=== PATIENT | male | born 1935 | race Caucasian/White ===

== ENCOUNTER 2016-09-17 12:27 | Inpatient (IN) | payer BC, OTHER ==
[~2016-09-17] VITALS: Ht 182.9 cm; Wt 73.7 kg
[~2016-09-17 12:27] MED LIST: ACET-1487 PO; AMOX500T3 PO; ASPI81TA28 PO; ATOR-24 PO; BIOT1TAB5 PO; CALC0.009 TOP; CHOL100010 PO; DOCU100C31 PO; IPRA0.03 NAE; LATA0.009 OPB; LISI10TA PO; MINEOIL26 PO; MULT-506 PO; OMEP20CA9 PO; WARF10TA PO; WARF7.5T PO
[2016-09-17] MEDS ORDERED: SODIUM CHLORIDE 0.9% 1000ML 500 ML IV STA (12:43)
[2016-09-17] MEDS ORDERED: ONDANSETRON INJ 2 MG/ML 2 ML VIAL IV STA (12:43)
[2016-09-17] MEDS ORDERED: SODIUM CHLORIDE 0.9% 1000ML 1,000 ML IV STA (12:43)
[2016-09-17] MEDS ORDERED: MoRPHine SULFATE 4 MG/ML 1 ML CARP\\VIAL IV PRN (12:45)
[2016-09-17] MEDS ORDERED: SIMV40TA2 PO (12:48)
[2016-09-17] MEDS ORDERED: EPP3/2 IM (12:48)
[2016-09-17] MEDS ORDERED: LATA0.5S OP (12:48)
[2016-09-17] MEDS ORDERED: CHOL100010 PO (12:48)
[2016-09-17] MEDS ORDERED: CALC0.009 TD (12:48)
--- NOTE | 2016-09-17 12:57 | EMERGENCY ROOM VISIT NOTE ---
History Report prepared by Ced: Moon Cunningham Under the Supervision of: Dr. Valentin Coats M.D. First contact with patient: 12:37 Chief Complaint: VOMITING Stated Complaint: VOMITING Nursing Triage Summary: pt reports hx of bowel obstructions , last night after eating vomitted X 4 during the night, with extreme abdominal pain last BM 1 day History of Present Illness The patient is a 81 year old male who presents to the Emergency Room with complaints of persistent vomiting that started around 7 hours ago. He rates his discomfort as a 5/10 in severity. The patient states that after he ate dinner last night he started to experience a dull abdominal pain. He woke up from sleep early this morning and he was nauseous. Per the patient's , the patient has vomited 4 times since 0300 this morning. He states that the vomiting is "extremely forceful." The vomiting somewhat relieves his abdominal pain, but the pain always come back after a little bit of time. The patient's also states that the patient's emesis is a brown, foul-smelling liquid. The patient is also experiencing lightheadedness, but denies fevers, cough, recent colds, and diarrhea. The patient states that he experienced two bowel obstructions in the past, but it has been a while since he has experienced one. He states that his symptoms feel similar to his previous bowel obstructions. With prior bowel obstructions, the patient's symptoms were resolved with NG tubes and he has never had them surgically fixed. The patient is on Coumadin for a mechanical valve. Source of History: patient, spouse/significant other () Onset: 7 hours ago Symptom Intensity: 5/10 Quality: other (vomiting) Timing: other (persistent) Associated Symptoms: + abdominal pain (dull), + nausea, No cough, No diarrhea, No fevers Note: lightheadedness, brown, foul-smelling emesis, no recent colds Review of Systems See HPI for pertinent positives & negatives. A total of 10 systems reviewed and were otherwise negative. Past Medical & Surgical Medical Problems: (1) Anticoagulant therapy (2) Bleeding (3) Gastroesophageal reflux disease (4) Heart disease (5) open heart surgery (6) Prosthetic replacement of heart valve (7) right knee surgery (8) skin problems (9) Small bowel obstruction (10) Tonsillectomy (11) urinary problems Family History Heart disease Hypertension Social History Smoking Status: Former Smoker Alcohol Use: occasionally Drug Use: none Marital Status: Housing Status: lives with significant other Occupation Status: employed Current/Historical Medications Scheduled Acetaminophen (Tylenol Arthritis Ext Rel), 650 MG PO QPM Aspirin (Aspirin Ec), 81 MG PO DAILY Biotin (Biotin), 1,000 MCG PO DAILY Cholecalciferol (Vitamin D), 1,000 UNIT PO DAILY Docusate Sodium (Docusate Sodium), 100 MG PO QPM Epinephrine (Epipen), 0.3 MG IM UD Latanoprost (Xalatan 0.005% Oph Tonia), 1 DROPS OP HS Lisinopril (Prinivil), 5 MG PO DAILY Mineral Oil (Mineral Oil), 15 ML PO DAILY Multivitamin (Multivitamin), 1 TAB PO DAILY Omeprazole (Prilosec), 20 MG PO DAILY Simvastatin (Zocor), 40 MG PO QPM Scheduled PRN Amoxicillin (Amoxil), 2,000 MG PO UD PRN for Prior To Dental Procedure Calcipotriene (Dovonex), 1 APPLN TD DAILY PRN for DRY SKIN Ipratropium [place] (Nasal) (Ipratropium [place]), 1 SPRAY [place] DAILY PRN for Sinusitis Miscellaneous Medications Warfarin Sodium (Coumadin), Unknown Dose PO Allergies Coded Allergies: BEE STING (Verified Allergy, Severe, ANAPHYLACTIC REACTION, 09/17/16) PT WENT THROUGH DESENSITIZATION PROCESS Celecoxib (Verified Allergy, Intermediate, HIVES, 09/17/16) Chlorhexidine (Verified Allergy, Intermediate, ITCHING WITH CHLORHEXIDINE SCRUB, 09/17/16) Sulfa Drugs (Verified Allergy, Intermediate, CELEBREX=RASH, 09/17/16) Physical Exam Vital Signs Date Time Temp Pulse Resp B/P Pulse Ox O2 Delivery O2 Flow Rate FiO2 09/17/16 12:34 36.6 97 18 138/100 98 Room Air Physical Exam GENERAL: Patient is in no acute distress. HEENT: No acute trauma, normocephalic atraumatic, mucous membranes moist, no nasal congestion, no scleral icterus. NECK: No stridor, no adenopathy, no meningismus, trachea is midline. LUNGS: Clear to auscultation bilaterally, no wheeze, no rhonchi, breath sounds equal. HEART: Metallic click heard, rhythm slightly irregular at times, no murmurs. ABDOMEN: Soft, nontender, slightly distended, bowel sounds positive, no hernias , no peritonitis. EXTREMITIES: No cyanosis or edema, full range of motion of all the joints without pain or difficulty, no signs for acute trauma. NEUROLOGIC: Oriented x 3, no acute motor or sensory deficits, no focal weakness. SKIN: No rash, no jaundice, no diaphoresis. Medical Decision & Procedures ER Provider Diagnostic Interpretation: CT results as stated below per my review and radiologist interpretation: CT ABD/PELVIS IV CONTRAST ONLY IMPRESSION: 1. High-grade small bowel obstruction. Minimal free fluid. No evidence of pneumatosis. No evidence of portal venous gas. 2. No pathologic masses identified. 3. Etiology of the small bowel obstruction is likely secondary to an adhesion or internal hernia. Electronically signed by: Hudson Patrick M.D. 09/17/2016 2:11 PM Dictated Date/Time: 09/17/2016 2:04 PM Laboratory Results 09/17/16 13:06 Red Blood Count 5.08, Mean Corpuscular Volume 93.5, Mean Corpuscular Hemoglobin 32.1, Mean Corpuscular Hemoglobin Concent 34.3, Mean Platelet Volume 10.7, Neutrophils (%) (Auto) 85.2, Lymphocytes (%) (Auto) 8.8, Monocytes (%) (Auto) 4.0, Eosinophils (%) (Auto) 1.5, Basophils (%) (Auto) 0.2, Neutrophils # (Auto) 12.01, Lymphocytes # (Auto) 1.24, Monocytes # (Auto) 0.57, Eosinophils # (Auto) 0.21, Basophils # (Auto) 0.03 09/17/16 13:06 Test 09/17/16 12:55 09/17/16 13:06 Urine Color DK YELLOW Urine Appearance CLEAR (CLEAR) Urine pH >= 9.0 (4.5-7.5) Urine Specific [place] 1.023 (1.000-1.030) Urine Protein NEG (NEG) Urine Glucose (UA) NEG (NEG) Urine Ketones 1+ (NEG) Urine Occult Blood NEG (NEG) Urine Nitrite NEG (NEG) Urine Bilirubin NEG (NEG) Urine Urobilinogen NEG (NEG) Urine Leukocyte Esterase TRACE (NEG) Urine WBC (Auto) 1-5 /hpf (0-5) Urine RBC (Auto) 5-10 /hpf (0-4) Urine Hyaline Casts (Auto) 1-5 /lpf (0-5) Urine Epithelial Cells (Auto) 5-10 /lpf (0-5) Urine Bacteria (Auto) NEG (NEG) White Blood Count 14.10 K/uL (4.8-10.8) Red Blood Count 5.08 M/uL (4.7-6.1) Hemoglobin 16.3 g/dL (14.0-18.0) Hematocrit 47.5 % (42-52) Mean Corpuscular Volume 93.5 fL (80-100) Mean Corpuscular Hemoglobin 32.1 pg (25-34) Mean Corpuscular Hemoglobin Concent 34.3 g/dl (32-36) Platelet Count 266 K/uL (130-400) Mean Platelet Volume 10.7 fL (7.4-10.4) Neutrophils (%) (Auto) 85.2 % Lymphocytes (%) (Auto) 8.8 % Monocytes (%) (Auto) 4.0 % Eosinophils (%) (Auto) 1.5 % Basophils (%) (Auto) 0.2 % Neutrophils # (Auto) 12.01 K/uL (1.4-6.5) Lymphocytes # (Auto) 1.24 K/uL (1.2-3.4) Monocytes # (Auto) 0.57 K/uL (0.11-0.59) Eosinophils # (Auto) 0.21 K/uL (0-0.5) Basophils # (Auto) 0.03 K/uL (0-0.2) RDW Standard Deviation 46.6 fL (36.4-46.3) RDW Coefficient of Variation 13.6 % (11.5-14.5) Immature Granulocyte % (Auto) 0.3 % Immature Granulocyte # (Auto) 0.04 K/uL (0.00-0.02) Prothrombin Time 30.2 SECONDS (9.0-12.0) Prothromb Time International Ratio 2.7 (0.9-1.1) Activated Partial Thromboplast Time 38.8 SECONDS (21.0-31.0) Partial Thromboplastin Ratio 1.5 Anion Gap 9.0 mmol/L (3-11) Est Creatinine Clear Calc Drug Dose 54.9 ml/min Estimated GFR () 72.6 Estimated GFR (Non- 62.6 BUN/Creatinine Ratio 17.1 (10-20) Calcium Level 9.6 mg/dl (8.5-10.1) Total Bilirubin 1.5 mg/dl (0.2-1) Aspartate Amino Transf (AST/SGOT) 43 U/L (15-37) Alanine Aminotransferase (ALT/SGPT) 34 U/L (12-78) Alkaline Phosphatase 78 U/L (45-117) Total Protein 8.7 gm/dl (6.4-8.2) Albumin 4.7 gm/dl (3.4-5.0) Globulin 4.0 gm/dl (2.5-4.0) Albumin/Globulin Ratio 1.2 (0.9-2) Lipase 164 U/L (73-393) Laboratory results reviewed by me. Medications Administered Medications (Trade) Dose Ordered Sig/Yanique Route Start Time Stop Time Status Last Admin Dose Admin Sodium Chloride (Nss 1000ml) 500 ml @ 999 mls/hr Q31M STAT IV 09/17/16 12:43 09/17/16 13:13 DC 09/17/16 13:06 999 MLS/HR Ondansetron HCl (Zofran Inj) 4 mg NOW STAT IV 09/17/16 12:43 09/17/16 12:46 DC 09/17/16 13:07 4 MG Morphine Sulfate (MoRPHine SULFATE INJ) 4 mg Q30M PRN IV 09/17/16 12:45 10/01/16 12:44 09/17/16 13:07 4 MG ED Course 1238: The patient was evaluated in room B4. A complete history and physical exam was performed. 1243: Ordered Sodium Chloride 1000 ml @ 200 mls/hr IV, Zofran 4 mg IV, Sodium Chloride 500 ml @ 999 mls/hr IV 1245: Ordered Morphine Sulfate 4 mg IV 1418: Upon reexamination the patient is resting comfortably. I informed him that we are going to put a NG tube in and he was in agreement. I discussed results and treatment plan with the patient. He verbalizes agreement and understanding. The patient will be evaluated for further management. 1420: Discussed the patient's case with Dr. Boss - General Surgery. He will see the patient in consult, but wants the hospitalist to admit him. 1435: Discussed the patient's case with Dr. Keiko MAYORGA. The patient will be evaluated for further management. Medical Decision Differential diagnoses considered include small bowel obstruction, viral illness , dehydration, bowel perforation, anemia, generalized infection, electrolyte imbalance. The patient has a mild leukocytosis of 14,000, this could be consistent with infection or his vomiting. No anemia. No significant electrolyte abnormality or kidney failure. No pancreatitis. There was a mild elevation to a few of the liver enzymes. Urinalysis does not show infection. INR is elevated consistent with his Coumadin use. Abdominal and pelvis CT was done, a bowel obstruction was noted, no free air, no signs of abscess. Patient received IV saline, IV morphine and IV Zofran, because of the findings on CT, an NG tube was placed. I did speak with the on-call surgeon, he will see the patient in consult, he requested the patient stay in the hospital under the hospitalist's service. The binder caser has been involved, I spoke at length with the patient. The on- call hospitalist was consulted. Consults Time Called: 1417 Consulting Physician: Dr. Boss Returned Call: 1420 Discussed the patient's case with Dr. Boss - General Surgery. He will see the patient in consult, but wants the hospitalist to admit him. Additional Consults: Time Called: 1422 Consulted Physician: Dr. Keiko MAYORGA Returned Call: 1436 Additional Comments: Discussed the patient's case with Dr. Keiko MAYORGA. The patient will be evaluated for further management. Impression Primary Impression: Small bowel obstruction Scribe Attestation The scribe's documentation has been prepared under my direction and personally reviewed by me in its entirety. I confirm that the note above accurately reflects all work, treatment, procedures, and medical decision making performed by me. Departure Information Dispostion Being Evaluated By Hospitalist Referrals Juan Diego Dias M.D. (PCP) Patient Instructions My [facility]
[2016-09-17] MEDS ORDERED: OPTIRAY 320 IV PRN (13:00)
[2016-09-17 13:07] LABS: URINE APPEARANCE CLEAR (CLEAR); URINE BILIRUBIN NEG (NEG); URINE COLOR DK YELLOW; URINE NITRITE NEG (NEG); URINE PH >= 9.0 (4.5-7.5); URINE SPECIFIC GRAVITY 1.023 (1.000-1.030); UROBILINOGEN NEG (NEG); ZZUR CULT IF INDIC CLEAN CATCH NO
[2016-09-17 13:11] LABS: MANUAL MICROSCOPIC REQUIRED? NO; REVIEW REQ? NO; SULFASALICYLIC ACID NEG (NEG)
[2016-09-17 13:16] LABS: BASO % 0.2 %; BASO ABS # 0.03 K/uL (0-0.2); COMPLETE YES; EOS % 1.5 %; HEMATOCRIT 47.5 % (42-52); IG% 0.3 %; LYMPH % 8.8 %; LYMPH ABS # 1.24 K/uL (1.2-3.4); MEAN CELL VOLUME 93.5 fL (80-100); MEAN CORPUSCULAR HEMOGLOBIN 32.1 pg (25-34); MEAN CORPUSCULAR HGB CONC 34.3 g/dl (32-36); MEAN PLATELET VOLUME 10.7 fL (7.4-10.4); NEUT % 85.2 %; PLATELET COUNT 266 K/uL (130-400); RED BLOOD COUNT 5.08 M/uL (4.7-6.1)
[2016-09-17 13:29] LABS: INR 2.7 (0.9-1.1); PARTIAL THROMBOPLASTIN RATIO 1.5; PROTHROMBIN TIME (PATIENT) 30.2 SECONDS (9.0-12.0)
[2016-09-17 13:30] LABS: BUN/CREATININE RATIO 17.1 (10-20); CALCIUM 9.6 mg/dl (8.5-10.1); CREATININE 1.1 mg/dl (0.60-1.40); POTASSIUM 4.4 mmol/L (3.5-5.1)
[2016-09-17 13:33] LABS: ALB/GLOB RATIO 1.2 (0.9-2)
--- NOTE | 2016-09-17 14:13 | DIAGNOSTIC IMAGING REPORT ---
CT ABD/PELVIS IV CONTRAST ONLY CLINICAL HISTORY: Lower abdominal pain, vomiting. COMPARISON STUDY: None. TECHNIQUE: Following the IV administration of 119 mL of Optiray-320, CT scan of the abdomen and pelvis was performed from the lung bases to the proximal femurs. Images are reviewed in the axial, sagittal, and coronal planes. IV contrast was administered without complication. CT DOSE: 644.62 mGy.cm FINDINGS: Lower chest: There are coronary artery calcifications. There is bibasal atelectasis. There are right middle lobe airspace opacities, possibly representing a pneumonitis. Liver: The contrast-enhanced liver is normal in size, contour, and attenuation. There is no intrahepatic biliary ductal dilatation. The hepatic veins and portal veins are patent. Gallbladder: Unremarkable. Spleen: Normal in size and attenuation. Pancreas: Unremarkable. Adrenal glands: Unremarkable. Kidneys: There is a 15 mm right renal cyst Bowel: There are dilated proximal and mid small bowel loops. Distal small bowel is of normal caliber. The findings are consistent with a high-grade small bowel obstruction. There is tethering of small bowel loops within the central abdomen. The findings are likely secondary to an adhesion or internal hernia. Peritoneum: There is trace free fluid. Vasculature: The abdominal aorta is normal in course and caliber. Adenopathy: None. Pelvic viscera: The bladder, and pelvic viscera are unremarkable. Skeletal structures: No destructive osseous lesions are seen. IMPRESSION: 1. High-grade small bowel obstruction. Minimal free fluid. No evidence of pneumatosis. No evidence of portal venous gas. 2. No pathologic masses identified. 3. Etiology of the small bowel obstruction is likely secondary to an adhesion or internal hernia. Electronically signed by: Hudson Patrick M.D. 09/17/2016 2:11 PM Dictated Date/Time: 09/17/2016 2:04 PM
[2016-09-17] MEDS ORDERED: MoRPHine SULFATE 2 MG/ML CARP IV PRN (15:00)
[2016-09-17] MEDS ORDERED: ONDANSETRON INJ 2 MG/ML 2 ML VIAL IV PRN (15:00)
[2016-09-17] MEDS ORDERED: DiphenhydrAMINE HCL 50 MG/ML VIAL IV PRN (15:00)
[2016-09-17] MEDS ORDERED: PROMETHAZINE HCL INJ 12.5 MG in SODIUM CHLORIDE 0.9% 50ML 50 ML IV PRN (15:00)
[2016-09-17] MEDS ORDERED: LORAZEPAM 2 MG/ML 1 ML VIAL IV PRN (15:00)
[2016-09-17] MEDS ORDERED: BISACODYL 10 MG SUPP PR PRN (15:00)
[2016-09-17] MEDS ORDERED: PROMETHAZINE HCL INJ 25 MG in SODIUM CHLORIDE 0.9% 50ML 50 ML IV PRN (15:00)
[2016-09-17] MEDS ORDERED: WARF10TA PO (15:09)
[2016-09-17] MEDS ORDERED: PIPERACILL/TAZOBAC CONSULT ACTIVE PRN (15:15)
[2016-09-17] MEDS ORDERED: PIPERACILL/TAZOBAC IV 3.375 GM in DEXTROSE 5% 100ML IV ONE (15:30)
[2016-09-17] MEDS ORDERED: LORAZEPAM INJ 0.5 MG in SYRINGE 0.75 ML IV PRN (15:30)
--- NOTE | 2016-09-17 15:38 | SURGICAL CONSULTATION ---
DATE OF ADMISSION: 09/17/2016 REASON FOR CONSULT: Bowel obstruction. HISTORY OF PRESENT ILLNESS: The patient is an 81-year-old male who has had recurrent bowel obstructions with no prior abdominal surgery, presenting to the Emergency Room with abdominal pain, nausea and vomiting over the past 12-18 hours. He did have a CAT scan which showed dilated small bowel with no other abscess, free air or thickening. Interestingly, the patient had a similar episode twice before with the last in 2012, admitted with almost an identical CAT scan, which resolved 2-3 days with NG decompression. He does have an aortic valve which is mechanical and is on Coumadin and fully anticoagulated at the present time either. OTHER PAST HISTORY: The aortic valve, CABG, gastroesophageal reflux disease, hypertension, hypercholesterolemia, coronary artery disease. ALLERGIES: CHLORHEXIDINE AND SULFA. MEDICATIONS: Aspirin, Coumadin, Zocor, and Prilosec. REVIEW OF SYSTEMS: Please see HPI for positives and total of 10 other systems reviewed and were negative. SOCIAL AND FAMILY HISTORY: Unremarkable and noncontributory. PHYSICAL EXAMINATION: GENERAL: He is awake and alert. He is in his ER bed. He has an NG tube in place. He is very responsive. HEENT: Sclerae nonicteric. No rashes. NECK: Supple. LUNGS: Clear. HEART: Regular rate and rhythm. ABDOMEN: Mildly distended. He does have some bowel sounds. Minimal tenderness. EXTREMITIES: Without edema. He is alert. IMAGING AND LABORATORY DATA: I did review the CAT scan. His white blood cell count was 14,000. ASSESSMENT AND PLAN: An 81-year-old male with what appears to be at least a partial small bowel obstruction, now with the NG tube. We will continue with nonoperative management as long as the patient does not worsen. He has no evidence of severe pain to palpation or peritoneal irritation. We will follow closely.
--- NOTE | 2016-09-17 15:47 | History and Physical ---
History & Physical Date & Time of Service: Sep 17, 2016 at 15:32 Chief Complaint: Vomiting Primary Care Physician: Juan Diego Dias M.D. History of Present Illness Source: patient, spouse The patient is an 81-year-old male who presents emergency department with complaint of vomiting that began yesterday, refill resolved overnight, and when he awoke this morning about 7 hours prior to arrival, had progressed and the projectile vomiting. These symptoms were similar to 2 previous episodes of small bowel obstructions which resolved spontaneously in the hospital after 3-5 days. He presented to the emergency department for assessment, had CT suggestive of high-grade small bowel obstruction, had an NG tube placed to low intermittent suction, and then was referred for evaluation for admission. He has not had any recent travels, nor had any known sick exposures, has not had any change in dietary intake. He does have an occasional beer, and admits to a less than ideal fluid intake otherwise. 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 (7) right knee surgery Status: Resolved (8) skin problems Status: Chronic (9) Small bowel obstruction Status: Resolved (10) Tonsillectomy Status: Resolved (11) urinary problems Status: Chronic Family History Heart disease Hypertension Social History Smoking Status: Former Smoker Smokeless Tobacco Use: No Alcohol Use: none Drug Use: none Marital Status: Housing status: lives with family Occupational Status: employed Immunizations History of Influenza Vaccine: Yes Influenza Vaccine Date: May 20, 2012 History of Tetanus Vaccine?: Yes Tetanus Immunization Date: Nov 17, 2002 History of Pneumococcal: Yes Pneumococcal Date: Nov 18, 2007 History of Hepatitis B Vaccine: No Multi-Drug Resistant Organisms History of MDRO: No Allergies Coded Allergies: BEE STING (Verified Allergy, Severe, ANAPHYLACTIC REACTION, 09/17/16) PT WENT THROUGH DESENSITIZATION PROCESS Celecoxib (Verified Allergy, Intermediate, HIVES, 09/17/16) Chlorhexidine (Verified Allergy, Intermediate, ITCHING WITH CHLORHEXIDINE SCRUB, 09/17/16) Sulfa Drugs (Verified Allergy, Intermediate, CELEBREX=RASH, 09/17/16) Home Medications Scheduled Acetaminophen (Tylenol Arthritis Ext Rel), 650 MG PO QPM Aspirin (Aspirin Ec), 81 MG PO DAILY Biotin (Biotin), 1,000 MCG PO DAILY Cholecalciferol (Vitamin D), 1,000 UNIT PO DAILY Docusate Sodium (Docusate Sodium), 100 MG PO QPM Epinephrine (Epipen), 0.3 MG IM UD Latanoprost (Xalatan 0.005% Oph Tonia), 1 DROPS OP HS Lisinopril (Prinivil), 5 MG PO DAILY Mineral Oil (Mineral Oil), 15 ML PO DAILY Multivitamin (Multivitamin), 1 TAB PO DAILY Omeprazole (Prilosec), 20 MG PO DAILY Simvastatin (Zocor), 40 MG PO QPM Warfarin Sodium (Coumadin), 7.5 MG PO 5XWK Warfarin Sodium (Coumadin), 10 MG PO 2XWK Scheduled PRN Amoxicillin (Amoxil), 2,000 MG PO UD PRN for Prior To Dental Procedure Calcipotriene (Dovonex), 1 APPLN TD DAILY PRN for DRY SKIN Ipratropium [place] (Nasal) (Ipratropium [place]), 1 SPRAY [place] DAILY PRN for Sinusitis Review of Systems The patient denies chest pain, palpitations, shortness of breath, cough, lower extremity swelling, vision change, hearing change, sore throat, fevers, chills, sweats, weight change, blood in urine or stool, dysuria, urinary frequency or urgency, lightheadedness, dizziness, headache, memory loss, rash, abnormal bruising or bleeding, imbalance, focal or generalized weakness, numbness or tingling in arms or legs, arthralgias or myalgias, back or neck pain, night sweats, or allergy symptoms. The review of systems is otherwise negative other than for that already noted above, and at least 10 systems have been reviewed. Physical Exam Vital Signs Date Time Temp Pulse Resp B/P Pulse Ox O2 Delivery O2 Flow Rate FiO2 09/17/16 14:40 84 18 145/79 95 Room Air 09/17/16 12:34 36.6 97 18 138/100 98 Room Air The patient is awake, well-developed and adequately nourished, alert and oriented 3, NG tube in place, lying in bed and in no acute distress. HEENT--PERRL, EOMI, mucous membranes and oropharynx dry. Neck--supple, no JVD or bruits, thyroid normal, trachea midline, no adenopathy. Heart--normal S1 and S2, no extra beats, no murmurs, rubs or gallops. Lungs--clear bilaterally with good air movement, no respiratory distress, no accessory muscle use. Abdomen--decreased bowel sounds and soft, nontender, mildly distended, no hernias or masses, no organomegaly. Extremities--no cyanosis, clubbing or edema. There are good distal pulses b/l. Dermatologic--normal skin turgor, normal color, warm and dry, no abnormal lymph nodes, no rash. Neurologic--cranial nerves II through XII grossly intact, motor and sensory examination normal. Rheumatologic--normal range of motion, nontender, muscles and joints. Psychiatric--normal affect. Diagnostics Laboratory Results Results Past 24 Hours Test 09/17/16 12:55 09/17/16 13:06 Range/Units Urine Color DK YELLOW Urine Appearance CLEAR CLEAR Urine pH >= 9.0 4.5-7.5 Urine Specific [place] 1.023 1.000-1.030 Urine Protein NEG NEG Urine Glucose (UA) NEG NEG Urine Ketones 1+ NEG Urine Occult Blood NEG NEG Urine Nitrite NEG NEG Urine Bilirubin NEG NEG Urine Urobilinogen NEG NEG Urine Leukocyte Esterase TRACE NEG Urine WBC (Auto) 1-5 0-5 /hpf Urine RBC (Auto) 5-10 0-4 /hpf Urine Hyaline Casts (Auto) 1-5 0-5 /lpf Urine Epithelial Cells (Auto) 5-10 0-5 /lpf Urine Bacteria (Auto) NEG NEG White Blood Count 14.10 4.8-10.8 K/uL Red Blood Count 5.08 4.7-6.1 M/uL Hemoglobin 16.3 14.0-18.0 g/dL Hematocrit 47.5 42-52 % Mean Corpuscular Volume 93.5 80-100 fL Mean Corpuscular Hemoglobin 32.1 25-34 pg Mean Corpuscular Hemoglobin Concent 34.3 32-36 g/dl Platelet Count 266 130-400 K/uL Mean Platelet Volume 10.7 7.4-10.4 fL Neutrophils (%) (Auto) 85.2 % Lymphocytes (%) (Auto) 8.8 % Monocytes (%) (Auto) 4.0 % Eosinophils (%) (Auto) 1.5 % Basophils (%) (Auto) 0.2 % Neutrophils # (Auto) 12.01 1.4-6.5 K/uL Lymphocytes # (Auto) 1.24 1.2-3.4 K/uL Monocytes # (Auto) 0.57 0.11-0.59 K/uL Eosinophils # (Auto) 0.21 0-0.5 K/uL Basophils # (Auto) 0.03 0-0.2 K/uL RDW Standard Deviation 46.6 36.4-46.3 fL RDW Coefficient of Variation 13.6 11.5-14.5 % Immature Granulocyte % (Auto) 0.3 % Immature Granulocyte # (Auto) 0.04 0.00-0.02 K/uL Prothrombin Time 30.2 9.0-12.0 SECONDS Prothromb Time International Ratio 2.7 0.9-1.1 Activated Partial Thromboplast Time 38.8 21.0-31.0 SECONDS Partial Thromboplastin Ratio 1.5 Sodium Level 140 136-145 mmol/L Potassium Level 4.4 3.5-5.1 mmol/L Chloride Level 99 98-107 mmol/L Carbon Dioxide Level 32 21-32 mmol/L Anion Gap 9.0 3-11 mmol/L Blood Urea Nitrogen 19 7-18 mg/dl Creatinine 1.10 0.60-1.40 mg/dl Est Creatinine Clear Calc Drug Dose 54.9 ml/min Estimated GFR () 72.6 Estimated GFR (Non- 62.6 BUN/Creatinine Ratio 17.1 10-20 Random Glucose 117 70-99 mg/dl Calcium Level 9.6 8.5-10.1 mg/dl Total Bilirubin 1.5 0.2-1 mg/dl Aspartate Amino Transf (AST/SGOT) 43 15-37 U/L Alanine Aminotransferase (ALT/SGPT) 34 12-78 U/L Alkaline Phosphatase 78 45-117 U/L Total Protein 8.7 6.4-8.2 gm/dl Albumin 4.7 3.4-5.0 gm/dl Globulin 4.0 2.5-4.0 gm/dl Albumin/Globulin Ratio 1.2 0.9-2 Lipase 164 73-393 U/L Diagnostic Radiology Patient Name: KENISHA SMALL Unit Number: [id number] Dictated: 09/17/161403 Transcribed: 09/17/161403 ARG Printed Date/Time: [~ rep prt dt]/[~ rep prt tm] [~ rep ct labl] - [~ rep ct ivnm] [facility] [place] [address] Dictated: 09/17/161403 Transcribed: 09/17/161403 ARG Printed Date/Time: [~ rep prt dt]/[~ rep prt tm] [~ rep ct labl] - [~ rep ct ivnm] CT ABD/PELVIS IV CONTRAST ONLY CLINICAL HISTORY: Lower abdominal pain, vomiting. COMPARISON STUDY: None. TECHNIQUE: Following the IV administration of 119 mL of Optiray-320, CT scan of the abdomen and pelvis was performed from the lung bases to the proximal femurs. Images are reviewed in the axial, sagittal, and coronal planes. IV contrast was administered without complication. CT DOSE: 644.62 mGy.cm FINDINGS: Lower chest: There are coronary artery calcifications. There is bibasal atelectasis. There are right middle lobe airspace opacities, possibly representing a pneumonitis. Liver: The contrast-enhanced liver is normal in size, contour, and attenuation. There is no intrahepatic biliary ductal dilatation. The hepatic veins and portal veins are patent. Gallbladder: Unremarkable. Spleen: Normal in size and attenuation. Pancreas: Unremarkable. Adrenal glands: Unremarkable. Kidneys: There is a 15 mm right renal cyst Bowel: There are dilated proximal and mid small bowel loops. Distal small bowel is of normal caliber. The findings are consistent with a high-grade small bowel obstruction. There is tethering of small bowel loops within the central abdomen. The findings are likely secondary to an adhesion or internal hernia. Peritoneum: There is trace free fluid. Vasculature: The abdominal aorta is normal in course and caliber. Adenopathy: None. Pelvic viscera: The bladder, and pelvic viscera are unremarkable. Skeletal structures: No destructive osseous lesions are seen. IMPRESSION: 1. High-grade small bowel obstruction. Minimal free fluid. No evidence of pneumatosis. No evidence of portal venous gas. 2. No pathologic masses identified. 3. Etiology of the small bowel obstruction is likely secondary to an adhesion or internal hernia. Electronically signed by: Hudson Patrick M.D. 09/17/2016 2:11 PM Dictated Date/Time: 09/17/2016 2:04 PM The status of this report is Signed. Draft = Not yet reviewed or approved by Radiologist. Signed = Reviewed and approved by Radiologist. <AttendingPhy></AttendingPhy> <FamilyPhy>Juan Diego Dias M.D.</FamilyPhy> < PrimaryPhy>Juan Diego Dias M.D.</PrimaryPhy> <UnitNumber>[id number]</ UnitNumber> <VisitNumber>[id number]</VisitNumber> <PatientName>KENISHA SMALL< /PatientName> <DateOfBirth>1935</DateOfBirth> <Location>C.EDB</Location> < ServiceDate>09/17/16</ServiceDate> <MNE>ESINDI</MNE> <OrderingPhy>Valentin Coats M.D.</OrderingPhy> <OrderingPhyMNE>f rep ord dr belcher</OrderingPhyMNE> < DictatingPhyMNE>f rep dict dr belcher</DictatingPhyMNE> <CCListMNE>f rep ct ye</ CCListMNE> <AdmittingPhyMNE>f pt admit dr belcher</AdmittingPhyMNE> <AttendingPhyMNE >f pt attend dr belcher</AttendingPhyMNE> <ConsultingPhyMNE>f pt consult dr belcher</ConsultingPhyMNE> <FamilyPhyMNE>f pt fam dr belcher</FamilyPhyMNE> <OtherPhyMNE>f pt other dr belcher</OtherPhyMNE> < PrimaryPhyMNE>f pt prim care dr belcher</PrimaryPhyMNE> <ReferringPhyMNE>f pt referring dr belcher</ReferringPhyMNE> EKG EKG is ordered and pending. Impression Assessment and Plan High-grade small bowel obstruction likely secondary to adhesions or internal hernia--the patient has had 2 previous episodes that have resolved spontaneously in 3-5 days. He'll be admitted to the medical surgical floor, with NG tube to low intermittent suction, nothing by mouth status, normal saline with potassium chloride 20 mEq at 100 mils per hour, pantoprazole 40 mg IV daily, Zofran 4 mg IV every 6 hours when necessary with repeat in 30 minutes as needed, and Zosyn 3.375 mg IV every 8 hours. We'll follow serial imaging studies and labs. Consult surgery Dr. Ignacio Boss. CAD/Prosthetic heart valve replacement/chronic anticoagulation with warfarin-- his present INR is therapeutic at 2.7. His warfarin will be held, and the patient will be started on a heparin drip per protocol, so that it may be stopped quickly if the patient were to require surgery. We'll follow serial INR. We will hold aspirin 81 mg by mouth daily, and lisinopril 5 mg by mouth daily. Hypercholesterolemia--hold simvastatin 40 mg by mouth every afternoon. GERD--change omeprazole 20 mg by mouth daily to 40 mg IV daily as noted above. Glaucoma--continue Xalatan 0.005% ophthalmic solution, 1 drop OPB at bedtime. Nutraceuticals--hold acetaminophen, biotin, vitamin D, docusate sodium, mineral oil, and multivitamin. Anaphylaxis--uses EpiPen in the outpatient setting. Level of Care Med/Surg Advanced Directives Existing Advance Directive: No Existing Living Will: No Existing Power of Antiquer: No Resuscitation Status FULL RESUSCITATION VTE Prophylaxis VTE Risk Assessment Done? Y/N: Yes Risk Level: Moderate Given or contraindicated: Unfractionated heparin SQ, Warfarin (Coumadin), SCD's Social Service Consult None Apply
[2016-09-17 16:15] VITALS: BP 134/70; PULSE 90; TEMP 36.8; O2SAT 96
[2016-09-17] MEDS ORDERED: HEPARIN IV LOW DOSE NO BOLUS SCH (16:34)
[2016-09-17 17:05] VITALS: BP 134/70; PULSE 90; TEMP 36.8; O2SAT 96; BMI 22.0
[2016-09-17] MEDS: NSS + 20MEQ KCL 1000ML 1,000 ML IV SCH (17:32)
[2016-09-17] MEDS: PIPERACILL/TAZOBAC IV 3.375 GM in DEXTROSE 5% 100ML IV SCH (20:13)
[2016-09-17] MEDS: LATANOPROST 0.005% OP SOLN 2.5 ML BTL OP SCH (20:18)
[2016-09-17] MEDS ORDERED: PIPERACILL/TAZOBAC IV 3.375 GM in DEXTROSE 5% 100ML 100 ML IV SCH (22:00)
[2016-09-17 23:05] VITALS: BP 138/70; PULSE 88; TEMP 36.8; O2SAT 94
[2016-09-18] MEDS: NSS + 20MEQ KCL 1000ML 1,000 ML IV SCH ×3 (03:59→22:39)
[2016-09-18] MEDS: PIPERACILL/TAZOBAC IV 3.375 GM in DEXTROSE 5% 100ML IV SCH ×2 (03:59→11:54)
[2016-09-18 05:58] LABS: BASO % 0.3 %; BASO ABS # 0.02 K/uL (0-0.2); COMPLETE YES; EOS % 2.9 %; HEMATOCRIT 38.2 % (42-52); IG% 0.2 %; LYMPH ABS # 0.73 K/uL (1.2-3.4); MEAN CELL VOLUME 93.6 fL (80-100); MEAN CORPUSCULAR HEMOGLOBIN 31.6 pg (25-34); MEAN CORPUSCULAR HGB CONC 33.8 g/dl (32-36); MEAN PLATELET VOLUME 10.7 fL (7.4-10.4); MONO % 18.4 %; NEUT % 67.2 %; PLATELET COUNT 192 K/uL (130-400); RED BLOOD COUNT 4.08 M/uL (4.7-6.1); WHITE BLOOD COUNT 6.63 K/uL (4.8-10.8)
[2016-09-18] MEDS ORDERED: HEPARIN IV LOW DOSE NO BOLUS ONE (06:00)
[2016-09-18 06:10] LABS: INR 3.3 (0.9-1.1); PARTIAL THROMBOPLASTIN RATIO 1.8; PROTHROMBIN TIME (PATIENT) 36.9 SECONDS (9.0-12.0)
[2016-09-18 06:47] LABS: BUN/CREATININE RATIO 19.8 (10-20); CREATININE 1.1 mg/dl (0.60-1.40); MAGNESIUM 2.3 mg/dl (1.8-2.4); POTASSIUM 4.1 mmol/L (3.5-5.1)
[2016-09-18 07:37] VITALS: BP 109/66; PULSE 64; TEMP 36.5; O2SAT 96
--- NOTE | 2016-09-18 10:52 | Surgery Progress Note ---
Surgery Progress Note Date of Service Sep 18, 2016. Subjective No nausea, No vomiting NG minimal output- feeling better, less bloated Objective Vital Signs: Date Time Temp Pulse Resp B/P Pulse Ox O2 Delivery O2 Flow Rate FiO2 09/18/16 07:37 36.5 64 16 109/66 96 Room Air 09/17/16 23:18 Room Air 09/17/16 23:05 36.8 88 16 138/70 94 Room Air 09/17/16 17:05 36.8 90 16 134/70 96 Room Air 09/17/16 16:15 36.8 90 16 134/70 96 Room Air 09/17/16 14:40 84 18 145/79 95 Room Air 09/17/16 12:34 36.6 97 18 138/100 98 Room Air General Appearance: no apparent distress Respiratory/Chest: no respiratory distress Abdomen: normal bowel sounds, soft Laboratory Results: Results Past 24 Hours Test 09/17/16 12:55 09/17/16 13:06 09/18/16 05:30 Range/Units Urine Color DK YELLOW Urine Appearance CLEAR CLEAR Urine pH >= 9.0 4.5-7.5 Urine Specific [place] 1.023 1.000-1.030 Urine Protein NEG NEG Urine Glucose (UA) NEG NEG Urine Ketones 1+ NEG Urine Occult Blood NEG NEG Urine Nitrite NEG NEG Urine Bilirubin NEG NEG Urine Urobilinogen NEG NEG Urine Leukocyte Esterase TRACE NEG Urine WBC (Auto) 1-5 0-5 /hpf Urine RBC (Auto) 5-10 0-4 /hpf Urine Hyaline Casts (Auto) 1-5 0-5 /lpf Urine Epithelial Cells (Auto) 5-10 0-5 /lpf Urine Bacteria (Auto) NEG NEG White Blood Count 14.10 6.63 4.8-10.8 K/uL Red Blood Count 5.08 4.08 4.7-6.1 M/uL Hemoglobin 16.3 12.9 14.0-18.0 g/dL Hematocrit 47.5 38.2 42-52 % Mean Corpuscular Volume 93.5 93.6 80-100 fL Mean Corpuscular Hemoglobin 32.1 31.6 25-34 pg Mean Corpuscular Hemoglobin Concent 34.3 33.8 32-36 g/dl Platelet Count 266 192 130-400 K/uL Mean Platelet Volume 10.7 10.7 7.4-10.4 fL Neutrophils (%) (Auto) 85.2 67.2 % Lymphocytes (%) (Auto) 8.8 11.0 % Monocytes (%) (Auto) 4.0 18.4 % Eosinophils (%) (Auto) 1.5 2.9 % Basophils (%) (Auto) 0.2 0.3 % Neutrophils # (Auto) 12.01 4.46 1.4-6.5 K/uL Lymphocytes # (Auto) 1.24 0.73 1.2-3.4 K/uL Monocytes # (Auto) 0.57 1.22 0.11-0.59 K/uL Eosinophils # (Auto) 0.21 0.19 0-0.5 K/uL Basophils # (Auto) 0.03 0.02 0-0.2 K/uL RDW Standard Deviation 46.6 48.2 36.4-46.3 fL RDW Coefficient of Variation 13.6 14.1 11.5-14.5 % Immature Granulocyte % (Auto) 0.3 0.2 % Immature Granulocyte # (Auto) 0.04 0.01 0.00-0.02 K/uL Prothrombin Time 30.2 36.9 9.0-12.0 SECONDS Prothromb Time International Ratio 2.7 3.3 0.9-1.1 Activated Partial Thromboplast Time 38.8 46.4 21.0-31.0 SECONDS Partial Thromboplastin Ratio 1.5 1.8 Sodium Level 140 145 136-145 mmol/L Potassium Level 4.4 4.1 3.5-5.1 mmol/L Chloride Level 99 108 98-107 mmol/L Carbon Dioxide Level 32 27 21-32 mmol/L Anion Gap 9.0 10.0 3-11 mmol/L Blood Urea Nitrogen 19 22 7-18 mg/dl Creatinine 1.10 1.10 0.60-1.40 mg/dl Est Creatinine Clear Calc Drug Dose 54.9 54.9 ml/min Estimated GFR () 72.6 72.6 Estimated GFR (Non- 62.6 62.6 BUN/Creatinine Ratio 17.1 19.8 10-20 Random Glucose 117 101 70-99 mg/dl Calcium Level 9.6 8.0 8.5-10.1 mg/dl Total Bilirubin 1.5 1.3 0.2-1 mg/dl Aspartate Amino Transf (AST/SGOT) 43 30 15-37 U/L Alanine Aminotransferase (ALT/SGPT) 34 25 12-78 U/L Alkaline Phosphatase 78 52 45-117 U/L Total Protein 8.7 6.7 6.4-8.2 gm/dl Albumin 4.7 3.3 3.4-5.0 gm/dl Globulin 4.0 2.5-4.0 gm/dl Albumin/Globulin Ratio 1.2 0.9-2 Lipase 164 73-393 U/L Magnesium Level 2.3 1.8-2.4 mg/dl Direct Bilirubin 0.3 0-0.2 mg/dl Assessment & Plan 09/18/16- adm with abd pain, N/V- improved- leave NG today cont IV fluids
[2016-09-18] MEDS: PANTOprazole INJ 40 MG in SYRINGE 0 ML IV SCH (11:54)
[2016-09-18] MEDS ORDERED: IPRATROPIUM BROMIDE 0.03% PRN (14:00)
[2016-09-18 15:39] VITALS: BP 143/71; PULSE 83; TEMP 36.8; O2SAT 95
[2016-09-18] MEDS: LATANOPROST 0.005% OP SOLN 2.5 ML BTL OP SCH (20:35)
[2016-09-18 23:09] VITALS: BP 164/78; PULSE 77; TEMP 36.6; O2SAT 95
[2016-09-19] VITALS (7 sets, daily range): BP systolic 151–168; BP diastolic 72–81; PULSE 70–85; TEMP 36.6–36.8; O2SAT 96–98
[2016-09-19] MEDS ORDERED: MINERAL OIL 30 ML UDC PO STA (06:21)
[2016-09-19] MEDS ORDERED: NURSING VERBAL MED ORDER ONE (06:30)
[2016-09-19] MEDS: SENNA 8.8 MG/5 ML UDP PO SCH ×2 (06:42→20:41)
[2016-09-19] MEDS ORDERED: D5W AND 1/2NSS + 20MEQ KCL 1,000 ML IV SCH (06:45)
[2016-09-19 07:31] LABS: BASO % 0.5 %; BASO ABS # 0.03 K/uL (0-0.2); COMPLETE YES; EOS % 4.8 %; HEMATOCRIT 38.6 % (42-52); IG% 0.2 %; LYMPH % 15.3 %; LYMPH ABS # 0.85 K/uL (1.2-3.4); MEAN CELL VOLUME 95.1 fL (80-100); MEAN CORPUSCULAR HEMOGLOBIN 31.5 pg (25-34); MEAN CORPUSCULAR HGB CONC 33.2 g/dl (32-36); MEAN PLATELET VOLUME 10.4 fL (7.4-10.4); MONO % 12.4 %; NEUT % 66.8 %; PLATELET COUNT 172 K/uL (130-400); RED BLOOD COUNT 4.06 M/uL (4.7-6.1); WHITE BLOOD COUNT 5.57 K/uL (4.8-10.8)
[2016-09-19 07:46] LABS: INR 3.3 (0.9-1.1); PARTIAL THROMBOPLASTIN RATIO 1.9; PROTHROMBIN TIME (PATIENT) 37.1 SECONDS (9.0-12.0)
--- NOTE | 2016-09-19 07:53 | Surgery Progress Note ---
Surgery Progress Note Date of Service Sep 19, 2016. Subjective + flatus, No bowel movement, No nausea, No vomiting min NG output, some mild crampy abd pain Objective Vital Signs: Date Time Temp Pulse Resp B/P Pulse Ox O2 Delivery O2 Flow Rate FiO2 09/19/16 07:45 36.6 72 16 162/76 97 Room Air 09/19/16 04:00 151/81 09/19/16 00:00 Room Air 09/18/16 23:09 36.6 77 16 164/78 95 Room Air 09/18/16 15:39 36.8 83 18 143/71 95 Room Air 09/18/16 15:35 Room Air 09/18/16 08:00 Room Air General Appearance: no apparent distress Respiratory/Chest: no respiratory distress Abdomen: non distended, soft (some bowel sounds) Laboratory Results: Results Past 24 Hours Test 09/19/16 03:55 09/19/16 06:50 Range/Units Bedside Glucose 69 70-99 mg/dl White Blood Count 5.57 4.8-10.8 K/uL Red Blood Count 4.06 4.7-6.1 M/uL Hemoglobin 12.8 14.0-18.0 g/dL Hematocrit 38.6 42-52 % Mean Corpuscular Volume 95.1 80-100 fL Mean Corpuscular Hemoglobin 31.5 25-34 pg Mean Corpuscular Hemoglobin Concent 33.2 32-36 g/dl Platelet Count 172 130-400 K/uL Mean Platelet Volume 10.4 7.4-10.4 fL Neutrophils (%) (Auto) 66.8 % Lymphocytes (%) (Auto) 15.3 % Monocytes (%) (Auto) 12.4 % Eosinophils (%) (Auto) 4.8 % Basophils (%) (Auto) 0.5 % Neutrophils # (Auto) 3.72 1.4-6.5 K/uL Lymphocytes # (Auto) 0.85 1.2-3.4 K/uL Monocytes # (Auto) 0.69 0.11-0.59 K/uL Eosinophils # (Auto) 0.27 0-0.5 K/uL Basophils # (Auto) 0.03 0-0.2 K/uL RDW Standard Deviation 47.4 36.4-46.3 fL RDW Coefficient of Variation 13.7 11.5-14.5 % Immature Granulocyte % (Auto) 0.2 % Immature Granulocyte # (Auto) 0.01 0.00-0.02 K/uL Assessment & Plan 09/19/16- improved , much less distended- try clamping NG tube- add dose of min oil and senna syrup- leave NG today- depending on progress tomorrow may consider CT with contrast via NG 09/18/16- adm with abd pain, N/V- improved- leave NG today cont IV fluids 09/18/16- adm with abd pain, N/V- improved- leave NG today cont IV fluids
[2016-09-19 08:04] LABS: CALCIUM 8.6 mg/dl (8.5-10.1); CREATININE 0.86 mg/dl (0.60-1.40); MAGNESIUM 2.3 mg/dl (1.8-2.4); POTASSIUM 3.8 mmol/L (3.5-5.1)
[2016-09-19] MEDS ORDERED: DiphenhydrAMINE HCL 50 MG/ML VIAL IV PRN (11:00)
--- NOTE | 2016-09-19 11:05 | Hospitalist Progress Note ---
Hospitalist Progress Note Date of Service Sep 19, 2016. Subjective Pt evaluation today including: conversation w/ family, physical exam, chart review, lab review, review of studies, review of inpatient medication list NGT is clamped currently. He has not had nausea or vomiting. He is plagued by clear nasal drainage which is a chronic problem for him, but has been exacerbated by the irritation from the NGT. I will ask nursing to give a dose of Benadryl for any benefit to decrease nasal secretion. If successful he may use often, if not we at least tried. Additional Comments: A 10 system review was performed and all were negative. Positives were placed in the subjective section. Objective Vital Signs Date Time Temp Pulse Resp B/P Pulse Ox O2 Delivery O2 Flow Rate FiO2 09/19/16 08:00 Room Air 09/19/16 07:45 36.6 72 16 162/76 97 Room Air 09/19/16 04:00 151/81 09/19/16 00:00 Room Air 09/18/16 23:09 36.6 77 16 164/78 95 Room Air 09/18/16 15:39 36.8 83 18 143/71 95 Room Air 09/18/16 15:35 Room Air Physical Exam Notes: GEN: Awake, alert, and oriented x 3. Not in acute distress HEENT: Tm's intact, no inflammation, EOMI, PERRLA, MMM Neck: Soft, supple Lungs: CTA b/l, no r/r/w Heart: REG, nrl S1S2 without murmurs, rubs or gallops Abdomen: Soft, NT, ND, + BS, NGT clamped. EXT: No C/C/E NEURO: CN's II-XII grossly intact, non-focal Skin: warm, dry, no rashes PSYCH: pleasant, cooperative, no signs of significant anxiety or depression. Laboratory Results Last 24 Hours Test 09/19/16 03:55 09/19/16 06:50 Bedside Glucose 69 mg/dl White Blood Count 5.57 K/uL Red Blood Count 4.06 M/uL Hemoglobin 12.8 g/dL Hematocrit 38.6 % Mean Corpuscular Volume 95.1 fL Mean Corpuscular Hemoglobin 31.5 pg Mean Corpuscular Hemoglobin Concent 33.2 g/dl Platelet Count 172 K/uL Mean Platelet Volume 10.4 fL Neutrophils (%) (Auto) 66.8 % Lymphocytes (%) (Auto) 15.3 % Monocytes (%) (Auto) 12.4 % Eosinophils (%) (Auto) 4.8 % Basophils (%) (Auto) 0.5 % Neutrophils # (Auto) 3.72 K/uL Lymphocytes # (Auto) 0.85 K/uL Monocytes # (Auto) 0.69 K/uL Eosinophils # (Auto) 0.27 K/uL Basophils # (Auto) 0.03 K/uL RDW Standard Deviation 47.4 fL RDW Coefficient of Variation 13.7 % Immature Granulocyte % (Auto) 0.2 % Immature Granulocyte # (Auto) 0.01 K/uL Prothrombin Time 37.1 SECONDS Prothromb Time International Ratio 3.3 Activated Partial Thromboplast Time 49.9 SECONDS Partial Thromboplastin Ratio 1.9 Sodium Level 147 mmol/L Potassium Level 3.8 mmol/L Chloride Level 112 mmol/L Carbon Dioxide Level 22 mmol/L Anion Gap 13.0 mmol/L Blood Urea Nitrogen 16 mg/dl Creatinine 0.86 mg/dl Est Creatinine Clear Calc Drug Dose 70.2 ml/min Estimated GFR () 94.3 Estimated GFR (Non- 81.3 BUN/Creatinine Ratio 18.0 Random Glucose 64 mg/dl Calcium Level 8.6 mg/dl Phosphorus Level 2.2 mg/dl Magnesium Level 2.3 mg/dl Total Bilirubin 1.1 mg/dl Direct Bilirubin 0.2 mg/dl Aspartate Amino Transf (AST/SGOT) 34 U/L Alanine Aminotransferase (ALT/SGPT) 22 U/L Alkaline Phosphatase 45 U/L Total Protein 6.4 gm/dl Albumin 3.2 gm/dl Assessment and Plan 1) SBO - NGT clamped, surgery managing. 2) Mild Hypernatremia - will adjust IVF to decrease Na. 3) Rhinitis - using Atrovent nasal spray as he does at home. Try antihistamine IV form - hoping for benefit. 4) Prosthetic heart valve - INR remains at 3.3 today - has been off warfarin for 3 days now. 5) GERD IV protonix DVT prophylaxis covered by heparin gtt. Continued [facility] stay due to: inadequate po fluid intake Discharge planning: home
[2016-09-19] MEDS: PANTOprazole INJ 40 MG in SYRINGE 0 ML IV SCH (11:20)
[2016-09-19] MEDS: D5W AND 1/4NSS + 20MEQ KCL 1,000 ML IV SCH ×2 (11:20→23:25)
[2016-09-19] MEDS: HydrALAZINE HCL 20 MG/ML VIAL IV. PRN ×3 (11:21→23:25)
[2016-09-19] MEDS: LATANOPROST 0.005% OP SOLN 2.5 ML BTL OP SCH (20:41)
[2016-09-20] VITALS: BP 147/74
--- NOTE | 2016-09-20 06:07 | Surgery Progress Note ---
Surgery Progress Note Date of Service Sep 20, 2016. Subjective + bowel movement, + flatus, No nausea, No vomiting wants NG out- min output Objective Vital Signs: Date Time Temp Pulse Resp B/P Pulse Ox O2 Delivery O2 Flow Rate FiO2 09/20/16 00:00 147/74 09/19/16 23:11 36.8 74 16 165/77 96 Room Air 09/19/16 19:30 Room Air 09/19/16 17:52 70 154/72 09/19/16 15:26 36.8 70 14 166/74 98 Room Air 09/19/16 12:56 85 152/72 09/19/16 11:03 85 16 168/76 98 Room Air 09/19/16 08:00 Room Air 09/19/16 07:45 36.6 72 16 162/76 97 Room Air General Appearance: no apparent distress Respiratory/Chest: no respiratory distress Abdomen: normal bowel sounds, soft Laboratory Results: Results Past 24 Hours Test 09/19/16 06:50 09/20/16 04:44 Range/Units White Blood Count 5.57 4.8-10.8 K/uL Red Blood Count 4.06 4.7-6.1 M/uL Hemoglobin 12.8 14.0-18.0 g/dL Hematocrit 38.6 42-52 % Mean Corpuscular Volume 95.1 80-100 fL Mean Corpuscular Hemoglobin 31.5 25-34 pg Mean Corpuscular Hemoglobin Concent 33.2 32-36 g/dl Platelet Count 172 130-400 K/uL Mean Platelet Volume 10.4 7.4-10.4 fL Neutrophils (%) (Auto) 66.8 % Lymphocytes (%) (Auto) 15.3 % Monocytes (%) (Auto) 12.4 % Eosinophils (%) (Auto) 4.8 % Basophils (%) (Auto) 0.5 % Neutrophils # (Auto) 3.72 1.4-6.5 K/uL Lymphocytes # (Auto) 0.85 1.2-3.4 K/uL Monocytes # (Auto) 0.69 0.11-0.59 K/uL Eosinophils # (Auto) 0.27 0-0.5 K/uL Basophils # (Auto) 0.03 0-0.2 K/uL RDW Standard Deviation 47.4 36.4-46.3 fL RDW Coefficient of Variation 13.7 11.5-14.5 % Immature Granulocyte % (Auto) 0.2 % Immature Granulocyte # (Auto) 0.01 0.00-0.02 K/uL Prothrombin Time 37.1 9.0-12.0 SECONDS Prothromb Time International Ratio 3.3 0.9-1.1 Activated Partial Thromboplast Time 49.9 21.0-31.0 SECONDS Partial Thromboplastin Ratio 1.9 Sodium Level 147 136-145 mmol/L Potassium Level 3.8 3.5-5.1 mmol/L Chloride Level 112 98-107 mmol/L Carbon Dioxide Level 22 21-32 mmol/L Anion Gap 13.0 3-11 mmol/L Blood Urea Nitrogen 16 7-18 mg/dl Creatinine 0.86 0.60-1.40 mg/dl Est Creatinine Clear Calc Drug Dose 70.2 ml/min Estimated GFR () 94.3 Estimated GFR (Non- 81.3 BUN/Creatinine Ratio 18.0 10-20 Random Glucose 64 70-99 mg/dl Calcium Level 8.6 8.5-10.1 mg/dl Phosphorus Level 2.2 2.5-4.9 mg/dl Magnesium Level 2.3 1.8-2.4 mg/dl Total Bilirubin 1.1 0.2-1 mg/dl Direct Bilirubin 0.2 0-0.2 mg/dl Aspartate Amino Transf (AST/SGOT) 34 15-37 U/L Alanine Aminotransferase (ALT/SGPT) 22 12-78 U/L Alkaline Phosphatase 45 45-117 U/L Total Protein 6.4 6.4-8.2 gm/dl Albumin 3.2 3.4-5.0 gm/dl Assessment & Plan 09/20/16- improved GI function- d/c NG, clear liquids. dose of min oil and Senokot S, check labs, Mg , Phos 09/19/16- improved , much less distended- try clamping NG tube- add dose of min oil and senna syrup- leave NG today- depending on progress tomorrow may consider CT with contrast via NG 09/18/16- adm with abd pain, N/V- improved- leave NG today cont IV fluids 09/19/16- improved , much less distended- try clamping NG tube- add dose of min oil and senna syrup- leave NG today- depending on progress tomorrow may consider CT with contrast via NG 09/18/16- adm with abd pain, N/V- improved- leave NG today cont IV fluids
[2016-09-20 07:02] VITALS: BP 141/53; PULSE 72; TEMP 36.9; O2SAT 99
[2016-09-20 07:39] LABS: BASO % 0.5 %; BASO ABS # 0.03 K/uL (0-0.2); COMPLETE YES; EOS % 3.1 %; HEMATOCRIT 39.2 % (42-52); IG% 0.2 %; LYMPH % 15.3 %; LYMPH ABS # 0.98 K/uL (1.2-3.4); MEAN CELL VOLUME 93.6 fL (80-100); MEAN CORPUSCULAR HGB CONC 34.2 g/dl (32-36); MEAN PLATELET VOLUME 10.2 fL (7.4-10.4); MONO % 11.5 %; NEUT % 69.4 %; PLATELET COUNT 201 K/uL (130-400); RED BLOOD COUNT 4.19 M/uL (4.7-6.1); WHITE BLOOD COUNT 6.41 K/uL (4.8-10.8)
[2016-09-20 07:58] LABS: INR 3.3 (0.9-1.1); PROTHROMBIN TIME (PATIENT) 36.8 SECONDS (9.0-12.0)
[2016-09-20] MEDS ORDERED: MINERAL OIL 30 ML UDC PO ONE (08:00)
[2016-09-20] MEDS: DOCUSATE SODIUM/SENNA 50/8.6MG TAB PO SCH ×3 (08:02→21:01)
[2016-09-20 08:08] LABS: BUN/CREATININE RATIO 10.9 (10-20); CALCIUM 8.6 mg/dl (8.5-10.1); CREATININE 0.74 mg/dl (0.60-1.40); MAGNESIUM 2.1 mg/dl (1.8-2.4); POTASSIUM 3.6 mmol/L (3.5-5.1)
[2016-09-20 11:15] VITALS: Ht 182.9 cm; Wt 73.7 kg
[2016-09-20] MEDS: PANTOprazole INJ 40 MG in SYRINGE 0 ML IV SCH (11:56)
[2016-09-20] MEDS: D5W AND 1/4NSS + 20MEQ KCL 1,000 ML IV SCH (11:59)
--- NOTE | 2016-09-20 14:05 | Hospitalist Progress Note ---
Hospitalist Progress Note Date of Service Sep 20, 2016. Subjective Pt evaluation today including: conversation w/ patient, conversation w/ family , physical exam, chart review, lab review, review of studies, review of inpatient medication list NGT has been removed. He tolerated his noon liquid meal. Had a bm and is passing gas. I will order aspirin and warfarin. He is anticipating a discharge tomorrow. No abdominal pain, vomiting, or nausea. Additional Comments: A 10 system review was performed and all were negative. Positives were placed in the subjective section. Objective Vital Signs Date Time Temp Pulse Resp B/P Pulse Ox O2 Delivery O2 Flow Rate FiO2 09/20/16 07:45 Room Air 09/20/16 07:02 36.9 72 17 141/53 99 Room Air 09/20/16 00:00 147/74 09/19/16 23:11 36.8 74 16 165/77 96 Room Air 09/19/16 19:30 Room Air 09/19/16 17:52 70 154/72 09/19/16 15:26 36.8 70 14 166/74 98 Room Air Physical Exam Notes: GEN: Awake, alert, and oriented x 3. Not in acute distress HEENT: Tm's intact, no inflammation, EOMI, PERRLA, MMM Neck: Soft, supple Lungs: CTA b/l, no r/r/w Heart: REG, nrl S1S2 without murmurs, rubs or gallops Abdomen: Soft, NT, ND, + active BS. EXT: No C/C/E NEURO: CN's II-XII grossly intact, non-focal Skin: warm, dry, no rashes PSYCH: pleasant, cooperative, no signs of significant anxiety or depression. Laboratory Results Last 24 Hours Test 09/20/16 07:12 White Blood Count 6.41 K/uL Red Blood Count 4.19 M/uL Hemoglobin 13.4 g/dL Hematocrit 39.2 % Mean Corpuscular Volume 93.6 fL Mean Corpuscular Hemoglobin 32.0 pg Mean Corpuscular Hemoglobin Concent 34.2 g/dl Platelet Count 201 K/uL Mean Platelet Volume 10.2 fL Neutrophils (%) (Auto) 69.4 % Lymphocytes (%) (Auto) 15.3 % Monocytes (%) (Auto) 11.5 % Eosinophils (%) (Auto) 3.1 % Basophils (%) (Auto) 0.5 % Neutrophils # (Auto) 4.45 K/uL Lymphocytes # (Auto) 0.98 K/uL Monocytes # (Auto) 0.74 K/uL Eosinophils # (Auto) 0.20 K/uL Basophils # (Auto) 0.03 K/uL RDW Standard Deviation 46.5 fL RDW Coefficient of Variation 13.6 % Immature Granulocyte % (Auto) 0.2 % Immature Granulocyte # (Auto) 0.01 K/uL Prothrombin Time 36.8 SECONDS Prothromb Time International Ratio 3.3 Activated Partial Thromboplast Time 53.0 SECONDS Partial Thromboplastin Ratio 2.0 Sodium Level 143 mmol/L Potassium Level 3.6 mmol/L Chloride Level 109 mmol/L Carbon Dioxide Level 22 mmol/L Anion Gap 12.0 mmol/L Blood Urea Nitrogen 8 mg/dl Creatinine 0.74 mg/dl Est Creatinine Clear Calc Drug Dose 81.6 ml/min Estimated GFR () 100.3 Estimated GFR (Non- 86.5 BUN/Creatinine Ratio 10.9 Random Glucose 99 mg/dl Calcium Level 8.6 mg/dl Magnesium Level 2.1 mg/dl Total Bilirubin 1.2 mg/dl Direct Bilirubin 0.3 mg/dl Aspartate Amino Transf (AST/SGOT) 39 U/L Alanine Aminotransferase (ALT/SGPT) 24 U/L Alkaline Phosphatase 45 U/L Total Protein 6.7 gm/dl Albumin 3.3 gm/dl Assessment and Plan 1) SBO - clinically resolved. NGT removed, started on liquid diet. 2) Mild Hypernatremia - resolved. 3) Rhinitis - He tells me that the benadryl did relieve the nasal drainage. 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 5) GERD IV protonix can be switched to oral dosing. DVT prophylaxis covered by being therapeutic on warfarin.
[2016-09-20 15:53] VITALS: BP 131/76; PULSE 76; TEMP 36.4; O2SAT 99
[2016-09-20] MEDS ORDERED: WARFARIN SOD 7.5 MG TAB PO SCH (16:00)
[2016-09-20] MEDS ORDERED: NURSING DECISION MEDICATION ORDER SCH (19:45)
[2016-09-20] MEDS ORDERED: COUGH DROP (SUGAR FREE) LOZ 24 LOZ/1 BOX PO PRN (20:00)
[2016-09-20] MEDS: LATANOPROST 0.005% OP SOLN 2.5 ML BTL OP SCH (21:01)
[2016-09-20 23:30] VITALS: BP 111/65; PULSE 77; TEMP 36.7; O2SAT 97
--- NOTE | 2016-09-21 06:21 | Surgery Progress Note ---
Surgery Progress Note Date of Service Sep 21, 2016. Subjective pt having bms- wants to go home Objective Vital Signs: Date Time Temp Pulse Resp B/P Pulse Ox O2 Delivery O2 Flow Rate FiO2 09/20/16 23:30 36.7 77 16 111/65 97 Room Air 09/20/16 23:25 Room Air 09/20/16 15:53 36.4 76 18 131/76 99 Room Air 09/20/16 15:45 Room Air 09/20/16 07:45 Room Air 09/20/16 07:02 36.9 72 17 141/53 99 Room Air General Appearance: no apparent distress Respiratory/Chest: no respiratory distress Abdomen: non distended, soft Laboratory Results: Results Past 24 Hours Test 09/20/16 07:12 09/21/16 04:44 Range/Units White Blood Count 6.41 4.8-10.8 K/uL Red Blood Count 4.19 4.7-6.1 M/uL Hemoglobin 13.4 14.0-18.0 g/dL Hematocrit 39.2 42-52 % Mean Corpuscular Volume 93.6 80-100 fL Mean Corpuscular Hemoglobin 32.0 25-34 pg Mean Corpuscular Hemoglobin Concent 34.2 32-36 g/dl Platelet Count 201 130-400 K/uL Mean Platelet Volume 10.2 7.4-10.4 fL Neutrophils (%) (Auto) 69.4 % Lymphocytes (%) (Auto) 15.3 % Monocytes (%) (Auto) 11.5 % Eosinophils (%) (Auto) 3.1 % Basophils (%) (Auto) 0.5 % Neutrophils # (Auto) 4.45 1.4-6.5 K/uL Lymphocytes # (Auto) 0.98 1.2-3.4 K/uL Monocytes # (Auto) 0.74 0.11-0.59 K/uL Eosinophils # (Auto) 0.20 0-0.5 K/uL Basophils # (Auto) 0.03 0-0.2 K/uL RDW Standard Deviation 46.5 36.4-46.3 fL RDW Coefficient of Variation 13.6 11.5-14.5 % Immature Granulocyte % (Auto) 0.2 % Immature Granulocyte # (Auto) 0.01 0.00-0.02 K/uL Prothrombin Time 36.8 9.0-12.0 SECONDS Prothromb Time International Ratio 3.3 0.9-1.1 Activated Partial Thromboplast Time 53.0 21.0-31.0 SECONDS Partial Thromboplastin Ratio 2.0 Sodium Level 143 136-145 mmol/L Potassium Level 3.6 3.5-5.1 mmol/L Chloride Level 109 98-107 mmol/L Carbon Dioxide Level 22 21-32 mmol/L Anion Gap 12.0 3-11 mmol/L Blood Urea Nitrogen 8 7-18 mg/dl Creatinine 0.74 0.60-1.40 mg/dl Est Creatinine Clear Calc Drug Dose 81.6 ml/min Estimated GFR () 100.3 Estimated GFR (Non- 86.5 BUN/Creatinine Ratio 10.9 10-20 Random Glucose 99 70-99 mg/dl Calcium Level 8.6 8.5-10.1 mg/dl Magnesium Level 2.1 1.8-2.4 mg/dl Total Bilirubin 1.2 0.2-1 mg/dl Direct Bilirubin 0.3 0-0.2 mg/dl Aspartate Amino Transf (AST/SGOT) 39 15-37 U/L Alanine Aminotransferase (ALT/SGPT) 24 12-78 U/L Alkaline Phosphatase 45 45-117 U/L Total Protein 6.7 6.4-8.2 gm/dl Albumin 3.3 3.4-5.0 gm/dl Assessment & Plan 09/21/16- seems to have resolved partial sbo- may d/c home from surgical standpoint- will ask laundry route driver to give info for low residue diet for 1-2 weeks. 09/20/16- improved GI function- d/c NG, clear liquids. dose of min oil and Senokot S, check labs, Mg , Phos 09/19/16- improved , much less distended- try clamping NG tube- add dose of min oil and senna syrup- leave NG today- depending on progress tomorrow may consider CT with contrast via NG 09/18/16- adm with abd pain, N/V- improved- leave NG today cont IV fluids 09/20/16- improved GI function- d/c NG, clear liquids. dose of min oil and Senokot S, check labs, Mg , Phos 09/19/16- improved , much less distended- try clamping NG tube- add dose of min oil and senna syrup- leave NG today- depending on progress tomorrow may consider CT with contrast via NG 09/18/16- adm with abd pain, N/V- improved- leave NG today cont IV fluids
[2016-09-21 06:53] LABS: PROTHROMBIN TIME (PATIENT) 33.1 SECONDS (9.0-12.0)
[2016-09-21 07:04] VITALS: BP_SYST 158; PULSE 85; TEMP 36.5; O2SAT 85
[2016-09-21] MEDS: D5W AND 1/4NSS + 20MEQ KCL 1,000 ML IV SCH (07:11)
[2016-09-21 07:15] LABS: BUN/CREATININE RATIO 8.5 (10-20); CALCIUM 8.4 mg/dl (8.5-10.1); CREATININE 0.82 mg/dl (0.60-1.40); POTASSIUM 3.9 mmol/L (3.5-5.1)
[2016-09-21 08:15] VITALS: O2SAT 98
[2016-09-21] MEDS: DOCUSATE SODIUM/SENNA 50/8.6MG TAB PO SCH (08:45)
[2016-09-21] MEDS ORDERED: PANTOprazole SOD 40 MG TAB PO SCH (09:00)
[2016-09-21] MEDS ORDERED: ASPIRIN 81 MG ECTAB PO SCH (09:00)
[2016-09-21 11:21] VITALS: BP 163/81; PULSE 75; TEMP 36.6; O2SAT 98
--- NOTE | 2016-09-21 11:42 | Discharge Instructions ---
Discharge Instructions Admission Reason for Admission: Small Bowel Obstruction Discharge Discharge Diagnosis / Problem: Small bowel obstruction Discharge Goals Goal(s): Decrease discomfort, Improve function Activity Recommendations Activity Limitations: resume your previous activity . Instructions / Follow-Up Instructions / Follow-Up PCP in 5-7 days Surgery, Dr. Ignacio Boss -> call his office to set up a hospital follow up appointment. . Current Hospital Diet Patient's current hospital diet: Clear Liquid Diet Discharge Diet Recommended Diet: Regular Diet (Low residue. ) Procedures Procedures Performed: No procedures. CT scan results were as follows: IMPRESSION: 1. High-grade small bowel obstruction. Minimal free fluid. No evidence of pneumatosis. No evidence of portal venous gas. 2. No pathologic masses identified. 3. Etiology of the small bowel obstruction is likely secondary to an adhesion or internal hernia. Electronically signed by: Hudson Patrick M.D. 09/17/2016 2:11 PM Dictated Date/Time: 09/17/2016 2:04 PM Pending Studies Studies pending at discharge: no Laboratory Results Last 24 Hours Test 09/21/16 05:45 Prothrombin Time 33.1 SECONDS Prothromb Time International Ratio 3.0 Sodium Level 142 mmol/L Potassium Level 3.9 mmol/L Chloride Level 108 mmol/L Carbon Dioxide Level 26 mmol/L Anion Gap 8.0 mmol/L Blood Urea Nitrogen 7 mg/dl Creatinine 0.82 mg/dl Est Creatinine Clear Calc Drug Dose 73.7 ml/min Estimated GFR () 96.1 Estimated GFR (Non- 82.9 BUN/Creatinine Ratio 8.5 Random Glucose 91 mg/dl Calcium Level 8.4 mg/dl Medical Emergencies . Who to Call and When: Medical Emergencies: If at any time you feel your situation is an emergency, please call 911 immediately. . Non-Emergent Contact Non-Emergency issues call your: Primary Care Provider . . "Provider Documentation" section prepared by Mikael Echols. VTE Core Measure Inpt VTE Proph given/why not?: Warfarin (Coumadin), SCD's
--- NOTE | 2016-09-21 11:55 | Discharge Summary ---
Discharge Summary Admission Date: Sep 17, 2016 at 14:58 Discharge Date: Sep 21, 2016 Discharge Disposition: Home Principal Diagnosis: Small bowel obstruction Problems/Secondary Diagnoses: HTN, rhinitis, chronic anticoagulation therapy, GERD, Bee sting allergy. Immunizations: Have You Had Influenza Vaccine: Yes Influenza Vaccine Date: May 20, 2012 History of Tetanus Vaccine?: Yes Tetanus Immunization Date: Nov 17, 2002 History of Pneumococcal: Yes Pneumococcal Date: Nov 18, 2007 History of Hepatitis B Vaccine: No Procedures: NONE. Consultations: Dr. Ignacio Boss M.D., surgeon Medication Reconciliation Continued Medications: Acetaminophen (Tylenol Arthritis Ext Rel) 650 Mg Tab 650 MG PO QPM, TAB Amoxicillin (Amoxil) 500 Mg Tab 2000 MG PO UD PRN for Prior To Dental Procedure, TAB TAKE THIS MEDICATION DIRECTED ONE HOUR PRIOR TO DENTAL PROCEDURES. Aspirin (Aspirin Ec) 81 Mg Tab 81 MG PO DAILY Biotin (Biotin) 1,000 Mcg Tab 1000 MCG PO DAILY Calcipotriene (Dovonex) 0.005 % Cre 1 APPLN TD DAILY PRN for DRY SKIN Cholecalciferol (Vitamin D) 1,000 Unit Tab 1000 UNIT PO DAILY Docusate Sodium (Docusate Sodium) 100 Mg Cap 100 MG PO QPM Epinephrine (Epipen) 0.3 Mg/0.3 Ml Inj 0.3 MG IM UD, BOX Ipratropium [place] (Nasal) (Ipratropium [place]) 0.03 % Spr 1 SPRAY [place] DAILY PRN for Sinusitis Latanoprost (Xalatan 0.005% Oph Tonia) 0.005 % Tonia 1 DROPS OP HS, #2.5 ML 3 Refills Lisinopril (Prinivil) 10 Mg Tab 5 MG PO DAILY, TAB Mineral Oil (Mineral Oil) 1 Oil Oil 15 ML PO DAILY Multivitamin (Multivitamin) Tab 1 TAB PO DAILY, 0 Refills Omeprazole (Prilosec) 20 Mg Cap 20 MG PO DAILY, CAP Simvastatin (Zocor) 40 Mg Tab 40 MG PO QPM, TAB Warfarin Sodium (Coumadin) 7.5 Mg Tab 7.5 MG PO 5XWK, TAB EXCEPT SUNDAY AND SUNDAY Warfarin Sodium (Coumadin) 10 Mg Tab 10 MG PO 2XWK, TAB SUNDAY AND SUNDAY Discharge Exam A 10 system review was performed and all were negative. Positives were placed in the subjective section. GEN: Awake, alert, and oriented x 3. Not in acute distress HEENT: Tm's intact, no inflammation, EOMI, PERRLA, MMM Neck: Soft, supple Lungs: CTA b/l, no r/r/w Heart: REG, nrl S1S2 without murmurs, rubs or gallops Abdomen: Soft, NT, ND, + BS EXT: No C/C/E NEURO: CN's II-XII grossly intact, non-focal Skin: warm, dry, no rashes PSYCH: pleasant, cooperative, no signs of significant anxiety or depression. Hospital Course Patient developed nausea and vomiting with abdominal pain. He had had bowel obstruction 2 times in the past and felt that this was similar. Indeed CT scan confirmed see following results: IMPRESSION: 1. High-grade small bowel obstruction. Minimal free fluid. No evidence of pneumatosis. No evidence of portal venous gas. 2. No pathologic masses identified. 3. Etiology of the small bowel obstruction is likely secondary to an adhesion or internal hernia. Electronically signed by: Hudson Patrick M.D. 09/17/2016 2:11 PM Dictated Date/Time: 09/17/2016 2:04 PM Patient was seen by Dr. Boss, surgeon. NGT was placed and pain control and antiemetics were provided. The patient had particular discomfort due to increased clear nasal secretion which is a chronic condition that was exacerbated by the irritation from the NGT. His usual therapy of Atrovent nasal spray was ineffective. I did give him a 50mg dose of Benadryl which did give significant improvement in this symptom. On 09/20 the NGT was clamped. By the same evening he was tolerating a clear liquid diet. He is stable for discharge today and will be instructed on a low residue diet. Even though he was not taking warfarin from the time he was admitted, his INR never fell below therapeutic range. On the day of discharge, his INR was 3.0. DVT prophylaxis was taken care of by the warfarin. Total Time Spent: Greater than 30 minutes This includes examination of the patient, discharge planning, medication reconciliation, and communication with other providers. Discharge Instructions Please refer to the electronic Patient Visit Report (Discharge Instructions) for additional information. Follow-Up PCP in 5-[address] Ignacio Boss M.D. - call office for follow up appointment.
[2016-09-21 12:09] VITALS: BP 163/81; PULSE 75; TEMP 36.6; O2SAT 98
[2016-11-01] MEDS ORDERED: SENN-61 PO (10:43)
== END 2016-09-21 12:49 | disposition home or self-care (01) | DRG 389 ==
LOC: ENRESERVTM → ENRESERVDT → C.EDB 12:27 → C.MSW 14:58
PROVIDERS: ADMIT Hospitalist; ATTEND Hospitalist
DX: K56.5 Intestinal adhesions [bands] with obstruction (postinfection) (principal); E87.0 Hyperosmolality and hypernatremia; K21.9 Gastro-esophageal reflux disease without esophagitis; Z95.2 Presence of prosthetic heart valve; Z87.891 Personal history of nicotine dependence; I25.10 Atherosclerotic heart disease of native coronary artery without angina pectoris; E78.00 Pure hypercholesterolemia, unspecified; H40.9 Unspecified glaucoma; Z95.1 Presence of aortocoronary bypass graft; Z88.2 Allergy status to sulfonamides; J31.0 Chronic rhinitis; I10 Essential (primary) hypertension; Z79.82 Long term (current) use of aspirin; Z79.899 Other long term (current) drug therapy; Z79.01 Long term (current) use of anticoagulants; Z88.8 Allergy status to other drugs, medicaments and biological substances; Z91.030 Bee allergy status

== ENCOUNTER 2017-07-04 10:40 | Inpatient (IN) | payer BC, OTHER ==
[~2017-07-04] VITALS: Ht 182.9 cm; Wt 71.7 kg
[~2017-07-04 10:40] MED LIST changes: -ACET-1487 PO; -ATOR-24 PO; +CALC0.009 TD; -CALC0.009 TOP; -LATA0.009 OPB; +LATA0.5S OP; -MULT-506 PO; +SENN-61 PO; +SIMV40TA2 PO
[2017-07-04] MEDS ORDERED: ASPIRIN 81 MG CHEW PO STA (10:55)
--- NOTE | 2017-07-04 11:09 | EMERGENCY ROOM VISIT NOTE ---
History Report prepared by Ced: Melissa Albert Under the Supervision of: Dr. Margot Morris M.D. First contact with patient: 10:50 Chief Complaint: CARDIAC ASSESSMENT Stated Complaint: CARDIAC ASSESSMENT History of Present Illness The patient is a 82 year old male who presents to the Emergency Room for a cardiac assessment. Two nights ago the patient woke up with pounding in his chest. It was constant, but he was able to fall back to sleep. Yesterday throughout the day he was feeling fine. He went to bed and woke up last night with similar palpitations and pounding in his chest. He states that his symptoms were more intense last night, but he was finally able to fall back to sleep. The patient states that as soon as he woke up this morning he was experiencing these symptoms again. He states that they were more intense. He denies feeling short of breath or lightheaded. He denies any cough. 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 The patient has a history of an aortic valve replacement, cardioversion, CABGx2. He takes warfarin. His INR was 2.5 within the past week. Source of History: patient, spouse/significant other Onset: 2 days ago Position: chest Quality: other (pounding) Timing: intermittent, worsening Associated Symptoms: No cough, No SOB Review of Systems See HPI for pertinent positives & negatives. A total of 10 systems reviewed and were otherwise negative. Past Medical & Surgical Medical Problems: (1) Anticoagulant therapy (2) Bleeding (3) Gastroesophageal reflux disease (4) Heart disease (5) open heart surgery (6) Prosthetic replacement of heart valve (7) right knee surgery (8) skin problems (9) Small bowel obstruction (10) Tonsillectomy (11) urinary problems Family History Heart disease Hypertension Social History Smoking Status: Former Smoker Alcohol Use: occasionally Drug Use: none Marital Status: Housing Status: lives with significant other Occupation Status: employed Current/Historical Medications Scheduled Aspirin (Aspirin Ec), 81 MG PO DAILY Atorvastatin (Lipitor), 40 MG PO QPM Biotin (Biotin), 1,000 MCG PO DAILY Cholecalciferol (Vitamin D), 1,000 UNIT PO DAILY Docusate Sodium (Docusate Sodium), 100 MG PO QPM Enteral Nutrition Formula (Ensure Plus Vanilla), 1 CAN PO QAM Latanoprost (Xalatan 0.005% Oph Tonia), 1 DROPS OP HS Lisinopril (Prinivil), 5 MG PO DAILY Omeprazole (Prilosec), 20 MG PO DAILY Senna (Senokot), 1 TAB PO DAILY Warfarin Sodium (Coumadin), 7.5 MG PO 5XWK Warfarin Sodium (Coumadin), 10 MG PO 2XWK Scheduled PRN Amoxicillin (Amoxil), 2,000 MG PO UD PRN for Prior To Dental Procedure Calcipotriene (Dovonex), 1 APPLN TD DAILY PRN for DRY SKIN Ipratropium [place] (Nasal) (Ipratropium [place]), 2 SPRAY [place] TID PRN for Sinusitis Mineral Oil (Mineral Oil), 15 ML PO DAILY PRN for Constipation Allergies Coded Allergies: BEE STING (Verified Allergy, Severe, ANAPHYLACTIC REACTION, 07/04/17) PT WENT THROUGH DESENSITIZATION PROCESS Celecoxib (Verified Allergy, Intermediate, HIVES, 07/04/17) Chlorhexidine (Verified Allergy, Intermediate, ITCHING WITH CHLORHEXIDINE SCRUB, 07/04/17) Sulfa Drugs (Verified Allergy, Intermediate, CELEBREX=RASH, 07/04/17) Povidone Iodine (Unverified Allergy, Unknown, ITCHY RASH, 07/04/17) BETADINE SURGICAL SCRUB 7.5% TOPICAL SOAP Uncoded Allergies: ANESTHESIA (Adverse Reaction, Unknown, HALLUCINATION, , 07/04/17) Physical Exam Vital Signs Date Time Temp Pulse Resp B/P (MAP) Pulse Ox O2 Delivery O2 Flow Rate FiO2 07/04/17 15:44 Room Air 07/04/17 14:31 103 18 112/83 95 Room Air 07/04/17 14:16 108 16 119/83 96 Room Air 07/04/17 14:01 99 16 124/78 97 Room Air 07/04/17 13:46 91 18 110/78 96 Room Air 07/04/17 13:33 97/68 07/04/17 13:09 137 07/04/17 12:40 137 17 07/04/17 12:34 136 20 123/70 98 Room Air 07/04/17 12:34 123/70 07/04/17 11:14 95 Room Air 07/04/17 10:54 100 Room Air 07/04/17 10:54 36.6 140 16 155/101 99 Room Air 07/04/17 10:54 99 Room Air 07/04/17 10:46 139 07/04/17 10:43 138 17 155/101 97 Room Air Physical Exam Vital signs reviewed. General: Well-appearing male, in no significant distress. HEENT: No scleral icterus, PERRLA, neck supple. Atraumatic. Cardiovascular: Rapid rate and irregular rhythm, no extra sounds. Pulmonary: Clear to auscultation bilaterally, normal work of breathing. Abdomen: Soft, nontender, nondistended, positive bowel sounds. Musculoskeletal: Atraumatic, no peripheral edema. Neurologic: Patient awake alert and oriented x 3, full strength in all 4 extremities. Cranial nerves 2 through 12 grossly intact. Skin: Warm, dry, no rash Medical Decision & Procedures ER Provider Diagnostic Interpretation: Radiology results as stated below per my review and radiologist interpretation: CHEST ONE VIEW PORTABLE CLINICAL HISTORY: CP dyspnea COMPARISON STUDY: 03/22/2013 FINDINGS: Mild chronic interstitial change bilaterally. Chronic elevation left hemidiaphragm. Median sternotomy. No focal infiltrate. IMPRESSION: Chronic and postoperative change. No acute process. The above report was generated using voice recognition software. It may contain grammatical, syntax or spelling errors. Electronically signed by: Aden Muniz M.D. 07/04/2017 11:35 AM Dictated Date/Time: 07/04/2017 11:35 AM Laboratory Results 07/04/17 11:15 Red Blood Count 4.07, Mean Corpuscular Volume 96.1, Mean Corpuscular Hemoglobin 31.7, Mean Corpuscular Hemoglobin Concent 33.0, Mean Platelet Volume 9.8, Neutrophils (%) (Auto) 68.4, Lymphocytes (%) (Auto) 17.0, Monocytes (%) (Auto) 11.1, Eosinophils (%) (Auto) 2.7, Basophils (%) (Auto) 0.5, Neutrophils # (Auto ) 4.51, Lymphocytes # (Auto) 1.12, Monocytes # (Auto) 0.73, Eosinophils # (Auto ) 0.18, Basophils # (Auto) 0.03 07/04/17 11:15 Test 07/04/17 11:15 07/04/17 11:22 White Blood Count 6.59 K/uL (4.8-10.8) Red Blood Count 4.07 M/uL (4.7-6.1) Hemoglobin 12.9 g/dL (14.0-18.0) Hematocrit 39.1 % (42-52) Mean Corpuscular Volume 96.1 fL (80-100) Mean Corpuscular Hemoglobin 31.7 pg (25-34) Mean Corpuscular Hemoglobin Concent 33.0 g/dl (32-36) Platelet Count 189 K/uL (130-400) Mean Platelet Volume 9.8 fL (7.4-10.4) Neutrophils (%) (Auto) 68.4 % Lymphocytes (%) (Auto) 17.0 % Monocytes (%) (Auto) 11.1 % Eosinophils (%) (Auto) 2.7 % Basophils (%) (Auto) 0.5 % Neutrophils # (Auto) 4.51 K/uL (1.4-6.5) Lymphocytes # (Auto) 1.12 K/uL (1.2-3.4) Monocytes # (Auto) 0.73 K/uL (0.11-0.59) Eosinophils # (Auto) 0.18 K/uL (0-0.5) Basophils # (Auto) 0.03 K/uL (0-0.2) RDW Standard Deviation 49.0 fL (36.4-46.3) RDW Coefficient of Variation 13.8 % (11.5-14.5) Immature Granulocyte % (Auto) 0.3 % Immature Granulocyte # (Auto) 0.02 K/uL (0.00-0.02) Prothrombin Time 23.4 SECONDS (9.0-12.0) Prothromb Time International Ratio 2.1 (0.9-1.1) Activated Partial Thromboplast Time 36.9 SECONDS (21.0-31.0) Partial Thromboplastin Ratio 1.4 Anion Gap 2.0 mmol/L (3-11) Est Creatinine Clear Calc Drug Dose 65.7 ml/min Estimated GFR () 89.5 Estimated GFR (Non- 77.2 BUN/Creatinine Ratio 14.7 (10-20) Calcium Level 8.5 mg/dl (8.5-10.1) Magnesium Level 2.4 mg/dl (1.8-2.4) Total Bilirubin 0.9 mg/dl (0.2-1) Direct Bilirubin 0.2 mg/dl (0-0.2) Aspartate Amino Transf (AST/SGOT) 43 U/L (15-37) Alanine Aminotransferase (ALT/SGPT) 38 U/L (12-78) Alkaline Phosphatase 68 U/L (45-117) Total Creatine Kinase 514 U/L (39-308) Creatine Kinase MB 6.3 ng/ml (0.5-3.6) Creatine Kinase MB Ratio 1.2 (0-3.0) Total Protein 7.4 gm/dl (6.4-8.2) Albumin 3.8 gm/dl (3.4-5.0) Thyroid Stimulating Hormone (TSH) 1.510 uIu/ml (0.300-4.500) Bedside Troponin I 0.120 ng/ml (0-0.045) Laboratory results per my review. Medications Administered Medications (Trade) Dose Ordered Sig/Yanique Route Start Time Stop Time Status Last Admin Dose Admin Aspirin (Aspirin Chew) 324 mg NOW STAT PO 07/04/17 10:55 07/04/17 10:59 DC 07/04/17 11:21 324 MG Diltiazem HCl (Cardizem Inj) 20 mg NOW STAT IV 07/04/17 12:00 07/04/17 12:01 DC 07/04/17 12:31 20 MG Diltiazem HCl (Cardizem Inj) 25 mg NOW STAT IV 07/04/17 13:08 07/04/17 13:10 DC 07/04/17 13:28 25 MG Diltiazem HCl 125 mg/Dextrose 125 ml @ 0 mls/hr Q0M PRN IV 07/04/17 13:30 08/03/17 13:29 07/04/17 15:10 5 MLS/HR ECG Indication: palpitations Rate (beats per minute): 138 Rhythm: atrial flutter (with variable AV block) Findings: nonspecific-ST abn, PVC (occasional), no acute ischemic change ED Course 1100: Past medical records reviewed. The patient was evaluated in room C6. A complete history and physical examination was performed. 1055: Aspirin 324 mg PO 1200: Diltiazem HCl 20 mg IV 1308: Cardizem 25 mg IV 1312: I spoke with Dr. Juarez. We discussed the patient's case. The patient will be evaluated by the [facility] for further management. 1322: I reassessed the patient at this time. He is feeling better and resting comfortably. I discussed the results and treatment plan with the patient. I answered all pertaining questions that he had. He expressed understanding and verbalized agreement. Medical Decision The patient is an 82 year old male who presents to the ED for a cardiac assessment. Differentials include premature contractions, electrolyte abnormality, cardiac dysrhythmia, thyroid dysfunction, pulmonary embolism, infection, gastrointestinal, as well as others were entertained. This patient was evaluated and appeared to be in no significant distress. IV access was obtained and laboratory work was drawn. Patient was placed on the campus monitor. He was given 324 mg of aspirin to chew. Patient is found to be in a rapid atrial flutter. He is given 20 g of IV Cardizem without significant improvement. A second dose of 25 mg by the Cardizem did better rate control the patient to the low 100s. Patient's laboratory work reveals an elevated troponin. I suspect this is a demand mediated process. He is anticoagulated with an INR of 2.5. The Cardizem drip has been ordered but is on hold due to the rate controlled currently. Patient's case was discussed with the hospitalist service will evaluate the patient for further management. Medication Reconcilliation Current Medication List: was personally reviewed by me Consults Time Called: 1309 Consulting Physician: Dr. Juarez Returned Call: [address] Juarez. We discussed the patient's case. The patient will be evaluated by the [facility] for further management. Impression Primary Impression: Atrial flutter with rapid ventricular response Additional Impression: Cardiac ischemia Critical Care I have personally spent greater than 35 minutes of critical care time in the direct management of this patient. This includes bedside care, interpretation of diagnostic studies, and testing, discussion with consultants, patient, and family members, and other required patient management activities. This 35 minutes is in excess of all separately billable procedures. Scribe Attestation The scribe's documentation has been prepared under my direction and personally reviewed by me in its entirety. I confirm that the note above accurately reflects all work, treatment, procedures, and medical decision making performed by me. Departure Information Dispostion Being Evaluated By Hospitalist Referrals Juan Diego Dias M.D. (PCP) Patient Instructions My [facility] Problem Qualifiers
[2017-07-04 11:32] LABS: BASO % 0.5 %; BASO ABS # 0.03 K/uL (0-0.2); COMPLETE YES; EOS % 2.7 %; HEMATOCRIT 39.1 % (42-52); IG% 0.3 %; LYMPH ABS # 1.12 K/uL (1.2-3.4); MEAN CELL VOLUME 96.1 fL (80-100); MEAN CORPUSCULAR HEMOGLOBIN 31.7 pg (25-34); MEAN PLATELET VOLUME 9.8 fL (7.4-10.4); MONO % 11.1 %; NEUT % 68.4 %; PLATELET COUNT 189 K/uL (130-400); RED BLOOD COUNT 4.07 M/uL (4.7-6.1); WHITE BLOOD COUNT 6.59 K/uL (4.8-10.8)
--- NOTE | 2017-07-04 11:37 | DIAGNOSTIC IMAGING REPORT ---
CHEST ONE VIEW PORTABLE CLINICAL HISTORY: CP dyspnea COMPARISON STUDY: 03/22/2013 FINDINGS: Mild chronic interstitial change bilaterally. Chronic elevation left hemidiaphragm. Median sternotomy. No focal infiltrate. IMPRESSION: Chronic and postoperative change. No acute process. The above report was generated using voice recognition software. It may contain grammatical, syntax or spelling errors. Electronically signed by: Aden Muniz M.D. 07/04/2017 11:35 AM Dictated Date/Time: 07/04/2017 11:35 AM
[2017-07-04 11:38] LABS: INR 2.1 (0.9-1.1); PARTIAL THROMBOPLASTIN RATIO 1.4; PROTHROMBIN TIME (PATIENT) 23.4 SECONDS (9.0-12.0)
[2017-07-04] MEDS ORDERED: ATOR-24 PO (11:50)
[2017-07-04] MEDS ORDERED: NUTR-977 PO (11:50)
[2017-07-04 11:54] LABS: BUN/CREATININE RATIO 14.7 (10-20); CALCIUM 8.5 mg/dl (8.5-10.1); CREATININE 0.92 mg/dl (0.60-1.40); POTASSIUM 4.5 mmol/L (3.5-5.1)
[2017-07-04 11:59] LABS: CKMB/CK RATIO 1.2 (0-3.0)
[2017-07-04] MEDS ORDERED: DILTIAZEM HCL 5 MG/ML 5 ML VIAL IV STA ×2 (12:00→13:08)
[2017-07-04] MEDS ORDERED: DILTIAZEM BOLUS / DRIP IV STA ×2 (13:08→15:43)
[2017-07-04] MEDS: DILTIAZEM HCL INJ 125 MG in DEXTROSE 5% 100ML IV PRN ×2 (15:10→20:56)
[2017-07-04 15:44] VITALS: Ht 182.9 cm; Wt 71.7 kg
[2017-07-04] MEDS ORDERED: ONDANSETRON INJ 2 MG/ML 2 ML VIAL IV PRN (15:45)
[2017-07-04] MEDS ORDERED: MoRPHine SULFATE 2 MG/ML CARP IV PRN (15:45)
[2017-07-04] MEDS ORDERED: NITROGLYCERIN 0.4 MG SL PER TAB CHARGE SL PRN (15:45)
[2017-07-04] MEDS ORDERED: ACETAMINOPHEN 325 MG TAB PO PRN (15:45)
--- NOTE | 2017-07-04 16:00 | History and Physical ---
History & Physical Date & Time of Service: Jul 04, 2017 at 15:58 Chief Complaint: Cardiac Assessment Primary Care Physician: Cesar Moseley M.D. History of Present Illness Source: patient, family 82 yo male PMHx aortic stenosis, mech aortic valve and CABG x2, Afib comes into the ED with sensation of palpitations and high heart rate for the past three evenings. Pt describes the palpitations beginning on Sunday evening when trying to sleep, but did not pay much attention because they resolved on their own. The palpitations returned each subsequent evening prior to going to bed. He reports becoming concerned this morning when the palpitations continued throughout the day. His took his pulse and says that she was unable to get a accurate reading because it was so rapid. Pt reports feeling and hearing the irregularity of his hear beat, but denies chest pain, SOB, peripheral edema or syncope. Pt says that he does have an ache sensation in bilateral shoulders during the palpitations. Pt describes a similar episode of high heart rate since his CABG in 2005. At that time, the patient was cardioverted. 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 (7) right knee surgery Status: Resolved (8) skin problems Status: Chronic (9) Small bowel obstruction Status: Resolved (10) Tonsillectomy Status: Resolved (11) urinary problems Status: Chronic Family History Heart disease Hypertension Social History Smoking Status: Former Smoker Drug Use: none Marital Status: Housing status: lives with family Occupational Status: employed Immunizations History of Influenza Vaccine: Yes Influenza Vaccine Date: May 20, 2012 History of Tetanus Vaccine?: Yes Tetanus Immunization Date: Nov 17, 2002 History of Pneumococcal: Yes Pneumococcal Date: Nov 18, 2007 History of Hepatitis B Vaccine: No Multi-Drug Resistant Organisms History of MDRO: No Allergies Coded Allergies: BEE STING (Verified Allergy, Severe, ANAPHYLACTIC REACTION, 07/04/17) PT WENT THROUGH DESENSITIZATION PROCESS Celecoxib (Verified Allergy, Intermediate, HIVES, 07/04/17) Chlorhexidine (Verified Allergy, Intermediate, ITCHING WITH CHLORHEXIDINE SCRUB, 07/04/17) Sulfa Drugs (Verified Allergy, Intermediate, CELEBREX=RASH, 07/04/17) Povidone Iodine (Unverified Allergy, Unknown, ITCHY RASH, 07/04/17) BETADINE SURGICAL SCRUB 7.5% TOPICAL SOAP Uncoded Allergies: ANESTHESIA (Adverse Reaction, Unknown, HALLUCINATION, , 07/04/17) Home Medications Scheduled Aspirin (Aspirin Ec), 81 MG PO DAILY Atorvastatin (Lipitor), 40 MG PO QPM Biotin (Biotin), 1,000 MCG PO DAILY Cholecalciferol (Vitamin D), 1,000 UNIT PO DAILY Docusate Sodium (Docusate Sodium), 100 MG PO QPM Enteral Nutrition Formula (Ensure Plus Vanilla), 1 CAN PO QAM Latanoprost (Xalatan 0.005% Oph Tonia), 1 DROPS OP HS Lisinopril (Prinivil), 5 MG PO DAILY Omeprazole (Prilosec), 20 MG PO DAILY Senna (Senokot), 1 TAB PO DAILY Warfarin Sodium (Coumadin), 7.5 MG PO 5XWK Warfarin Sodium (Coumadin), 10 MG PO 2XWK Scheduled PRN Amoxicillin (Amoxil), 2,000 MG PO UD PRN for Prior To Dental Procedure Calcipotriene (Dovonex), 1 APPLN TD DAILY PRN for DRY SKIN Ipratropium [place] (Nasal) (Ipratropium [place]), 2 SPRAY [place] TID PRN for Sinusitis Mineral Oil (Mineral Oil), 15 ML PO DAILY PRN for Constipation Review of Systems Constitutional: No fever, No chills, No sweats Respiratory: No cough, No sputum, No wheezing, No shortness of breath Cardiovascular: No chest pain, No orthopnea, No edema, No palpitations Abdomen: No nausea, No vomiting, No diarrhea Musculoskeletal: + joint pain Physical Exam Vital Signs Date Time Temp Pulse Resp B/P (MAP) Pulse Ox O2 Delivery O2 Flow Rate FiO2 07/04/17 15:44 Room Air 07/04/17 14:31 103 18 112/83 95 Room Air 07/04/17 14:16 108 16 119/83 96 Room Air 07/04/17 14:01 99 16 124/78 97 Room Air 07/04/17 13:46 91 18 110/78 96 Room Air 07/04/17 13:33 97/68 07/04/17 13:09 137 07/04/17 12:40 137 17 07/04/17 12:34 136 20 123/70 98 Room Air 07/04/17 12:34 123/70 07/04/17 11:14 95 Room Air 07/04/17 10:54 100 Room Air 07/04/17 10:54 36.6 140 16 155/101 99 Room Air 07/04/17 10:54 99 Room Air 07/04/17 10:46 139 07/04/17 10:43 138 17 155/101 97 Room Air General Appearance: WD/WN, no apparent distress Respiratory/Chest: chest non-tender, lungs clear, normal breath sounds, no respiratory distress, no accessory muscle use Cardiovascular: no edema, no gallop, no JVD, + irregularly irregular Abdomen/GI: normal bowel sounds, non tender, soft, no organomegaly Neurologic/Psych: alert, normal mood/affect, normal reflexes, oriented x 3 Skin: normal color, warm/dry, no rash Diagnostics Laboratory Results Results Past 24 Hours Test 07/04/17 11:15 07/04/17 11:22 Range/Units White Blood Count 6.59 4.8-10.8 K/uL Red Blood Count 4.07 4.7-6.1 M/uL Hemoglobin 12.9 14.0-18.0 g/dL Hematocrit 39.1 42-52 % Mean Corpuscular Volume 96.1 80-100 fL Mean Corpuscular Hemoglobin 31.7 25-34 pg Mean Corpuscular Hemoglobin Concent 33.0 32-36 g/dl Platelet Count 189 130-400 K/uL Mean Platelet Volume 9.8 7.4-10.4 fL Neutrophils (%) (Auto) 68.4 % Lymphocytes (%) (Auto) 17.0 % Monocytes (%) (Auto) 11.1 % Eosinophils (%) (Auto) 2.7 % Basophils (%) (Auto) 0.5 % Neutrophils # (Auto) 4.51 1.4-6.5 K/uL Lymphocytes # (Auto) 1.12 1.2-3.4 K/uL Monocytes # (Auto) 0.73 0.11-0.59 K/uL Eosinophils # (Auto) 0.18 0-0.5 K/uL Basophils # (Auto) 0.03 0-0.2 K/uL RDW Standard Deviation 49.0 36.4-46.3 fL RDW Coefficient of Variation 13.8 11.5-14.5 % Immature Granulocyte % (Auto) 0.3 % Immature Granulocyte # (Auto) 0.02 0.00-0.02 K/uL Prothrombin Time 23.4 9.0-12.0 SECONDS Prothromb Time International Ratio 2.1 0.9-1.1 Activated Partial Thromboplast Time 36.9 21.0-31.0 SECONDS Partial Thromboplastin Ratio 1.4 Sodium Level 137 136-145 mmol/L Potassium Level 4.5 3.5-5.1 mmol/L Chloride Level 106 98-107 mmol/L Carbon Dioxide Level 29 21-32 mmol/L Anion Gap 2.0 3-11 mmol/L Blood Urea Nitrogen 13 7-18 mg/dl Creatinine 0.92 0.60-1.40 mg/dl Est Creatinine Clear Calc Drug Dose 65.7 ml/min Estimated GFR () 89.5 Estimated GFR (Non- 77.2 BUN/Creatinine Ratio 14.7 10-20 Random Glucose 103 70-99 mg/dl Calcium Level 8.5 8.5-10.1 mg/dl Total Bilirubin 0.9 0.2-1 mg/dl Direct Bilirubin 0.2 0-0.2 mg/dl Aspartate Amino Transf (AST/SGOT) 43 15-37 U/L Alanine Aminotransferase (ALT/SGPT) 38 12-78 U/L Alkaline Phosphatase 68 45-117 U/L Total Creatine Kinase 514 39-308 U/L Creatine Kinase MB 6.3 0.5-3.6 ng/ml Creatine Kinase MB Ratio 1.2 0-3.0 Total Protein 7.4 6.4-8.2 gm/dl Albumin 3.8 3.4-5.0 gm/dl Bedside Troponin I 0.120 0-0.045 ng/ml Diagnostic Radiology CHEST ONE VIEW PORTABLE CLINICAL HISTORY: CP dyspnea COMPARISON STUDY: 03/22/2013 FINDINGS: Mild chronic interstitial change bilaterally. Chronic elevation left hemidiaphragm. Median sternotomy. No focal infiltrate. IMPRESSION: Chronic and postoperative change. No acute process. The above report was generated using voice recognition software. It may contain grammatical, syntax or spelling errors. EKG Aflutter Ventricular rate 138 No ectopy Impression Assessment and Plan 82 yo male PMH of CAD, CABGx2, mechanical aortic valve, afib admitted to the hospital with uncontrolled aflutter Pt on Cardizem drip Aflutter Pt admitted to telemetry EKG in the AM Pt on Cardizem drip, titrating Follow troponins x3 1st trop .12 Pt appropriately anticoagulated on warfarin Will order ECHO once rate has decreased Cardiology consult ordered Hyperlipidemia Continue Atorvastatin 40mg Continue ASA 81 mg Post-status CABG and mechanical aortic valve -Continue Lisinopril, ASA, statin -This makes patient higher risk GERD -Continue PPI -Omeprazole outpatient switch to Protonix Glaucoma -Continue Latanoprost Advanced Directives Existing Living Will: Yes Existing Power of Personal Lines Advisor: Yes VTE Prophylaxis VTE Risk Assessment Done? Y/N: Yes Risk Level: Moderate Given or contraindicated: Warfarin (Coumadin) Assessment/Plan Resident Physician Supervision Note: I was present with Dr. Owens during the history and exam. I discussed the case with the resident and agree with the findings and plan as documented in the note. Any exceptions or clarifications are listed here. 82 y/o male h/o CAD, , atrial fibrillation s/p AVR, CABGx2, MACE p/w new onset atrial flutter which failed bolus intervention in the ED. At present, patient feels mildly fatigued but is otherwise without complaint. On examination , loud S1 click with AVR and tachycardia. CTAB. CNII-XII intact. Reviewed plan with resident team, will start dilt drip and titrate to rate control/ cardioversion, consult cardiology for structurally abn heart and previous h/o cardioversion.
--- NOTE | 2017-07-04 16:31 | Medical Student: [facility] ---
Med Student History & Physical Date & Time of Service: Jul 04, 2017 at 13:46 Chief Complaint: Cardiac Assessment Primary Care Physician: Cesar Moseley M.D. History of Present Illness Source: patient, partner Daniel is an 82-year-old male with a past history of atrial fibrillation and aortic stenosis who is s/p CABGx2 and mechanical aortic valve replacement. Daniel has had afib and and in 2003 underwent cardiac catheterization confirming his need for a new aortic valve. It was then discovered that he had two blocked coronary arteries. He was referred to [facility] and underwent open heart surgery, which encompassed a two-vessel CABG, mechanical aortic valve replacement, and surgical ablation. The latter resolved Daniel's afib. In 2012, he reported palpitations and underwent cardioversion, which converted him back to sinus rhythm. Since then he has noted intermittent palpitations and skipped beats. Two nights ago, Daniel awoke from sleeping and reported his heart pounding and racing. It eventually resolved and he was able to fall back asleep. This occurred again last night. This morning upon awakening, his heart was racing. His reports an HR of 86 at 0900 and then ten minutes later it was "too fast to count." He subsequently came to the ED with his . In the past two days, he denies any chest pain, shortness of breath, diaphoresis, loss of consciousness, lightheadedness, or dizziness. He denies any recent changes to his medications. Past Medical/Surgical History Medical Problems: (1) Atrial flutter with rapid ventricular response Status: Acute (2) Cardiac ischemia Status: Acute Social History Smoking Status: Former Smoker (Quit 40 years ago) Smokeless Tobacco Use: No Alcohol Use: 4-6 beers/day Drug Use: none Marital Status: Housing status: lives with family Occupational Status: employed Immunizations History of Influenza Vaccine: Yes Influenza Vaccine Date: May 20, 2012 History of Tetanus Vaccine?: Yes Tetanus Immunization Date: Nov 17, 2002 History of Pneumococcal: Yes Pneumococcal Date: Nov 18, 2007 History of Hepatitis B Vaccine: No Allergies Coded Allergies: BEE STING (Verified Allergy, Severe, ANAPHYLACTIC REACTION, 07/04/17) PT WENT THROUGH DESENSITIZATION PROCESS Celecoxib (Verified Allergy, Intermediate, HIVES, 07/04/17) Chlorhexidine (Verified Allergy, Intermediate, ITCHING WITH CHLORHEXIDINE SCRUB, 07/04/17) Sulfa Drugs (Verified Allergy, Intermediate, CELEBREX=RASH, 07/04/17) Povidone Iodine (Unverified Allergy, Unknown, ITCHY RASH, 07/04/17) BETADINE SURGICAL SCRUB 7.5% TOPICAL SOAP Uncoded Allergies: ANESTHESIA (Adverse Reaction, Unknown, HALLUCINATION, , 07/04/17) Medications Amoxicillin (Amoxil), 2,000 MG PO UD PRN for Prior To Dental Procedure Aspirin (Aspirin Ec), 81 MG PO DAILY Atorvastatin (Lipitor), 40 MG PO QPM Biotin (Biotin), 1,000 MCG PO DAILY Calcipotriene (Dovonex), 1 APPLN TD DAILY PRN for DRY SKIN Cholecalciferol (Vitamin D), 1,000 UNIT PO DAILY Docusate Sodium (Docusate Sodium), 100 MG PO QPM Enteral Nutrition Formula (Ensure Plus Vanilla), 1 CAN PO QAM Ipratropium [place] (Nasal) (Ipratropium [place]), 2 SPRAY [place] TID PRN for Sinusitis Latanoprost (Xalatan 0.005% Oph Tonia), 1 DROPS OP HS Lisinopril (Prinivil), 5 MG PO DAILY Mineral Oil (Mineral Oil), 15 ML PO DAILY PRN for Constipation Omeprazole (Prilosec), 20 MG PO DAILY Senna (Senokot), 1 TAB PO DAILY Warfarin Sodium (Coumadin), 7.5 MG PO 5XWK Warfarin Sodium (Coumadin), 10 MG PO 2XWK Review of Systems Constitutional: No fever, No chills, No sweats, No fatigue Respiratory: No shortness of breath, No dyspnea on exertion, No dyspnea at rest Cardiovascular: + palpitations, No chest pain, No edema Abdomen: No pain, No nausea, No diarrhea, No constipation Musculoskeletal: No swelling, No calf pain Psychiatric: No anxiety Physical Exam Vital Signs (24 Hours) Date Time Temp Pulse Resp B/P (MAP) Pulse Ox O2 Delivery O2 Flow Rate FiO2 07/04/17 13:09 137 07/04/17 12:34 136 20 123/70 98 Room Air 07/04/17 11:14 95 Room Air 07/04/17 10:54 100 Room Air 07/04/17 10:54 36.6 140 16 155/101 99 Room Air 07/04/17 10:54 99 Room Air 07/04/17 10:46 139 General Appearance: WD/WN, no apparent distress Eyes: normal inspection, PERRL, sclerae normal Neck: supple, no adenopathy Respiratory/Chest: chest non-tender, lungs clear, normal breath sounds, no respiratory distress, no accessory muscle use Cardiovascular: no edema, no gallop, no murmur, + tachycardia, + irregularly irregular Abdomen/GI: normal bowel sounds, non tender, soft Extremities/Musculoskelatal: no calf tenderness, no pedal edema, non-tender Neurologic/Psych: normal mood/affect, oriented x 3 Diagnostics Laboratory Results Results Past 24 Hours Test 07/04/17 11:15 07/04/17 11:22 Range/Units White Blood Count 6.59 4.8-10.8 K/uL Red Blood Count 4.07 4.7-6.1 M/uL Hemoglobin 12.9 14.0-18.0 g/dL Hematocrit 39.1 42-52 % Mean Corpuscular Volume 96.1 80-100 fL Mean Corpuscular Hemoglobin 31.7 25-34 pg Mean Corpuscular Hemoglobin Concent 33.0 32-36 g/dl Platelet Count 189 130-400 K/uL Mean Platelet Volume 9.8 7.4-10.4 fL Neutrophils (%) (Auto) 68.4 % Lymphocytes (%) (Auto) 17.0 % Monocytes (%) (Auto) 11.1 % Eosinophils (%) (Auto) 2.7 % Basophils (%) (Auto) 0.5 % Neutrophils # (Auto) 4.51 1.4-6.5 K/uL Lymphocytes # (Auto) 1.12 1.2-3.4 K/uL Monocytes # (Auto) 0.73 0.11-0.59 K/uL Eosinophils # (Auto) 0.18 0-0.5 K/uL Basophils # (Auto) 0.03 0-0.2 K/uL RDW Standard Deviation 49.0 36.4-46.3 fL RDW Coefficient of Variation 13.8 11.5-14.5 % Immature Granulocyte % (Auto) 0.3 % Immature Granulocyte # (Auto) 0.02 0.00-0.02 K/uL Prothrombin Time 23.4 9.0-12.0 SECONDS Prothromb Time International Ratio 2.1 0.9-1.1 Activated Partial Thromboplast Time 36.9 21.0-31.0 SECONDS Partial Thromboplastin Ratio 1.4 Sodium Level 137 136-145 mmol/L Potassium Level 4.5 3.5-5.1 mmol/L Chloride Level 106 98-107 mmol/L Carbon Dioxide Level 29 21-32 mmol/L Anion Gap 2.0 3-11 mmol/L Blood Urea Nitrogen 13 7-18 mg/dl Creatinine 0.92 0.60-1.40 mg/dl Est Creatinine Clear Calc Drug Dose 65.7 ml/min Estimated GFR () 89.5 Estimated GFR (Non- 77.2 BUN/Creatinine Ratio 14.7 10-20 Random Glucose 103 70-99 mg/dl Calcium Level 8.5 8.5-10.1 mg/dl Total Bilirubin 0.9 0.2-1 mg/dl Direct Bilirubin 0.2 0-0.2 mg/dl Aspartate Amino Transf (AST/SGOT) 43 15-37 U/L Alanine Aminotransferase (ALT/SGPT) 38 12-78 U/L Alkaline Phosphatase 68 45-117 U/L Total Creatine Kinase 514 39-308 U/L Creatine Kinase MB 6.3 0.5-3.6 ng/ml Creatine Kinase MB Ratio 1.2 0-3.0 Total Protein 7.4 6.4-8.2 gm/dl Albumin 3.8 3.4-5.0 gm/dl Bedside Troponin I 0.120 0-0.045 ng/ml EKG EKG shows atrial flutter. other (prior EKG shows sinus rhythm ) Impression Assessment and Plan Daniel is an 82-year-old male with a past medical history of afib and aortic stenosis and s/p mechanical aortic valve replacement, CABGx2, and ablation in 2003. In 2012 he underwent cardioversion at the for atrial flutter and converted back to sinus rhythm. Since then he has experienced occasional palpitations and skipped beats. Two nights ago he began experiencing intermittent episodes of tachycardia and palpitations. After an episode this morning, he and his presented to the ED. 1) Atrial flutter -admit to telemetry -start on diltiazem drip -EKG in the morning -Troponins in the morning -Obtain an echocardiogram once rate has stabilized -Continue on warfarin (as he is already therapeutic) -Consult cardiology -recheck CBC, coag studies, BMP, PTT, Mg, TSH on AM labs 2) Hyperlipidemia -continue on atorvastatin 40 mg and aspirin 81 mg Level of Care Telemetry Advanced Directives Existing Living Will: Yes Resuscitation Status FULL RESUSCITATION DVT Prophylaxis warfarin (Coumadin) (currently on warfarin at home), SCDs Social Service Consult None Apply Note Total Time: Critical Care 30 - 74 minutes
[2017-07-04 16:46] LABS: MAGNESIUM 2.4 mg/dl (1.8-2.4); THYROID STIMULATING HORMONE 1.51 uIu/ml (0.300-4.500)
[2017-07-04 18:45] VITALS: BP 136/76; PULSE 137; TEMP 36.8; O2SAT 100
[2017-07-04] MEDS: WARFARIN SOD 7.5 MG TAB PO SCH (19:57)
[2017-07-04] MEDS ORDERED: NURSING DECISION MEDICATION ORDER SCH (20:15)
[2017-07-04] MEDS: LATANOPROST 0.005% OP SOLN 2.5 ML BTL OP SCH (20:56)
[2017-07-04] MEDS: LISINOPRIL 5 MG TAB PO SCH (20:57)
[2017-07-04] MEDS: DOCUSATE SODIUM 100 MG CAP PO SCH (20:57)
[2017-07-04] MEDS: ATORVASTATIN 40 MG TAB PO SCH (20:57)
[2017-07-04] MEDS: CHOLECALCIFEROL 1000 INTER.UNIT TAB PO SCH (20:58)
[2017-07-04] MEDS: SENNA 8.6 MG TAB PO SCH (20:58)
[2017-07-04] MEDS: ASPIRIN 81 MG ECTAB PO SCH (20:58)
[2017-07-04 21:15] VITALS: BP 123/76; PULSE 92
[2017-07-04 22:09] VITALS: BP 101/68; PULSE 71
[2017-07-04 22:22] VITALS: PULSE 67
[2017-07-04 23:20] VITALS: BP 95/50; PULSE 66; TEMP 36.6; O2SAT 97
[2017-07-04] MEDS ORDERED: WARFARIN SOD 2.5 MG TAB PO STA (23:39)
[2017-07-05] VITALS (13 sets, daily range): BP systolic 102–134; BP diastolic 53–65; PULSE 49–76; TEMP 36.4–36.7; O2SAT 96–98
[2017-07-05] MEDS: DILTIAZEM HCL INJ 125 MG in DEXTROSE 5% 100ML IV PRN (03:13)
[2017-07-05 06:05] LABS: BASO % 0.5 %; BASO ABS # 0.03 K/uL (0-0.2); COMPLETE YES; EOS % 3.3 %; HEMATOCRIT 35.1 % (42-52); IG% 0.2 %; LYMPH % 23.7 %; LYMPH ABS # 1.37 K/uL (1.2-3.4); MEAN CELL VOLUME 96.2 fL (80-100); MEAN CORPUSCULAR HEMOGLOBIN 31.5 pg (25-34); MEAN CORPUSCULAR HGB CONC 32.8 g/dl (32-36); MONO % 11.1 %; NEUT % 61.2 %; PLATELET COUNT 162 K/uL (130-400); RED BLOOD COUNT 3.65 M/uL (4.7-6.1); WHITE BLOOD COUNT 5.79 K/uL (4.8-10.8)
[2017-07-05 06:37] LABS: INR 1.8 (0.9-1.1); PARTIAL THROMBOPLASTIN RATIO 1.4; PROTHROMBIN TIME (PATIENT) 19.6 SECONDS (9.0-12.0)
[2017-07-05 06:47] LABS: BUN/CREATININE RATIO 13.9 (10-20); CALCIUM 8.1 mg/dl (8.5-10.1); CREATININE 0.93 mg/dl (0.60-1.40); POTASSIUM 4.2 mmol/L (3.5-5.1)
--- NOTE | 2017-07-05 08:19 | Family Medicine Progress Note ---
Progress Note Date of Service Jul 05, 2017. Subjective Pt evaluation today including: conversation w/ patient, conversation w/ family , physical exam, chart review, lab review Pt is doing well this morning. Constitutional: No fever, No chills, No sweats Respiratory: No cough, No sputum, No wheezing, No shortness of breath Cardiovascular: + palpitations, No chest pain, No orthopnea, No edema Abdomen: No pain, No nausea, No vomiting, No diarrhea Medications Current Inpatient Medications Medications (Trade) Dose Ordered Sig/Yanique Route Start Time Stop Time Status Last Admin Dose Admin Diltiazem HCl 125 mg/Dextrose 125 ml @ 0 mls/hr Q0M PRN IV 07/04/17 13:30 08/03/17 13:29 07/05/17 03:13 5 MLS/HR Acetaminophen (Tylenol Tab) 650 mg Q4H PRN PO 07/04/17 15:45 08/03/17 15:44 Ondansetron HCl (Zofran Inj) 4 mg Q6H PRN IV 07/04/17 15:45 08/03/17 15:44 Nitroglycerin (Nitrostat Tab) 0.4 mg UD PRN SL 07/04/17 15:45 08/03/17 15:44 Morphine Sulfate (MoRPHine SULFATE INJ) 2 mg Q30M PRN IV 07/04/17 15:45 07/18/17 15:44 Atorvastatin Calcium (Lipitor Tab) 40 mg QPM PO 07/04/17 21:00 08/03/17 20:59 07/04/17 20:57 40 MG Docusate Sodium (coLACE CAP) 100 mg QPM PO 07/04/17 21:00 08/03/17 20:59 07/04/17 20:57 100 MG Enteral Nutritional Formula (Boost Plus Vanilla) 1 can QAM PO 07/05/17 09:00 08/04/17 08:59 Latanoprost (Xalatan Oph Soln) 1 drops HS OP 07/04/17 21:00 08/03/17 20:59 07/04/17 20:56 1 DROPS Pantoprazole Sodium (Protonix Tab) 40 mg QAM PO 07/05/17 09:00 08/04/17 08:59 07/05/17 08:33 40 MG Warfarin Sodium (Coumadin Tab) 10 mg MoFr@1600 PO 07/06/17 16:00 08/05/17 15:59 Warfarin Sodium (Coumadin Tab) 7.5 mg SuTuWeThSa@1600 PO 07/04/17 18:00 08/03/17 17:59 07/04/17 19:57 7.5 MG Aspirin (Ecotrin Tab) 81 mg HS PO 07/04/17 21:00 08/03/17 20:59 07/04/17 20:58 81 MG Cholecalciferol (Vitamin D Tab) 1 inter.unit PM PO 07/04/17 21:00 08/03/17 20:59 07/04/17 20:58 1 INTER.UNIT Lisinopril (Zestril Tab) 5 mg PM PO 07/04/17 21:00 08/03/17 20:59 07/04/17 20:57 5 MG Senna (Senokot Tab) 8.6 mg PM PO 07/04/17 21:00 08/03/17 20:59 07/04/17 20:58 8.6 MG Objective Vital Signs Date Time Temp Pulse Resp B/P (MAP) Pulse Ox O2 Delivery O2 Flow Rate FiO2 07/05/17 11:26 36.5 73 18 127/65 (85) 98 Room Air 07/05/17 08:14 36.5 68 18 123/55 (77) 98 Room Air 07/05/17 08:00 Room Air 07/05/17 05:58 67 07/05/17 04:50 66 07/05/17 04:14 68 07/05/17 04:02 Room Air 07/05/17 03:10 36.5 72 20 102/53 (69) 98 Room Air 07/05/17 01:01 67 07/05/17 00:36 49 07/05/17 00:02 Room Air 07/05/17 00:00 66 121/63 (82) 07/04/17 23:20 36.6 66 16 95/50 (65) 97 Room Air 07/04/17 22:22 67 07/04/17 22:09 71 101/68 (79) 07/04/17 21:15 92 123/76 (92) 07/04/17 20:04 Room Air 07/04/17 18:45 36.8 137 16 136/76 (96) 100 Room Air 07/04/17 17:00 130 19 127/77 99 Room Air 07/04/17 16:06 117 15 104/80 98 Room Air 07/04/17 15:44 Room Air 07/04/17 15:06 138 17 07/04/17 15:01 124/87 07/04/17 14:46 109/77 07/04/17 14:31 103 18 112/83 95 Room Air 07/04/17 14:16 108 16 119/83 96 Room Air 07/04/17 14:01 99 16 124/78 97 Room Air 07/04/17 13:46 91 18 110/78 96 Room Air 07/04/17 13:33 97/68 07/04/17 13:09 137 Physical Exam General Appearance: WD/WN, no apparent distress Respiratory/Chest: chest non-tender, lungs clear, normal breath sounds, no respiratory distress, no accessory muscle use Cardiovascular: no edema, no gallop, no JVD, + irregularly irregular Neurologic/Psychiatric: alert, normal mood/affect, oriented x 3 Skin: normal color, warm/dry, no rash Laboratory Results 07/05/17 05:48 Red Blood Count 3.65, Mean Corpuscular Volume 96.2, Mean Corpuscular Hemoglobin 31.5, Mean Corpuscular Hemoglobin Concent 32.8, Mean Platelet Volume 10.0, Neutrophils (%) (Auto) 61.2, Lymphocytes (%) (Auto) 23.7, Monocytes (%) (Auto) 11.1, Eosinophils (%) (Auto) 3.3, Basophils (%) (Auto) 0.5, Neutrophils # (Auto ) 3.55, Lymphocytes # (Auto) 1.37, Monocytes # (Auto) 0.64, Eosinophils # (Auto ) 0.19, Basophils # (Auto) 0.03 07/05/17 05:48 Test 07/05/17 05:48 White Blood Count 5.79 K/uL (4.8-10.8) Red Blood Count 3.65 M/uL (4.7-6.1) Hemoglobin 11.5 g/dL (14.0-18.0) Hematocrit 35.1 % (42-52) Mean Corpuscular Volume 96.2 fL (80-100) Mean Corpuscular Hemoglobin 31.5 pg (25-34) Mean Corpuscular Hemoglobin Concent 32.8 g/dl (32-36) Platelet Count 162 K/uL (130-400) Mean Platelet Volume 10.0 fL (7.4-10.4) Neutrophils (%) (Auto) 61.2 % Lymphocytes (%) (Auto) 23.7 % Monocytes (%) (Auto) 11.1 % Eosinophils (%) (Auto) 3.3 % Basophils (%) (Auto) 0.5 % Neutrophils # (Auto) 3.55 K/uL (1.4-6.5) Lymphocytes # (Auto) 1.37 K/uL (1.2-3.4) Monocytes # (Auto) 0.64 K/uL (0.11-0.59) Eosinophils # (Auto) 0.19 K/uL (0-0.5) Basophils # (Auto) 0.03 K/uL (0-0.2) RDW Standard Deviation 48.7 fL (36.4-46.3) RDW Coefficient of Variation 13.8 % (11.5-14.5) Immature Granulocyte % (Auto) 0.2 % Immature Granulocyte # (Auto) 0.01 K/uL (0.00-0.02) Prothrombin Time 19.6 SECONDS (9.0-12.0) Prothromb Time International Ratio 1.8 (0.9-1.1) Activated Partial Thromboplast Time 35.1 SECONDS (21.0-31.0) Partial Thromboplastin Ratio 1.4 Anion Gap 4.0 mmol/L (3-11) Est Creatinine Clear Calc Drug Dose 63.2 ml/min Estimated GFR () 88.3 Estimated GFR (Non- 76.2 BUN/Creatinine Ratio 13.9 (10-20) Calcium Level 8.1 mg/dl (8.5-10.1) Troponin I 0.301 ng/ml (0-0.045) Assessment and Plan 82 yo male PMH of CAD, CABGx2, mechanical aortic valve, afib admitted to the hospital with uncontrolled aflutter 07/05 Pt on Cardizem drip overnight. Rate has been controlled by Cardizem drip, but underlying rhythm is still aflutter. Pt had elevate troponins overnight; 0.217, 0.301. Continuing to trend today. Will follow up with Cards later today. Aflutter with rvr Pt admitted to telemetry Pt on Cardizem drip, titrating Pt appropriately anticoagulated on warfarin Cardiology consult ordered-- started pt on amiodarone and scheduled cardioversion in the morning Demand ischemia 2/2 to [place] with RVR pt has had trops of 0.217, 0.301 continuing to trend Hyperlipidemia Continue Atorvastatin 40mg Continue ASA 81 mg Post-status CABG and mechanical aortic valve -Continue Lisinopril, ASA, statin -Puts patient at higher risk GERD -Continue PPI -Omeprazole outpatient switch to Protonix Glaucoma -Continue Latanoprost Advanced Directives Existing Living Will: Yes Existing Power of Clarifier Operator: Yes VTE Prophylaxis VTE Risk Assessment Done? Y/N: Yes Risk Level: Moderate Given or contraindicated: Warfarin (Coumadin) Assessment/Plan Resident Physician Supervision Note: I was present with Dr. Owens during the history and exam. I discussed the case with the resident and agree with the findings and plan as documented in the note. Any exceptions or clarifications are listed here. 82 y/o male h/o CAD, , atrial fibrillation s/p AVR, CABGx2, MACE p/w new onset atrial flutter which failed bolus intervention in the ED. Pt reports feeling at his baseline without lightheadedness, chest pain or SOB. Loud S1 click with AVR and IRR. CTAB. CNII-XII intact. At this point, cardiology believes cardioversion will be the best way to achieve stable status and have scheduled him for 0730 tomorrow. Will start amiodarone and continue diltiazem until cardioversion which, if successful, will presage discharge shortly after. Anticoagulation - increased coumadin dose as is presently low therapeutic range.
[2017-07-05] MEDS: PANTOprazole SOD 40 MG TAB PO SCH (08:33)
[2017-07-05] MEDS ORDERED: BOOST PLUS VANILLA PO SCH ×2 (09:00)
[2017-07-05] MEDS ORDERED: ASPIRIN 81 MG ECTAB PO SCH (09:00)
[2017-07-05] MEDS ORDERED: CHOLECALCIFEROL 1000 INTER.UNIT TAB PO SCH (09:00)
[2017-07-05] MEDS ORDERED: SENNA 8.6 MG TAB PO SCH (09:00)
[2017-07-05] MEDS ORDERED: LISINOPRIL 5 MG TAB PO SCH (09:00)
--- NOTE | 2017-07-05 12:20 | Clinical Documentation Query ---
CLINICAL DOCUMENTATION QUERY 82 year old male who presents to the Emergency Room for palpitations found to be int atrial flutter with RVR. In your clinical opinion is this patient being managed for: ( ) Type II MA in setting of Aflutter with RVR. ( ) MA causing Aflutter arrhythmia X ) Demand Ischemia in setting of Aflutter with RVR. ( ) Not Agree ( ) Other explanation of clinical findings (Please Explain) ( ) Unable to determine (Please Define) ( ) Need to Discuss The medical record reflects the following clinical findings, treatment, and risk factors. Clinical Indicators: Aflutter, tachycardia of 140's, Troponin's 0.120, 0.217, 0.301 Treatment: IV Cardizem gtt, cardiology consult Risk Factors: Age, CAD, prolonged tachycardia, Please clarify and document your clinical opinion in the progress notes and discharge summary. Terms such as "probable", "suspected", "likely", "questionable", "possible", or "still to be ruled out" are acceptable. IF IN AGREEMENT, YOU MUST DOCUMENT ABOVE DIAGNOSTIC STATEMENT IN DAILY PROGRESS NOTES AND DISCHARGE SUMMARY. This document is not part of the patient's record. Types of MA's Type 1: spontaneous MA related to ischemia d/t a primary coronary event (plaque erosion, dissection) *Type 2: MA related to ischemia associated with increased O2 demand or decreased supply *Type 3: sudden unexpected cardiac *Type 4: associated with PCI/Stents *Type 4a: MA d/t PCI *Type 4b: MA d/t stent *Type 4c: MA d/t restenosis* *Type 5: MA associated with CABG Thank You, Jason Mustafa, FORREST [phone]
--- NOTE | 2017-07-05 12:22 | Clinical Documentation Query ---
CLINICAL DOCUMENTATION QUERY 82 year old male who presents to the Emergency Room for palpitations found to be int atrial flutter with RVR. In your clinical opinion is this patient being managed for: ( ) Type II AR in setting of Aflutter with RVR. ( ) AR causing Aflutter arrhythmia ( x ) Demand Ischemia in setting of Aflutter with RVR. ( ) Not Agree ( ) Other explanation of clinical findings (Please Explain) ( ) Unable to determine (Please Define) ( ) Need to Discuss The medical record reflects the following clinical findings, treatment, and risk factors. Clinical Indicators: Aflutter, tachycardia of 140's, Troponin's 0.120, 0.217, 0.301 Treatment: IV Cardizem gtt, cardiology consult Risk Factors: Age, CAD, prolonged tachycardia, Please clarify and document your clinical opinion in the progress notes and discharge summary. Terms such as "probable", "suspected", "likely", "questionable", "possible", or "still to be ruled out" are acceptable. IF IN AGREEMENT, YOU MUST DOCUMENT ABOVE DIAGNOSTIC STATEMENT IN DAILY PROGRESS NOTES AND DISCHARGE SUMMARY. This document is not part of the patient's record. Types of AR's ? *Type 1: spontaneous AR related to ischemia d/t a primary coronary event (plaque erosion, dissection) *Type 2: AR related to ischemia associated with increased O2 demand or decreased supply *Type 3: sudden unexpected cardiac *Type 4: associated with PCI/Stents *Type 4a: AR d/t PCI *Type 4b: AR d/t stent *Type 4c: AR d/t restenosis* *Type 5: AR associated with CABG Thank You, Jason Mustafa, RN [phone]
--- NOTE | 2017-07-05 15:28 | Cardiology Consultation ---
Cardiology Consultation Date of Consultation: Jul 05, 2017. Requesting Physician: Dr. Owens Reason for Consultation: Atrial flutter Pt evaluation today including: conversation w/ patient, conversation w/ family , physical exam, lab review, review of studies, review of inpatient medication list History of Present Illness This is an 82-year-old gentleman who follows with Dr. Haile in our office. He has a history of [facility] mechanical aortic valve placed in 2003 at the time of a bypass surgery and Maze procedure for atrial fibrillation. He is on chronic warfarin anticoagulation. An echocardiogram done 03/09/2017 showed normal left ventricular size and function with a normally function prosthetic aortic valve. There was moderate mitral regurgitation and left atrium was moderately dilated. As of 09/17/2016 he was in sinus rhythm, he did have cardioversion in 2012 when he was in atrial flutter. He presents now with palpitations and fast heart rate for the last 3-4 days, he therefore presented and was noted to be in atrial flutter with 2-1 AV conduction on electrocardiography 07/04/2017 at 11 AM. He has been on warfarin, on 07/04/2017 his INR was 2.1, today it is 1.8. He has no other complaints. Past Medical/Surgical History (1) Tonsillectomy (2) right knee surgery (3) Anticoagulant therapy (4) Prosthetic replacement of heart valve (5) Gastroesophageal reflux disease (6) Small bowel obstruction Family History Heart disease Hypertension Social History Smoking Status: Former Smoker (Quit 40 years ago) History of Alcohol Use: Yes (0-4 drinks/day; wine or beer) Review of Systems Constitutional: No fever, No weight loss, No weakness Respiratory: No cough, No sputum, No wheezing, No shortness of breath Cardiac: + palpitations, No chest pain, No orthopnea, No edema Abdomen: No pain, No nausea, No vomiting, No diarrhea, No GI bleeding Male : No urinary frequency, No nocturia more than once/night, No slowing stream, No sexual dysfunction Neurologic: No paralysis, No weakness, No numbness/tingling, No balance problems Heme: No abnormal bleeding/bruising, No clotting problems Endo: No fatigue Skin: No problem reported All Other Systems: Reviewed and Negative Allergies Coded Allergies: BEE STING (Verified Allergy, Severe, ANAPHYLACTIC REACTION, 07/04/17) PT WENT THROUGH DESENSITIZATION PROCESS Celecoxib (Verified Allergy, Intermediate, HIVES, 07/04/17) Chlorhexidine (Verified Allergy, Intermediate, ITCHING WITH CHLORHEXIDINE SCRUB, 07/04/17) Sulfa Drugs (Verified Allergy, Intermediate, CELEBREX=RASH, 07/04/17) Povidone Iodine (Unverified Allergy, Unknown, ITCHY RASH, 07/04/17) BETADINE SURGICAL SCRUB 7.5% TOPICAL SOAP Uncoded Allergies: ANESTHESIA (Adverse Reaction, Unknown, HALLUCINATION, , 07/04/17) Medications Current Inpatient Medications Medications (Trade) Dose Ordered Sig/Yanique Route Start Time Stop Time Status Last Admin Dose Admin Diltiazem HCl 125 mg/Dextrose 125 ml @ 0 mls/hr Q0M PRN IV 07/04/17 13:30 08/03/17 13:29 07/05/17 03:13 5 MLS/HR Acetaminophen (Tylenol Tab) 650 mg Q4H PRN PO 07/04/17 15:45 08/03/17 15:44 Ondansetron HCl (Zofran Inj) 4 mg Q6H PRN IV 07/04/17 15:45 08/03/17 15:44 Nitroglycerin (Nitrostat Tab) 0.4 mg UD PRN SL 07/04/17 15:45 08/03/17 15:44 Morphine Sulfate (MoRPHine SULFATE INJ) 2 mg Q30M PRN IV 07/04/17 15:45 07/18/17 15:44 Atorvastatin Calcium (Lipitor Tab) 40 mg QPM PO 07/04/17 21:00 08/03/17 20:59 07/04/17 20:57 40 MG Docusate Sodium (coLACE CAP) 100 mg QPM PO 07/04/17 21:00 08/03/17 20:59 07/04/17 20:57 100 MG Latanoprost (Xalatan Oph Soln) 1 drops HS OP 07/04/17 21:00 08/03/17 20:59 07/04/17 20:56 1 DROPS Pantoprazole Sodium (Protonix Tab) 40 mg QAM PO 07/05/17 09:00 08/04/17 08:59 07/05/17 08:33 40 MG Warfarin Sodium (Coumadin Tab) 10 mg MoFr@1600 PO 07/06/17 16:00 08/05/17 15:59 Warfarin Sodium (Coumadin Tab) 7.5 mg SuTuWeThSa@1600 PO 07/04/17 18:00 08/03/17 17:59 07/04/17 19:57 7.5 MG Aspirin (Ecotrin Tab) 81 mg HS PO 07/04/17 21:00 08/03/17 20:59 07/04/17 20:58 81 MG Cholecalciferol (Vitamin D Tab) 1 inter.unit PM PO 07/04/17 21:00 08/03/17 20:59 07/04/17 20:58 1 INTER.UNIT Lisinopril (Zestril Tab) 5 mg PM PO 07/04/17 21:00 08/03/17 20:59 07/04/17 20:57 5 MG Senna (Senokot Tab) 8.6 mg PM PO 07/04/17 21:00 08/03/17 20:59 07/04/17 20:58 8.6 MG Enteral Nutritional Formula (Boost) 1 can QDB PO 07/06/17 07:30 08/05/17 07:29 Physical Exam Vital Signs Past 12 Hours Date Time Temp Pulse Resp B/P (MAP) Pulse Ox O2 Delivery O2 Flow Rate FiO2 07/05/17 12:00 Room Air 07/05/17 11:26 36.5 73 18 127/65 (85) 98 Room Air 07/05/17 08:14 36.5 68 18 123/55 (77) 98 Room Air 07/05/17 08:00 Room Air 07/05/17 05:58 67 07/05/17 04:50 66 07/05/17 04:14 68 07/05/17 04:02 Room Air 07/05/17 03:10 36.5 72 20 102/53 (69) 98 Room Air Constitutional: General Apperance: heathly-appearing Level of Distress: NAD Psychiatric: Mental Status: active & alert Head: normocephalic Eyes: EOM: EOMI ENMT: normal ENT inspection, hearing grossly normal Neck: supple, no masses Lungs: Respiratory effort: no dyspnea, good air movement Auscultation: breath sounds normal, no wheezing Cardiovascular: Heart Auscultation: no rubs, no gallops, II/ MATTEO, irregular rate rhythm, pertinent finding (Good prosthetic valve sounds) Peripheral Pulses: Bruits: none appreciated Abdomen: Bowel Sounds: normal Inspection & Palpation: soft, no tenderness, guarding & rebound, no masses Musculoskeletal: normal strength (5/5 throughout) Extremities: no edema Neurologic: Cranial Nerves: grossly intact Sensation: grossly intact Data Laboratory Results: Last 24 Hours Test 07/04/17 22:04 07/05/17 05:48 07/05/17 13:59 Troponin I 0.217 ng/ml 0.301 ng/ml White Blood Count 5.79 K/uL Red Blood Count 3.65 M/uL Hemoglobin 11.5 g/dL Hematocrit 35.1 % Mean Corpuscular Volume 96.2 fL Mean Corpuscular Hemoglobin 31.5 pg Mean Corpuscular Hemoglobin Concent 32.8 g/dl Platelet Count 162 K/uL Mean Platelet Volume 10.0 fL Neutrophils (%) (Auto) 61.2 % Lymphocytes (%) (Auto) 23.7 % Monocytes (%) (Auto) 11.1 % Eosinophils (%) (Auto) 3.3 % Basophils (%) (Auto) 0.5 % Neutrophils # (Auto) 3.55 K/uL Lymphocytes # (Auto) 1.37 K/uL Monocytes # (Auto) 0.64 K/uL Eosinophils # (Auto) 0.19 K/uL Basophils # (Auto) 0.03 K/uL RDW Standard Deviation 48.7 fL RDW Coefficient of Variation 13.8 % Immature Granulocyte % (Auto) 0.2 % Immature Granulocyte # (Auto) 0.01 K/uL Prothrombin Time 19.6 SECONDS Prothromb Time International Ratio 1.8 Activated Partial Thromboplast Time 35.1 SECONDS Partial Thromboplastin Ratio 1.4 Sodium Level 140 mmol/L Potassium Level 4.2 mmol/L Chloride Level 107 mmol/L Carbon Dioxide Level 29 mmol/L Anion Gap 4.0 mmol/L Blood Urea Nitrogen 13 mg/dl Creatinine 0.93 mg/dl Est Creatinine Clear Calc Drug Dose 63.2 ml/min Estimated GFR () 88.3 Estimated GFR (Non- 76.2 BUN/Creatinine Ratio 13.9 Random Glucose 87 mg/dl Calcium Level 8.1 mg/dl EKG: On admission atrial flutter with 2:1 AV conduction, V rate 138 Telemetry reviewed: Atrial flutter with initially a rapid HR, now rate controlled Assessment & Plan #1. Atrial flutter: He has a long-standing history of atrial arrhythmias including a Maze procedure years ago, recurrent atrial arrhythmias with cardioversion 4 years ago. I do most appropriate treatment is to convert him back to normal rhythm and see if he stays there. In the past the most part he has remained in sinus rhythm (at least symptomatically). I'm going to start him on amiodarone tonight intravenously, but I will arrange cardioversion for tomorrow morning. #2. Low INR: His INR should be slightly higher, it may be prudent to give Lovenox or start heparin this evening in light of cardioversion tomorrow morning. Thank you for allowing me to participate in his care.
[2017-07-05] MEDS ORDERED: AMIODARONE IV BOLUS / DRIP IV STA (15:31)
[2017-07-05] MEDS ORDERED: AMIODARONE / D5W 100 ML IV SCH (16:00)
[2017-07-05] MEDS ORDERED: AMIODARONE / D5W 200 ML IV SCH ×2 (16:10→22:10)
[2017-07-05] MEDS: WARFARIN SOD 7.5 MG TAB PO SCH (16:14)
--- NOTE | 2017-07-05 16:36 | Medical Student: [facility] ---
Med Student Progress Note Date of Service Jul 05, 2017. Subjective Pt evaluation today including: conversation w/ patient, conversation w/ family , physical exam, chart review, lab review, review of studies PO Intake: NPO Voiding: no voiding problems Daniel is an 82-year-old male who presented yesterday to the ED in aflutter. He failed to convert to sinus rhythm in the ED with a bolus of diltiazem and was admitted to telemetry. Daniel was started on a diltiazem drip that was tapered overnight as his HR decreased from 130s --> 90 --> 60-70s. Troponins last night and this morning were 0.217 and 0.301. He also received coumadin 2.5 mg. EKG this AM showed rate-controlled aflutter. Daniel was seen at the bedside this morning with his . He was resting comfortably in bed and had no complaints. He denies any chest pain, SOB, dizziness, visual changes. Review of Systems Constitutional: No fever, No chills, No sweats Eyes: + see HPI Respiratory: No cough, No sputum, No wheezing, No shortness of breath, No dyspnea on exertion Cardiac: + palpitations, No chest pain Abdomen: No pain, No nausea, No vomiting, No diarrhea, No constipation Objective Vital Signs Date Time Temp Pulse Resp B/P (MAP) Pulse Ox O2 Delivery O2 Flow Rate FiO2 07/05/17 15:48 36.7 72 20 134/62 (86) 98 Room Air 07/05/17 12:00 Room Air 07/05/17 11:26 36.5 73 18 127/65 (85) 98 Room Air 07/05/17 08:14 36.5 68 18 123/55 (77) 98 Room Air 07/05/17 08:00 Room Air 07/05/17 05:58 67 07/05/17 04:50 66 07/05/17 04:14 68 07/05/17 04:02 Room Air 07/05/17 03:10 36.5 72 20 102/53 (69) 98 Room Air 07/05/17 01:01 67 07/05/17 00:36 49 07/05/17 00:02 Room Air 07/05/17 00:00 66 121/63 (82) 07/04/17 23:20 36.6 66 16 95/50 (65) 97 Room Air 07/04/17 22:22 67 07/04/17 22:09 71 101/68 (79) 07/04/17 21:15 92 123/76 (92) 07/04/17 20:04 Room Air 07/04/17 18:45 36.8 137 16 136/76 (96) 100 Room Air 07/04/17 17:00 130 19 127/77 99 Room Air Physical Exam General Appearance: WD/WN, no apparent distress Eyes: bilateral eyes PERRL, bilateral eyes EOMI Neck: supple, no adenopathy, thyroid normal Respiratory/Chest: chest non-tender, lungs clear, normal breath sounds, no respiratory distress Cardiovascular: no edema, no gallop, no JVD, no murmur, + pertinent finding ( normal rate with aflutter) Abdomen: normal bowel sounds, non tender, soft Extremities: no pedal edema Neurologic/Psychiatric: alert, normal mood/affect, oriented x 3 Skin: normal color, warm/dry, no rash Laboratory Results Last 24 Hours Test 07/04/17 22:04 07/05/17 05:48 07/05/17 13:59 Troponin I 0.217 ng/ml 0.301 ng/ml 0.206 ng/ml White Blood Count 5.79 K/uL Red Blood Count 3.65 M/uL Hemoglobin 11.5 g/dL Hematocrit 35.1 % Mean Corpuscular Volume 96.2 fL Mean Corpuscular Hemoglobin 31.5 pg Mean Corpuscular Hemoglobin Concent 32.8 g/dl Platelet Count 162 K/uL Mean Platelet Volume 10.0 fL Neutrophils (%) (Auto) 61.2 % Lymphocytes (%) (Auto) 23.7 % Monocytes (%) (Auto) 11.1 % Eosinophils (%) (Auto) 3.3 % Basophils (%) (Auto) 0.5 % Neutrophils # (Auto) 3.55 K/uL Lymphocytes # (Auto) 1.37 K/uL Monocytes # (Auto) 0.64 K/uL Eosinophils # (Auto) 0.19 K/uL Basophils # (Auto) 0.03 K/uL RDW Standard Deviation 48.7 fL RDW Coefficient of Variation 13.8 % Immature Granulocyte % (Auto) 0.2 % Immature Granulocyte # (Auto) 0.01 K/uL Prothrombin Time 19.6 SECONDS Prothromb Time International Ratio 1.8 Activated Partial Thromboplast Time 35.1 SECONDS Partial Thromboplastin Ratio 1.4 Sodium Level 140 mmol/L Potassium Level 4.2 mmol/L Chloride Level 107 mmol/L Carbon Dioxide Level 29 mmol/L Anion Gap 4.0 mmol/L Blood Urea Nitrogen 13 mg/dl Creatinine 0.93 mg/dl Est Creatinine Clear Calc Drug Dose 63.2 ml/min Estimated GFR () 88.3 Estimated GFR (Non- 76.2 BUN/Creatinine Ratio 13.9 Random Glucose 87 mg/dl Calcium Level 8.1 mg/dl Assessment and Plan Assessment and Plan: Daniel is an 82-year-old man who is s/p mechanical aortic valve replacement, CABGx2, and ablation with a history of afib, aflutter, , and MR who presented yesterday to the ED in aflutter. He was admitted to telemetry and placed on a diltiazem drip. His troponins were elevated at 2200 yesterday and 0538 today at 0.217 and 0.301 respectively. He was given another dose of coumadin 2.5 mg overnight. Today his INR is 1.8 as of AM labs. EKG this morning shows rate- controlled aflutter. 1) Aflutter -repeat EKG and troponins in the afternoon -continue diltiazem drip -continue with anticoagulation -awaiting cards consult for possible cardioversion Continued [facility] stay due to: abnormal vital signs
--- NOTE | 2017-07-05 18:01 | Anesthesiology Progress Note ---
Anesthesia Progress Note Date of Service Jul 05, 2017. Progress Notes Mr. Pate is a pleasant 82 year old male slated for cardioversion on with Dr. Barron. Has has had this procedure previously 4 years ago without incident. Allergies to celebrex, chlorhexidine, iodine and sulfa. Stated with prior anesthetics he has had severe post-op hallucinations. PMH sig for CAD, HTN , s/p AVR, A fib/flutter, GERD, OA. PSH notable for CABG and AVR 2003. Plan for IV sedation and patient was consented. Appears ok to proceed tomorrow.
[2017-07-05] MEDS: DOCUSATE SODIUM 100 MG CAP PO SCH (20:21)
[2017-07-05] MEDS: ATORVASTATIN 40 MG TAB PO SCH (20:21)
[2017-07-05] MEDS: ASPIRIN 81 MG ECTAB PO SCH (20:21)
[2017-07-05] MEDS: CHOLECALCIFEROL 1000 INTER.UNIT TAB PO SCH (20:21)
[2017-07-05] MEDS: SENNA 8.6 MG TAB PO SCH (20:21)
[2017-07-05] MEDS: LATANOPROST 0.005% OP SOLN 2.5 ML BTL OP SCH (20:22)
[2017-07-05] MEDS: LISINOPRIL 5 MG TAB PO SCH (20:22)
[2017-07-06 04:00] VITALS: O2SAT 97
[2017-07-06 04:07] VITALS: BP 103/49; PULSE 60; TEMP 36.4; O2SAT 97
[2017-07-06] MEDS: DILTIAZEM HCL INJ 125 MG in DEXTROSE 5% 100ML IV PRN (04:32)
[2017-07-06 06:12] LABS: MEAN CORPUSCULAR HEMOGLOBIN 31.7 pg (25-34); MEAN CORPUSCULAR HGB CONC 33.1 g/dl (32-36); MEAN PLATELET VOLUME 10.2 fL (7.4-10.4); PLATELET COUNT 166 K/uL (130-400); RED BLOOD COUNT 3.75 M/uL (4.7-6.1); WHITE BLOOD COUNT 6.74 K/uL (4.8-10.8)
[2017-07-06 06:26] LABS: INR 1.9 (0.9-1.1); PROTHROMBIN TIME (PATIENT) 21.1 SECONDS (9.0-12.0)
[2017-07-06 06:47] LABS: BUN/CREATININE RATIO 14.2 (10-20); CALCIUM 8.1 mg/dl (8.5-10.1); CREATININE 1.01 mg/dl (0.60-1.40); POTASSIUM 4.1 mmol/L (3.5-5.1)
[2017-07-06] MEDS ORDERED: BOOST VANILLA PO SCH ×2 (07:30)
--- NOTE | 2017-07-06 07:44 | History & Physical Bridge Note ---
H&P Re-Evaluation Bridge Note: I have examined the patient, reviewed the History & Physical and in the interval since the performance of the History & Physical I have noted the following changes of clinical significance: No changes noted. Remains in atrial flutter.
[2017-07-06 07:45] VITALS: BP 126/62; PULSE 84; O2SAT 100
--- NOTE | 2017-07-06 07:47 | Family Medicine Progress Note ---
Progress Note Date of Service Jul 06, 2017. Assessment and Plan 82 yo male PMH of CAD, CABGx2, mechanical aortic valve, afib admitted to the hospital with uncontrolled aflutter 07/06 Pt for cardioversion this morning, will follow after procedure during late morning rounds Aflutter with rvr Pt admitted to telemetry Pt on Cardizem drip, titrating Pt appropriately anticoagulated on warfarin Cardiology consult ordered-- started pt on amiodarone and scheduled cardioversion in the morning Demand ischemia 09/28 to Aflutter with RVR pt has had trops of 0.217, 0.301 continuing to trend Hyperlipidemia Continue Atorvastatin 40mg Continue ASA 81 mg Post-status CABG and mechanical aortic valve -Continue Lisinopril, ASA, statin -Puts patient at higher risk GERD -Continue PPI -Omeprazole outpatient switch to Protonix Glaucoma -Continue Latanoprost
--- NOTE | 2017-07-06 07:50 | [facility] Operative Report ---
Operative Report Operative Date Jul 06, 2017. 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 Anteroposterior patch electrodes were placed. The patient was anesthetized by the anesthesia department. Once adequate anesthesia was obtained a synchronized biphasic shock was delivered using 50 J with conversion to atrial fibrillation, another biphasic shock was delivered using 200 J with conversion to sinus rhythm. The patient awoke from the anesthetic without sequela, will be observed briefly and returned to telemetry. I attest to the content of the Intraoperative Record and any orders documented therein. Any exceptions are noted below.
[2017-07-06 08:15] VITALS: BP 102/3; PULSE 66; TEMP 36.5; O2SAT 96
--- NOTE | 2017-07-06 08:17 | Anesthesiology Progress Note ---
Anesthesia Post Op Note Date & Time Jul 06, 2017 at 08:17 Vital Signs Pain Intensity: 0 Vital Signs Past 12 Hours Date Time Temp Pulse Resp B/P (MAP) Pulse Ox O2 Delivery O2 Flow Rate FiO2 07/06/17 08:10 59 16 98/56 (70) 98 Room Air 07/06/17 08:00 58 16 105/52 (69) 99 Room Air 07/06/17 07:50 60 16 97/54 (68) 99 Room Air 07/06/17 07:45 84 20 126/62 100 Room Air 07/06/17 04:07 36.4 60 16 103/49 (67) 97 Room Air 07/06/17 04:00 97 Room Air 07/05/17 23:59 98 Room Air 07/05/17 23:14 36.4 62 16 103/56 (72) 96 Room Air Notes Mental Status: alert / awake / arousable, participated in evaluation Pt Amnestic to Procedure: Yes Nausea / Vomiting: adequately controlled Pain: adequately controlled Airway Patency, RR, SpO2: stable & adequate BP & HR: stable & adequate Hydration State: stable & adequate Anesthetic Complications: no major complications apparent
[2017-07-06] MEDS: PANTOprazole SOD 40 MG TAB PO SCH (09:57)
[2017-07-06 12:01] VITALS: BP 119/72; PULSE 82; TEMP 36.6; O2SAT 100
[2017-07-06 13:25] VITALS: BP 119/72; PULSE 82; TEMP 36.6; O2SAT 100
--- NOTE | 2017-07-06 14:22 | Discharge Instructions ---
Discharge Instructions Date of Service Jul 06, 2017. Admission Reason for Admission: Atrial Flutter With Rapid Ventricular Response Discharge Discharge Diagnosis / Problem: Aflutter with rvr Discharge Goals Goal(s): Improve function, Improve disease control Activity Recommendations Activity Limitations: resume your previous activity . Instructions / Follow-Up Instructions / Follow-Up Mr. Pate, Musa came to [facility] with a high and irregular heart rate/rhythm called, atrial flutter. The cause of this is due a abnormal electrical pathway in the heart. The goal of treatment was to stabilize and lower your heart rhythm with close observation on a heart monitored unit. We were able to control the rate with medicine, but we were unable to correct the aberrant rhythm. Cardiology was then consulted and you were treated with electrocardioversion. This procedure put you back in your regular heart rhythm. We are discharging you with close follow up from your PCP and equal opportunity assistant, Dr. Barron. We did not making any changes to your medications at this time. Please continue to take your regular home meds. Anderson Hansen's office should be reaching out with you to make a follow up appointment, If you have any concerning symptoms, chest pain, shortness of breath, please follow up sooner in the emergency department. Current Hospital Diet Patient's current hospital diet: Low Sodium Diet (2gm Na), AHA Diet (Heart Healthy) Discharge Diet Recommended Diet: AHA Diet (Heart Healthy) Pending Studies Studies pending at discharge: no Medical Emergencies . Who to Call and When: Medical Emergencies: If at any time you feel your situation is an emergency, please call 911 immediately. . Non-Emergent Contact Non-Emergency issues call your: Primary Care Provider, Alberene Stone Setter . . "Provider Documentation" section prepared by Jasen Owens. . VTE Core Measure Inpt VTE Proph given/why not?: Warfarin (Coumadin)
[2017-07-06] MEDS ORDERED: WARFARIN SOD 10 MG TAB PO SCH (16:00)
--- NOTE | 2017-07-06 16:40 | Discharge Summary ---
Discharge Summary Date of Service Jul 06, 2017. (Jasen Owens M.D.) Discharge Summary Admission Date: Jul 04, 2017 at 15:51 Discharge Date: Jul 06, 2017 Discharge Disposition: Home Principal Diagnosis: aflutter with rvr Immunizations: Have You Had Influenza Vaccine: Yes Influenza Vaccine Date: May 20, 2012 History of Tetanus Vaccine?: Yes Tetanus Immunization Date: Nov 17, 2002 History of Pneumococcal: Yes Pneumococcal Date: Nov 18, 2007 History of Hepatitis B Vaccine: No (Jasen Owens M.D.) Medication Reconciliation Continued Medications: Amoxicillin (Amoxil) 500 Mg Tab 2000 MG PO UD PRN for Prior To Dental Procedure, TAB TAKE THIS MEDICATION DIRECTED ONE HOUR PRIOR TO DENTAL PROCEDURES. Aspirin (Aspirin Ec) 81 Mg Tab 81 MG PO DAILY Atorvastatin (Lipitor) 40 Mg Tab 40 MG PO QPM Biotin (Biotin) 1,000 Mcg Tab 1000 MCG PO DAILY Calcipotriene (Dovonex) 0.005 % Cre 1 APPLN TD DAILY PRN for DRY SKIN Cholecalciferol (Vitamin D) 1,000 Unit Tab 1000 UNIT PO DAILY Docusate Sodium (Docusate Sodium) 100 Mg Cap 100 MG PO QPM Enteral Nutrition Formula (Ensure Plus Vanilla) 1 Can Liqd 1 CAN PO QAM, CAN Ipratropium Hague (Nasal) (Ipratropium Hague) 0.03 % Spr 2 SPRAY WINSTON TID PRN for Sinusitis Latanoprost (Xalatan 0.005% Oph Tonia) 0.005 % Tonia 1 DROPS OP HS, #2.5 ML 3 Refills Lisinopril (Prinivil) 10 Mg Tab 5 MG PO DAILY, TAB Mineral Oil (Mineral Oil) 1 Oil Oil 15 ML PO DAILY PRN for Constipation Omeprazole (Prilosec) 20 Mg Cap 20 MG PO DAILY, CAP Senna (Senokot) 8.6 Mg Tab 1 TAB PO DAILY, TAB Warfarin Sodium (Coumadin) 7.5 Mg Tab 7.5 MG PO 5XWK, TAB EXCEPT SUNDAY AND SUNDAY Warfarin Sodium (Coumadin) 10 Mg Tab 10 MG PO 2XWK, TAB SUNDAY AND SUNDAY Discharge Exam Review of Systems: Constitutional: No fever, No chills, No sweats Respiratory: No cough, No sputum, No shortness of breath, No dyspnea on exertion, No dyspnea at rest Cardiovascular: No chest pain, No edema, No palpitations Abdomen: No pain, No nausea, No vomiting, No diarrhea Physical Exam: General Appearance: WD/WN, no apparent distress Respiratory/Chest: chest non-tender, lungs clear, normal breath sounds, no respiratory distress, no accessory muscle use Cardiovascular: regular rate, rhythm, no edema, no gallop Abdomen / GI: normal bowel sounds, non tender, soft Skin: normal color, warm/dry, no rash (Jasen Owens M.D.) Hospital Course 82 yo male PMH of CAD, CABGx2, mechanical aortic valve, afib admitted to the hospital with uncontrolled aflutter Pt was start on a Cardizem drip which controlled his rate, but the patient stayed in aflutter. Pt was seen by cardiology, Dr. Barron and successfully cardioverted. Pt did have elevated trops, likely as a consequence of demand ischemia. Troponins plateaued. No changes were made to the patients home meds. Pt instructed to follow up with PCP and [facility]. Please see the problem list with more details of hospitalization Aflutter Pt admitted to telemetry EKG in the AM Pt on Cardizem drip, titrating Follow troponins x3 1st trop .12 Pt appropriately anticoagulated on warfarin Cardiology consult ordered Hyperlipidemia Continue Atorvastatin 40mg Continue ASA 81 mg Post-status CABG and mechanical aortic valve -Continue Lisinopril, ASA, statin -This makes patient higher risk GERD -Continue PPI -Omeprazole outpatient switch to Protonix Glaucoma -Continue Latanoprost Total Time Spent: Less than 30 minutes This includes examination of the patient, discharge planning, medication reconciliation, and communication with other providers. (Jasen Owens M.D.) Discharge Instructions Please refer to the electronic Patient Visit Report (Discharge Instructions) for additional information. (Jasen Owens M.D.) Additional Copies To Cesar Moseley M.D. Assessment/Plan Resident Physician Supervision Note: I was present with Dr. Owens during the history and exam. I discussed the case with the resident and agree with the findings and plan as documented in the note. Any exceptions or clarifications are listed here. 82 y/o male h/o CAD, , atrial fibrillation s/p AVR, CABGx2, MACE p/w new onset atrial flutter which failed bolus intervention in the ED. Pt reports feeling at his baseline following cardioversion. Loud S1 click with AVR and IRR. CTAB. CNII-XII intact. Return home on previous medications, including AC (Ilia Isaac MD)
== END 2017-07-06 16:38 | disposition home or self-care (01) | DRG 309 ==
LOC: EDBD 10:40 → C.EDC 10:42 → C.2E 15:51 → ENRESERV 17:10
PROVIDERS: ADMIT Family Medicine; ATTEND Family Medicine
PROC: 5A2204Z Restoration of Cardiac Rhythm, Single (ICD-10-PCS; principal; 2017-07-06 07:30)
DX: I48.92 Unspecified atrial flutter (principal); I24.8 Other forms of acute ischemic heart disease; E78.5 Hyperlipidemia, unspecified; K21.9 Gastro-esophageal reflux disease without esophagitis; H40.9 Unspecified glaucoma; Z86.79 Personal history of other diseases of the circulatory system; Z95.1 Presence of aortocoronary bypass graft; Z95.2 Presence of prosthetic heart valve; Z87.891 Personal history of nicotine dependence; Z79.01 Long term (current) use of anticoagulants; Z79.82 Long term (current) use of aspirin; Z79.899 Other long term (current) drug therapy; Z82.49 Family history of ischemic heart disease and other diseases of the circulatory system

== ENCOUNTER → 2017-08-02 | Outpatient (CLI) | payer BC ==
[~2017-08-02] MED LIST changes: +ATOR-24 PO; +NUTR-977 PO; -SIMV40TA2 PO
== END | disposition home or self-care (01) ==
LOC: C.MAMM 08:50
PROVIDERS: ATTEND Family Medicine
DX: M81.0 Age-related osteoporosis without current pathological fracture (principal)

== ENCOUNTER 2017-09-09 23:47 | Emergency (ER) | payer BC ==
[~2017-09-09] VITALS: Ht 182.9 cm; Wt 76.3 kg
[~2017-09-09 23:47] MED LIST changes: +ACET-1311 PO
[2017-09-09 23:52] VITALS: TEMP 36.4; Ht 182.9 cm; Wt 76.3 kg
[2017-09-10] MEDS ORDERED: ACETAMINOPHEN 500 MG TAB PO STA (00:07)
--- NOTE | 2017-09-10 00:14 | EMERGENCY ROOM VISIT NOTE ---
History Report prepared by Ced: Randy Sims Under the Supervision of: Dr. Remy Sharp D.O. First contact with patient: 23:58 Chief Complaint: FALL Stated Complaint: FELL ON ICE - CONFUSED History of Present Illness The patient is an 82 year old male who presents to the Emergency Room with complaints of diffuse pain across his chest after a falling episode that occurred shortly prior to arrival. He describes his chest pain as a "tightness. " The patient states that he was attempting to walk around his car when he slipped on a patch of ice and fell backwards. He did his head on the ground, but he denies any current headache and he does not believe he lost consciousness. His notes that he was confused following the fall, and that both of his hearing aids fell out of his ears. The patient's only complaints are of pain across his chest which is worsened with ROM of his neck. The patient is on blood thinners. 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 A total of 10 systems reviewed and were otherwise negative. Past Medical & Surgical Medical Problems: (1) Anticoagulant therapy (2) Bleeding (3) Gastroesophageal reflux disease (4) Heart disease (5) open heart surgery (6) Prosthetic replacement of heart valve (7) right knee surgery (8) skin problems (9) Small bowel obstruction (10) Tonsillectomy (11) urinary problems Family History Heart disease Hypertension Social History Smoking Status: Former Smoker Alcohol Use: occasionally Drug Use: none Marital Status: Housing Status: lives with significant other Occupation Status: employed Current/Historical Medications Scheduled Acetaminophen (Tylenol), 650 MG PO BID Aspirin (Aspirin Ec), 81 MG PO DAILY Atorvastatin (Lipitor), 40 MG PO QPM Biotin (Biotin), 1,000 MCG PO DAILY Cholecalciferol (Vitamin D), 1,000 UNIT PO DAILY Docusate Sodium (Docusate Sodium), 100 MG PO QPM Enteral Nutrition Formula (Ensure Plus Vanilla), 1 CAN PO QAM Latanoprost (Xalatan 0.005% Oph Tonia), 1 DROPS OP HS Lisinopril (Prinivil), 5 MG PO DAILY Omeprazole (Prilosec), 20 MG PO DAILY Senna (Senokot), 1 TAB PO DAILY Warfarin Sodium (Coumadin), 7.5 MG PO 6XWK Warfarin Sodium (Coumadin), 5 MG PO WK Scheduled PRN Amoxicillin (Amoxil), 2,000 MG PO UD PRN for Prior To Dental Procedure Calcipotriene (Dovonex), 1 APPLN TD DAILY PRN for DRY SKIN Ipratropium Panora (Nasal) (Ipratropium Panora), 2 SPRAY WINSTON TID PRN for Sinusitis Mineral Oil (Mineral Oil), 15 ML PO DAILY PRN for Constipation Allergies Coded Allergies: BEE STING (Verified Allergy, Severe, ANAPHYLACTIC REACTION, 09/10/17) PT WENT THROUGH DESENSITIZATION PROCESS Celecoxib (Verified Allergy, Intermediate, HIVES, 09/10/17) Chlorhexidine (Verified Allergy, Intermediate, ITCHING WITH CHLORHEXIDINE SCRUB, 09/10/17) Sulfa Drugs (Verified Allergy, Intermediate, CELEBREX=RASH, 09/10/17) Povidone Iodine (Unverified Allergy, Unknown, ITCHY RASH, 09/10/17) BETADINE SURGICAL SCRUB 7.5% TOPICAL SOAP Uncoded Allergies: ANESTHESIA (Adverse Reaction, Unknown, HALLUCINATION, , 07/04/17) Physical Exam Vital Signs Date Time Temp Pulse Resp B/P (MAP) Pulse Ox O2 Delivery O2 Flow Rate FiO2 09/10/17 00:49 83 18 194/96 99 Room Air 09/09/17 23:52 36.4 83 20 196/93 98 Room Air Physical Exam GENERAL: Patient is awake, alert, and in no acute distress. Patient is resting comfortably and showing no signs of anxiety EYES: The conjunctivae are clear. The pupils are round and reactive. EARS, NOSE, MOUTH AND THROAT: The nose is without any evidence of any deformity. Mucous membranes are moist tongue is midline NECK: There os diffuse tenderness to palpation across the neck. ROM is intact. NO step-offs noted. RESPIRATORY: Normal respiratory effort is noted there is no evidence of wheezing rhonchi or rales CARDIOVASCULAR: Regular rate with an irregular rhythm noted there no murmurs rubs or gallops normal S1 normal S2. There is a metallic click noted. GASTROINTESTINAL: The abdomen is soft. Bowel sounds are present in all quadrants. Abdomen is nontender BACK: No midline tenderness or or step-off noted range of motion in flexion extension as well as rotation no signs of muscle spasm noted MUSCULOSKELETAL/EXTREMITIES: There is no evidence of gross deformity full range of motion is noted in the hips and shoulders SKIN: There is no obvious evidence of any rash. There are no petechiae, pallor or cyanosis noted. No pedal edema. NEUROLOGIC: Patient is awake alert and oriented x3. Gait was steady. GCS 15 Medical Decision & Procedures ER Provider Diagnostic Interpretation: CT the head and cervical spine was obtained in the emergency department. The report reviewed. Preliminary Findings Only See Final Report For Complete Findings CT HEAD: No intracranial hemorrhage or skull fracture. Involutional changes with small vessel disease. CT C SPINE: No fracture or malalignment. Degenerative changes and ankylosis. Radiologist: Nela Santos M.D. Study ready at 00:47 and initial results transmitted at 00:52 CHEST X-RAY: Elevation of the left aria-diaphragm. Post surgical findings. No free air, no infiltrate. No definite change from 07/04/2017 Medications Administered Medications (Trade) Dose Ordered Sig/Yanique Route Start Time Stop Time Status Last Admin Dose Admin Acetaminophen (Tylenol Tab) 1,000 mg NOW STAT PO 09/10/17 00:07 09/10/17 00:09 DC 09/10/17 00:48 1,000 MG ECG Indication: chest pain Rate (beats per minute): 82 Rhythm: normal sinus Findings: PVC, no acute ischemic change Comparison ECG Date: 07/06/2017 Change: no significant change ED Course 0003: The patient was evaluated in room B2. A complete history and physical examination were performed. 0007: Ordered Acetaminophen 1000 mg PO. 013: Upon reevaluation, the patient is in no distress. I discussed the results and treatment plan with him. He verbalized agreement of the treatment plan. The patient was discharged home. Medical Decision Differential diagnosis: Etiologies such as fracture, dislocation, intra-abdominal, pneumothorax, intrathoracic , intracranial, neurologic, as well as other traumatic pathologies were entertained. Nursing notes reviewed. The patient is an 82-year-old male who presented to the emergency department after he fell on the ice and struck his head. The patient had initially been confused. The patient takes blood thinners and he was concerned about the possibility of bleeding. The patient had a CT the head and neck. I discussed the patient's radiographic studies with him. I also discussed the possibility of delayed bleeding. The patient was treated with Tylenol in the emergency department. He was encouraged to follow-up with his primary care physician for further evaluation and return to the emergency department immediately if symptoms change worsen or the need arises. Impression Primary Impression: Fall Additional Impressions: Head injury Chest pain Scribe Attestation The scribe's documentation has been prepared under my direction and personally reviewed by me in its entirety. I confirm that the note above accurately reflects all work, treatment, procedures, and medical decision making performed by me. Departure Information Dispostion Home / Self-Care Referrals Cesar Moseley M.D. (PCP) Forms HOME CARE DOCUMENTATION FORM, IMPORTANT VISIT INFORMATION Patient Instructions [facility] Additional Instructions Continue all medications as prescribed. Rest and avoid any strenuous activity. Continue using Tylenol as directed for pain. Call your family the morning to schedule follow-up appointment. Return to the emergency department immediately if symptoms change worsen or the need arises. Problem Qualifiers Primary Impression: Fall Encounter type: initial encounter Qualified Codes: W19.XXXA - Unspecified fall, initial encounter Additional Impressions: Head injury Encounter type: initial encounter Qualified Codes: S09.90XA - Unspecified injury of head, initial encounter Chest pain Chest pain type: unspecified Qualified Codes: R07.9 - Chest pain, unspecified
[2017-09-10 00:49] VITALS: BP 194/96; PULSE 83; O2SAT 99
--- NOTE | 2017-09-10 06:41 | DIAGNOSTIC IMAGING REPORT ---
HEAD WITHOUT CONTRAST (CT) CLINICAL HISTORY: 82 years-old Male with fall. Acute head injury status post fall TECHNIQUE: Multiple axial CT images of the head were obtained without contrast. A dose lowering technique was utilized adhering to the principles of ALARA. COMPARISON: CT head 01/05/2015. FINDINGS: No acute intracranial hemorrhage, midline shift, intracranial mass, hydrocephalus, territorial ischemia or abnormal extra-axial collection. Mild to moderate brain parenchymal atrophy with background chronic microvascular ischemic changes. 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 The calvarium is intact. The paranasal sinuses, mastoid air cells, and middle ear cavities are clear. Post surgical changes of the globes. IMPRESSION: No acute intracranial abnormality or calvarial fracture. The above report was generated using voice recognition software. It may contain grammatical, syntax or spelling errors. Electronically signed by: Luis Daniel M.D. 09/10/2017 6:39 AM Dictated Date/Time: 09/10/2017 6:36 AM
--- NOTE | 2017-09-10 07:09 | DIAGNOSTIC IMAGING REPORT ---
CT SCAN OF THE CERVICAL SPINE CLINICAL HISTORY: Fall. COMPARISON STUDY: CT scan of the cervical spine dated 08/10/2013. TECHNIQUE: CT scan of the cervical spine is performed from the skull base to the upper thoracic spine. Images are reviewed in the axial, sagittal, and coronal planes. IV contrast was not administered for this examination. A dose lowering technique was utilized adhering to the principles of ALARA. CT DOSE: 1087.66 mGy.cm FINDINGS: Skeletal structures: The skeletal structures are osteopenia. There is no evidence of fracture or subluxation involving the cervical spine. Vertebral body height is maintained. There is minimal retrolisthesis at C5-C6 and C6-C7. Alignment is otherwise preserved. There is straightening of the cervical lordosis with reversal centered at C5. The odontoid process and lateral masses are intact. The atlantoaxial articulation is preserved noting advanced productive degenerative change. The spinous processes appear intact. Anterior osteophytes are seen throughout. There is advanced multilevel cervical spondylosis. Uncovertebral and facet arthropathy contribute to neural foraminal stenosis at most levels. Intervertebral discs: There is advanced disc space narrowing at C5-C6 with associated endplate sclerosis. Moderate disc space narrowing is seen at the remaining cervical levels. Central canal: Posterior disc osteophyte complexes from C3-C4 through C6-C7 likely contribute to multilevel acquired compromise of the central canal. Soft tissues: The prevertebral and paraspinous soft tissues are within normal limits. There is dense atherosclerotic calcification of the carotid bulbs. Calvarium: The visualized calvarium at the skull base appears intact. Brain parenchyma: Partially visualized brain parenchyma the skull base is within normal limits. Sinuses and mastoids: The visualized paranasal sinuses are clear. There is a small left mastoid effusion. The right mastoid air cells are well pneumatized. Lung apices: Clear as visualized. IMPRESSION: 1. There is no evidence of fracture or subluxation involving the cervical spine. 2. Osteopenia and spondylotic change as above. Electronically signed by: Valentin Guadarrama M.D. 09/10/2017 7:08 AM Dictated Date/Time: 09/10/2017 7:05 AM
--- NOTE | 2017-09-10 07:15 | DIAGNOSTIC IMAGING REPORT ---
TWO VIEW CHEST CLINICAL HISTORY: Fall. FINDINGS: PA and lateral chest radiographs are compared to study dated 07/04/2017 and correlated with chest CT dated 12/01/2012. The PA view is degraded by patient rotation. The patient is status post midline sternotomy and there is evidence of cardiac valve surgery. The heart is enlarged there is atherosclerotic calcification of the thoracic aorta. The pulmonary vasculature is noncongested. Emphysema, chronic interstitial thickening, and elevation of left hemidiaphragm are similar to previous. There is left basilar scarring versus atelectasis. No airspace consolidation is seen typical for pneumonia and there is no pleural effusion. There is no pneumothorax. The skeletal structures are osteopenic. The bony thorax appears intact. IMPRESSION: Cardiomegaly and chronic parenchymal changes as above. No acute cardiopulmonary abnormality is identified. Electronically signed by: Valentin Guadarrama M.D. 09/10/2017 7:14 AM Dictated Date/Time: 09/10/2017 7:12 AM
== END 2017-09-10 01:18 | disposition home or self-care (01) ==
LOC: C.EDB 23:48
DX: S09.90XA Unspecified injury of head, initial encounter (principal); R07.9 Chest pain, unspecified; W00.0XXA Fall on same level due to ice and snow, initial encounter; K21.9 Gastro-esophageal reflux disease without esophagitis; Z95.2 Presence of prosthetic heart valve; Z79.82 Long term (current) use of aspirin; Z79.01 Long term (current) use of anticoagulants; Z87.891 Personal history of nicotine dependence; Z82.49 Family history of ischemic heart disease and other diseases of the circulatory system

== ENCOUNTER → 2017-11-22 | Outpatient (CLI) | payer BC ==
[~2017-11-22] MED LIST changes: -MINEOIL26 PO
--- NOTE | 2017-11-22 14:27 | DIAGNOSTIC IMAGING REPORT ---
L SHOULDER MIN 2 VIEWS ROUTINE CLINICAL HISTORY: ADHESIVE CAPSULITIS OF UNSPECIFIED SHOULDER COMPARISON: None. DISCUSSION: Moderate degenerative change glenohumeral joint. Moderate degenerative change acromioclavicular joint. Inferior osteophytic reaction from the distal clavicle as well as acromion. No evidence for fracture or dislocation. There is no evidence for soft tissue swelling. IMPRESSION: Moderate degenerative change glenohumeral joint with more significant degenerative change acromioclavicular joint. Inferior osteophytic reaction from acromioclavicular joint, potentially causing a component of impingement. The above report was generated using voice recognition software. It may contain grammatical, syntax or spelling errors. Electronically signed by: Aden Muniz M.D. 11/22/2017 2:25 PM Dictated Date/Time: 11/22/2017 2:24 PM
== END | disposition home or self-care (01) ==
LOC: C.RAD1850 14:08
PROVIDERS: ATTEND Family Medicine
DX: M75.02 Adhesive capsulitis of left shoulder (principal)

== ENCOUNTER 2017-12-31 01:20 | Inpatient (IN) | payer BC, OTHER ==
[~2017-12-31] VITALS: Ht 182.9 cm; Wt 71.2 kg
[2017-12-31] MEDS ORDERED: SODIUM CHLORIDE 0.9% 1000ML 1,000 ML IV STA (01:40)
[2017-12-31] MEDS ORDERED: ONDANSETRON INJ 2 MG/ML 2 ML VIAL IV STA (01:40)
[2017-12-31] MEDS ORDERED: FENTANYL CITRATE INJ 50 MCG/1 ML 2 ML VIAL IV STA ×2 (01:40→04:03)
--- NOTE | 2017-12-31 02:00 | EMERGENCY ROOM VISIT NOTE ---
History Report prepared by Ced: Dimas Betancourt Under the Supervision of: Dr. Jose Swift M.D. First contact with patient: 01:29 Chief Complaint: ILLNESS Stated Complaint: EXTREME NAUSEA,SINUS INFECTION History of Present Illness The patient is a 82 year old male who presents to the Emergency Room with complaints of worsening abdominal pain for the past couple of days. Patient adds that he has a distended abdomen. He states that the symptoms are relieved when he does not eat. He adds that he has had a history of sinus problems for the past 15 years. He states that they have worsened recently. Patient states that he was at his doctor's last Sunday. He states that the abdominal pain was present during that visit. He states that he was prescribed Cefuroxime during the visit. He states that he has not felt any better since taking the Cefuroxime. He adds that he has been vomiting for the past 2 days. Patient states that he vomited twice yesterday. He states that he has lost 5 pounds in the past week. Pertinent past medical history includes 2 bowel obstructions. He states that they were previously treated using a tube down his throat. Patient states that his last bowel movement was yesterday and that it was normal. He states that he had a mechanical heart valve placed in 1999. He denies having any cardiac stents. He states that his Coumadin levels have been stable. He states that he got a shingles shot recently. He denies a history of kidney problems or abdominal surgeries. Patient states that he still has his gallbladder and appendix. He denies any shortness of breath or chest pain. Source of History: patient Onset: Couple days ago Position: abdomen Timing: worsening Modifying Factors (Relieving): eating (Not eating) Associated Symptoms: + vomiting, No chest pain, No SOB Review of Systems See HPI for pertinent positives & negatives. A total of 10 systems reviewed and were otherwise negative. Past Medical & Surgical Medical Problems: (1) Anticoagulant therapy (2) Bleeding (3) Gastroesophageal reflux disease (4) Heart disease (5) open heart surgery (6) Prosthetic replacement of heart valve (7) right knee surgery (8) skin problems (9) Small bowel obstruction (10) Small bowel obstruction (11) Tonsillectomy (12) urinary problems Family History Heart disease Hypertension Social History Smoking Status: Former Smoker Alcohol Use: occasionally Drug Use: none Marital Status: Housing Status: lives with significant other Occupation Status: employed Current/Historical Medications Scheduled Acetaminophen (Tylenol), 650 MG PO DAILY Aspirin (Aspirin Ec), 81 MG PO DAILY Atorvastatin (Lipitor), 40 MG PO QPM Biotin (Biotin), 1,000 MCG PO DAILY Cefuroxime Axetil (Cefuroxime Axetil), 500 MG PO BID Cholecalciferol (Vitamin D), 1,000 UNIT PO DAILY Docusate Sodium (Docusate Sodium), 100 MG PO QPM Enteral Nutrition Formula (Ensure Plus Vanilla), 1 CAN PO QAM Latanoprost (Xalatan 0.005% Oph Tonia), 1 DROPS OP HS Lisinopril (Lisinopril), 5 MG PO DAILY Mineral Oil (Mineral Oil), 15 ML PO DAILY Omeprazole (Prilosec), 20 MG PO DAILY Warfarin Sodium (Coumadin), 7.5 MG PO DAILY Scheduled PRN Amoxicillin (Amoxil), 2,000 MG PO UD PRN for Prior To Dental Procedure Calcipotriene (Dovonex), 1 APPLN TD DAILY PRN for DRY SKIN Ipratropium [place] (Nasal) (Ipratropium [place]), 2 SPRAY [place] TID PRN for Sinusitis Allergies Coded Allergies: BEE STING (Verified Allergy, Severe, ANAPHYLACTIC REACTION, 12/31/17) PT WENT THROUGH DESENSITIZATION PROCESS Celecoxib (Verified Allergy, Intermediate, HIVES, 12/31/17) Chlorhexidine (Verified Allergy, Intermediate, ITCHING WITH CHLORHEXIDINE SCRUB, 12/31/17) Povidone Iodine (Verified Allergy, Intermediate, ITCHY RASH, 12/31/17) BETADINE SURGICAL SCRUB 7.5% TOPICAL SOAP Sulfa Drugs (Verified Allergy, Intermediate, CELEBREX=RASH, 12/31/17) Uncoded Allergies: ANESTHESIA (Adverse Reaction, Unknown, HALLUCINATION, , 07/04/17) Physical Exam Vital Signs Date Time Temp Pulse Resp B/P (MAP) Pulse Ox O2 Delivery O2 Flow Rate FiO2 12/31/17 05:40 36.8 90 18 136/76 98 Room Air 12/31/17 03:38 36.6 94 18 165/91 98 Room Air 12/31/17 01:23 36.5 95 18 127/70 97 Room Air Physical Exam GENERAL: Patient is elderly/cachetic, uncomfortable appearing, and in moderate distress. EYES: No scleral icterus, unremarkable pupils. ENT: Mucous membranes dry, no nasal congestion. NECK: No masses appreciated, no meningismus, trachea is midline. RESPIRATORY: No dyspnea. Clear to auscultation and equal bilaterally. No wheeze , no rhonchi. CARDIOVASCULAR: Audible mechanical click present. Regular rate and rhythm. No murmurs, rubs, gallops appreciated. GASTROINTESTINAL: Distended abdomen with hyperactive bowel sounds and moderately diffuse tenderness to palpitation. BACK: No midline tenderness, no CVA tenderness EXTREMITIES: Normal motion all extremities, no cyanosis, no edema. NEUROLOGIC: Alert and oriented, no acute motor or sensory deficits, no focal weakness, cranial nerves grossly intact. SKIN: Poor skin turgor. No rash, no jaundice, no diaphoresis. Medical Decision & Procedures ER Provider Diagnostic Interpretation: Stat Rad Radiology results and stated below per my review and radiologist interpretation: CT ABDOMEN & PELVIS With Contrast: Comparison: CT abdomen and pelvis 09/17/16. Multiple dilated and fluid-filled loops of small bowel compatible with high- grade small bowel obstruction. There is tethering of small bowel loops in the mid abdomen (e.g. axial images 44 and 56). Findings may be due to adhesions or internal hernia. There is mild ascites. There is no pneumatosis, pneumoperitoneum, or portal venous gas. Normal appendix. Right kidney cyst. No hydronephrosis. Liver, gallbladder, spleen, pancreas, and adrenal glands are unremarkable. Radiologist: Antonio Lora M.D. CT SINUSES: Mild mucosal thickening in the ethmoid air cells, maxillary sinuses, and frontal sinus compatible with inflammatory sinus disease. Sphenoid sinus, mastoid air cells, and middle ear cavities are clear. Radiologist: Antonio Lora M.D. Laboratory Results 12/31/17 02:00 Red Blood Count 4.72, Mean Corpuscular Volume 91.9, Mean Corpuscular Hemoglobin 32.8, Mean Corpuscular Hemoglobin Concent 35.7, Mean Platelet Volume 10.7, Neutrophils (%) (Auto) 78.3, Lymphocytes (%) (Auto) 12.5, Monocytes (%) (Auto) 7.4, Eosinophils (%) (Auto) 1.3, Basophils (%) (Auto) 0.2, Neutrophils # (Auto) 7.01, Lymphocytes # (Auto) 1.12, Monocytes # (Auto) 0.66, Eosinophils # (Auto) 0.12, Basophils # (Auto) 0.02 12/31/17 02:00 Test 12/31/17 02:00 12/31/17 02:06 White Blood Count 8.96 K/uL (4.8-10.8) Red Blood Count 4.72 M/uL (4.7-6.1) Hemoglobin 15.5 g/dL (14.0-18.0) Hematocrit 43.4 % (42-52) Mean Corpuscular Volume 91.9 fL (80-100) Mean Corpuscular Hemoglobin 32.8 pg (25-34) Mean Corpuscular Hemoglobin Concent 35.7 g/dl (32-36) Platelet Count 228 K/uL (130-400) Mean Platelet Volume 10.7 fL (7.4-10.4) Neutrophils (%) (Auto) 78.3 % Lymphocytes (%) (Auto) 12.5 % Monocytes (%) (Auto) 7.4 % Eosinophils (%) (Auto) 1.3 % Basophils (%) (Auto) 0.2 % Neutrophils # (Auto) 7.01 K/uL (1.4-6.5) Lymphocytes # (Auto) 1.12 K/uL (1.2-3.4) Monocytes # (Auto) 0.66 K/uL (0.11-0.59) Eosinophils # (Auto) 0.12 K/uL (0-0.5) Basophils # (Auto) 0.02 K/uL (0-0.2) RDW Standard Deviation 46.0 fL (36.4-46.3) RDW Coefficient of Variation 13.6 % (11.5-14.5) Immature Granulocyte % (Auto) 0.3 % Immature Granulocyte # (Auto) 0.03 K/uL (0.00-0.02) Prothrombin Time 18.4 SECONDS (9.0-12.0) Prothromb Time International Ratio 1.8 (0.9-1.1) Activated Partial Thromboplast Time 36.4 SECONDS (21.0-31.0) Partial Thromboplastin Ratio 1.4 Est Creatinine Clear Calc Drug Dose 51.4 ml/min Estimated GFR () 69.8 Estimated GFR (Non- 60.2 BUN/Creatinine Ratio 18.8 (10-20) Calcium Level 9.1 mg/dl (8.5-10.1) Phosphorus Level 3.1 mg/dl (2.5-4.9) Magnesium Level 2.3 mg/dl (1.8-2.4) Total Bilirubin 1.6 mg/dl (0.2-1) Direct Bilirubin 0.3 mg/dl (0-0.2) Aspartate Amino Transf (AST/SGOT) 44 U/L (15-37) Alanine Aminotransferase (ALT/SGPT) 32 U/L (12-78) Alkaline Phosphatase 67 U/L (45-117) Total Protein 8.2 gm/dl (6.4-8.2) Albumin 4.3 gm/dl (3.4-5.0) Lipase 223 U/L (73-393) Bedside Hemoglobin 16.0 g/dl (14.0-18.0) Bedside Hematocrit 47 % (42-52) Bedside Sodium 135 mEq/L (135-144) Bedside Potassium 4.2 mEq/L (3.3-5.0) Bedside Chloride 98 mEq/L (101-112) Bedside Total CO2 27 mEq/l (24-31) Anion Gap 16.0 mmol/L (16-25) Bedside Blood Urea Nitrogen 24 mg/dl (7-18) Bedside Creatinine 1.0 mg/dl (0.6-1.3) Bedside Glucose (other) 132 mg/dl (70-99) Bedside Ionized Calcium (Feliz) 1.07 mmol/l (1.12-1.32) Medications Administered Medications (Trade) Dose Ordered Sig/Yanique Route Start Time Stop Time Status Last Admin Dose Admin Sodium Chloride 1,000 ml @ 999 mls/hr Q1H1M STAT IV 12/31/17 01:40 12/31/17 05:57 DC 12/31/17 01:59 999 MLS/HR Fentanyl Citrate (Fentanyl Inj) 50 mcg NOW STAT IV 12/31/17 01:40 12/31/17 01:42 DC 12/31/17 01:59 50 MCG Ondansetron HCl (Zofran Inj) 4 mg NOW STAT IV 12/31/17 01:40 12/31/17 01:42 DC 12/31/17 01:59 4 MG Fentanyl Citrate (Fentanyl Inj) 50 mcg NOW STAT IV 12/31/17 04:03 12/31/17 04:04 DC 12/31/17 04:08 50 MCG Heparin Sodium/ Dextrose (Heparin 25,000 Unit/500ml D5W) 25,000 unit STK-MED ONCE .ROUTE 12/31/17 06:18 12/31/17 06:19 DC 12/31/17 06:20 25,000 UNIT ED Course 0131: The patient was evaluated in room B10. A complete history and physical exam was performed. 0240: Patient state that he is feeling much better. He adds that he is feeling a bit sleepy at receiving Fentanyl. Medical Decision Differential: Appendicitis, Diverticulitis, PUD/Gastritis, Biliary Pathology, UTI, Pyelonephritis, Renal Colic, Bowel Obstruction, Aortic Pathology, Acute Coronary Syndrome, amongst other pathologies entertained. 82 yr old male arrives for evaluation of acute abdominal pain over last few days associated with vomiting. By exam he has bowel obstruction though appears to be doing better with some zofran and fentanyl. CT with high grade obstruction. As symptoms relatively easily controlled I do not feel he is ischemic at this time. Reviewed with hospitalist and they will consult surgery. NG tube was placed without difficulty and patient tolerated. Labs looking OK. Patient admitted to hospitalist service. Of note, with increase sinus issues went ahead with CT Sinus which was unremarkable. Head Trauma GCS Score: 15 Medication Reconcilliation Current Medication List: was personally reviewed by me Blood Pressure Screening Patient's blood pressure: Elevated blood pressure Blood pressure disposition: Elevated BP felt to be situational Impression Primary Impression: Small bowel obstruction Additional Impression: Sinus congestion Scribe Attestation The scribe's documentation has been prepared under my direction and personally reviewed by me in its entirety. I confirm that the note above accurately reflects all work, treatment, procedures, and medical decision making performed by me. Departure Information Referrals Cesar Moseley M.D. (PCP) Patient Instructions My [facility] Problem Qualifiers
[2017-12-31] MEDS ORDERED: LSN5 PO (02:13)
[2017-12-31] MEDS ORDERED: MINE1OIL PO (02:13)
[2017-12-31] MEDS ORDERED: CEFU1TAB36 PO (02:13)
[2017-12-31 02:14] LABS: BASO % 0.2 %; BASO ABS # 0.02 K/uL (0-0.2); EOS % 1.3 %; EOS ABS # 0.12 K/uL (0-0.5); HEMATOCRIT 43.4 % (42-52); HEMOGLOBIN 15.5 g/dL (14.0-18.0); IG# 0.03 K/uL (0.00-0.02); LYMPH % 12.5 %; LYMPH ABS # 1.12 K/uL (1.2-3.4); MEAN CELL VOLUME 91.9 fL (80-100); MEAN CORPUSCULAR HEMOGLOBIN 32.8 pg (25-34); MEAN CORPUSCULAR HGB CONC 35.7 g/dl (32-36); MEAN PLATELET VOLUME 10.7 fL (7.4-10.4); MONO % 7.4 %; MONO ABS # 0.66 K/uL (0.11-0.59); NEUT % 78.3 %; NEUT ABS # 7.01 K/uL (1.4-6.5); PLATELET COUNT 228 K/uL (130-400); RED CELL DISTRIBUTION WIDTH CV 13.6 % (11.5-14.5); WHITE BLOOD COUNT 8.96 K/uL (4.8-10.8)
[2017-12-31 02:19] LABS: ISTAT IONIZED CALCIUM 1.07 mmol/l (1.12-1.32); ISTAT POTASSIUM 4.2 mEq/L (3.3-5.0)
[2017-12-31 02:23] LABS: INR 1.8 (0.9-1.1); PTT PATIENT 36.4 SECONDS (21.0-31.0)
[2017-12-31 02:33] LABS: ALBUMIN 4.3 gm/dl (3.4-5.0); CALCIUM 9.1 mg/dl (8.5-10.1); CREATININE 1.13 mg/dl (0.60-1.40); POTASSIUM 4.2 mmol/L (3.5-5.1)
[2017-12-31 02:37] LABS: PHOSPHORUS 3.1 mg/dl (2.5-4.9); TOTAL PROTEIN 8.2 gm/dl (6.4-8.2)
[2017-12-31] MEDS ORDERED: OPTIRAY 320 IV PRN (03:15)
--- NOTE | 2017-12-31 04:49 | History and Physical ---
History & Physical Date & Time of Service: December 31, 2017 at 04:44 Chief Complaint: Extreme Nausea,Sinus Infection Primary Care Physician: Cesar Moseley M.D. History of Present Illness Source: family, spouse 82 yo M with pMHx CAD s/p CABG x2, aortic stenosis s/p [facility] aortic valve, a.fib , HTN, HLD and 3 previous episodes SBO admitted with 2 week history of abdominal pain and nausea and vomiting acutely worsened over last 48 hours. Patient has noted abdominal distension and a 5lb weight loss over the last 2 weeks. He denies diarrhea and had his last BM yesterday AM. He was also passing flatus until this time. He notes worsened symptoms with PO intake, with vomiting usually within 30 min of eating. Pain is not positional or pleuritic. He was prescribed cefuroxime as outpatient, but had trouble swallowing this medication and found no relief for his abdominal symptoms. He notes he has had trouble swallowing since previous surgical intubation, but worsened more recently. He had chills last week but no fevers or chills recently. He otherwise denies headaches, CP, palpitations, dyspnea, lower extremity swelling or rashes. No issues with voiding. ROS is unremarkable except as noted above. Past Medical/Surgical History Medical Problems: (1) Anticoagulant therapy (2) Atrial flutter with rapid ventricular response (3) Bleeding (4) Cardiac ischemia (5) Chest pain (6) Face lacerations (7) Fall (8) Fall (9) Finger laceration (10) Forehead abrasion (11) Gastroesophageal reflux disease (12) Head injury (13) Heart disease (14) open heart surgery (15) Prosthetic replacement of heart valve (16) right knee surgery (17) skin problems (18) Small bowel obstruction (19) Tonsillectomy (20) urinary problems Family History Heart disease Hypertension Social History Smoking Status: Former Smoker Smokeless Tobacco Use: No Alcohol Use: none Drug Use: none Marital Status: Housing status: lives with family Occupational Status: employed Immunizations History of Influenza Vaccine: Yes Influenza Vaccine Date: May 20, 2012 History of Tetanus Vaccine?: Yes Tetanus Immunization Date: Nov 17, 2002 History of Pneumococcal: Yes Pneumococcal Date: Nov 18, 2007 History of Hepatitis B Vaccine: No Allergies Coded Allergies: BEE STING (Verified Allergy, Severe, ANAPHYLACTIC REACTION, 12/31/17) PT WENT THROUGH DESENSITIZATION PROCESS Celecoxib (Verified Allergy, Intermediate, HIVES, 12/31/17) Chlorhexidine (Verified Allergy, Intermediate, ITCHING WITH CHLORHEXIDINE SCRUB, 12/31/17) Fish (Verified Allergy, Intermediate, food allergy and intolerance, 12/31/17 ) Povidone Iodine (Verified Allergy, Intermediate, ITCHY RASH, 12/31/17) BETADINE SURGICAL SCRUB 7.5% TOPICAL SOAP Shellfish (Verified Allergy, Intermediate, GI SYMPTOMS, 01/01/18) Piperacillin (Verified Allergy, Mild, rash, 01/06/18) Blotchy rash that comes and goes, + itchiness, hands involved per Dr Skinner she did not believe this was related to Morphine histamine rxn. Tazobactam (Verified Allergy, Mild, rash, 01/06/18) Blotchy rash that comes and goes, + itchiness, hands involved per Dr Skinner she did not believe this was related to Morphine histamine rxn. Uncoded Allergies: ANESTHESIA (Adverse Reaction, Unknown, HALLUCINATION, , 07/04/17) Home Medications Scheduled Acetaminophen (Tylenol), 650 MG PO DAILY Aspirin (Aspirin Ec), 81 MG PO DAILY Atorvastatin (Lipitor), 40 MG PO QPM Biotin (Biotin), 1,000 MCG PO DAILY Cefuroxime Axetil (Cefuroxime Axetil), 500 MG PO BID Cholecalciferol (Vitamin D), 1,000 UNIT PO DAILY Docusate Sodium (Docusate Sodium), 100 MG PO QPM Enteral Nutrition Formula (Ensure Plus Vanilla), 1 CAN PO QAM Latanoprost (Xalatan 0.005% Oph Tonia), 1 DROPS OP HS Lisinopril (Lisinopril), 5 MG PO DAILY Mineral Oil (Mineral Oil), 15 ML PO DAILY Omeprazole (Prilosec), 20 MG PO DAILY Warfarin Sodium (Coumadin), 7.5 MG PO DAILY Scheduled PRN Amoxicillin (Amoxil), 2,000 MG PO UD PRN for Prior To Dental Procedure Calcipotriene (Dovonex), 1 APPLN TD DAILY PRN for DRY SKIN Ipratropium [place] (Nasal) (Ipratropium [place]), 2 SPRAY [place] TID PRN for Sinusitis Physical Exam Vital Signs Date Time Temp Pulse Resp B/P (MAP) Pulse Ox O2 Delivery O2 Flow Rate FiO2 5/7/18 03:38 36.6 94 18 165/91 98 Room Air 12/31/17 01:23 36.5 95 18 127/70 97 Room Air General Appearance: WD/WN, no apparent distress, + pertinent finding (NGT in situ) Head: normocephalic, atraumatic Eyes: sclerae normal ENT: hearing grossly normal Neck: supple Respiratory/Chest: normal breath sounds, no respiratory distress, no accessory muscle use Cardiovascular: regular rate, rhythm, no murmur, normal peripheral pulses, + pertinent finding (mechanical heart sound apprecaited) Abdomen/GI: + tenderness (diffuse), + abnormal bowel sounds (absent), + distended Extremities/Musculoskelatal: no calf tenderness, no pedal edema Neurologic/Psych: alert, normal mood/affect, oriented x 3 Skin: normal color, warm/dry, no rash Diagnostics Laboratory Results Results Past 24 Hours Test 12/31/17 02:00 12/31/17 02:06 Range/Units White Blood Count 8.96 4.8-10.8 K/uL Red Blood Count 4.72 4.7-6.1 M/uL Hemoglobin 15.5 14.0-18.0 g/dL Hematocrit 43.4 42-52 % Mean Corpuscular Volume 91.9 80-100 fL Mean Corpuscular Hemoglobin 32.8 25-34 pg Mean Corpuscular Hemoglobin Concent 35.7 32-36 g/dl Platelet Count 228 130-400 K/uL Mean Platelet Volume 10.7 7.4-10.4 fL Neutrophils (%) (Auto) 78.3 % Lymphocytes (%) (Auto) 12.5 % Monocytes (%) (Auto) 7.4 % Eosinophils (%) (Auto) 1.3 % Basophils (%) (Auto) 0.2 % Neutrophils # (Auto) 7.01 1.4-6.5 K/uL Lymphocytes # (Auto) 1.12 1.2-3.4 K/uL Monocytes # (Auto) 0.66 0.11-0.59 K/uL Eosinophils # (Auto) 0.12 0-0.5 K/uL Basophils # (Auto) 0.02 0-0.2 K/uL RDW Standard Deviation 46.0 36.4-46.3 fL RDW Coefficient of Variation 13.6 11.5-14.5 % Immature Granulocyte % (Auto) 0.3 % Immature Granulocyte # (Auto) 0.03 0.00-0.02 K/uL Prothrombin Time 18.4 9.0-12.0 SECONDS Prothromb Time International Ratio 1.8 0.9-1.1 Activated Partial Thromboplast Time 36.4 21.0-31.0 SECONDS Partial Thromboplastin Ratio 1.4 Sodium Level 133 136-145 mmol/L Potassium Level 4.2 3.5-5.1 mmol/L Chloride Level 100 98-107 mmol/L Carbon Dioxide Level 25 21-32 mmol/L Anion Gap 8.0 16.0 16-25 mmol/L Blood Urea Nitrogen 21 7-18 mg/dl Creatinine 1.13 0.60-1.40 mg/dl Est Creatinine Clear Calc Drug Dose 51.4 ml/min Estimated GFR () 69.8 Estimated GFR (Non- 60.2 BUN/Creatinine Ratio 18.8 10-20 Random Glucose 127 70-99 mg/dl Calcium Level 9.1 8.5-10.1 mg/dl Phosphorus Level 3.1 2.5-4.9 mg/dl Magnesium Level 2.3 1.8-2.4 mg/dl Total Bilirubin 1.6 0.2-1 mg/dl Direct Bilirubin 0.3 0-0.2 mg/dl Aspartate Amino Transf (AST/SGOT) 44 15-37 U/L Alanine Aminotransferase (ALT/SGPT) 32 12-78 U/L Alkaline Phosphatase 67 45-117 U/L Total Protein 8.2 6.4-8.2 gm/dl Albumin 4.3 3.4-5.0 gm/dl Lipase 223 73-393 U/L Bedside Hemoglobin 16.0 14.0-18.0 g/dl Bedside Hematocrit 47 42-52 % Bedside Sodium 135 135-144 mEq/L Bedside Potassium 4.2 3.3-5.0 mEq/L Bedside Chloride 98 101-112 mEq/L Bedside Total CO2 27 24-31 mEq/l Bedside Blood Urea Nitrogen 24 7-18 mg/dl Bedside Creatinine 1.0 0.6-1.3 mg/dl Bedside Glucose (other) 132 70-99 mg/dl Bedside Ionized Calcium (Feliz) 1.07 1.12-1.32 mmol/l Diagnostic Radiology Stat Rad Reports: CT ABDOMEN & PELVIS With Contrast: Comparison: CT abdomen and pelvis 09/17/16. Multiple dilated and fluid-filled loops of small bowel compatible with high- grade small bowel obstruction. There is tethering of small bowel loops in the mid abdomen (e.g. axial images 44 and 56). Findings may be due to adhesions or internal hernia. There is mild ascites. There is no pneumatosis, pneumoperitoneum, or portal venous gas. Normal appendix. Right kidney cyst. No hydronephrosis. Liver, gallbladder, spleen, pancreas, and adrenal glands are unremarkable. CT SINUSES: Mild mucosal thickening in the ethmoid air cells, maxillary sinuses, and frontal sinus compatible with inflammatory sinus disease. Sphenoid sinus, mastoid air cells, and middle ear cavities are clear. Impression Assessment and Plan 82 yo M with pMHx CAD s/p CABG x2, aortic stenosis s/p mech aortic valve, a.fib , HTN, HLD and 3 previous episodes SBO admitted with 2 week history of abdominal pain and nausea and vomiting acutely worsened over last 48 hours, consistent with high grade SBO High-grade small bowel obstruction - likely secondary to adhesions or internal hernia - CT stat rad report: Multiple dilated and fluid-filled loops of small bowel compatible with high-grade small bowel obstruction. There is tethering of small bowel loops in the mid abdomen. - Await final report - NGT with low intermittent suction - NPO with IVF NSS + KCl @ 100cc/hr - IV morphine PRN pain - IV ondansetron PRN nausea - IV pantoprazole daily for GI prophylaxis - Empiric treatment with IV Zosyn - Trend CBC, CMP and serial imaging studies - Consult surgery, previously seen by Dr. Ignacio Boss Sinus infection - As per CT sinus imaging - Zosyn, as above, will provide adequate coverage for treatment CAD / prosthetic heart valve replacement / a.fib with chronic anticoagulation with warfarin / HTN / HLD - INR on admission is subtherapeutic at 1.8 (likely due to inadequate PO intake) - Hold warfarin, start heparin drip per protocol, so that it may be stopped quickly if the patient is to require surgery. - Hold other PO meds including aspirin, atorvastatin, lisinopril GERD - IV pantoprazole, as above Glaucoma - Continue Latanoprost VTE ppx - Anticoagulate with heparin Code: FULL Attending addendum: I have physically seen this patient, have supervised the medical residents activities, and agree with the H&P unless as otherwise noted. Assessment and Plan: High-grade small bowel obstruction-- Admit to medical surgical floor. NSS + KCl 20 mEq at 100 mils per hour. NG tube to low intermittent suction Zofran 4 mg IV every 6 hours as needed. Omeprazole 40 mg IV daily. Zosyn 3.375 mg IV every 8 hours. Morphine sulfate 2 mg IV every 2 hours as needed severe pain Consult general surgery CAD/AVR/A. fib with chronic anti-coagulation with warfarin/hypertension-- Hold warfarin. Start heparin drip per weight-based protocol without bolus. Hold aspirin and lisinopril. GERD-- IV pantoprazole 40 mg daily. Advanced Directives Existing Living Will: Yes Existing Power of Gm: Yes (, son) Resuscitation Status Full VTE Prophylaxis Will order VTE Prophylaxis: Yes Resident Tracking Resident Involvement: Resident Care Provided Care Provided: Adult Hospital Medicine
[2017-12-31] MEDS ORDERED: MoRPHine SULFATE 4 MG/ML 1 ML CARP\\VIAL IV PRN (05:30)
[2017-12-31] MEDS ORDERED: ONDANSETRON INJ 2 MG/ML 2 ML VIAL IV PRN (05:30)
[2017-12-31] MEDS ORDERED: PIPERACILL/TAZOBAC IV 4.5 GM in DEXTROSE 5% 100ML 100 ML IV SCH (05:45)
[2017-12-31] MEDS ORDERED: PIPERACILL/TAZOBAC CONSULT ACTIVE PRN (05:45)
[2017-12-31] MEDS ORDERED: SODIUM CHLORIDE 0.9% 1000ML 1,000 ML IV SCH (05:45)
[2017-12-31] MEDS ORDERED: HEPARIN 25000 UNIT/500 ML D5W ONE (06:18)
[2017-12-31 06:30] VITALS: BP_SYST 165; BP_SYST 169; BP_DIAS 84; BP_DIAS 88; PULSE 74; TEMP 36.8; O2SAT 97
[2017-12-31] MEDS ORDERED: PIPERACILL/TAZOBAC IV 3.375 GM in NSS 100 ML IV ONE (07:00)
--- NOTE | 2017-12-31 07:19 | DIAGNOSTIC IMAGING REPORT ---
CT SINUSES-MAXILLOFACIAL W/O CLINICAL HISTORY: Worsening sinus congestion COMPARISON STUDY: None. TECHNIQUE: CT scan of the paranasal sinuses was performed in the axial plane. Coronal reconstructed images were obtained and reviewed. A dose lowering technique was utilized adhering to the principles of ALARA. CT DOSE: 447.13 mGy.cm FINDINGS: There is a trace left maxillary sinus air-fluid level. There is mild left frontal mucosal thickening. There is opacification of multiple ethmoid air cells. There is trace mucosal disease with sphenoid sinus. There is opacification of several left-sided mastoid air cells. The middle ear cavities appear well aerated. The ethmoid notches are protected. There is ostial obstruction of the right ostiomeatal unit. There is infundibular obstruction of the left ostomy unit. There are patent bilateral nasomaxillary apertures. IMPRESSION: 1. Mild pansinus disease with a trace left maxillary sinus air-fluid level 2. Patent bilateral nasomaxillary apertures 3. Obstruction of both ostiomeatal units Electronically signed by: Hudson Patrick M.D. 12/31/2017 7:17 AM Dictated Date/Time: 12/31/2017 7:14 AM
[2017-12-31] MEDS: HEPARIN 25,000 UNIT/500ML D5W 500 ML IV SCH ×5 (07:25→23:10)
[2017-12-31] MEDS: NSS + 20MEQ KCL 1000ML 1,000 ML IV SCH ×2 (08:08→17:19)
[2017-12-31 08:09] VITALS: O2SAT 97; Ht 182.9 cm; Wt 71.2 kg
--- NOTE | 2017-12-31 08:18 | DIAGNOSTIC IMAGING REPORT ---
ABDOMEN AND PELVIS CT WITH IV CONTRAST CT DOSE: 312.04 mGy.cm HISTORY: diffuse abdominal pain, vomiting, h/o obstruction TECHNIQUE: Multiaxial CT images of the abdomen and pelvis were performed following the use of intravenous contrast. A dose lowering technique was utilized adhering to the principles of ALARA. COMPARISON STUDY: Abdomen and pelvis CT 09/17/2016. FINDINGS: Patchy groundglass densities within the lung bases. This most pronounced within the right middle lobe which is similar to the prior study. Mild elevation of the left hemidiaphragm, unchanged. No pneumoperitoneum. No pneumatosis. Poststernotomy changes. No hepatic or splenic masses. The adrenal glands and pancreas are unremarkable. Normal gallbladder. Small cysts within the right kidney. The left kidney enhances normally. No hydronephrosis. Calcified plaque within the normal caliber abdominal aorta. No retroperitoneal lymphadenopathy. Small amount of ascites. Multiple distended gas and fluid-filled loops of small bowel seen throughout the abdomen. This is similar to the prior study. Transition point is identified within the midabdomen at the distal ileum on image 227. This could be due to an adhesion or internal hernia. Therefore, these findings are consistent with a small bowel obstruction. Normal bladder. Normal appendix. IMPRESSION: 1. High-grade small bowel obstruction with the transition point within the midabdomen as described above. This could be due to an adhesion or internal hernia. No pneumatosis or pneumoperitoneum at this time. 2. Small amount of ascites which is new from the prior study. Electronically signed by: Ryan Harding M.D. 12/31/2017 8:17 AM Dictated Date/Time: 12/31/2017 7:59 AM
--- NOTE | 2017-12-31 10:48 | Surgery Consultation ---
Consultation Date of Consultation: December 31, 2017. Attending Physician: Lily Skinner M.D. History of Present Illness 82 yo M with pMHx CAD s/p CABG x2, [facility], a.fib , HTN, HLD and 3 previous episodes SBO admitted with 2 week history of abdominal pain and nausea and vomiting acutely worsened over last 48 hours. Patient has noted abdominal distension and a 5lb weight loss over the last 2 weeks. He denies diarrhea and had his last BM yesterday AM. He was also passing flatus until this time. He notes worsened symptoms with PO intake, with vomiting usually within 30 min of eating. Pain is not positional or pleuritic. He was prescribed cefuroxime as outpatient, but had trouble swallowing this medication and found no relief for his abdominal symptoms. He notes he has had trouble swallowing since previous surgical intubation, but worsened more recently. He had chills last week but no fevers or chills recently. He otherwise denies headaches, CP, palpitations, dyspnea, lower extremity swelling or rashes. No issues with voiding. I got a call for consult this pt for SBO at 8:30 AM this morning. I reviewed pt' s H/P with pt and his . pt said he pass some gas this morning, pt denies abdominal pain now, no nausea, no vomiting, last BM yesterday. pt denies any chest pain. pt said he had post anesthesia mental state change after his open AVR and CABG X2 in 2003. Past Medical/Surgical History Medical Problems: (1) Atrial flutter with rapid ventricular response Status: Acute (2) Cardiac ischemia Status: Acute (3) Chest pain Status: Acute (4) Head injury Status: Acute (5) Sinus congestion Status: Acute Family History Heart disease Hypertension Social History Smoking Status: Former Smoker Smokeless Tobacco Use: No Alcohol Use: none Drug Use: none Marital Status: Housing Status: lives with significant other Occupation Status: employed Allergies Coded Allergies: BEE STING (Verified Allergy, Severe, ANAPHYLACTIC REACTION, 12/31/17) PT WENT THROUGH DESENSITIZATION PROCESS Celecoxib (Verified Allergy, Intermediate, HIVES, 12/31/17) Chlorhexidine (Verified Allergy, Intermediate, ITCHING WITH CHLORHEXIDINE SCRUB, 12/31/17) Fish (Verified Allergy, Intermediate, food allergy and intolerance, 12/31/17 ) Povidone Iodine (Verified Allergy, Intermediate, ITCHY RASH, 12/31/17) BETADINE SURGICAL SCRUB 7.5% TOPICAL SOAP Sulfa Drugs (Verified Allergy, Intermediate, CELEBREX=RASH, 12/31/17) Uncoded Allergies: ANESTHESIA (Adverse Reaction, Unknown, HALLUCINATION, , 07/04/17) Home Medications Scheduled Acetaminophen (Tylenol), 650 MG PO DAILY Aspirin (Aspirin Ec), 81 MG PO DAILY Atorvastatin (Lipitor), 40 MG PO QPM Biotin (Biotin), 1,000 MCG PO DAILY Cefuroxime Axetil (Cefuroxime Axetil), 500 MG PO BID Cholecalciferol (Vitamin D), 1,000 UNIT PO DAILY Docusate Sodium (Docusate Sodium), 100 MG PO QPM Enteral Nutrition Formula (Ensure Plus Vanilla), 1 CAN PO QAM Latanoprost (Xalatan 0.005% Oph Tonia), 1 DROPS OP HS Lisinopril (Lisinopril), 5 MG PO DAILY Mineral Oil (Mineral Oil), 15 ML PO DAILY Omeprazole (Prilosec), 20 MG PO DAILY Warfarin Sodium (Coumadin), 7.5 MG PO DAILY Scheduled PRN Amoxicillin (Amoxil), 2,000 MG PO UD PRN for Prior To Dental Procedure Calcipotriene (Dovonex), 1 APPLN TD DAILY PRN for DRY SKIN Ipratropium [place] (Nasal) (Ipratropium [place]), 2 SPRAY [place] TID PRN for Sinusitis Current Inpatient Medications Current Inpatient Medications Medications (Trade) Dose Ordered Sig/Yanique Route Start Time Stop Time Status Last Admin Dose Admin Ioversol (Optiray 320) 93 ml UD PRN IV 12/31/17 03:15 01/04/18 03:14 Miscellaneous Information (Order Awaiting Action) 1 ea QS N/A 12/31/17 08:00 01/30/18 07:59 Morphine Sulfate (MoRPHine SULFATE INJ) 2 mg Q4H PRN IV 12/31/17 05:30 01/14/18 05:29 Pantoprazole Sodium 40 mg/ Syringe 10 ml @ 5 mls/min DAILY@11 IV 12/31/17 11:00 01/30/18 10:59 Ondansetron HCl (Zofran Inj) 4 mg Q4H PRN IV 12/31/17 05:30 01/30/18 05:29 Miscellaneous Information (Consult) 1 ea UD PRN N/A 12/31/17 05:45 01/30/18 05:44 Potassium Chloride/Sodium Chloride 1,000 ml @ 100 mls/hr Q10H IV 12/31/17 07:00 01/30/18 06:59 12/31/17 08:08 100 MLS/HR Latanoprost (Xalatan Oph Soln) 1 drops HS OP 12/31/17 21:00 01/30/18 20:59 Heparin Sodium/ Dextrose 500 ml @ 26 mls/hr [id number] IV 12/31/17 06:30 01/30/18 06:29 Piperacillin Sod/ Tazobactam Sod 3.375 gm/Sodium Chloride 115 ml @ 28.75 mls/ hr Q8H IV 12/31/17 12:00 01/10/18 11:59 Review of Systems Constitutional: No fever, No chills, No sweats, No weight loss, No weakness, No fatigue, No problem reported Eyes: No worsening of vision, No eye pain, No redness, No discharge, No diplopia, No problem reported Respiratory: No cough, No sputum, No wheezing, No shortness of breath, No dyspnea on exertion, No dyspnea at rest, No hemoptysis, No problem reported Cardiovascular: + problem reported (AVR ( metal) + CABG x2 in 2003, A-fib) Abdomen: + pain, + nausea, + vomiting Musculoskeletal: + problem reported (knee replacement) Genitourinary - Male: No hematuria, No dysuria, No urinary frequency, No urinary urgency, No urinary hesitancy, No urinary retention, No urinary incontinence, No penile discharge, No lesions, No impotence, No problem reported Neurologic: No memory loss, No paralysis, No weakness, No numbness/tingling, No vertigo, No balance problems, No problem reported Psychiatric: No depression symptoms, No anhedonism, No anxiety, No insomnia, No substance abuse, No problem reported Endocrine: No fatigue, No excessive thirst, No excessive urination, No problem reported Integumentary: No rash, No itch, No new/changing skin lesions, No color change , No bleeding, No problem reported Allergic / Immunologic: No environmental allergies, No seasonal allergies, No pet sensitivities, No food allergies, No hives, No frequent infections, No poor healing, No prolonged convalescence, No problem reported Physical Exam Date Time Temp Pulse Resp B/P (MAP) Pulse Ox O2 Delivery O2 Flow Rate FiO2 12/31/17 08:09 97 Room Air 12/31/17 08:09 97 Room Air 12/31/17 07:30 Room Air 12/31/17 06:30 36.8 74 16 169/84 (112) 97 Room Air 165/88 (113) 12/31/17 05:40 36.8 90 18 136/76 98 Room Air 12/31/17 03:38 36.6 94 18 165/91 98 Room Air 12/31/17 01:23 36.5 95 18 127/70 97 Room Air General Appearance: WD/WN, no apparent distress Head: normocephalic Eyes: normal inspection ENT: normal ENT inspection Neck: supple, no JVD Respiratory/Chest: chest non-tender, lungs clear, normal breath sounds, no respiratory distress Cardiovascular: no edema, no gallop, no JVD, no murmur, + irregularly irregular Abdomen/GI: normal bowel sounds, non tender, soft, + distended Extremities/Musculoskelatal: normal inspection, no calf tenderness, normal capillary refill Neurologic/Psych: no motor/sensory deficits, alert, normal mood/affect Skin: normal color, warm/dry, no rash Lymphatic: no adenopathy Laboratory Results Last 24 Hours Test 12/31/17 02:00 12/31/17 02:06 12/31/17 08:50 White Blood Count 8.96 K/uL Red Blood Count 4.72 M/uL Hemoglobin 15.5 g/dL Hematocrit 43.4 % Mean Corpuscular Volume 91.9 fL Mean Corpuscular Hemoglobin 32.8 pg Mean Corpuscular Hemoglobin Concent 35.7 g/dl Platelet Count 228 K/uL Mean Platelet Volume 10.7 fL Neutrophils (%) (Auto) 78.3 % Lymphocytes (%) (Auto) 12.5 % Monocytes (%) (Auto) 7.4 % Eosinophils (%) (Auto) 1.3 % Basophils (%) (Auto) 0.2 % Neutrophils # (Auto) 7.01 K/uL Lymphocytes # (Auto) 1.12 K/uL Monocytes # (Auto) 0.66 K/uL Eosinophils # (Auto) 0.12 K/uL Basophils # (Auto) 0.02 K/uL RDW Standard Deviation 46.0 fL RDW Coefficient of Variation 13.6 % Immature Granulocyte % (Auto) 0.3 % Immature Granulocyte # (Auto) 0.03 K/uL Prothrombin Time 18.4 SECONDS Prothromb Time International Ratio 1.8 Activated Partial Thromboplast Time 36.4 SECONDS Partial Thromboplastin Ratio 1.4 Sodium Level 133 mmol/L Potassium Level 4.2 mmol/L Chloride Level 100 mmol/L Carbon Dioxide Level 25 mmol/L Anion Gap 8.0 mmol/L 16.0 mmol/L Blood Urea Nitrogen 21 mg/dl Creatinine 1.13 mg/dl Est Creatinine Clear Calc Drug Dose 51.4 ml/min Estimated GFR () 69.8 Estimated GFR (Non- 60.2 BUN/Creatinine Ratio 18.8 Random Glucose 127 mg/dl Calcium Level 9.1 mg/dl Phosphorus Level 3.1 mg/dl Magnesium Level 2.3 mg/dl Total Bilirubin 1.6 mg/dl Direct Bilirubin 0.3 mg/dl Aspartate Amino Transf (AST/SGOT) 44 U/L Alanine Aminotransferase (ALT/SGPT) 32 U/L Alkaline Phosphatase 67 U/L Total Protein 8.2 gm/dl Albumin 4.3 gm/dl Lipase 223 U/L Bedside Hemoglobin 16.0 g/dl Bedside Hematocrit 47 % Bedside Sodium 135 mEq/L Bedside Potassium 4.2 mEq/L Bedside Chloride 98 mEq/L Bedside Total CO2 27 mEq/l Bedside Blood Urea Nitrogen 24 mg/dl Bedside Creatinine 1.0 mg/dl Bedside Glucose (other) 132 mg/dl Bedside Ionized Calcium (Feliz) 1.07 mmol/l Urine Color YELLOW Urine Appearance CLEAR Urine pH 6.5 Urine Specific [place] 1.010 Urine Protein TRACE Urine Glucose (UA) NEG Urine Ketones TRACE Urine Occult Blood NEG Urine Nitrite NEG Urine Bilirubin NEG Urine Urobilinogen NEG Urine Leukocyte Esterase NEG Urine RBC 0-4 /hpf Urine WBC 1-5 /hpf Urine Epithelial Cells 10-20 /lpf Urine Bacteria NEG Urine Hyaline Casts 5-10 /lpf Assessment & Plan CT scan(12/31/2017)FINDINGS: Patchy groundglass densities within the lung bases. This most pronounced within the right middle lobe which is similar to the prior study. Mild elevation of the left hemidiaphragm, unchanged. No pneumoperitoneum. No pneumatosis. Poststernotomy changes. No hepatic or splenic masses. The adrenal glands and pancreas are unremarkable. Normal gallbladder. Small cysts within the right kidney. The left kidney enhances normally. No hydronephrosis. Calcified plaque within the normal caliber abdominal aorta. No retroperitoneal lymphadenopathy. Small amount of ascites. Multiple distended gas and fluid-filled loops of small bowel seen throughout the abdomen. This is similar to the prior study. Transition point is identified within the midabdomen at the distal ileum on image 227. This could be due to an adhesion or internal hernia. Therefore, these findings are consistent with a small bowel obstruction. Normal bladder. Normal appendix. Assessment: IMPRESSION: 82 yo M with pMHx CAD s/p CABG x2, aortic stenosis s/p mech aortic valve, a.fib, HTN, HLD and 3 previous episodes SBO admitted with 2 week history of abdominal pain and nausea and vomiting acutely worsened over last 48 hours, consistent with high grade SBO IMPRESSION1. High-grade small bowel obstruction with the transition point within the midabdomen as described above. This could be due to an adhesion or internal hernia. No pneumatosis or pneumoperitoneum at this time. 2. Small amount of ascites which is new from the prior study. Plan: I recommend 3 options to pt and his , 1. wait and conservative treatment NG tube, NPO, for 1-2 days 2. to do exploratory laparotomy surgery, pt is high risk for surgery, possible post-op pt may develop infection, bleeding , injury bowel, CA, DVT, stroke, . 3. base on pt had open heart surgery at [facility] and post - anesthesia mental change, if pt wants to transfer to [facility]. pt and his want to do conservative treatment first, I indicated that pt may develop ischemic bowel, or perforation, , they understood, I answered all questions, continue NG tube IV fluid npo repeat labs in am, will F/U
[2017-12-31] MEDS: PIPERACILL/TAZOBAC IV 3.375 GM in NSS 100ML IV SCH ×2 (11:32→20:07)
[2017-12-31] MEDS: PANTOprazole INJ 40 MG in SYRINGE 0 ML IV SCH (11:32)
[2017-12-31 12:49] LABS: PTT PATIENT 101.7 SECONDS (21.0-31.0)
[2017-12-31 15:18] VITALS: BP 132/62; PULSE 66; TEMP 36.7; O2SAT 95
[2017-12-31 21:06] LABS: PTT PATIENT 110.5 SECONDS (21.0-31.0)
--- NOTE | 2017-12-31 21:20 | Progress Note ---
Subjective Date & Time of Service December 31, 2017 at 21:02 Pt evaluation today including: conversation w/ patient, physical exam, chart review, lab review, review of studies Pain: Patient complains of generalized abdominal discomfort Voiding: no voiding problems, no incontinence Patient initially examined this morning and was complaining of abdominal distension, firmness, and generalized abdominal discomfort. At the time he was evaluated by GI and expressed wishes to pursue noninvasive treatment including NG tube and remaining NPO. Throughout the afternoon the patient reported significant improvement of his abdominal distension and tenderness and was having flatulence. The patient states that his initial discomfort of 5/10 significantly improved by the end of the day. Medications Current Inpatient Medications Medications (Trade) Dose Ordered Sig/Yanique Route Start Time Stop Time Status Last Admin Dose Admin Ioversol (Optiray 320) 93 ml UD PRN IV 12/31/17 03:15 01/04/18 03:14 Morphine Sulfate (MoRPHine SULFATE INJ) 2 mg Q4H PRN IV 12/31/17 05:30 01/14/18 05:29 Pantoprazole Sodium 40 mg/ Syringe 10 ml @ 5 mls/min DAILY@11 IV 12/31/17 11:00 01/30/18 10:59 12/31/17 11:32 5 MLS/MIN Ondansetron HCl (Zofran Inj) 4 mg Q4H PRN IV 12/31/17 05:30 01/30/18 05:29 Miscellaneous Information (Consult) 1 ea UD PRN N/A 12/31/17 05:45 01/30/18 05:44 Potassium Chloride/Sodium Chloride 1,000 ml @ 100 mls/hr Q10H IV 12/31/17 07:00 01/30/18 06:59 12/31/17 17:19 100 MLS/HR Latanoprost (Xalatan Oph Soln) 1 drops HS OP 12/31/17 21:00 01/30/18 20:59 Heparin Sodium/ Dextrose 500 ml @ 23 mls/hr [id number] IV 12/31/17 06:30 01/30/18 06:29 12/31/17 14:47 23 MLS/HR Piperacillin Sod/ Tazobactam Sod 3.375 gm/Sodium Chloride 115 ml @ 28.75 mls/ hr Q8H IV 12/31/17 12:00 01/10/18 11:59 12/31/17 20:07 28.75 MLS/HR Review of Systems Constitutional: No fever, No chills, No fatigue Respiratory: No cough, No wheezing, No shortness of breath Cardiovascular: No chest pain, No palpitations Abdomen: + pain, + vomiting, + problem reported (Abdominal distension and discomfort), No nausea, No diarrhea, No constipation, No GI bleeding Musculoskeletal: No joint pain, No calf pain Objective Last 8 Hrs Date Time Temp Pulse Resp B/P (MAP) Pulse Ox O2 Delivery O2 Flow Rate FiO2 12/31/17 15:45 Room Air 12/31/17 15:18 36.7 66 18 132/62 (85) 95 Room Air Physical Exam General Appearance: WD/WN, no apparent distress Head: normocephalic, atraumatic Respiratory/Chest: chest non-tender, lungs clear, normal breath sounds Cardiovascular: no edema, + systolic murmur, + irregularly irregular Abdomen/GI: + tenderness, + abnormal bowel sounds (decreased), + distended Extremities/Musculoskelatal: normal inspection, no calf tenderness, no pedal edema Neurologic/Psych: no motor/sensory deficits, alert, normal mood/affect, oriented x 3 Laboratory Results Laboratory Results (24 Hrs): Last 24 Hours Test 12/31/17 02:00 12/31/17 02:06 12/31/17 08:50 12/31/17 12:07 White Blood Count 8.96 K/uL Red Blood Count 4.72 M/uL Hemoglobin 15.5 g/dL Hematocrit 43.4 % Mean Corpuscular Volume 91.9 fL Mean Corpuscular Hemoglobin 32.8 pg Mean Corpuscular Hemoglobin Concent 35.7 g/dl Platelet Count 228 K/uL Mean Platelet Volume 10.7 fL Neutrophils (%) (Auto) 78.3 % Lymphocytes (%) (Auto) 12.5 % Monocytes (%) (Auto) 7.4 % Eosinophils (%) (Auto) 1.3 % Basophils (%) (Auto) 0.2 % Neutrophils # (Auto) 7.01 K/uL Lymphocytes # (Auto) 1.12 K/uL Monocytes # (Auto) 0.66 K/uL Eosinophils # (Auto) 0.12 K/uL Basophils # (Auto) 0.02 K/uL RDW Standard Deviation 46.0 fL RDW Coefficient of Variation 13.6 % Immature Granulocyte % (Auto) 0.3 % Immature Granulocyte # (Auto) 0.03 K/uL Prothrombin Time 18.4 SECONDS Prothromb Time International Ratio 1.8 Activated Partial Thromboplast Time 36.4 SECONDS 101.7 SECONDS Partial Thromboplastin Ratio 1.4 3.9 Sodium Level 133 mmol/L Potassium Level 4.2 mmol/L Chloride Level 100 mmol/L Carbon Dioxide Level 25 mmol/L Anion Gap 8.0 mmol/L 16.0 mmol/L Blood Urea Nitrogen 21 mg/dl Creatinine 1.13 mg/dl Est Creatinine Clear Calc Drug Dose 51.4 ml/min Estimated GFR () 69.8 Estimated GFR (Non- 60.2 BUN/Creatinine Ratio 18.8 Random Glucose 127 mg/dl Calcium Level 9.1 mg/dl Phosphorus Level 3.1 mg/dl Magnesium Level 2.3 mg/dl Total Bilirubin 1.6 mg/dl Direct Bilirubin 0.3 mg/dl Aspartate Amino Transf (AST/SGOT) 44 U/L Alanine Aminotransferase (ALT/SGPT) 32 U/L Alkaline Phosphatase 67 U/L Total Protein 8.2 gm/dl Albumin 4.3 gm/dl Lipase 223 U/L Bedside Hemoglobin 16.0 g/dl Bedside Hematocrit 47 % Bedside Sodium 135 mEq/L Bedside Potassium 4.2 mEq/L Bedside Chloride 98 mEq/L Bedside Total CO2 27 mEq/l Bedside Blood Urea Nitrogen 24 mg/dl Bedside Creatinine 1.0 mg/dl Bedside Glucose (other) 132 mg/dl Bedside Ionized Calcium (Feliz) 1.07 mmol/l Urine Color YELLOW Urine Appearance CLEAR Urine pH 6.5 Urine Specific [place] 1.010 Urine Protein TRACE Urine Glucose (UA) NEG Urine Ketones TRACE Urine Occult Blood NEG Urine Nitrite NEG Urine Bilirubin NEG Urine Urobilinogen NEG Urine Leukocyte Esterase NEG Urine RBC 0-4 /hpf Urine WBC 1-5 /hpf Urine Epithelial Cells 10-20 /lpf Urine Bacteria NEG Urine Hyaline Casts 5-10 /lpf Test 12/31/17 20:20 Assessment and Plan Patient is an 82 year old male with a pmh of multiple bowel obstructions, CAD s/ p CABG x 2, Aortic stenosis s/p mechganical aortic valve, Afib, HTN, that presents with abdominal pain, nausea, and vomiting 2/2 GI obstructions 1) Small Bowel Obstruction - CT Abd: High Grade Small Bowel Obstructions - Conservative Management: NPO, IVF, NG Tube, IV Zosyn, Protonix - Holding Coumadin for time being - Zofran PRN for nausea - Morphine PRN for pain - General Surgery consult - no surgery at this time, continue to monitor 2) Mechanical Aortic Valve/ HTN/ Afib/ HLD - Holding Coumadin for therapy - INR was subtherapeutic at 1.8 - On Heparin drip - PTT significantly elevated this morning so Heparin drip currently held - Hold home PO Lisinopril, Aspirin, and Lipitor 3) Sinus Infection - As per CT - Zosyn will cover 4) GERD - IV pantoprazole, as above 5) Glaucoma - Latanoprost 6) DVT - Heparin 7) Code Status - Full Resuscitation Resident Tracking Resident Involvement: Resident Care Provided Care Provided: Adult Hospital Medicine Reviewed: Pt Seen/Exam by Me History abdomen still distended. feels uncomfortable from it. Constitutional: denies: fever Respiratory: negative: short of breath Cardiovascular: denies chest pain General Appearance: no apparent distress Respiratory: lungs clear, no respiratory distress Cardiovascular: regular rate, rhythm Gastrointestinal: normal bowel sounds, non tender, soft, distended Neurologic/Psychiatric: alert, oriented x 3 Skin Characteristics: warm/dry Assessment/Plan Resident Physician Supervision Note: I independently interviewed and examined the patient and verified the alonzo history and physical, reviewed labs and image studies, discussed the case with the resident Dr. Fernandez and agree with the findings and care plan.
[2017-12-31] MEDS: LATANOPROST 0.005% OP SOLN 2.5 ML BTL OP SCH (21:47)
[2017-12-31 23:48] VITALS: BP 149/82; PULSE 67; TEMP 36.7; O2SAT 97
[2018-01-01] MEDS: NSS + 20MEQ KCL 1000ML 1,000 ML IV SCH ×3 (02:33→22:02)
[2018-01-01] MEDS: PIPERACILL/TAZOBAC IV 3.375 GM in NSS 100ML IV SCH ×3 (03:53→20:23)
[2018-01-01 04:41] LABS: HEMATOCRIT 34.3 % (42-52); HEMOGLOBIN 11.7 g/dL (14.0-18.0); MEAN CELL VOLUME 92.7 fL (80-100); MEAN CORPUSCULAR HEMOGLOBIN 31.6 pg (25-34); MEAN CORPUSCULAR HGB CONC 34.1 g/dl (32-36); MEAN PLATELET VOLUME 9.6 fL (7.4-10.4); PLATELET COUNT 137 K/uL (130-400); RED CELL DISTRIBUTION WIDTH CV 13.7 % (11.5-14.5); RED CELL DISTRIBUTION WIDTH SD 46.6 fL (36.4-46.3); WHITE BLOOD COUNT 5.08 K/uL (4.8-10.8)
[2018-01-01 04:52] LABS: PTT PATIENT 95.4 SECONDS (21.0-31.0)
[2018-01-01] MEDS: HEPARIN 25,000 UNIT/500ML D5W 500 ML IV SCH ×5 (05:01→22:54)
[2018-01-01] MEDS ORDERED: MINERAL OIL 30 ML UDC NG ONE (06:15)
--- NOTE | 2018-01-01 06:25 | Medical Consult ---
Consultation Date of Consultation: January 01, 2018. Attending Physician: Lily Skinner M.D. Reason for Consultation: small bowel obstruction History of Present Illness asked to see pt- evaluated by Dr Mojica yesterday adm with N/V, abd pain, distention- CT showing evidence of sbo NG with min fluid output pt feeling almost normal, passed some flatus Past Medical/Surgical History Medical Problems: (1) Atrial flutter with rapid ventricular response Status: Acute (2) Cardiac ischemia Status: Acute (3) Chest pain Status: Acute (4) Head injury Status: Acute (5) Sinus congestion Status: Acute Family History Heart disease Hypertension Social History Smoking Status: Former Smoker Smokeless Tobacco Use: No Alcohol Use: none Drug Use: none Marital Status: Housing Status: lives with significant other Occupation Status: employed Allergies Coded Allergies: BEE STING (Verified Allergy, Severe, ANAPHYLACTIC REACTION, 12/31/17) PT WENT THROUGH DESENSITIZATION PROCESS Celecoxib (Verified Allergy, Intermediate, HIVES, 12/31/17) Chlorhexidine (Verified Allergy, Intermediate, ITCHING WITH CHLORHEXIDINE SCRUB, 12/31/17) Fish (Verified Allergy, Intermediate, food allergy and intolerance, 12/31/17 ) Povidone Iodine (Verified Allergy, Intermediate, ITCHY RASH, 12/31/17) BETADINE SURGICAL SCRUB 7.5% TOPICAL SOAP Sulfa Drugs (Verified Allergy, Intermediate, CELEBREX=RASH, 12/31/17) Uncoded Allergies: ANESTHESIA (Adverse Reaction, Unknown, HALLUCINATION, , 07/04/17) Current Inpatient Medications Current Inpatient Medications Medications (Trade) Dose Ordered Sig/Yanique Route Start Time Stop Time Status Last Admin Dose Admin Ioversol (Optiray 320) 93 ml UD PRN IV 12/31/17 03:15 01/04/18 03:14 Morphine Sulfate (MoRPHine SULFATE INJ) 2 mg Q4H PRN IV 12/31/17 05:30 01/14/18 05:29 Pantoprazole Sodium 40 mg/ Syringe 10 ml @ 5 mls/min DAILY@11 IV 12/31/17 11:00 01/30/18 10:59 12/31/17 11:32 5 MLS/MIN Ondansetron HCl (Zofran Inj) 4 mg Q4H PRN IV 12/31/17 05:30 01/30/18 05:29 Miscellaneous Information (Consult) 1 ea UD PRN N/A 12/31/17 05:45 01/30/18 05:44 Potassium Chloride/Sodium Chloride 1,000 ml @ 100 mls/hr Q10H IV 12/31/17 07:00 01/30/18 06:59 01/01/18 02:33 100 MLS/HR Latanoprost (Xalatan Oph Soln) 1 drops HS OP 12/31/17 21:00 01/30/18 20:59 12/31/17 21:47 1 DROPS Heparin Sodium/ Dextrose 500 ml @ 16 mls/hr Q24H IV 12/31/17 06:30 01/30/18 06:29 01/01/18 05:58 16 MLS/HR Piperacillin Sod/ Tazobactam Sod 3.375 gm/Sodium Chloride 115 ml @ 28.75 mls/ hr Q8H IV 12/31/17 12:00 01/10/18 11:59 01/01/18 03:53 28.75 MLS/HR Review of Systems Constitutional: No fever Eyes: No redness Respiratory: No cough, No shortness of breath Abdomen: No pain, No nausea, No vomiting Genitourinary - Male: No dysuria Psychiatric: No anxiety Integumentary: No rash Physical Exam Date Time Temp Pulse Resp B/P (MAP) Pulse Ox O2 Delivery O2 Flow Rate FiO2 01/01/18 00:30 Room Air 12/31/17 23:48 36.7 67 16 149/82 (104) 97 Room Air 12/31/17 15:45 Room Air 12/31/17 15:18 36.7 66 18 132/62 (85) 95 Room Air 12/31/17 08:09 97 Room Air 12/31/17 08:09 97 Room Air 12/31/17 07:30 Room Air 12/31/17 06:30 36.8 74 16 169/84 (112) 97 Room Air 165/88 (113) General Appearance: no apparent distress (NG in place) Eyes: sclerae normal Neck: supple Respiratory/Chest: no respiratory distress Cardiovascular: regular rate, rhythm Abdomen/GI: non tender (decreased bowel sounds), soft Neurologic/Psych: alert Skin: no rash Laboratory Results Last 24 Hours Test 12/31/17 08:50 12/31/17 12:07 12/31/17 20:20 01/01/18 04:22 Urine Color YELLOW Urine Appearance CLEAR Urine pH 6.5 Urine Specific [place] 1.010 Urine Protein TRACE Urine Glucose (UA) NEG Urine Ketones TRACE Urine Occult Blood NEG Urine Nitrite NEG Urine Bilirubin NEG Urine Urobilinogen NEG Urine Leukocyte Esterase NEG Urine RBC 0-4 /hpf Urine WBC 1-5 /hpf Urine Epithelial Cells 10-20 /lpf Urine Bacteria NEG Urine Hyaline Casts 5-10 /lpf Activated Partial Thromboplast Time 101.7 SECONDS 110.5 SECONDS 95.4 SECONDS Partial Thromboplastin Ratio 3.9 4.3 3.7 White Blood Count 5.08 K/uL Red Blood Count 3.70 M/uL Hemoglobin 11.7 g/dL Hematocrit 34.3 % Mean Corpuscular Volume 92.7 fL Mean Corpuscular Hemoglobin 31.6 pg Mean Corpuscular Hemoglobin Concent 34.1 g/dl RDW Standard Deviation 46.6 fL RDW Coefficient of Variation 13.7 % Platelet Count 137 K/uL Mean Platelet Volume 9.6 fL Assessment & Plan 01/01/18- adm with recurrent sbo, N/V- seems to have improved quickly - flat , nondistended abd some bowel sounds with flatus. Pt with mostly gas filled small bowel on CT- Last seen Aug 2016 for similar problem- much more NG output- resolved rapidly with NG decompression. Continue same for now- add min oil, senna syrup per NG, check lytes- cont IV Heparin. May consider GI eval, ? capsule endo in future. I suspect this is from adhesion or recurrent torsion.
[2018-01-01] MEDS: SENNA 8.8 MG/5 ML UDP NG SCH ×2 (07:26→20:24)
[2018-01-01 07:45] VITALS: BP_SYST 130; BP_SYST 135; BP_DIAS 50; BP_DIAS 60; PULSE 48; PULSE 64; TEMP 36.4; O2SAT 96
[2018-01-01] MEDS: PANTOprazole INJ 40 MG in SYRINGE 0 ML IV SCH (10:04)
[2018-01-01 10:21] VITALS: O2SAT 96
[2018-01-01 11:31] VITALS: BP 145/72; PULSE 74; TEMP 36.5; O2SAT 95
[2018-01-01 12:48] LABS: PTT PATIENT 62.7 SECONDS (21.0-31.0)
[2018-01-01 15:21] VITALS: BP 183/63; PULSE 71; TEMP 36.3; O2SAT 97
[2018-01-01] MEDS: LATANOPROST 0.005% OP SOLN 2.5 ML BTL OP SCH (20:24)
--- NOTE | 2018-01-01 21:19 | Family Medicine Progress Note ---
Progress Note Date of Service January 01, 2018. Subjective Pt evaluation today including: conversation w/ patient, physical exam, chart review, lab review, review of studies Pain: No pain reported this morning Voiding: no voiding problems, no incontinence Patient states that he only has mild abdominal discomfort and has continued to have flatulence. No bowel movements at this time. Denies any nausea, vomiting, or fevers. Minimal output from NG tube at this time. Constitutional: No fever, No chills, No sweats Respiratory: No cough, No sputum, No wheezing, No shortness of breath Cardiovascular: No chest pain, No palpitations Abdomen: + pain (mild), No nausea, No vomiting, No diarrhea, No constipation , No GI bleeding Male : No dysuria, No incontinence Medications Current Inpatient Medications Medications (Trade) Dose Ordered Sig/Yanique Route Start Time Stop Time Status Last Admin Dose Admin Ioversol (Optiray 320) 93 ml UD PRN IV 12/31/17 03:15 01/04/18 03:14 Morphine Sulfate (MoRPHine SULFATE INJ) 2 mg Q4H PRN IV 12/31/17 05:30 01/14/18 05:29 Pantoprazole Sodium 40 mg/ Syringe 10 ml @ 5 mls/min DAILY@11 IV 12/31/17 11:00 01/03/18 11:01 01/01/18 10:04 5 MLS/MIN Ondansetron HCl (Zofran Inj) 4 mg Q4H PRN IV 12/31/17 05:30 01/30/18 05:29 Miscellaneous Information (Consult) 1 ea UD PRN N/A 12/31/17 05:45 01/30/18 05:44 Potassium Chloride/Sodium Chloride 1,000 ml @ 100 mls/hr Q10H IV 12/31/17 07:00 01/30/18 06:59 01/01/18 12:17 100 MLS/HR Latanoprost (Xalatan Oph Soln) 1 drops HS OP 12/31/17 21:00 01/30/18 20:59 01/01/18 20:24 1 DROPS Heparin Sodium/ Dextrose 500 ml @ 16 mls/hr Q24H IV 12/31/17 06:30 01/30/18 06:29 01/01/18 06:53 16 MLS/HR Piperacillin Sod/ Tazobactam Sod 3.375 gm/Sodium Chloride 115 ml @ 28.75 mls/ hr Q8H IV 12/31/17 12:00 01/10/18 11:59 01/01/18 20:23 28.75 MLS/HR Senna (Senokot Syrup) 8.8 mg BID NG 01/01/18 09:00 01/31/18 08:59 01/01/18 20:24 8.8 MG Objective Vital Signs Date Time Temp Pulse Resp B/P (MAP) Pulse Ox O2 Delivery O2 Flow Rate FiO2 01/01/18 16:00 Room Air 01/01/18 15:21 36.3 71 18 183/63 (103) 97 Room Air 01/01/18 11:31 36.5 74 12 145/72 (96) 95 Room Air 01/01/18 10:21 96 Room Air 01/01/18 07:45 36.4 48 16 130/50 (76) 96 Room Air 01/01/18 07:45 36.4 64 16 135/60 (85) 96 Room Air 01/01/18 07:30 Room Air 01/01/18 00:30 Room Air 12/31/17 23:48 36.7 67 16 149/82 (104) 97 Room Air Physical Exam General Appearance: WD/WN, no apparent distress Eyes: normal inspection, sclerae normal Neck: supple, no carotid bruits Respiratory/Chest: chest non-tender, lungs clear, normal breath sounds Cardiovascular: no edema, no gallop, + systolic murmur, + irregularly irregular Abdomen: normal bowel sounds, soft, + tenderness (mild discomfort with palpation) Neurologic/Psychiatric: alert, normal mood/affect, oriented x 3 Laboratory Results Results Past 24 Hours Test 01/01/18 04:22 01/01/18 12:08 Range/Units White Blood Count 5.08 4.8-10.8 K/uL Red Blood Count 3.70 4.7-6.1 M/uL Hemoglobin 11.7 14.0-18.0 g/dL Hematocrit 34.3 42-52 % Mean Corpuscular Volume 92.7 80-100 fL Mean Corpuscular Hemoglobin 31.6 25-34 pg Mean Corpuscular Hemoglobin Concent 34.1 32-36 g/dl RDW Standard Deviation 46.6 36.4-46.3 fL RDW Coefficient of Variation 13.7 11.5-14.5 % Platelet Count 137 130-400 K/uL Mean Platelet Volume 9.6 7.4-10.4 fL Activated Partial Thromboplast Time 95.4 62.7 21.0-31.0 SECONDS Partial Thromboplastin Ratio 3.7 2.4 Assessment and Plan Patient is an 82 year old male with a pmh of multiple bowel obstructions, CAD s/ p CABG x 2, Aortic stenosis s/p mechganical aortic valve, Afib, HTN, that presents with abdominal pain, nausea, and vomiting 2/2 GI obstructions 1) Small Bowel Obstruction - Improving - Plan on removing NG tube tomorrow and advancing diet as tolerated - CT Abd: High Grade Small Bowel Obstructions - Conservative Management: NPO, IVF, NG Tube, IV Zosyn, Protonix - Holding Coumadin for time being - Zofran PRN for nausea - Morphine PRN for pain - General Surgery consult - no surgery at this time, continue to monitor 2) Mechanical Aortic Valve/ HTN/ Afib/ HLD - Holding Coumadin for therapy - INR was subtherapeutic at 1.8 - On Heparin drip - Hold home PO Lisinopril, Aspirin, and Lipitor 3) Sinus Infection - As per CT - Zosyn will cover 4) GERD - IV pantoprazole, as above 5) Glaucoma - Latanoprost 6) DVT - Heparin 7) Code Status - Full Resuscitation Resident Tracking Resident Involvement: Resident Care Provided Care Provided: Adult Hospital Medicine Reviewed: Pt Seen/Exam by Me History abdomen feels much better. Constitutional: denies: fever Respiratory: negative: short of breath Cardiovascular: denies chest pain Gastrointestinal/Abdominal: negative: abdominal pain General Appearance: no apparent distress Respiratory: lungs clear, no respiratory distress Cardiovascular: regular rate, rhythm Gastrointestinal: normal bowel sounds, non tender, soft Neurologic/Psychiatric: alert, oriented x 3 Skin Characteristics: warm/dry Assessment/Plan Resident Physician Supervision Note: I independently interviewed and examined the patient and verified the alonzo history and physical, reviewed labs and image studies, discussed the case with the resident Dr. Fernandez and agree with the findings and care plan.
[2018-01-01 23:30] VITALS: BP 161/72; PULSE 60; TEMP 36.3; O2SAT 96
[2018-01-02] VITALS (7 sets, daily range): BP systolic 149–182; BP diastolic 62–85; PULSE 69–74; TEMP 36.4–36.8; O2SAT 94–98
[2018-01-02] MEDS: PIPERACILL/TAZOBAC IV 3.375 GM in NSS 100ML IV SCH ×3 (04:46→20:16)
[2018-01-02 05:28] LABS: HEMATOCRIT 34.8 % (42-52); HEMOGLOBIN 11.8 g/dL (14.0-18.0)
[2018-01-02 05:47] LABS: PTT PATIENT 60.5 SECONDS (21.0-31.0)
[2018-01-02 05:56] LABS: CALCIUM 7.6 mg/dl (8.5-10.1); CREATININE 0.84 mg/dl (0.60-1.40); PHOSPHORUS 2.9 mg/dl (2.5-4.9)
--- NOTE | 2018-01-02 06:11 | Surgery Progress Note ---
Surgery Progress Note Date of Service January 02, 2018. Subjective feels ok- no bm, + flatus min from NG Objective Vital Signs: Date Time Temp Pulse Resp B/P (MAP) Pulse Ox O2 Delivery O2 Flow Rate FiO2 01/02/18 01:00 149/62 (91) 01/02/18 00:45 Room Air 01/01/18 23:30 36.3 60 12 161/72 (101) 96 Room Air 01/01/18 16:00 Room Air 01/01/18 15:21 36.3 71 18 183/63 (103) 97 Room Air 01/01/18 11:31 36.5 74 12 145/72 (96) 95 Room Air 01/01/18 10:21 96 Room Air 01/01/18 07:45 36.4 48 16 130/50 (76) 96 Room Air 01/01/18 07:45 36.4 64 16 135/60 (85) 96 Room Air 01/01/18 07:30 Room Air General Appearance: no apparent distress Respiratory/Chest: no respiratory distress Abdomen: non tender, soft Laboratory Results: Results Past 24 Hours Test 01/01/18 12:08 01/02/18 05:01 Range/Units Activated Partial Thromboplast Time 62.7 60.5 21.0-31.0 SECONDS Partial Thromboplastin Ratio 2.4 2.3 Hemoglobin 11.8 14.0-18.0 g/dL Hematocrit 34.8 42-52 % Sodium Level 140 136-145 mmol/L Potassium Level 4.0 3.5-5.1 mmol/L Chloride Level 109 98-107 mmol/L Carbon Dioxide Level 25 21-32 mmol/L Anion Gap 6.0 3-11 mmol/L Blood Urea Nitrogen 8 7-18 mg/dl Creatinine 0.84 0.60-1.40 mg/dl Est Creatinine Clear Calc Drug Dose 69.1 ml/min Estimated GFR () 94.5 Estimated GFR (Non- 81.5 BUN/Creatinine Ratio 10.0 10-20 Random Glucose 71 70-99 mg/dl Calcium Level 7.6 8.5-10.1 mg/dl Phosphorus Level 2.9 2.5-4.9 mg/dl Magnesium Level 2.0 1.8-2.4 mg/dl Assessment & Plan 01/02/18- discussed removing NG- will assess w/ CT abd/pelvis with contrast via NG . Cont other meds- may need ppn/Tpn if unable to progress or surgery needed. Check labs
[2018-01-02] MEDS: HEPARIN 25,000 UNIT/500ML D5W 500 ML IV SCH ×3 (07:45→22:56)
[2018-01-02] MEDS: NSS + 20MEQ KCL 1000ML 1,000 ML IV SCH (08:23)
--- NOTE | 2018-01-02 09:36 | DIAGNOSTIC IMAGING REPORT ---
ABDOMEN AND PELVIS CT WITH IV AND ORAL CONTRAST CT DOSE: 570.32 mGy.cm HISTORY: Small bowel obstruction- assess transit of contrast TECHNIQUE: Multiaxial CT images of the abdomen and pelvis were performed following the use of intravenous and oral contrast. A dose lowering technique was utilized adhering to the principles of ALARA. COMPARISON STUDY: Abdomen and pelvis CT 12/31/2017. FINDINGS: There are postoperative changes and an aortic valve prosthesis. Nasogastric tube terminates in the fundus of the stomach. Interval development of small bilateral pleural effusions. There is a small fat-containing left-sided Bochdalek hernia. Elevation of the left hemidiaphragm is again noted. Bibasilar linear densities favor subsegmental atelectasis. Patchy groundglass densities at the left lung base are again noted. There is also focal central groundglass opacity within the right middle lobe, unchanged. No pneumoperitoneum. No pneumatosis. Femoral head sclerosis is again noted. This may be due to the osteoarthritis. No acute fractures within the visualized osseous structures. Mild body wall edema. High-grade stenosis seen within the left common femoral artery and proximal right superficial femoral artery due to the calcified plaque. Small amount of ascites has slightly progressed. No retroperitoneal lymphadenopathy. Calcified plaque throughout the normal caliber abdominal aorta. The liver, gallbladder, adrenal glands, pancreas, and left kidney are unremarkable. No hydronephrosis. Stable 1 cm hypodense lesion within the lower pole of the right kidney. This favors a cyst. Normal bladder. Moderate well-formed stool seen throughout the colon. The distal colon is decompressed. Normal appendix. The small bowel dilatation has improved. Mildly distended loops of small bowel measure up to 3.3 cm in diameter. There are a few mildly enlarged mesenteric lymph nodes in the central abdomen. These measure up to 1.8 cm. There is whirling of the mesenteric fat within the central abdomen best seen on images 243 through 285. There are 2 decompressed loops of small bowel at this location, one of which appears to represent the transition point and corresponds to the distal ileum. This is best seen on image 239. This is similar to the prior study. The oral contrast has not yet reached this location. The findings still remain concerning for an internal hernia resulting in a small bowel obstruction. IMPRESSION: 1. Interval improvement in the mildly distended loops of proximal to mid small bowel within the abdomen. However, the transition point within the ileum located within the central abdomen as described above still remains concerning for an internal hernia, resulting of the small bowel obstruction. 2. Nasogastric tube terminates in the fundus of the stomach. 3. A few mildly enlarged mesenteric lymph nodes. These could be reactive. 4. Small amount of ascites, small bilateral pleural effusions, and mild body wall edema. This has progressed. 5. Focal groundglass density within the central aspect of the right middle lobe persists. This may represent inflammatory/infectious change. However, 3-[address] follow-up is recommended to ensure resolution. 6. Additional findings as described above. Electronically signed by: Ryan Harding M.D. 01/02/2018 9:34 AM Dictated Date/Time: 01/02/2018 9:17 AM
[2018-01-02] MEDS: SENNA 8.8 MG/5 ML UDP NG SCH ×2 (10:04→20:17)
[2018-01-02] MEDS: PANTOprazole INJ 40 MG in SYRINGE 0 ML IV SCH ×2 (11:25→12:01)
[2018-01-02] MEDS ORDERED: DEXTROSE 10% 1,000 ML IV PRN (11:52)
--- NOTE | 2018-01-02 11:56 | Surgery Progress Note ---
Surgery Progress Note Date of Service January 02, 2018. Subjective see plan Objective Vital Signs: Date Time Temp Pulse Resp B/P (MAP) Pulse Ox O2 Delivery O2 Flow Rate FiO2 01/02/18 08:27 36.4 70 18 170/80 (110) 98 Room Air 01/02/18 01:00 149/62 (91) 01/02/18 00:45 Room Air 01/01/18 23:30 36.3 60 12 161/72 (101) 96 Room Air 01/01/18 16:00 Room Air 01/01/18 15:21 36.3 71 18 183/63 (103) 97 Room Air Laboratory Results: Results Past 24 Hours Test 01/01/18 12:08 01/02/18 05:01 Range/Units Activated Partial Thromboplast Time 62.7 60.5 21.0-31.0 SECONDS Partial Thromboplastin Ratio 2.4 2.3 Hemoglobin 11.8 14.0-18.0 g/dL Hematocrit 34.8 42-52 % Sodium Level 140 136-145 mmol/L Potassium Level 4.0 3.5-5.1 mmol/L Chloride Level 109 98-107 mmol/L Carbon Dioxide Level 25 21-32 mmol/L Anion Gap 6.0 3-11 mmol/L Blood Urea Nitrogen 8 7-18 mg/dl Creatinine 0.84 0.60-1.40 mg/dl Est Creatinine Clear Calc Drug Dose 69.1 ml/min Estimated GFR () 94.5 Estimated GFR (Non- 81.5 BUN/Creatinine Ratio 10.0 10-20 Random Glucose 71 70-99 mg/dl Calcium Level 7.6 8.5-10.1 mg/dl Phosphorus Level 2.9 2.5-4.9 mg/dl Magnesium Level 2.0 1.8-2.4 mg/dl Assessment & Plan 01/02/18- CT - some transit but transition point still evident. see how he does overnight- possible OR tomorrow PPN ordered, discussed with pt and 01/02/18- discussed removing NG- will assess w/ CT abd/pelvis with contrast via NG . Cont other meds- may need ppn/Tpn if unable to progress or surgery needed. Check labs 01/02/18- discussed removing NG- will assess w/ CT abd/pelvis with contrast via NG . Cont other meds- may need ppn/Tpn if unable to progress or surgery needed. Check labs
[2018-01-02] MEDS ORDERED: TPN/PPN CONSULT PHARMACY PRN (12:00)
[2018-01-02] MEDS ORDERED: ACETAMINOPHEN IV 650 MG in EMPTY BAG 0 ML IV SCH (15:00)
[2018-01-02] MEDS ORDERED: CUSTOM PERIPHERAL PN 1 BAG IV SCH (16:00)
--- NOTE | 2018-01-02 18:02 | Family Medicine Progress Note ---
Progress Note Date of Service January 02, 2018. Subjective Pt evaluation today including: conversation w/ patient, conversation w/ family , physical exam, chart review, lab review, review of studies Pain: No pain reported this morning Voiding: no voiding problems, no incontinence Patient resting comfortably in bed this morning with no acute complaints. Patient states he has continued to have flatulence and passed a very small hard stool. Denies any abdominal pain at this time. Abdomen was more distended this morning due to contrast the patient received through the NG tube prior to CT abdomen. Constitutional: No fever, No chills, No sweats Respiratory: No cough, No wheezing, No shortness of breath Cardiovascular: No chest pain, No palpitations Abdomen: + constipation, No pain, No nausea, No vomiting, No diarrhea Male : No dysuria Medications Current Inpatient Medications Medications (Trade) Dose Ordered Sig/Yanique Route Start Time Stop Time Status Last Admin Dose Admin Ioversol (Optiray 320) 93 ml UD PRN IV 12/31/17 03:15 01/04/18 03:14 Morphine Sulfate (MoRPHine SULFATE INJ) 2 mg Q4H PRN IV 12/31/17 05:30 01/14/18 05:29 Pantoprazole Sodium 40 mg/ Syringe 10 ml @ 5 mls/min DAILY@11 IV 12/31/17 11:00 01/03/18 11:01 01/02/18 12:01 5 MLS/MIN Ondansetron HCl (Zofran Inj) 4 mg Q4H PRN IV 12/31/17 05:30 01/30/18 05:29 Miscellaneous Information (Consult) 1 ea UD PRN N/A 12/31/17 05:45 01/30/18 05:44 Latanoprost (Xalatan Oph Soln) 1 drops HS OP 12/31/17 21:00 01/30/18 20:59 01/01/18 20:24 1 DROPS Heparin Sodium/ Dextrose 500 ml @ 16 mls/hr Q24H IV 12/31/17 06:30 01/30/18 06:29 01/02/18 15:40 16 MLS/HR Piperacillin Sod/ Tazobactam Sod 3.375 gm/Sodium Chloride 115 ml @ 28.75 mls/ hr Q8H IV 12/31/17 12:00 01/10/18 11:59 01/02/18 12:00 28.75 MLS/HR Senna (Senokot Syrup) 8.8 mg BID NG 01/01/18 09:00 01/31/18 08:59 01/02/18 10:04 8.8 MG Nutrition (Parenteral) 0 ml @ 0 mls/hr TODAY@1600 IV 01/02/18 16:00 01/03/18 15:59 01/02/18 16:16 100 MLS/HR Dextrose 1,000 ml @ 0 mls/hr Q0M PRN IV 01/02/18 11:52 02/01/18 11:51 Miscellaneous Information (Pharmacy Tpn/ Ppn Consult Active) 1 ea UD PRN N/A 01/02/18 12:00 02/01/18 11:59 Objective Vital Signs Date Time Temp Pulse Resp B/P (MAP) Pulse Ox O2 Delivery O2 Flow Rate FiO2 01/02/18 16:11 36.5 74 16 170/75 (106) 98 Room Air 01/02/18 16:00 98 Room Air 01/02/18 12:06 172/74 (106) 01/02/18 08:27 36.4 70 18 170/80 (110) 98 Room Air 01/02/18 07:33 Room Air 01/02/18 01:00 149/62 (91) 01/02/18 00:45 Room Air 01/01/18 23:30 36.3 60 12 161/72 (101) 96 Room Air Physical Exam General Appearance: WD/WN, no apparent distress Eyes: normal inspection, sclerae normal Neck: supple, no carotid bruits Respiratory/Chest: chest non-tender, lungs clear, normal breath sounds Cardiovascular: no edema, no gallop, + systolic murmur, + irregularly irregular Abdomen: normal bowel sounds, non tender, + distended Extremities: non-tender, no calf tenderness Neurologic/Psychiatric: alert, normal mood/affect, oriented x 3 Laboratory Results Results Past 24 Hours Test 01/02/18 05:01 Range/Units Hemoglobin 11.8 14.0-18.0 g/dL Hematocrit 34.8 42-52 % Activated Partial Thromboplast Time 60.5 21.0-31.0 SECONDS Partial Thromboplastin Ratio 2.3 Sodium Level 140 136-145 mmol/L Potassium Level 4.0 3.5-5.1 mmol/L Chloride Level 109 98-107 mmol/L Carbon Dioxide Level 25 21-32 mmol/L Anion Gap 6.0 3-11 mmol/L Blood Urea Nitrogen 8 7-18 mg/dl Creatinine 0.84 0.60-1.40 mg/dl Est Creatinine Clear Calc Drug Dose 69.1 ml/min Estimated GFR () 94.5 Estimated GFR (Non- 81.5 BUN/Creatinine Ratio 10.0 10-20 Random Glucose 71 70-99 mg/dl Calcium Level 7.6 8.5-10.1 mg/dl Phosphorus Level 2.9 2.5-4.9 mg/dl Magnesium Level 2.0 1.8-2.4 mg/dl Assessment and Plan Patient is an 82 year old male with a pmh of multiple bowel obstructions, CAD s/ p CABG x 2, Aortic stenosis s/p mechganical aortic valve, Afib, HTN, that presents with abdominal pain, nausea, and vomiting 2/2 GI obstructions 1) Small Bowel Obstruction - CT Abd 01/02: 1. Interval improvement in the mildly distended loops of proximal to mid small bowel within the abdomen. However, the transition point within the ileum located within the central abdomen as described above still remains concerning for an internal hernia, resulting of the small bowel obstruction. - Evaluated by Dr. Boss today and currently has scheduled the patient for surgery tomorrow --> concern at this time for volvulus or hernia contributing to multiple episodes of SBO - CT Abd 12/31: High Grade Small Bowel Obstructions - Conservative Management for now: NPO, IVF, NG Tube, IV Zosyn, Protonix - Holding Coumadin for time being - Zofran PRN for nausea - Morphine PRN for pain 2) Mechanical Aortic Valve/ HTN/ Afib/ HLD - Holding Coumadin for therapy - INR was subtherapeutic at 1.8 - On Heparin drip - Hold home PO Lisinopril, Aspirin, and Lipitor 3) Sinus Infection - As per CT - Zosyn will cover 4) GERD - IV pantoprazole, as above 5) Glaucoma - Latanoprost 6) DVT - Heparin 7) Code Status - Full Resuscitation Resident Tracking Resident Involvement: Resident Care Provided Care Provided: Adult Hospital Medicine Reviewed: Pt Seen/Exam by Me History had CT abdomen this am to look for cause of SBO Constitutional: denies: fever Respiratory: negative: short of breath Cardiovascular: denies chest pain General Appearance: no apparent distress Respiratory: lungs clear, no respiratory distress Cardiovascular: regular rate, rhythm Gastrointestinal: normal bowel sounds, non tender, soft Neurologic/Psychiatric: alert, oriented x 3 Skin Characteristics: warm/dry Assessment/Plan Resident Physician Supervision Note: I independently interviewed and examined the patient and verified the alonzo history and physical, reviewed labs and image studies, discussed the case with the resident Dr. Fernandez and agree with the findings and care plan.
[2018-01-02] MEDS: LATANOPROST 0.005% OP SOLN 2.5 ML BTL OP SCH (20:16)
[2018-01-03] VITALS (7 sets, daily range): BP systolic 149–182; BP diastolic 73–86; PULSE 66–79; TEMP 36.3–36.7; O2SAT 94–99
[2018-01-03] MEDS: PIPERACILL/TAZOBAC IV 3.375 GM in NSS 100ML IV SCH ×3 (03:41→21:05)
--- NOTE | 2018-01-03 05:57 | Surgery Progress Note ---
Surgery Progress Note Date of Service January 03, 2018. Subjective had some small , formed bms- see plan Objective Vital Signs: Date Time Temp Pulse Resp B/P (MAP) Pulse Ox O2 Delivery O2 Flow Rate FiO2 01/03/18 00:15 Room Air 01/02/18 23:57 69 157/74 (101) 01/02/18 23:42 36.8 69 14 182/85 (117) 94 Room Air 01/02/18 16:11 36.5 74 16 170/75 (106) 98 Room Air 01/02/18 16:00 98 Room Air 01/02/18 12:06 172/74 (106) 01/02/18 08:27 36.4 70 18 170/80 (110) 98 Room Air 01/02/18 07:33 Room Air General Appearance: no apparent distress Respiratory/Chest: no respiratory distress, + pertinent finding (moist cough) Cardiovascular: regular rate, rhythm Abdomen: soft Laboratory Results: Results Past 24 Hours Test 01/02/18 23:50 01/03/18 04:44 Range/Units Bedside Glucose 111 70-99 mg/dl Assessment & Plan 01/03/18- discussed options with pt- I think he has torsion of his small bowel causing partial obstruction. I think he should this taken care of now- on IV Heparin, ppn, persistent sbo findings on CT- he agrees and wishes to proceed with surgery later today. 01/02/18- CT - some transit but transition point still evident. see how he does overnight- possible OR tomorrow PPN ordered, discussed with pt and 01/02/18- discussed removing NG- will assess w/ CT abd/pelvis with contrast via NG . Cont other meds- may need ppn/Tpn if unable to progress or surgery needed. Check labs 01/02/18- CT - some transit but transition point still evident. see how he does overnight- possible OR tomorrow PPN ordered, discussed with pt and 01/02/18- discussed removing NG- will assess w/ CT abd/pelvis with contrast via NG . Cont other meds- may need ppn/Tpn if unable to progress or surgery needed. Check labs
[2018-01-03] MEDS: HEPARIN 25,000 UNIT/500ML D5W 500 ML IV SCH (07:01)
--- NOTE | 2018-01-03 07:19 | DIAGNOSTIC IMAGING REPORT ---
ABDOMEN 2VIEW W/PA CHEST RTN CLINICAL HISTORY: h/o sbo obstruction COMPARISON STUDY: No previous studies for comparison. FINDINGS: The soft tissues, psoas shadows, renal outlines and intestinal gas pattern appear normal. There is no evidence for bowel obstruction. There is no evidence for free intraperitoneal air. No abnormal abdominal calcifications are seen. A frontal view of the chest was performed and is unremarkable. Contrast is identified within the a sending and transverse colonic regions. No significant small bowel distention. Nasogastric tube within the gastric fundus. IMPRESSION: 1. Good flow contrast to the a sending and transverse colonic regions. 2. Nonobstructive bowel pattern. 3. No acute process the chest. 4. Chronic fibrotic scarring left base. 5. Nasogastric tube within the gastric fundus. The above report was generated using voice recognition software. It may contain grammatical, syntax or spelling errors. Electronically signed by: Aden Muniz M.D. 01/03/2018 7:18 AM Dictated Date/Time: 01/03/2018 7:16 AM
[2018-01-03] MEDS ORDERED: ONDANSETRON INJ 2 MG/ML 2 ML VIAL IV PRN ×2 (08:00→15:15)
[2018-01-03] MEDS ORDERED: PHENYLEPHRINE 100MCG/ML 5ML SYR IV PRN (08:00)
[2018-01-03] MEDS ORDERED: ATROPINE SULFATE 0.1 MG/ML 5ML SYR IV PRN (08:00)
[2018-01-03] MEDS ORDERED: EpHEDrine SULFATE INJ 50 MG/ML AMP IV PRN (08:00)
[2018-01-03 08:08] LABS: HEMATOCRIT 36.5 % (42-52); HEMOGLOBIN 12.8 g/dL (14.0-18.0); MEAN CELL VOLUME 90.8 fL (80-100); MEAN CORPUSCULAR HEMOGLOBIN 31.8 pg (25-34); MEAN CORPUSCULAR HGB CONC 35.1 g/dl (32-36); MEAN PLATELET VOLUME 10.2 fL (7.4-10.4); PLATELET COUNT 182 K/uL (130-400); RED CELL DISTRIBUTION WIDTH CV 13.1 % (11.5-14.5); RED CELL DISTRIBUTION WIDTH SD 43.4 fL (36.4-46.3); WHITE BLOOD COUNT 5.74 K/uL (4.8-10.8)
[2018-01-03 08:23] LABS: PTT PATIENT 48.1 SECONDS (21.0-31.0)
[2018-01-03 08:40] LABS: ALBUMIN 3.2 gm/dl (3.4-5.0); CALCIUM 8.3 mg/dl (8.5-10.1); CREATININE 0.78 mg/dl (0.60-1.40); POTASSIUM 3.9 mmol/L (3.5-5.1)
[2018-01-03 08:41] LABS: PHOSPHORUS 3.1 mg/dl (2.5-4.9)
[2018-01-03] MEDS: SENNA 8.8 MG/5 ML UDP NG SCH (08:50)
[2018-01-03] MEDS: PANTOprazole INJ 40 MG in SYRINGE 0 ML IV SCH (11:00)
[2018-01-03] MEDS ORDERED: MIDAZOLAM HCL 1 MG/ML 2ML VIAL ONE (11:25)
[2018-01-03] MEDS ORDERED: FENTANYL CITRATE INJ 50 MCG/1 ML 2 ML VIAL ONE ×2 (11:25)
[2018-01-03] MEDS ORDERED: CEFOXITIN SOD 1 GM VIAL ONE (12:44)
[2018-01-03] MEDS ORDERED: DEXAMETHASONE SOD INJ 4 MG/ML VIAL ONE (14:20)
[2018-01-03] MEDS ORDERED: LIDOCAINE HCL 2% 2 ML VIAL (20MG/ML) ONE (14:20)
[2018-01-03] MEDS ORDERED: ROCURONIUM BROMIDE 10 MG/ML 5 ML VIAL ONE (14:20)
[2018-01-03] MEDS ORDERED: PROPOFOL IV EMULSION 10 MG/ML 20 ML VIAL ONE (14:20)
[2018-01-03] MEDS ORDERED: SUCCINYLCHOLINE 100MG/5ML SYR IV ONE (14:20)
[2018-01-03] MEDS ORDERED: ONDANSETRON INJ 2 MG/ML 2 ML VIAL ONE (14:20)
[2018-01-03] MEDS ORDERED: NEOSTIGMINE METHYLSULFATE 5 MG/5 ML SYR ONE (14:26)
[2018-01-03] MEDS ORDERED: GLYCOPYRROLATE INJ 0.2 MG/ML VIAL ONE (14:26)
--- NOTE | 2018-01-03 15:06 | [facility] Operative Report ---
Operative Report Operative Date January 03, 2018. Pre-Operative Diagnosis Torsion of small bowel Post-Operative Diagnosis same with mesenteric sclerosis Procedure(s) Performed laparotomy, lysis of adhesions, small bowel resection w/ anastomosis Surgeon Dr Boss Ui Ux Developer Surgeon(s) Jaqui Xiao PA-C Estimated Blood Loss 30cc Findings scarring of small bowel mesentery causing obstruction Specimens A. Mesenteric tissue B. Small bowel Drains None Anesthesia Type General Complication(s) none Disposition Recovery Room / PACU I attest to the content of the Intraoperative Record and any orders documented therein. Any exceptions are noted below.
[2018-01-03] MEDS ORDERED: MoRPHine SULFATE 4 MG/ML 1 ML CARP\\VIAL IV PRN (15:15)
[2018-01-03] MEDS ORDERED: HYDROmorphone INJ 2 MG/ML SYR/VIAL ONE (15:22)
[2018-01-03] MEDS: HYDROmorphone INJ 2 MG/ML SYR/VIAL IV PRN ×4 (15:22→15:37)
--- NOTE | 2018-01-03 15:22 | Family Medicine Progress Note ---
Progress Note Date of Service January 03, 2018. Subjective Pt evaluation today including: conversation w/ patient, conversation w/ family , physical exam, chart review, lab review, review of studies Pain: No pain reported this morning Voiding: no voiding problems, no incontinence Patient denies any acute complaints but continues to have mild abdominal discomfort. The patient has passed a small number of hard stool and is having flatulence. He denies any worsening pain, nausea, vomiting, fever or chills. The patient is scheduled to go for surgery with Dr. Boss this afternoon due to the patient have continued obstruction despite conservative therapy. Constitutional: No fever, No chills, No sweats, No fatigue Respiratory: No cough, No sputum, No wheezing, No shortness of breath Cardiovascular: No chest pain, No edema, No palpitations Abdomen: No pain, No nausea, No vomiting, No diarrhea, No constipation Male : No dysuria, No incontinence Neurologic: No weakness, No numbness/tingling Endo: No fatigue Skin: No rash Medications Current Inpatient Medications Medications (Trade) Dose Ordered Sig/Yanique Route Start Time Stop Time Status Last Admin Dose Admin Ioversol (Optiray 320) 93 ml UD PRN IV 12/31/17 03:15 01/04/18 03:14 Morphine Sulfate (MoRPHine SULFATE INJ) 2 mg Q4H PRN IV 12/31/17 05:30 01/14/18 05:29 Ondansetron HCl (Zofran Inj) 4 mg Q4H PRN IV 12/31/17 05:30 01/30/18 05:29 Miscellaneous Information (Consult) 1 ea UD PRN N/A 12/31/17 05:45 01/30/18 05:44 Latanoprost (Xalatan Oph Soln) 1 drops HS OP 12/31/17 21:00 01/30/18 20:59 01/02/18 20:16 1 DROPS Heparin Sodium/ Dextrose 500 ml @ 16 mls/hr Q24H IV 12/31/17 06:30 02/03/18 09:00 01/03/18 07:01 16 MLS/HR Piperacillin Sod/ Tazobactam Sod 3.375 gm/Sodium Chloride 115 ml @ 28.75 mls/ hr Q8H IV 12/31/17 12:00 01/10/18 11:59 01/03/18 03:41 28.75 MLS/HR Senna (Senokot Syrup) 8.8 mg BID NG 01/01/18 09:00 01/31/18 08:59 01/03/18 08:50 8.8 MG Nutrition (Parenteral) 0 ml @ 0 mls/hr TODAY@1600 IV 01/02/18 16:00 01/03/18 15:59 Future Hold 01/02/18 16:16 100 MLS/HR Dextrose 1,000 ml @ 0 mls/hr Q0M PRN IV 01/02/18 11:52 02/01/18 11:51 Miscellaneous Information (Pharmacy Tpn/ Ppn Consult Active) 1 ea UD PRN N/A 01/02/18 12:00 02/01/18 11:59 Nutrition (Parenteral) 0 ml @ 0 mls/hr TODAY@1600 IV 01/03/18 16:00 01/04/18 15:59 Objective Vital Signs Date Time Temp Pulse Resp B/P (MAP) Pulse Ox O2 Delivery O2 Flow Rate FiO2 01/03/18 07:56 36.7 77 18 182/75 (110) 96 Room Air 01/03/18 07:23 Room Air 01/03/18 00:15 Room Air 01/02/18 23:57 69 157/74 (101) 01/02/18 23:42 36.8 69 14 182/85 (117) 94 Room Air 01/02/18 16:11 36.5 74 16 170/75 (106) 98 Room Air 01/02/18 16:00 98 Room Air Physical Exam General Appearance: WD/WN, no apparent distress Eyes: normal inspection, sclerae normal Neck: supple, no carotid bruits Respiratory/Chest: chest non-tender, lungs clear, normal breath sounds, no respiratory distress, no accessory muscle use Cardiovascular: no edema, no gallop, + systolic murmur, + irregularly irregular Abdomen: normal bowel sounds, non tender, soft Neurologic/Psychiatric: alert, normal mood/affect, oriented x 3 Skin: no rash Laboratory Results Results Past 24 Hours Test 01/02/18 23:50 01/03/18 06:00 01/03/18 07:50 Range/Units Bedside Glucose 111 118 70-99 mg/dl White Blood Count 5.74 4.8-10.8 K/uL Red Blood Count 4.02 4.7-6.1 M/uL Hemoglobin 12.8 14.0-18.0 g/dL Hematocrit 36.5 42-52 % Mean Corpuscular Volume 90.8 80-100 fL Mean Corpuscular Hemoglobin 31.8 25-34 pg Mean Corpuscular Hemoglobin Concent 35.1 32-36 g/dl RDW Standard Deviation 43.4 36.4-46.3 fL RDW Coefficient of Variation 13.1 11.5-14.5 % Platelet Count 182 130-400 K/uL Mean Platelet Volume 10.2 7.4-10.4 fL Activated Partial Thromboplast Time 48.1 21.0-31.0 SECONDS Partial Thromboplastin Ratio 1.9 Sodium Level 138 136-145 mmol/L Potassium Level 3.9 3.5-5.1 mmol/L Chloride Level 105 98-107 mmol/L Carbon Dioxide Level 28 21-32 mmol/L Anion Gap 5.0 3-11 mmol/L Blood Urea Nitrogen 7 7-18 mg/dl Creatinine 0.78 0.60-1.40 mg/dl Est Creatinine Clear Calc Drug Dose 74.7 ml/min Estimated GFR () 97.4 Estimated GFR (Non- 84.1 BUN/Creatinine Ratio 9.4 10-20 Random Glucose 120 70-99 mg/dl Calcium Level 8.3 8.5-10.1 mg/dl Phosphorus Level 3.1 2.5-4.9 mg/dl Magnesium Level 2.1 1.8-2.4 mg/dl C-Reactive Protein 2.41 0-0.29 mg/dl Albumin 3.2 3.4-5.0 gm/dl Triglycerides Level 74 0-150 mg/dl Assessment and Plan Patient is an 82 year old male with a pmh of multiple bowel obstructions, CAD s/ p CABG x 2, Aortic stenosis s/p mechganical aortic valve, Afib, HTN, that presents with abdominal pain, nausea, and vomiting 2/2 GI obstructions 1) Small Bowel Obstruction - Not improving with conservative management at this time - CT Abd 01/02: 1. Interval improvement in the mildly distended loops of proximal to mid small bowel within the abdomen. However, the transition point within the ileum located within the central abdomen as described above still remains concerning for an internal hernia, resulting of the small bowel obstruction. - General Surgery Consult--> plan for surgery this afternoon, concern at this time for volvulus or hernia contributing to multiple episodes of SBO - CT Abd 12/31: High Grade Small Bowel Obstructions - Conservative Management for now: NPO, IVF, NG Tube, IV Zosyn, Protonix - Holding Coumadin for time being - Zofran PRN for nausea - Morphine PRN for pain 2) Mechanical Aortic Valve/ HTN/ Afib/ HLD - Holding Coumadin for surgery - On IV heparin bridge - Hold home PO Lisinopril, Aspirin, and Lipitor 3) Sinus Infection - As per CT - Zosyn will cover 4) GERD - IV pantoprazole, as above 5) Glaucoma - Latanoprost 6) DVT - Heparin on hold for surgery 7) Code Status - Full Resuscitation Resident Tracking Resident Involvement: Resident Care Provided Care Provided: Adult Hospital Medicine Reviewed: Pt Seen/Exam by Me History for surgery today Constitutional: denies: fever Respiratory: negative: short of breath Cardiovascular: denies chest pain General Appearance: no apparent distress Neck: other (NGT in place) Respiratory: lungs clear, no respiratory distress Cardiovascular: regular rate, rhythm Gastrointestinal: normal bowel sounds, non tender, soft Neurologic/Psychiatric: alert, oriented x 3 Skin Characteristics: warm/dry Assessment/Plan Resident Physician Supervision Note: I independently interviewed and examined the patient and verified the alonzo history and physical, reviewed labs and image studies, discussed the case with the resident Dr. Fernandez and agree with the findings and care plan.
[2018-01-03] MEDS ORDERED: HYDROmorphone INJ 0.5 MG/0.5 ML SYR ONE (15:39)
[2018-01-03] MEDS: HYDROmorphone INJ 0.5 MG/0.5 ML SYR ONE ×2 (15:42→15:50)
[2018-01-03] MEDS ORDERED: LABETALOL HCL IV 5 MG/ML 20ML ONE (15:48)
[2018-01-03] MEDS ORDERED: NURSING VERBAL MED ORDER ONE (15:49)
[2018-01-03] MEDS ORDERED: CUSTOM PERIPHERAL PN 1 BAG IV SCH (16:00)
--- NOTE | 2018-01-03 16:50 | Anesthesiology Progress Note ---
Anesthesia Post Op Note Date & Time January 03, 2018 at 16:50 Vital Signs Pain Intensity: 4 Vital Signs Past 12 Hours Date Time Temp Pulse Resp B/P (MAP) Pulse Ox O2 Delivery O2 Flow Rate FiO2 01/03/18 16:15 36.2 68 14 155/67 100 Nasal Cannula 2 01/03/18 16:05 68 14 153/69 100 Nasal Cannula 2 01/03/18 15:55 67 14 153/66 100 Oxymask 10 01/03/18 15:45 67 14 177/72 100 Oxymask 10 01/03/18 15:35 67 14 181/75 100 Oxymask 10 01/03/18 15:26 72 14 176/72 100 Oxymask 10 01/03/18 15:16 36.0 67 14 154/136 100 Oxymask 10 01/03/18 07:56 36.7 77 18 182/75 (110) 96 Room Air 01/03/18 07:23 Room Air Notes Mental Status: alert / awake / arousable, participated in evaluation Pt Amnestic to Procedure: Yes Nausea / Vomiting: adequately controlled Pain: adequately controlled Airway Patency, RR, SpO2: stable & adequate BP & HR: stable & adequate Hydration State: stable & adequate Anesthetic Complications: no major complications apparent
--- NOTE | 2018-01-03 18:34 | OPERATIVE REPORT ---
DATE OF OPERATION: 01/03/2018 NAME OF OPERATIONS: Exploratory laparotomy with lysis of adhesions and small bowel resection with anastomosis. PREOPERATIVE DIAGNOSIS: Small-bowel obstruction. 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 STAFF SURGEON: Ignacio Boss M.D. BULLET ASSEMBLY PRESS OPERATOR: Jaqui Xiao PA-C ANESTHESIA: General. DESCRIPTION OF PROCEDURE: The patient was brought in the operating room and placed on the operating table in supine position. His abdomen was prepped and draped in usual fashion. Browning catheter was placed. Pneumatic stockings were in place. Nasogastric tube was in place. Incision was made above and below the umbilicus, carrying dissection down into the abdomen encountering serous fluid. Small bowel was relatively well decompressed, but on tracing the small bowel from the ligament of Treitz to the ileum, I encountered an area of mesenteric scarring and sclerosis, which had the small bowel tethered and strictured. It was over a relatively long segment greater than 20 cm. It was evident that this was the reason for the obstruction. There did not appear to be any tumor involved. I did send biopsies of the mesentery and also did a small bowel resection transecting both ends using a ANANYA 60 stapler and then transecting the mesentery using the LigaSure and also suturing using 0 chromic catgut and 2-0 silk suture. There was some varicosity within the mesentery, which was also excised. At this point, the small bowel ends were oversewn using 3-0 silk suture and then a [id number] anastomosis performed with a ANANYA 60 stapler. The enteric defect was closed using two layer closure of 2-0 chromic for the mucosal layer and 3-0 silk suture for the seromuscular layer. Mesenteric defect was closed using 2-0 chromic suture. The abdomen was irrigated with antibiotic solution, then the posterior peritoneum and fascia closed using interrupted #1 chromic suture and then the anterior fascia closed using both interrupted and running #1 PDS suture. The skin was reapproximated using patricia. The patient was transferred to recovery room in stable condition. I attest to the content of the Intraoperative Record and any orders documented therein. Any exception s are noted below.
[2018-01-03] MEDS: LATANOPROST 0.005% OP SOLN 2.5 ML BTL OP SCH (21:04)
[2018-01-04] VITALS (7 sets, daily range): BP systolic 163–174; BP diastolic 68–89; PULSE 77–120; TEMP 36.2–37.1; O2SAT 94–98
[2018-01-04] MEDS: HEPARIN 25,000 UNIT/500ML D5W 500 ML IV SCH ×5 (03:03→19:33)
[2018-01-04] MEDS: PIPERACILL/TAZOBAC IV 3.375 GM in NSS 100ML IV SCH ×3 (04:05→19:14)
[2018-01-04] MEDS ORDERED: MoRPHine SULFATE 4 MG/ML 1 ML CARP\\VIAL IV PRN (04:30)
[2018-01-04 04:56] LABS: HEMATOCRIT 35.8 % (42-52); HEMOGLOBIN 12.3 g/dL (14.0-18.0); MEAN CELL VOLUME 91.8 fL (80-100); MEAN CORPUSCULAR HEMOGLOBIN 31.5 pg (25-34); MEAN CORPUSCULAR HGB CONC 34.4 g/dl (32-36); MEAN PLATELET VOLUME 10.2 fL (7.4-10.4); PLATELET COUNT 193 K/uL (130-400); RED CELL DISTRIBUTION WIDTH CV 13.4 % (11.5-14.5); RED CELL DISTRIBUTION WIDTH SD 44.9 fL (36.4-46.3); WHITE BLOOD COUNT 8.87 K/uL (4.8-10.8)
[2018-01-04 05:12] LABS: PTT PATIENT 30.1 SECONDS (21.0-31.0)
[2018-01-04 05:24] LABS: CALCIUM 7.7 mg/dl (8.5-10.1); CREATININE 0.89 mg/dl (0.60-1.40); PHOSPHORUS 3.5 mg/dl (2.5-4.9); POTASSIUM 4.5 mmol/L (3.5-5.1)
--- NOTE | 2018-01-04 07:17 | Surgery Progress Note ---
Surgery Progress Note Date of Service January 04, 2018. Subjective awake, alert min NG output, adeq urine output Objective Vital Signs: Date Time Temp Pulse Resp B/P (MAP) Pulse Ox O2 Delivery O2 Flow Rate FiO2 01/04/18 02:41 36.2 77 14 168/72 (104) 98 Nasal Cannula 2.0 01/04/18 00:00 Nasal Cannula 2.0 01/03/18 23:20 36.7 79 14 160/78 (105) 97 Nasal Cannula 2.0 01/03/18 19:40 36.4 77 18 163/75 (104) 96 01/03/18 18:36 36.5 71 18 149/86 (107) 97 01/03/18 17:41 36.7 67 16 160/75 (103) 94 Room Air 01/03/18 17:05 36.3 67 18 170/77 (108) 99 Nasal Cannula 2.0 01/03/18 16:35 Nasal Cannula 2.0 01/03/18 16:35 36.3 66 18 155/73 (100) 95 Nasal Cannula 2.0 01/03/18 16:35 Nasal Cannula 2.0 01/03/18 16:15 36.2 68 14 155/67 100 Nasal Cannula 2 01/03/18 16:05 68 14 153/69 100 Nasal Cannula 2 01/03/18 15:55 67 14 153/66 100 Oxymask 10 01/03/18 15:45 67 14 177/72 100 Oxymask 10 01/03/18 15:35 67 14 181/75 100 Oxymask 10 01/03/18 15:26 72 14 176/72 100 Oxymask 10 01/03/18 15:16 36.0 67 14 154/136 100 Oxymask 10 01/03/18 07:56 36.7 77 18 182/75 (110) 96 Room Air 01/03/18 07:23 Room Air General Appearance: no apparent distress Respiratory/Chest: no respiratory distress Abdomen: soft Incision(s): intact Laboratory Results: Results Past 24 Hours Test 01/03/18 07:50 01/03/18 17:57 01/04/18 01:01 01/04/18 04:47 Range/Units White Blood Count 5.74 8.87 4.8-10.8 K/uL Red Blood Count 4.02 3.90 4.7-6.1 M/uL Hemoglobin 12.8 12.3 14.0-18.0 g/dL Hematocrit 36.5 35.8 42-52 % Mean Corpuscular Volume 90.8 91.8 80-100 fL Mean Corpuscular Hemoglobin 31.8 31.5 25-34 pg Mean Corpuscular Hemoglobin Concent 35.1 34.4 32-36 g/dl RDW Standard Deviation 43.4 44.9 36.4-46.3 fL RDW Coefficient of Variation 13.1 13.4 11.5-14.5 % Platelet Count 182 193 130-400 K/uL Mean Platelet Volume 10.2 10.2 7.4-10.4 fL Activated Partial Thromboplast Time 48.1 30.1 21.0-31.0 SECONDS Partial Thromboplastin Ratio 1.9 1.2 Sodium Level 138 136 136-145 mmol/L Potassium Level 3.9 4.5 3.5-5.1 mmol/L Chloride Level 105 103 98-107 mmol/L Carbon Dioxide Level 28 28 21-32 mmol/L Anion Gap 5.0 5.0 3-11 mmol/L Blood Urea Nitrogen 7 10 7-18 mg/dl Creatinine 0.78 0.89 0.60-1.40 mg/dl Est Creatinine Clear Calc Drug Dose 74.7 65.4 ml/min Estimated GFR () 97.4 92.3 Estimated GFR (Non- 84.1 79.6 BUN/Creatinine Ratio 9.4 11.8 10-20 Random Glucose 120 162 70-99 mg/dl Calcium Level 8.3 7.7 8.5-10.1 mg/dl Phosphorus Level 3.1 3.5 2.5-4.9 mg/dl Magnesium Level 2.1 2.0 1.8-2.4 mg/dl C-Reactive Protein 2.41 0-0.29 mg/dl Albumin 3.2 3.4-5.0 gm/dl Triglycerides Level 74 0-150 mg/dl Bedside Glucose 132 177 70-99 mg/dl Test 01/04/18 05:53 Range/Units Bedside Glucose 141 70-99 mg/dl Assessment & Plan 01/04/18- s/p exploratory laparotomy- lysis of adhesions, sm bowel resection w/ anastomosis- had severe scar/ sclerosis of mesentery causing stricture and obstruction- cont ppn- may benefit from picc line and Tpn- will not be able to eat for several days. cont IV fluids, orozco today, NG today Dr Palm covering over weekend 01/03/18- discussed options with pt- I think he has torsion of his small bowel causing partial obstruction. I think he should this taken care of now- on IV Heparin, ppn, persistent sbo findings on CT- he agrees and wishes to proceed with surgery later today. 01/02/18- CT - some transit but transition point still evident. see how he does overnight- possible OR tomorrow PPN ordered, discussed with pt and 01/02/18- discussed removing NG- will assess w/ CT abd/pelvis with contrast via NG . Cont other meds- may need ppn/Tpn if unable to progress or surgery needed. Check labs 01/03/18- discussed options with pt- I think he has torsion of his small bowel causing partial obstruction. I think he should this taken care of now- on IV Heparin, ppn, persistent sbo findings on CT- he agrees and wishes to proceed with surgery later today. 01/02/18- CT - some transit but transition point still evident. see how he does overnight- possible OR tomorrow PPN ordered, discussed with pt and 01/02/18- discussed removing NG- will assess w/ CT abd/pelvis with contrast via NG . Cont other meds- may need ppn/Tpn if unable to progress or surgery needed. Check labs
--- NOTE | 2018-01-04 07:52 | Anesthesiology Progress Note ---
Anesthesia Post Op Note Date & Time January 04, 2018 at 07:52 Vital Signs Pain Intensity: 8.0 Vital Signs Past 12 Hours Date Time Temp Pulse Resp B/P (MAP) Pulse Ox O2 Delivery O2 Flow Rate FiO2 01/04/18 07:32 36.7 87 19 163/79 (107) 98 Room Air 01/04/18 02:41 36.2 77 14 168/72 (104) 98 Nasal Cannula 2.0 01/04/18 00:00 Nasal Cannula 2.0 01/03/18 23:20 36.7 79 14 160/78 (105) 97 Nasal Cannula 2.0 Notes Mental Status: alert / awake / arousable, participated in evaluation Pt Amnestic to Procedure: Yes Nausea / Vomiting: adequately controlled Pain: adequately controlled Airway Patency, RR, SpO2: stable & adequate BP & HR: stable & adequate Hydration State: stable & adequate Anesthetic Complications: no major complications apparent
[2018-01-04 09:25] LABS: PTT PATIENT 32.9 SECONDS (21.0-31.0)
[2018-01-04] MEDS ORDERED: NURSING VERBAL MED ORDER ONE (10:30)
[2018-01-04] MEDS: PANTOprazole INJ 40 MG in SYRINGE 0 ML IV SCH (12:31)
[2018-01-04] MEDS ORDERED: HEPARIN IV LOW DOSE NO BOLUS STA (14:13)
--- NOTE | 2018-01-04 14:47 | Family Medicine Progress Note ---
Progress Note Date of Service January 04, 2018. Subjective Pt evaluation today including: conversation w/ patient Pain: controlled Voiding: orozco catheter in place feels well, pain is controlled Constitutional: No fever, No chills Eyes: No worsening of vision ENT: + hearing loss Respiratory: + cough, No shortness of breath, No dyspnea on exertion, No dyspnea at rest Cardiovascular: No chest pain Abdomen: + pain, No nausea, No vomiting, No diarrhea Musculoskeletal: No joint pain, No swelling Medications Medications (Trade) Dose Ordered Sig/Yanique Route Start Time Stop Time Status Last Admin Dose Admin Nutrition (Parenteral) 0 ml @ 0 mls/hr TODAY@1600 IV 01/03/18 16:00 01/04/18 15:59 01/03/18 16:57 100 MLS/HR Morphine Sulfate (MoRPHine SULFATE INJ) 2 mg Q4H PRN IV 01/03/18 15:15 01/17/18 15:14 01/04/18 12:43 2 MG Heparin Sodium/ Dextrose 500 ml @ 14 mls/hr Q24H IV 01/04/18 03:00 02/03/18 02:59 01/04/18 10:30 14 MLS/HR Hydromorphone HCl (Dilaudid Inj) 0.5 mg STK-MED ONCE .ROUTE 01/03/18 15:39 01/03/18 15:40 DC 01/03/18 15:50 0.5 MG Hydromorphone HCl (Dilaudid Inj) 0.5 mg STK-MED ONCE .ROUTE 01/03/18 15:39 01/03/18 15:40 DC 01/03/18 15:44 0.5 MG Labetalol HCl (Normodyne IV) 5 mg STK-MED ONCE .ROUTE 01/03/18 15:48 01/03/18 15:49 DC 01/03/18 15:49 5 MG Morphine Sulfate (MoRPHine SULFATE INJ) 1 mg Q2H PRN IV 01/04/18 04:30 01/18/18 04:29 01/04/18 04:41 1 MG Pantoprazole Sodium 40 mg/ Syringe 10 ml @ 5 mls/min DAILY@11 IV 01/04/18 11:00 02/03/18 10:59 01/04/18 12:31 5 MLS/MIN Objective Physical Exam General Appearance: no apparent distress Eyes: PERRL, EOMI ENT: hearing grossly normal Neck: supple, no JVD Respiratory/Chest: lungs clear, normal breath sounds, no respiratory distress, no accessory muscle use Cardiovascular: regular rate, rhythm, + systolic murmur Abdomen: normal bowel sounds, + tenderness, + pertinent finding (dressing, c/d/ i) Extremities: non-tender, normal inspection, no pedal edema Neurologic/Psychiatric: alert, normal mood/affect, oriented x 3 Laboratory Results Last 24 Hours Test 01/03/18 17:57 01/04/18 01:01 01/04/18 04:47 01/04/18 05:53 Bedside Glucose 132 mg/dl 177 mg/dl 141 mg/dl White Blood Count 8.87 K/uL Red Blood Count 3.90 M/uL Hemoglobin 12.3 g/dL Hematocrit 35.8 % Mean Corpuscular Volume 91.8 fL Mean Corpuscular Hemoglobin 31.5 pg Mean Corpuscular Hemoglobin Concent 34.4 g/dl RDW Standard Deviation 44.9 fL RDW Coefficient of Variation 13.4 % Platelet Count 193 K/uL Mean Platelet Volume 10.2 fL Activated Partial Thromboplast Time 30.1 SECONDS Partial Thromboplastin Ratio 1.2 Sodium Level 136 mmol/L Potassium Level 4.5 mmol/L Chloride Level 103 mmol/L Carbon Dioxide Level 28 mmol/L Anion Gap 5.0 mmol/L Blood Urea Nitrogen 10 mg/dl Creatinine 0.89 mg/dl Est Creatinine Clear Calc Drug Dose 65.4 ml/min Estimated GFR () 92.3 Estimated GFR (Non- 79.6 BUN/Creatinine Ratio 11.8 Random Glucose 162 mg/dl Calcium Level 7.7 mg/dl Phosphorus Level 3.5 mg/dl Magnesium Level 2.0 mg/dl Test 01/04/18 09:05 Activated Partial Thromboplast Time 32.9 SECONDS Partial Thromboplastin Ratio 1.3 Assessment and Plan Patient is an 82 year old male with a pmh of multiple bowel obstructions, CAD s/ p CABG x 2, Aortic stenosis s/p mechganical aortic valve, Afib, HTN, that presents with abdominal pain, nausea, and vomiting 2/2 SBO 1) Small Bowel Obstruction s/p Exp Lap day 1 - CT Abd 01/02: 1. Interval improvement in the mildly distended loops of proximal to mid small bowel within the abdomen. However, the transition point within the ileum located within the central abdomen as described above still remains concerning for an internal hernia, resulting of the small bowel obstruction. - General Surgery Consult--> plan for surgery this afternoon, concern at this time for volvulus or hernia contributing to multiple episodes of SBO - CT Abd 12/31: High Grade Small Bowel Obstructions - managed conservatively initially, but due to h/o of recurrent SBO's, and severity, ex lap was decided on. - lysis of adhesions, small bowel resection w/ anastomosis, severe scarring of mesenter causing stricture/obstruction- per Surgery - NPO, PPN, IV fluids, Zosyn - Zofran PRN for nausea - Morphine PRN for pain - Consider PICC for TPN- patient may be NPO for a few days more 2) Mechanical Aortic Valve/ HTN/ Afib/ HLD - Holding Coumadin post op - On IV heparin - managed by Primary care team - PTT to be on lower end of therapeutic range, no more than 800 Units / hr (per surgery) - Hold home PO Lisinopril, Aspirin, and Lipitor 3) Subacute - chronic cough Chest X-ray with findings of Chronic fibrotic changes Chest CT pending 4) Sinus Infection - As per CT - Zosyn will cover 5) GERD - IV pantoprazole, as above 6) Glaucoma - Latanoprost 7) DVT - IV heparin 8) Code Status - Full Resuscitation Reviewed: Pt Seen/Exam by Me History didn't get much sleep last night. wants to get the orozco out to be able to urinate on his own. Constitutional: denies: fever Respiratory: negative: short of breath Cardiovascular: denies chest pain General Appearance: no apparent distress Neck: other (NGT +) Respiratory: lungs clear, no respiratory distress Cardiovascular: regular rate, rhythm Gastrointestinal: soft, tenderness (incisional) Neurologic/Psychiatric: alert, oriented x 3 Assessment/Plan Resident Physician Supervision Note: I independently interviewed and examined the patient and verified the alonzo history and physical, reviewed labs and image studies, discussed the case with the resident Dr. Ordaz and agree with the findings and care plan.
[2018-01-04] MEDS ORDERED: CUSTOM PERIPHERAL PN 1 BAG IV SCH (16:00)
[2018-01-04] MEDS ORDERED: OPTIRAY 320 IV PRN (16:15)
[2018-01-04] MEDS: MoRPHine SULFATE 4 MG/ML 1 ML CARP\\VIAL IV PRN (16:29)
--- NOTE | 2018-01-04 16:34 | DIAGNOSTIC IMAGING REPORT ---
CHEST CT WITH CONTRAST CT DOSE: 411.64 mGy.cm HISTORY: Chronic shortness of breath chronic cough, fibrotic changes on xray? TECHNIQUE: Multiaxial CT images of the chest were performed following the intravenous administration of contrast. A dose lowering technique was utilized adhering to the principles of ALARA. COMPARISON: Chest radiographs 09/10/2017, CTA chest 12/01/2012. FINDINGS: No dominant thyroid nodule identified. No pathologic adenopathy. Heart is mildly enlarged with coronary arterial calcifications noted. Prior median sternotomy and CABG. Prosthetic aortic valve is also noted. Calcifications of the mitral annulus are present. No pericardial effusion, thoracic aortic aneurysm or dissection. Moderate to advanced calcification of the aorta. The imaged great vessels appear patent. The pulmonary arterial tree appears unremarkable. Trace bilateral pleural effusions. No pneumothorax. Dependent subsegmental consolidative and groundglass opacities of the right lower lobe suggest atelectasis/scarring. Additional groundglass opacities within the right upper lobe also suggest atelectasis. There is moderate left hemidiaphragmatic elevation with mild left basilar bronchiectasis. Large degree of mucosal secretions are seen within the left lower lobe bronchi. Left lower lobe consolidation and groundglass opacities are noted. Large amount of pneumoperitoneum of the imaged upper abdomen with retained oral contrast within the transverse colon. Enteric tube courses into the gastric lumen outside the [id number]. Mild mesenteric stranding about the imaged upper abdomen, noted within the left upper quadrant. IMPRESSION: 1. Large amount of pneumoperitoneum within the imaged upper abdomen suggests perforated viscus or history of recent abdominal surgery. 2. Trace bilateral pleural effusions with right basilar opacities suggesting atelectasis/scarring. 3. Bronchiectasis of the left lower lobe with large amount of bronchial secretions and left basilar consolidation suggests aspiration pneumonitis and/or atelectasis with moderate left hemidiaphragmatic elevation. 4. Cardiomegaly with prior median sternotomy, and CABG with prosthetic aortic valve. 5. Enteric tube terminates within the gastric lumen. Electronically signed by: Luis Daniel M.D. 01/04/2018 4:32 PM Dictated Date/Time: 01/04/2018 4:23 PM
[2018-01-04 17:09] LABS: PTT PATIENT 32.5 SECONDS (21.0-31.0)
[2018-01-04] MEDS: LATANOPROST 0.005% OP SOLN 2.5 ML BTL OP SCH (19:15)
[2018-01-05 00:40] LABS: PTT PATIENT 39.6 SECONDS (21.0-31.0)
[2018-01-05] MEDS: PIPERACILL/TAZOBAC IV 3.375 GM in NSS 100ML IV SCH ×3 (03:59→20:53)
[2018-01-05] MEDS: MoRPHine SULFATE 4 MG/ML 1 ML CARP\\VIAL IV PRN ×3 (06:04→14:03)
[2018-01-05 06:51] LABS: HEMATOCRIT 35.3 % (42-52); HEMOGLOBIN 12.2 g/dL (14.0-18.0); MEAN CELL VOLUME 91.9 fL (80-100); MEAN CORPUSCULAR HEMOGLOBIN 31.8 pg (25-34); MEAN CORPUSCULAR HGB CONC 34.6 g/dl (32-36); MEAN PLATELET VOLUME 10.8 fL (7.4-10.4); PLATELET COUNT 200 K/uL (130-400); RED CELL DISTRIBUTION WIDTH CV 13.7 % (11.5-14.5); WHITE BLOOD COUNT 8.31 K/uL (4.8-10.8)
[2018-01-05 06:57] LABS: PTT PATIENT 36.3 SECONDS (21.0-31.0)
[2018-01-05] MEDS: HEPARIN 25,000 UNIT/500ML D5W 500 ML IV SCH ×4 (07:14→15:21)
[2018-01-05 07:15] LABS: CREATININE 0.84 mg/dl (0.60-1.40); PHOSPHORUS 3.2 mg/dl (2.5-4.9)
--- NOTE | 2018-01-05 07:15 | Family Medicine Progress Note ---
Progress Note Date of Service January 05, 2018. Subjective Pt evaluation today including: conversation w/ patient, conversation w/ family , physical exam Voiding: no voiding problems Reported pain was ok when was on morphine, overnight he did not realize the medication was 'PRN' so did not ask for any, and had about 12 hours without pain medication and so did not sleep well. Denies any other concerns. Constitutional: No fever, No chills ENT: No hearing loss Respiratory: No cough, No sputum Abdomen: + pain, No nausea All Other Systems: Reviewed and Negative Medications Current Inpatient Medications Medications (Trade) Dose Ordered Sig/Yanique Route Start Time Stop Time Status Last Admin Dose Admin Miscellaneous Information (Consult) 1 UD PRN N/A 12/31/17 05:45 01/30/18 05:44 Latanoprost (Xalatan Oph Soln) 1 drops HS OP 12/31/17 21:00 01/30/18 20:59 01/04/18 19:15 1 DROPS Piperacillin Sod/ Tazobactam Sod 3.375 gm/Sodium Chloride 115 ml @ 28.75 mls/ hr Q8H IV 12/31/17 12:00 01/10/18 11:59 01/05/18 03:59 28.75 MLS/HR Dextrose 1,000 ml @ 0 mls/hr Q0M PRN IV 01/02/18 11:52 02/01/18 11:51 Miscellaneous Information (Pharmacy Tpn/ Ppn Consult Active) 1 UD PRN N/A 01/02/18 12:00 02/01/18 11:59 Morphine Sulfate (MoRPHine SULFATE INJ) 2 mg Q4H PRN IV 01/03/18 15:15 01/17/18 15:14 01/04/18 12:43 2 MG Morphine Sulfate (MoRPHine SULFATE INJ) 4 mg Q4H PRN IV 01/03/18 15:15 01/17/18 15:14 01/05/18 06:04 4 MG Ondansetron HCl (Zofran Inj) 4 mg Q6H PRN IV 01/03/18 15:15 02/02/18 15:14 Heparin Sodium/ Dextrose 500 ml @ 16 mls/hr Q24H IV 01/04/18 03:00 02/03/18 02:59 01/05/18 07:14 16 MLS/HR Morphine Sulfate (MoRPHine SULFATE INJ) 1 mg Q2H PRN IV 01/04/18 04:30 01/18/18 04:29 01/04/18 04:41 1 MG Pantoprazole Sodium 40 mg/ Syringe 10 ml @ 5 mls/min DAILY@11 IV 01/04/18 11:00 02/03/18 10:59 01/04/18 12:31 5 MLS/MIN Nutrition (Parenteral) 0 ml @ 0 mls/hr TODAY@1600 IV 01/04/18 16:00 01/05/18 15:59 01/04/18 17:17 0 MLS/HR Ioversol (Optiray 320) 100 ml UD PRN IV 01/04/18 16:15 01/08/18 16:14 Nutrition (Parenteral) 0 ml @ 0 mls/hr TODAY@1600 IV 01/05/18 16:00 01/06/18 15:59 Objective Vital Signs Date Time Temp Pulse Resp B/P (MAP) Pulse Ox O2 Delivery O2 Flow Rate FiO2 01/05/18 08:03 36.8 76 16 150/72 (98) 94 Room Air 01/04/18 22:48 36.4 79 18 167/73 (104) 96 Room Air 01/04/18 19:15 Room Air 01/04/18 16:35 37.1 120 18 174/76 (108) 94 Room Air 01/04/18 12:30 36.7 78 16 166/68 (100) 97 Room Air 01/04/18 10:53 86 97 01/04/18 10:34 94 Room Air Physical Exam General Appearance: WD/WN, no apparent distress, + thin Eyes: normal inspection, PERRL ENT: hearing grossly normal, + pertinent finding (NG tube to suction) Neck: supple, no JVD Respiratory/Chest: lungs clear, normal breath sounds, no respiratory distress Cardiovascular: regular rate, rhythm, no murmur Abdomen: + guarding Extremities: non-tender, normal inspection, no pedal edema Neurologic/Psychiatric: alert, normal mood/affect, oriented x 3 Skin: no rash Laboratory Results Last 24 Hours Test 01/04/18 16:42 01/05/18 00:16 01/05/18 00:18 01/05/18 06:13 Activated Partial Thromboplast Time 32.5 SECONDS 39.6 SECONDS 36.3 SECONDS Partial Thromboplastin Ratio 1.3 1.5 1.4 Bedside Glucose 116 mg/dl White Blood Count 8.31 K/uL Red Blood Count 3.84 M/uL Hemoglobin 12.2 g/dL Hematocrit 35.3 % Mean Corpuscular Volume 91.9 fL Mean Corpuscular Hemoglobin 31.8 pg Mean Corpuscular Hemoglobin Concent 34.6 g/dl RDW Standard Deviation 46.0 fL RDW Coefficient of Variation 13.7 % Platelet Count 200 K/uL Mean Platelet Volume 10.8 fL Sodium Level 134 mmol/L Potassium Level 4.0 mmol/L Chloride Level 101 mmol/L Carbon Dioxide Level 26 mmol/L Anion Gap 7.0 mmol/L Blood Urea Nitrogen 11 mg/dl Creatinine 0.84 mg/dl Est Creatinine Clear Calc Drug Dose 69.3 ml/min Estimated GFR () 94.5 Estimated GFR (Non- 81.5 BUN/Creatinine Ratio 13.0 Random Glucose 114 mg/dl Calcium Level 8.0 mg/dl Phosphorus Level 3.2 mg/dl Magnesium Level 2.2 mg/dl CHEST CT: IMPRESSION: 1. Large amount of pneumoperitoneum within the imaged upper abdomen suggests perforated viscus or history of recent abdominal surgery. 2. Trace bilateral pleural effusions with right basilar opacities suggesting atelectasis/scarring. 3. Bronchiectasis of the left lower lobe with large amount of bronchial secretions and left basilar consolidation suggests aspiration pneumonitis and/or atelectasis with moderate left hemidiaphragmatic elevation. 4. Cardiomegaly with prior median sternotomy, and CABG with prosthetic aortic valve. 5. Enteric tube terminates within the gastric lumen. Assessment and Plan 82 yo M, day 2 s/p bowel resection for recurrent SBO. Other comorbidities include CAD s/p CABG x 2, mechanical aortic valve on coumadin, a fib, HTN. Recurrent SBO, s/p exploratory laparotomy on 01/03/[address] Boss. - Remains on TPN for nutrition, will take a few days to regain bowel function - Zofran and Morphine PRN Mechanical aortic valve, on coumadin as an outpatient - Discussed with Dr Palm (Surgeon statement distribution clerk) and Pharmacy. With his subtherapeutic PTT's we are currently not providing therapeutic anticoagulation to prevent thrombotic events on his mechanical valve. Overall plan today will be to go back to low dose heparin drip protocol, aiming for a PTT of lower range , around 50. If there is a significant increase in the PTT's with the protocol or he has any evidence of new bleeding please contact me. - Coumadin on hold until can take PO CAD s/p CABG x 2, Hypertension, Hyperlipidemia - PO Lisinopril, Aspirin, Lipitor on hold while NPO Subacute cough - Per CT, lots of secretions - Encourage incentive spirometry, continue to monitor Sinusitis - As per CT - Zosyn will cover GERD - IV pantoprazole, as above Glaucoma - Latanoprost DVT prophylaxis - IV heparin Code Status - Full Resuscitation Dispo - Remains on Med/Surg - Encourage ambulation Resident Tracking Resident Involvement: Resident Care Provided Care Provided: Adult Hospital Medicine Reviewed: Pt Seen/Exam by Me History doing much better out of bed - walking in the hallways Constitutional: denies: fever Respiratory: negative: short of breath Cardiovascular: denies chest pain General Appearance: no apparent distress Respiratory: lungs clear, no respiratory distress Cardiovascular: regular rate, rhythm Gastrointestinal: normal bowel sounds, soft, tenderness (incisional) Neurologic/Psychiatric: alert, oriented x 3 Skin Characteristics: warm/dry Assessment/Plan Resident Physician Supervision Note: I independently interviewed and examined the patient and verified the alonzo history and physical, reviewed labs and image studies, discussed the case with the resident Dr. Morelos and agree with the findings and care plan.
[2018-01-05 08:03] VITALS: BP 150/72; PULSE 76; TEMP 36.8; O2SAT 94
[2018-01-05] MEDS ORDERED: HEPARIN IV LOW DOSE NO BOLUS STA (09:10)
[2018-01-05] MEDS ORDERED: DiphenhydrAMINE INJ 25 MG in SYRINGE 0 ML IV PRN (09:15)
[2018-01-05] MEDS: DiphenhydrAMINE HCL 50 MG/ML VIAL IV PRN ×2 (09:50→16:16)
--- NOTE | 2018-01-05 09:53 | Surgery Progress Note ---
Surgery Progress Note Date of Service January 05, 2018. Subjective Post OP Day: 2 no new complaints. no real flatus or bm yet. pain control adequate. ambulating. Objective Vital Signs: Date Time Temp Pulse Resp B/P (MAP) Pulse Ox O2 Delivery O2 Flow Rate FiO2 01/05/18 08:03 36.8 76 16 150/72 (98) 94 Room Air 01/04/18 22:48 36.4 79 18 167/73 (104) 96 Room Air 01/04/18 19:15 Room Air 01/04/18 16:35 37.1 120 18 174/76 (108) 94 Room Air 01/04/18 12:30 36.7 78 16 166/68 (100) 97 Room Air 01/04/18 10:53 86 97 01/04/18 10:34 94 Room Air Physical Exam: nasogastric drainage (bilious) General Appearance: no apparent distress Respiratory/Chest: no respiratory distress, no accessory muscle use Abdomen: soft, + distended Incision(s): clean, dry, intact, no erythema Laboratory Results: Results Past 24 Hours Test 01/04/18 16:42 01/05/18 00:16 01/05/18 00:18 01/05/18 06:13 Range/Units Activated Partial Thromboplast Time 32.5 39.6 36.3 21.0-31.0 SECONDS Partial Thromboplastin Ratio 1.3 1.5 1.4 Bedside Glucose 116 70-99 mg/dl White Blood Count 8.31 4.8-10.8 K/uL Red Blood Count 3.84 4.7-6.1 M/uL Hemoglobin 12.2 14.0-18.0 g/dL Hematocrit 35.3 42-52 % Mean Corpuscular Volume 91.9 80-100 fL Mean Corpuscular Hemoglobin 31.8 25-34 pg Mean Corpuscular Hemoglobin Concent 34.6 32-36 g/dl RDW Standard Deviation 46.0 36.4-46.3 fL RDW Coefficient of Variation 13.7 11.5-14.5 % Platelet Count 200 130-400 K/uL Mean Platelet Volume 10.8 7.4-10.4 fL Sodium Level 134 136-145 mmol/L Potassium Level 4.0 3.5-5.1 mmol/L Chloride Level 101 98-107 mmol/L Carbon Dioxide Level 26 21-32 mmol/L Anion Gap 7.0 3-11 mmol/L Blood Urea Nitrogen 11 7-18 mg/dl Creatinine 0.84 0.60-1.40 mg/dl Est Creatinine Clear Calc Drug Dose 69.3 ml/min Estimated GFR () 94.5 Estimated GFR (Non- 81.5 BUN/Creatinine Ratio 13.0 10-20 Random Glucose 114 70-99 mg/dl Calcium Level 8.0 8.5-10.1 mg/dl Phosphorus Level 3.2 2.5-4.9 mg/dl Magnesium Level 2.2 1.8-2.4 mg/dl Test 01/05/18 09:47 Range/Units Assessment & Plan 01/05/18 POD 2 doing as expected no bowel fx yet/not ready for ngt removal continue ambulation awaiting bowel fx no acute post op issues
[2018-01-05 10:03] LABS: BASO % 0.1 %; BASO ABS # 0.01 K/uL (0-0.2); EOS % 0.9 %; EOS ABS # 0.08 K/uL (0-0.5); HEMATOCRIT 37.3 % (42-52); IG# 0.03 K/uL (0.00-0.02); LYMPH % 13.5 %; LYMPH ABS # 1.21 K/uL (1.2-3.4); MEAN CELL VOLUME 91.6 fL (80-100); MEAN CORPUSCULAR HEMOGLOBIN 31.9 pg (25-34); MEAN PLATELET VOLUME 10.6 fL (7.4-10.4); MONO % 11.9 %; MONO ABS # 1.07 K/uL (0.11-0.59); NEUT % 73.3 %; NEUT ABS # 6.58 K/uL (1.4-6.5); PLATELET COUNT 215 K/uL (130-400); RED CELL DISTRIBUTION WIDTH CV 13.5 % (11.5-14.5); RED CELL DISTRIBUTION WIDTH SD 45.1 fL (36.4-46.3); WHITE BLOOD COUNT 8.98 K/uL (4.8-10.8)
[2018-01-05 10:07] LABS: MEAN CORPUSCULAR HGB CONC 34.9 g/dl (32-36)
[2018-01-05 10:11] LABS: PTT PATIENT 35.1 SECONDS (21.0-31.0)
[2018-01-05] MEDS: PANTOprazole INJ 40 MG in SYRINGE 0 ML IV SCH (11:36)
[2018-01-05 13:01] VITALS: BP 159/75; PULSE 53; O2SAT 97
[2018-01-05 13:02] LABS: PTT PATIENT 38.3 SECONDS (21.0-31.0)
[2018-01-05] MEDS ORDERED: HEPARIN IV BOLUS 4,500 UNIT in SYRINGE 0 ML IV ONE (13:45)
[2018-01-05 15:39] VITALS: BP 154/67; PULSE 64; TEMP 36.5; O2SAT 90
[2018-01-05] MEDS ORDERED: CUSTOM PERIPHERAL PN 1 BAG IV SCH (16:00)
[2018-01-05 20:42] LABS: PTT PATIENT 49.9 SECONDS (21.0-31.0)
[2018-01-05] MEDS: LATANOPROST 0.005% OP SOLN 2.5 ML BTL OP SCH (20:55)
[2018-01-05 23:45] VITALS: BP 166/85; PULSE 78; TEMP 36.7; O2SAT 94
[2018-01-06 03:00] VITALS: BP 148/77; PULSE 77; TEMP 37; O2SAT 95
[2018-01-06] MEDS: PIPERACILL/TAZOBAC IV 3.375 GM in NSS 100ML IV SCH (03:56)
[2018-01-06 06:47] LABS: HEMATOCRIT 34.8 % (42-52); MEAN CELL VOLUME 91.8 fL (80-100); MEAN CORPUSCULAR HEMOGLOBIN 31.7 pg (25-34); MEAN CORPUSCULAR HGB CONC 34.5 g/dl (32-36); MEAN PLATELET VOLUME 10.2 fL (7.4-10.4); PLATELET COUNT 216 K/uL (130-400); RED CELL DISTRIBUTION WIDTH CV 13.7 % (11.5-14.5); RED CELL DISTRIBUTION WIDTH SD 45.3 fL (36.4-46.3); WHITE BLOOD COUNT 7.16 K/uL (4.8-10.8)
[2018-01-06 06:59] LABS: PTT PATIENT 42.5 SECONDS (21.0-31.0)
[2018-01-06 07:06] VITALS: BP 152/71; PULSE 77; TEMP 36.4; O2SAT 96
[2018-01-06 07:23] LABS: CALCIUM 8.1 mg/dl (8.5-10.1); CREATININE 0.78 mg/dl (0.60-1.40); PHOSPHORUS 3.7 mg/dl (2.5-4.9); POTASSIUM 3.7 mmol/L (3.5-5.1)
[2018-01-06] MEDS ORDERED: HEPARIN IV BOLUS 3,000 UNIT in SYRINGE 0 ML IV ONE (07:45)
[2018-01-06] MEDS: HEPARIN 25,000 UNIT/500ML D5W 500 ML IV SCH ×3 (08:17→23:13)
[2018-01-06] MEDS: DiphenhydrAMINE HCL 50 MG/ML VIAL IV PRN ×2 (09:10→16:28)
--- NOTE | 2018-01-06 09:23 | Surgery Progress Note ---
Surgery Progress Note Date of Service January 06, 2018. Subjective Post OP Day: 3 doing ok but frustrated no BM yet. pain manageable. Objective Vital Signs: Date Time Temp Pulse Resp B/P (MAP) Pulse Ox O2 Delivery O2 Flow Rate FiO2 01/06/18 07:06 36.4 77 15 152/71 (98) 96 Room Air 01/06/18 03:00 37.0 77 14 148/77 (100) 95 Room Air 01/05/18 23:45 Room Air 01/05/18 23:45 36.7 78 14 166/85 (112) 94 Room Air 01/05/18 16:10 Room Air 01/05/18 15:39 36.5 64 18 154/67 (96) 90 Room Air 01/05/18 13:01 53 97 Physical Exam: nasogastric drainage General Appearance: no apparent distress Respiratory/Chest: no respiratory distress, no accessory muscle use Abdomen: soft, + pertinent finding (expected tenderness) Incision(s): clean, dry, intact Laboratory Results: Results Past 24 Hours Test 01/05/18 09:47 01/05/18 12:09 01/05/18 12:48 01/05/18 19:46 Range/Units White Blood Count 8.98 4.8-10.8 K/uL Red Blood Count 4.07 4.7-6.1 M/uL Hemoglobin 13.0 14.0-18.0 g/dL Hematocrit 37.3 42-52 % Mean Corpuscular Volume 91.6 80-100 fL Mean Corpuscular Hemoglobin 31.9 25-34 pg Mean Corpuscular Hemoglobin Concent 34.9 32-36 g/dl Platelet Count 215 130-400 K/uL Mean Platelet Volume 10.6 7.4-10.4 fL Neutrophils (%) (Auto) 73.3 % Lymphocytes (%) (Auto) 13.5 % Monocytes (%) (Auto) 11.9 % Eosinophils (%) (Auto) 0.9 % Basophils (%) (Auto) 0.1 % Neutrophils # (Auto) 6.58 1.4-6.5 K/uL Lymphocytes # (Auto) 1.21 1.2-3.4 K/uL Monocytes # (Auto) 1.07 0.11-0.59 K/uL Eosinophils # (Auto) 0.08 0-0.5 K/uL Basophils # (Auto) 0.01 0-0.2 K/uL RDW Standard Deviation 45.1 36.4-46.3 fL RDW Coefficient of Variation 13.5 11.5-14.5 % Immature Granulocyte % (Auto) 0.3 % Immature Granulocyte # (Auto) 0.03 0.00-0.02 K/uL Prothrombin Time 10.5 9.0-12.0 SECONDS Prothromb Time International Ratio 1.0 0.9-1.1 Activated Partial Thromboplast Time 35.1 38.3 49.9 21.0-31.0 SECONDS Partial Thromboplastin Ratio 1.4 1.5 1.9 Bedside Glucose 110 70-99 mg/dl Test 01/06/18 06:15 01/06/18 08:21 Range/Units White Blood Count 7.16 4.8-10.8 K/uL Red Blood Count 3.79 4.7-6.1 M/uL Hemoglobin 12.0 14.0-18.0 g/dL Hematocrit 34.8 42-52 % Mean Corpuscular Volume 91.8 80-100 fL Mean Corpuscular Hemoglobin 31.7 25-34 pg Mean Corpuscular Hemoglobin Concent 34.5 32-36 g/dl RDW Standard Deviation 45.3 36.4-46.3 fL RDW Coefficient of Variation 13.7 11.5-14.5 % Platelet Count 216 130-400 K/uL Mean Platelet Volume 10.2 7.4-10.4 fL Activated Partial Thromboplast Time 42.5 21.0-31.0 SECONDS Partial Thromboplastin Ratio 1.6 Sodium Level 135 136-145 mmol/L Potassium Level 3.7 3.5-5.1 mmol/L Chloride Level 101 98-107 mmol/L Carbon Dioxide Level 28 21-32 mmol/L Anion Gap 6.0 3-11 mmol/L Blood Urea Nitrogen 12 7-18 mg/dl Creatinine 0.78 0.60-1.40 mg/dl Est Creatinine Clear Calc Drug Dose 74.7 ml/min Estimated GFR () 97.4 Estimated GFR (Non- 84.1 BUN/Creatinine Ratio 15.7 10-20 Random Glucose 113 70-99 mg/dl Calcium Level 8.1 8.5-10.1 mg/dl Phosphorus Level 3.7 2.5-4.9 mg/dl Magnesium Level 2.0 1.8-2.4 mg/dl Triglycerides Level 79 0-150 mg/dl Bedside Glucose 115 70-99 mg/dl Microbiology Results 01/05/18 Gram Stain - Final, Resulted 01/05/18 Sputum Culture, Resulted Pending Assessment & Plan 01/06/18 pt doing fine just no bm yet will try IV tylenol so he can avoid narcotics at his request continue to ambulate keep ngt until bowel fx returns labs ok no acute post op issues 01/05/18 POD 2 doing as expected no bowel fx yet/not ready for ngt removal continue ambulation awaiting bowel fx no acute post op issues 01/05/18 POD 2 doing as expected no bowel fx yet/not ready for ngt removal continue ambulation awaiting bowel fx no acute post op issues
--- NOTE | 2018-01-06 09:30 | Family Medicine Progress Note ---
Progress Note Date of Service January 06, 2018. Subjective Pt evaluation today including: conversation w/ patient, conversation w/ family , physical exam Voiding: no voiding problems Walked around hallways 16 times yesterday. Pain is ok, but he is not asking for the PRN pain meds much. Frustrated with NG tube. Constitutional: No fever Eyes: No worsening of vision ENT: No hearing loss Respiratory: No cough Abdomen: No nausea All Other Systems: Reviewed and Negative Medications Current Inpatient Medications Medications (Trade) Dose Ordered Sig/Yanique Route Start Time Stop Time Status Last Admin Dose Admin Miscellaneous Information (Consult) 1 UD PRN N/A 12/31/17 05:45 01/30/18 05:44 Latanoprost (Xalatan Oph Soln) 1 drops HS OP 12/31/17 21:00 01/30/18 20:59 01/05/18 20:55 1 DROPS Piperacillin Sod/ Tazobactam Sod 3.375 gm/Sodium Chloride 115 ml @ 28.75 mls/ hr Q8H IV 12/31/17 12:00 01/10/18 11:59 01/06/18 03:56 28.75 MLS/HR Dextrose 1,000 ml @ 0 mls/hr Q0M PRN IV 01/02/18 11:52 02/01/18 11:51 Miscellaneous Information (Pharmacy Tpn/ Ppn Consult Active) 1 UD PRN N/A 01/02/18 12:00 02/01/18 11:59 Morphine Sulfate (MoRPHine SULFATE INJ) 2 mg Q4H PRN IV 01/03/18 15:15 01/17/18 15:14 01/04/18 12:43 2 MG Morphine Sulfate (MoRPHine SULFATE INJ) 4 mg Q4H PRN IV 01/03/18 15:15 01/17/18 15:14 01/05/18 14:03 4 MG Ondansetron HCl (Zofran Inj) 4 mg Q6H PRN IV 01/03/18 15:15 02/02/18 15:14 Heparin Sodium/ Dextrose 500 ml @ 21 mls/hr [id number] IV 01/04/18 03:00 02/03/18 02:59 01/06/18 08:17 21 MLS/HR Morphine Sulfate (MoRPHine SULFATE INJ) 1 mg Q2H PRN IV 01/04/18 04:30 01/18/18 04:29 01/04/18 04:41 1 MG Pantoprazole Sodium 40 mg/ Syringe 10 ml @ 5 mls/min DAILY@11 IV 01/04/18 11:00 02/03/18 10:59 01/05/18 11:36 5 MLS/MIN Ioversol (Optiray 320) 100 ml UD PRN IV 01/04/18 16:15 01/08/18 16:14 Nutrition (Parenteral) 0 ml @ 0 mls/hr TODAY@1600 IV 01/05/18 16:00 01/06/18 15:59 01/05/18 16:16 0 MLS/HR Diphenhydramine HCl (Benadryl Inj) 25 mg Q6H PRN IV 01/05/18 09:45 02/04/18 09:44 01/06/18 09:10 25 MG Nutrition (Parenteral) 0 ml @ 0 mls/hr TODAY@1600 IV 01/06/18 16:00 01/07/18 15:59 Acetaminophen 1000 mg/Empty Bag 100 ml @ 400 mls/hr Q8H IV 01/06/18 09:30 02/05/18 09:29 UNV Objective Vital Signs Date Time Temp Pulse Resp B/P (MAP) Pulse Ox O2 Delivery O2 Flow Rate FiO2 01/06/18 07:06 36.4 77 15 152/71 (98) 96 Room Air 01/06/18 03:00 37.0 77 14 148/77 (100) 95 Room Air 01/05/18 23:45 Room Air 01/05/18 23:45 36.7 78 14 166/85 (112) 94 Room Air 01/05/18 16:10 Room Air 01/05/18 15:39 36.5 64 18 154/67 (96) 90 Room Air 01/05/18 13:01 53 97 Physical Exam General Appearance: WD/WN, no apparent distress Eyes: normal inspection, PERRL ENT: hearing grossly normal Neck: no JVD Respiratory/Chest: lungs clear, normal breath sounds Cardiovascular: regular rate, rhythm, no murmur Abdomen: + pertinent finding (soft bowel sounds, mild tenderness) Extremities: non-tender, normal inspection, no pedal edema Neurologic/Psychiatric: alert, normal mood/affect, oriented x 3 Skin: no rash Laboratory Results Last 24 Hours Test 01/05/18 09:47 01/05/18 12:09 01/05/18 12:48 01/05/18 19:46 White Blood Count 8.98 K/uL Red Blood Count 4.07 M/uL Hemoglobin 13.0 g/dL Hematocrit 37.3 % Mean Corpuscular Volume 91.6 fL Mean Corpuscular Hemoglobin 31.9 pg Mean Corpuscular Hemoglobin Concent 34.9 g/dl Platelet Count 215 K/uL Mean Platelet Volume 10.6 fL Neutrophils (%) (Auto) 73.3 % Lymphocytes (%) (Auto) 13.5 % Monocytes (%) (Auto) 11.9 % Eosinophils (%) (Auto) 0.9 % Basophils (%) (Auto) 0.1 % Neutrophils # (Auto) 6.58 K/uL Lymphocytes # (Auto) 1.21 K/uL Monocytes # (Auto) 1.07 K/uL Eosinophils # (Auto) 0.08 K/uL Basophils # (Auto) 0.01 K/uL RDW Standard Deviation 45.1 fL RDW Coefficient of Variation 13.5 % Immature Granulocyte % (Auto) 0.3 % Immature Granulocyte # (Auto) 0.03 K/uL Prothrombin Time 10.5 SECONDS Prothromb Time International Ratio 1.0 Activated Partial Thromboplast Time 35.1 SECONDS 38.3 SECONDS 49.9 SECONDS Partial Thromboplastin Ratio 1.4 1.5 1.9 Bedside Glucose 110 mg/dl Test 01/06/18 06:15 01/06/18 08:21 White Blood Count 7.16 K/uL Red Blood Count 3.79 M/uL Hemoglobin 12.0 g/dL Hematocrit 34.8 % Mean Corpuscular Volume 91.8 fL Mean Corpuscular Hemoglobin 31.7 pg Mean Corpuscular Hemoglobin Concent 34.5 g/dl RDW Standard Deviation 45.3 fL RDW Coefficient of Variation 13.7 % Platelet Count 216 K/uL Mean Platelet Volume 10.2 fL Activated Partial Thromboplast Time 42.5 SECONDS Partial Thromboplastin Ratio 1.6 Sodium Level 135 mmol/L Potassium Level 3.7 mmol/L Chloride Level 101 mmol/L Carbon Dioxide Level 28 mmol/L Anion Gap 6.0 mmol/L Blood Urea Nitrogen 12 mg/dl Creatinine 0.78 mg/dl Est Creatinine Clear Calc Drug Dose 74.7 ml/min Estimated GFR () 97.4 Estimated GFR (Non- 84.1 BUN/Creatinine Ratio 15.7 Random Glucose 113 mg/dl Calcium Level 8.1 mg/dl Phosphorus Level 3.7 mg/dl Magnesium Level 2.0 mg/dl Triglycerides Level 79 mg/dl Bedside Glucose 115 mg/dl Assessment and Plan 82 yo M, day 3 s/p bowel resection for recurrent SBO. Other comorbidities include CAD s/p CABG x 2, mechanical aortic valve on coumadin, a fib, HTN. Recurrent SBO, s/p exploratory laparotomy on 01/03/[address] Boss. - Remains on PPN for nutrition, will take a few days to regain bowel function - Keep NG tube until bowel function returns - Scheduled IV Tylenol - Zofran and Morphine PRN Mechanical aortic valve, on coumadin as an outpatient - Continue low dose heparin drip protocol - Coumadin on hold until can take PO CAD s/p CABG x 2, Hypertension, Hyperlipidemia - PO Lisinopril, Aspirin, Lipitor on hold while NPO Subacute cough - Per CT, lots of secretions - Encourage incentive spirometry, continue to monitor Sinusitis - As per CT - Zosyn will cover GERD - IV pantoprazole, as above Glaucoma - Latanoprost DVT prophylaxis - IV heparin Code Status - Full Resuscitation Dispo - Remains on Med/Surg - Encourage ambulation Resident Tracking Resident Involvement: Resident Care Provided Care Provided: Adult Hospital Medicine Reviewed: Pt Seen/Exam by Me History no new concerns Constitutional: denies: fever Respiratory: negative: short of breath Cardiovascular: denies chest pain General Appearance: no apparent distress Respiratory: lungs clear, no respiratory distress Cardiovascular: regular rate, rhythm Gastrointestinal: soft Neurologic/Psychiatric: alert, oriented x 3 Skin Characteristics: warm/dry Assessment/Plan Resident Physician Supervision Note: I independently interviewed and examined the patient and verified the alonzo history and physical, reviewed labs and image studies, discussed the case with the resident Dr. Morelos and agree with the findings and care plan.
[2018-01-06] MEDS: ACETAMINOPHEN IV 1,000 MG in EMPTY BAG 0 ML IV SCH ×2 (09:56→18:50)
--- NOTE | 2018-01-06 10:29 | DIAGNOSTIC IMAGING REPORT ---
KUB HISTORY: s/p Ex Lap, lysis of adhesions, small bowel resection COMPARISON: Chest and abdominal series 01/03/2018. FINDINGS: Nasogastric tube terminates in the fundus of the stomach. There are postoperative changes. No pneumoperitoneum. No pneumatosis. Midline skin patricia are noted. There are suture material within the left side of the abdomen consistent with bowel anastomosis. Residual contrast within the colon. Few mildly dilated loops of large and small bowel. Findings favor an ileus. There is an aortic valve prosthesis. No renal calculi. No ureteral calculi. IMPRESSION: 1. Nasogastric tube terminates in the fundus of the stomach. 2. Interval postoperative changes. Mildly dilated a gas-filled loops of large and small bowel favor a mild ileus. Electronically signed by: Ryan Harding M.D. 01/06/2018 10:28 AM Dictated Date/Time: 01/06/2018 10:22 AM
[2018-01-06] MEDS: PANTOprazole INJ 40 MG in SYRINGE 0 ML IV SCH (10:57)
[2018-01-06] MEDS ORDERED: IMIPENEM/CILASTATIN CONSULT ACTIVE PRN (12:00)
[2018-01-06] MEDS: IMIPENEM/CILASTATIN IV 400 MG in DEXTROSE 5% 100ML 100 ML IV SCH ×2 (12:18→19:06)
[2018-01-06 15:06] LABS: PTT PATIENT 54.9 SECONDS (21.0-31.0)
[2018-01-06 15:10] VITALS: BP 152/76; PULSE 81; TEMP 36.6; O2SAT 96
[2018-01-06] MEDS ORDERED: CUSTOM PERIPHERAL PN 1 BAG IV SCH (16:00)
[2018-01-06] MEDS: LATANOPROST 0.005% OP SOLN 2.5 ML BTL OP SCH (20:58)
[2018-01-06 22:50] VITALS: BP 148/66; PULSE 54; TEMP 36.3; O2SAT 97
[2018-01-07] MEDS: IMIPENEM/CILASTATIN IV 400 MG in DEXTROSE 5% 100ML 100 ML IV SCH ×5 (00:47→23:38)
[2018-01-07] MEDS: ACETAMINOPHEN IV 1,000 MG in EMPTY BAG 0 ML IV SCH ×3 (01:49→19:47)
--- NOTE | 2018-01-07 06:35 | Surgery Progress Note ---
Surgery Progress Note Date of Service January 07, 2018. Subjective min NG output, ++flatus, no bm yet good urine output KUB- possible mild ileus, Objective Vital Signs: Date Time Temp Pulse Resp B/P (MAP) Pulse Ox O2 Delivery O2 Flow Rate FiO2 01/07/18 00:00 Room Air 01/06/18 22:50 36.3 54 14 148/66 (93) 97 Room Air 01/06/18 16:45 Room Air 01/06/18 15:10 36.6 81 18 152/76 (101) 96 Room Air 01/06/18 08:00 Room Air 01/06/18 07:06 36.4 77 15 152/71 (98) 96 Room Air General Appearance: no apparent distress Respiratory/Chest: no respiratory distress Abdomen: soft (some bowel sounds) Laboratory Results: Results Past 24 Hours Test 01/06/18 08:21 01/06/18 14:34 01/07/18 05:52 Range/Units Bedside Glucose 115 70-99 mg/dl Activated Partial Thromboplast Time 54.9 21.0-31.0 SECONDS Partial Thromboplastin Ratio 2.1 Assessment & Plan 01/07/18- will d/c NG tube, cont ice only and ppn check labs, encourage ambulation- overall making slow progress 01/04/18- s/p exploratory laparotomy- lysis of adhesions, sm bowel resection w/ anastomosis- had severe scar/ sclerosis of mesentery causing stricture and obstruction- cont ppn- may benefit from picc line and Tpn- will not be able to eat for several days. cont IV fluids, orozco today, NG today Dr Palm covering over weekend 01/03/18- discussed options with pt- I think he has torsion of his small bowel causing partial obstruction. I think he should this taken care of now- on IV Heparin, ppn, persistent sbo findings on CT- he agrees and wishes to proceed with surgery later today. 01/02/18- CT - some transit but transition point still evident. see how he does overnight- possible OR tomorrow PPN ordered, discussed with pt and 01/02/18- discussed removing NG- will assess w/ CT abd/pelvis with contrast via NG . Cont other meds- may need ppn/Tpn if unable to progress or surgery needed. Check labs 01/04/18- s/p exploratory laparotomy- lysis of adhesions, sm bowel resection w/ anastomosis- had severe scar/ sclerosis of mesentery causing stricture and obstruction- cont ppn- may benefit from picc line and Tpn- will not be able to eat for several days. cont IV fluids, orozco today, NG today Dr Palm covering over weekend 01/03/18- discussed options with pt- I think he has torsion of his small bowel causing partial obstruction. I think he should this taken care of now- on IV Heparin, ppn, persistent sbo findings on CT- he agrees and wishes to proceed with surgery later today. 01/02/18- CT - some transit but transition point still evident. see how he does overnight- possible OR tomorrow PPN ordered, discussed with pt and 01/02/18- discussed removing NG- will assess w/ CT abd/pelvis with contrast via NG . Cont other meds- may need ppn/Tpn if unable to progress or surgery needed. Check labs
[2018-01-07 06:50] LABS: PTT PATIENT 47.1 SECONDS (21.0-31.0)
[2018-01-07] MEDS: HEPARIN 25,000 UNIT/500ML D5W 500 ML IV SCH ×4 (06:59→23:10)
[2018-01-07 07:36] VITALS: BP 161/80; PULSE 82; TEMP 36.4; O2SAT 97
--- NOTE | 2018-01-07 10:30 | Progress Note ---
Progress Note Date of Service January 07, 2018. Progress Note ID Consult Dictated #[id number] A/P: 1. SBO -Can continue abx 7 days post op, if unable to tolerate imipenem, can change to levaquin -thank you
[2018-01-07] MEDS: PANTOprazole INJ 40 MG in SYRINGE 0 ML IV SCH (10:50)
--- NOTE | 2018-01-07 11:58 | INFECT. DISEASE CONSULTATION ---
DATE OF CONSULTATION: 01/07/2018 HISTORY OF PRESENT ILLNESS: This is an 82-year-old gentleman who was admitted to the hospital when he was found to have a small bowel obstruction on CAT scan on 31 of December. He had 3-4 days of severe abdominal pain at home prior to this with noted abdominal distention. He is being followed by surgery and was taken to the operating room on the where he had a repair of torsion. A repeat CAT scan on the did show pneumoperitoneum. He was initially on Zosyn, but had reaction of rash associated with this which required Benadryl. His Zosyn infusion was stopped and he was placed on imipenem yesterday. Infectious diseases was consulted for imipenem approval. His is at the bedside with him. It appears he is tolerating this medication well. She said that the rash resolved quickly after a 1 time dose of Benadryl. He had been on Zosyn for several days without incident prior to this. His NG tube was removed this morning by surgery. He was drinking water without difficulty, but has not eaten yet. He states that his appetite is poor. He continues on peripheral nutrition. He is ambulating without difficulty. He does have some abdominal pain, but states overall it is improved. He denies any chest pain, cough or shortness of breath. His remaining review of systems is reviewed and is unremarkable. PAST MEDICAL HISTORY: Significant for Aflutter, coronary artery disease, GERD, small-bowel obstruction with repair. PAST SURGICAL HISTORY: Significant for open heart surgery, valve replacement of the aortic valve, right knee surgery, tonsillectomy. FAMILY HISTORY: Noncontributory. SOCIAL HISTORY: Significant for history of tobacco use. He denies any alcohol or drug use. ALLERGIES: HE HAS ALLERGIES TO CELEBREX, CHLORHEXIDINE, IODINE, SULFA. PHYSICAL EXAMINATION: VITAL SIGNS: He is afebrile, pulse 82, respiratory rate 16, blood pressure 161/80, oxygen saturation is 97% on room air. GENERAL: He is awake, alert and oriented x3. He is in no acute distress. HEENT: Mucous membranes are moist. Extraocular muscles are intact. HEART: Regular. LUNGS: Clear bilaterally. ABDOMEN: Soft and nondistended. There is some minimal abdominal tenderness over the incision. His incision is clean, dry and intact. There is no edema. SKIN: Currently without rash. LABORATORY STUDIES: CBC yesterday, white blood cell count 7.1, hemoglobin 12, platelets 216. Chemistry panel: Sodium 135, potassium 3.7, chloride 111, bicarbonate 28, BUN 12, creatinine 0.7, glucose is 115. UA on the was unremarkable. A sputum culture on the was normal jenna only. There are no other cultures to review. KUB was done yesterday, which shows postop changes and mild ileus. ASSESSMENT AND PLAN: Small-bowel obstruction. He can continue empiric antibiotics for a total of 7 days postop from the , if imipenem is not tolerated, Levaquin would be an acceptable alternative. Thank you for this consultation.
--- NOTE | 2018-01-07 14:25 | Family Medicine Progress Note ---
Progress Note Date of Service January 07, 2018. Subjective Pt evaluation today including: conversation w/ patient, physical exam, chart review, lab review, review of studies Pain: 2/10 pain this morning Voiding: no voiding problems, no incontinence Patient was having pain yesterday evening and was given morphine in addition to IV Tylenol. The Tylenol seems to have significantly relieved the underlying pain as the patient was not asking for pain medication previously and in significant distress. The patient also has not had a rash this morning, yet has been having intermittent rashes with antibiotic therapies that have resolved with Benadryl. He had the NG removed this morning by Dr. Boss and continues to receive IV fluids and PPN. Constitutional: No fever, No chills, No sweats, No weight loss, No fatigue Respiratory: No cough, No sputum, No wheezing, No shortness of breath Cardiovascular: No chest pain, No palpitations Abdomen: + pain, No nausea, No vomiting, No diarrhea, No constipation Musculoskeletal: No joint pain, No swelling, No calf pain Medications Current Inpatient Medications Medications (Trade) Dose Ordered Sig/Yanique Route Start Time Stop Time Status Last Admin Dose Admin Latanoprost (Xalatan Oph Soln) 1 drops HS OP 12/31/17 21:00 01/30/18 20:59 01/06/18 20:58 1 DROPS Dextrose 1,000 ml @ 0 mls/hr Q0M PRN IV 01/02/18 11:52 02/01/18 11:51 Miscellaneous Information (Pharmacy Tpn/ Ppn Consult Active) 1 ea UD PRN N/A 01/02/18 12:00 02/01/18 11:59 Morphine Sulfate (MoRPHine SULFATE INJ) 2 mg Q4H PRN IV 01/03/18 15:15 01/17/18 15:14 01/04/18 12:43 2 MG Morphine Sulfate (MoRPHine SULFATE INJ) 4 mg Q4H PRN IV 01/03/18 15:15 01/17/18 15:14 01/05/18 14:03 4 MG Ondansetron HCl (Zofran Inj) 4 mg Q6H PRN IV 01/03/18 15:15 02/02/18 15:14 Heparin Sodium/ Dextrose 500 ml @ 21 mls/hr [id number] IV 01/04/18 03:00 02/03/18 02:59 01/07/18 12:43 21 MLS/HR Morphine Sulfate (MoRPHine SULFATE INJ) 1 mg Q2H PRN IV 01/04/18 04:30 01/18/18 04:29 01/04/18 04:41 1 MG Pantoprazole Sodium 40 mg/ Syringe 10 ml @ 5 mls/min DAILY@11 IV 01/04/18 11:00 02/03/18 10:59 01/07/18 10:50 5 MLS/MIN Ioversol (Optiray 320) 100 ml UD PRN IV 01/04/18 16:15 01/08/18 16:14 Diphenhydramine HCl (Benadryl Inj) 25 mg Q6H PRN IV 01/05/18 09:45 02/04/18 09:44 01/06/18 16:28 25 MG Nutrition (Parenteral) 0 ml @ 0 mls/hr TODAY@1600 IV 01/06/18 16:00 01/07/18 15:59 01/06/18 16:44 0 MLS/HR Acetaminophen 1000 mg/Empty Bag 100 ml @ 400 mls/hr Q8H IV 01/06/18 10:00 02/05/18 09:29 01/07/18 10:50 400 MLS/HR Imipenem/ Cilastatin Sodium 400 mg/Dextrose 108 ml @ 108 mls/hr Q6H IV 01/06/18 12:00 01/16/18 11:59 01/07/18 12:26 108 MLS/HR Imipenem/ Cilastatin Sodium (Consult) 1 ea UD PRN N/A 01/06/18 12:00 02/05/18 11:59 Nutrition (Parenteral) 0 ml @ 0 mls/hr TODAY@1600 IV 01/07/18 16:00 01/08/18 15:59 Objective Vital Signs Date Time Temp Pulse Resp B/P (MAP) Pulse Ox O2 Delivery O2 Flow Rate FiO2 01/07/18 08:00 Room Air 01/07/18 07:36 36.4 82 16 161/80 (107) 97 Room Air 01/07/18 00:00 Room Air 01/06/18 22:50 36.3 54 14 148/66 (93) 97 Room Air 01/06/18 16:45 Room Air 01/06/18 15:10 36.6 81 18 152/76 (101) 96 Room Air Physical Exam General Appearance: WD/WN, no apparent distress Eyes: normal inspection, sclerae normal Neck: supple, no carotid bruits, trachea midline Respiratory/Chest: chest non-tender, lungs clear, normal breath sounds Cardiovascular: no edema, no gallop, + systolic murmur, + irregularly irregular Abdomen: normal bowel sounds, soft, + tenderness Extremities: no pedal edema, no calf tenderness Neurologic/Psychiatric: alert, normal mood/affect, oriented x 3 Laboratory Results Results Past 24 Hours Test 01/06/18 14:34 01/07/18 05:52 Range/Units Activated Partial Thromboplast Time 54.9 47.1 21.0-31.0 SECONDS Partial Thromboplastin Ratio 2.1 1.8 Assessment and Plan 82 yo M, day 3 s/p bowel resection for recurrent SBO. Other comorbidities include CAD s/p CABG x 2, mechanical aortic valve on coumadin, a fib, HTN. Recurrent SBO, s/p exploratory laparotomy on 01/03/[address] Boss. - Remains on PPN for nutrition, will take a few days to regain bowel function - NG tube removed today - Advance in diet will be determined by General Surgery - Currently on Imipenem day 4 of IV antibiotics --> Total course of 7 days - Previously did not tolerate Zosyn - Currently has IV Benadryl on board - If unable to tolerate Imipenem can switch to Levaquin - Scheduled IV Tylenol - Zofran and Morphine PRN Mechanical aortic valve, on coumadin as an outpatient - Continue low dose heparin drip protocol - Coumadin on hold until can take PO CAD s/p CABG x 2, Hypertension, Hyperlipidemia - PO Lisinopril, Aspirin, Lipitor on hold while NPO Subacute cough - Per CT, lots of secretions - Encourage incentive spirometry, continue to monitor Sinusitis - As per CT - Zosyn will cover GERD - IV pantoprazole, as above Glaucoma - Latanoprost DVT prophylaxis - IV heparin Code Status - Full Resuscitation Dispo - Remains on Med/Surg - Encourage ambulation Resident Physician Supervision Note: I interviewed and examined the patient. Discussed with Dr. Fernandez and agree with findings and plan as documented in the note. Any exceptions or clarifications are listed here: None Documented By: Anthony Berry feeling better not hungry but also not nauseated vitals noted nad breathing unlabored no pallor or icterus SBO - slowly improving. clear diet. Resident Tracking Resident Involvement: Resident Care Provided Care Provided: Adult [facility]
[2018-01-07 15:07] VITALS: BP 149/77; PULSE 86; TEMP 36.6; O2SAT 97
[2018-01-07] MEDS ORDERED: CUSTOM PERIPHERAL PN 1 BAG IV SCH (16:00)
[2018-01-07] MEDS: LATANOPROST 0.005% OP SOLN 2.5 ML BTL OP SCH (21:28)
[2018-01-07 23:05] VITALS: BP 161/58; PULSE 75; TEMP 36.5; O2SAT 96
[2018-01-07 23:50] VITALS: BP 149/78
[2018-01-08] MEDS: ACETAMINOPHEN IV 1,000 MG in EMPTY BAG 0 ML IV SCH ×3 (02:15→19:41)
[2018-01-08] MEDS ORDERED: HYDROCODONE/ACETAMIN 5/325MG TAB PO PRN ×2 (05:30)
[2018-01-08] MEDS: IMIPENEM/CILASTATIN IV 400 MG in DEXTROSE 5% 100ML 100 ML IV SCH ×3 (05:32→19:41)
[2018-01-08 05:52] LABS: HEMATOCRIT 32.4 % (42-52); HEMOGLOBIN 11.1 g/dL (14.0-18.0); MEAN CELL VOLUME 90.5 fL (80-100); MEAN CORPUSCULAR HGB CONC 34.3 g/dl (32-36); MEAN PLATELET VOLUME 10.2 fL (7.4-10.4); PLATELET COUNT 244 K/uL (130-400); RED CELL DISTRIBUTION WIDTH CV 13.4 % (11.5-14.5); RED CELL DISTRIBUTION WIDTH SD 44.8 fL (36.4-46.3); WHITE BLOOD COUNT 6.49 K/uL (4.8-10.8)
--- NOTE | 2018-01-08 06:03 | Surgery Progress Note ---
Surgery Progress Note Date of Service January 08, 2018. Subjective awake, alert sitting in bed, reading no N/V- tolerating NG removal Objective Vital Signs: Date Time Temp Pulse Resp B/P (MAP) Pulse Ox O2 Delivery O2 Flow Rate FiO2 01/07/18 23:50 149/78 (101) 01/07/18 23:40 Room Air 01/07/18 23:05 36.5 75 16 161/58 (92) 96 Room Air 01/07/18 16:00 Room Air 01/07/18 15:07 36.6 86 18 149/77 (101) 97 Room Air 01/07/18 08:00 Room Air 01/07/18 07:36 36.4 82 16 161/80 (107) 97 Room Air General Appearance: no apparent distress Respiratory/Chest: no respiratory distress Abdomen: soft Incision(s): intact Laboratory Results: Results Past 24 Hours Test 01/08/18 05:23 Range/Units White Blood Count 6.49 4.8-10.8 K/uL Red Blood Count 3.58 4.7-6.1 M/uL Hemoglobin 11.1 14.0-18.0 g/dL Hematocrit 32.4 42-52 % Mean Corpuscular Volume 90.5 80-100 fL Mean Corpuscular Hemoglobin 31.0 25-34 pg Mean Corpuscular Hemoglobin Concent 34.3 32-36 g/dl RDW Standard Deviation 44.8 36.4-46.3 fL RDW Coefficient of Variation 13.4 11.5-14.5 % Platelet Count 244 130-400 K/uL Mean Platelet Volume 10.2 7.4-10.4 fL Assessment & Plan 01/08/18- progressing- begin clear liquids, Cont ppn today begin Coumadin per med team, atbx per medical team Path - benign scar tissue- ? recurrent torsion ? 01/07/18- will d/c NG tube, cont ice only and ppn check labs, encourage ambulation- overall making slow progress 01/04/18- s/p exploratory laparotomy- lysis of adhesions, sm bowel resection w/ anastomosis- had severe scar/ sclerosis of mesentery causing stricture and obstruction- cont ppn- may benefit from picc line and Tpn- will not be able to eat for several days. cont IV fluids, orozco today, NG today Dr Palm covering over weekend 01/03/18- discussed options with pt- I think he has torsion of his small bowel causing partial obstruction. I think he should this taken care of now- on IV Heparin, ppn, persistent sbo findings on CT- he agrees and wishes to proceed with surgery later today. 01/02/18- CT - some transit but transition point still evident. see how he does overnight- possible OR tomorrow PPN ordered, discussed with pt and 01/02/18- discussed removing NG- will assess w/ CT abd/pelvis with contrast via NG . Cont other meds- may need ppn/Tpn if unable to progress or surgery needed. Check labs 01/07/18- will d/c NG tube, cont ice only and ppn check labs, encourage ambulation- overall making slow progress 01/04/18- s/p exploratory laparotomy- lysis of adhesions, sm bowel resection w/ anastomosis- had severe scar/ sclerosis of mesentery causing stricture and obstruction- cont ppn- may benefit from picc line and Tpn- will not be able to eat for several days. cont IV fluids, orozco today, NG today Dr Palm covering over weekend 01/03/18- discussed options with pt- I think he has torsion of his small bowel causing partial obstruction. I think he should this taken care of now- on IV Heparin, ppn, persistent sbo findings on CT- he agrees and wishes to proceed with surgery later today. 01/02/18- CT - some transit but transition point still evident. see how he does overnight- possible OR tomorrow PPN ordered, discussed with pt and 01/02/18- discussed removing NG- will assess w/ CT abd/pelvis with contrast via NG . Cont other meds- may need ppn/Tpn if unable to progress or surgery needed. Check labs
[2018-01-08 06:09] LABS: PTT PATIENT 44.6 SECONDS (21.0-31.0)
[2018-01-08 06:13] LABS: CALCIUM 8.1 mg/dl (8.5-10.1); CREATININE 0.61 mg/dl (0.60-1.40); PHOSPHORUS 3.2 mg/dl (2.5-4.9); POTASSIUM 3.5 mmol/L (3.5-5.1)
[2018-01-08] MEDS: HEPARIN 25,000 UNIT/500ML D5W 500 ML IV SCH ×7 (06:27→23:11)
[2018-01-08] MEDS ORDERED: HEPARIN IV BOLUS 3,000 UNIT in SYRINGE 0 ML IV ONE ×2 (06:30→20:00)
[2018-01-08 07:52] VITALS: BP 142/66; PULSE 73; TEMP 36.9; O2SAT 97
[2018-01-08 07:54] VITALS: O2SAT 97
[2018-01-08 11:46] VITALS: BP 138/72; PULSE 79; TEMP 36.5; O2SAT 97
[2018-01-08] MEDS: PANTOprazole INJ 40 MG in SYRINGE 0 ML IV SCH (11:51)
[2018-01-08 13:02] LABS: PTT PATIENT 59.6 SECONDS (21.0-31.0)
[2018-01-08 15:01] VITALS: BP 134/78; PULSE 80; TEMP 36.4; O2SAT 97
[2018-01-08] MEDS: WARFARIN SOD 7.5 MG TAB PO SCH (15:58)
[2018-01-08] MEDS ORDERED: CUSTOM PERIPHERAL PN 1 BAG IV SCH (16:00)
[2018-01-08 18:56] LABS: PTT PATIENT 46.7 SECONDS (21.0-31.0)
[2018-01-08] MEDS: LATANOPROST 0.005% OP SOLN 2.5 ML BTL OP SCH (20:17)
--- NOTE | 2018-01-08 21:28 | Family Medicine Progress Note ---
Progress Note Date of Service January 08, 2018. Subjective Pt evaluation today including: conversation w/ patient, conversation w/ family , physical exam, chart review, lab review, review of studies Pain: No pain reported this morning Voiding: no voiding problems, no incontinence Patient has tolerated a liquid diet and his taking his meals slowly. He is in no acute distress and continues to have flatulence with no bowel movements. The patient continues to participate in PT/OT. Constitutional: No fever, No chills, No sweats, No fatigue Respiratory: No cough, No sputum, No wheezing, No shortness of breath Cardiovascular: No chest pain, No palpitations Abdomen: No pain, No nausea, No vomiting, No diarrhea, No constipation Male : No dysuria, No incontinence Medications Current Inpatient Medications Medications (Trade) Dose Ordered Sig/Yanique Route Start Time Stop Time Status Last Admin Dose Admin Latanoprost (Xalatan Oph Soln) 1 drops HS OP 12/31/17 21:00 01/30/18 20:59 01/08/18 20:17 1 DROPS Dextrose 1,000 ml @ 0 mls/hr Q0M PRN IV 01/02/18 11:52 02/01/18 11:51 Miscellaneous Information (Pharmacy Tpn/ Ppn Consult Active) 1 ea UD PRN N/A 01/02/18 12:00 02/01/18 11:59 Morphine Sulfate (MoRPHine SULFATE INJ) 2 mg Q4H PRN IV 01/03/18 15:15 01/17/18 15:14 01/04/18 12:43 2 MG Morphine Sulfate (MoRPHine SULFATE INJ) 4 mg Q4H PRN IV 01/03/18 15:15 01/17/18 15:14 01/05/18 14:03 4 MG Ondansetron HCl (Zofran Inj) 4 mg Q6H PRN IV 01/03/18 15:15 02/02/18 15:14 Heparin Sodium/ Dextrose 500 ml @ 23 mls/hr [id number] IV 01/04/18 03:00 02/03/18 02:59 01/08/18 20:13 23 MLS/HR Morphine Sulfate (MoRPHine SULFATE INJ) 1 mg Q2H PRN IV 01/04/18 04:30 01/18/18 04:29 01/04/18 04:41 1 MG Pantoprazole Sodium 40 mg/ Syringe 10 ml @ 5 mls/min DAILY@11 IV 01/04/18 11:00 02/03/18 10:59 01/08/18 11:51 5 MLS/MIN Diphenhydramine HCl (Benadryl Inj) 25 mg Q6H PRN IV 01/05/18 09:45 02/04/18 09:44 01/06/18 16:28 25 MG Acetaminophen 1000 mg/Empty Bag 100 ml @ 400 mls/hr Q8H IV 01/06/18 10:00 02/05/18 09:29 01/08/18 19:41 400 MLS/HR Imipenem/ Cilastatin Sodium 400 mg/Dextrose 108 ml @ 108 mls/hr Q6H IV 01/06/18 12:00 01/16/18 11:59 01/08/18 19:41 108 MLS/HR Imipenem/ Cilastatin Sodium (Consult) 1 ea UD PRN N/A 01/06/18 12:00 02/05/18 11:59 Acetaminophen/ Hydrocodone Bitart ([place] 5/325 Tab) 1 tab Q4 PRN PO 01/08/18 05:30 01/22/18 05:29 Acetaminophen/ Hydrocodone Bitart ([place] 5/325 Tab) 2 tab Q4 PRN PO 01/08/18 05:30 01/22/18 05:29 Warfarin Sodium (Coumadin Tab) 7.5 mg DAILY@1600 PO 01/08/18 16:00 02/07/18 15:59 01/08/18 15:58 7.5 MG Nutrition (Parenteral) 0 ml @ 0 mls/hr TODAY@1600 IV 01/08/18 16:00 01/09/18 15:59 01/08/18 16:06 0 MLS/HR Objective Vital Signs Date Time Temp Pulse Resp B/P (MAP) Pulse Ox O2 Delivery O2 Flow Rate FiO2 01/08/18 16:00 Room Air 01/08/18 15:01 36.4 80 16 134/78 (96) 97 Room Air 01/08/18 11:46 36.5 79 20 138/72 (94) 97 Room Air 01/08/18 08:00 Room Air 01/08/18 07:54 97 Room Air 01/08/18 07:52 36.9 73 20 142/66 (91) 97 Room Air 01/07/18 23:50 149/78 (101) 01/07/18 23:40 Room Air 01/07/18 23:05 36.5 75 16 161/58 (92) 96 Room Air Physical Exam General Appearance: WD/WN, no apparent distress Eyes: normal inspection, sclerae normal Neck: supple, no carotid bruits Respiratory/Chest: chest non-tender, lungs clear, normal breath sounds Cardiovascular: regular rate, rhythm, no edema, no gallop Abdomen: normal bowel sounds, non tender, soft Extremities: no pedal edema, no calf tenderness Neurologic/Psychiatric: alert, normal mood/affect, oriented x 3 Laboratory Results Results Past 24 Hours Test 01/08/18 05:23 01/08/18 12:28 01/08/18 18:27 Range/Units White Blood Count 6.49 4.8-10.8 K/uL Red Blood Count 3.58 4.7-6.1 M/uL Hemoglobin 11.1 14.0-18.0 g/dL Hematocrit 32.4 42-52 % Mean Corpuscular Volume 90.5 80-100 fL Mean Corpuscular Hemoglobin 31.0 25-34 pg Mean Corpuscular Hemoglobin Concent 34.3 32-36 g/dl RDW Standard Deviation 44.8 36.4-46.3 fL RDW Coefficient of Variation 13.4 11.5-14.5 % Platelet Count 244 130-400 K/uL Mean Platelet Volume 10.2 7.4-10.4 fL Activated Partial Thromboplast Time 44.6 59.6 46.7 21.0-31.0 SECONDS Partial Thromboplastin Ratio 1.7 2.3 1.8 Sodium Level 136 136-145 mmol/L Potassium Level 3.5 3.5-5.1 mmol/L Chloride Level 104 98-107 mmol/L Carbon Dioxide Level 27 21-32 mmol/L Anion Gap 5.0 3-11 mmol/L Blood Urea Nitrogen 10 7-18 mg/dl Creatinine 0.61 0.60-1.40 mg/dl Est Creatinine Clear Calc Drug Dose 91.8 ml/min Estimated GFR () 107.8 Estimated GFR (Non- 93.0 BUN/Creatinine Ratio 16.8 10-20 Random Glucose 103 70-99 mg/dl Calcium Level 8.1 8.5-10.1 mg/dl Phosphorus Level 3.2 2.5-4.9 mg/dl Magnesium Level 2.3 1.8-2.4 mg/dl Assessment and Plan Patient is an 82 year old male that is POD #5 s/p exploratory laparotomy and bowel resection for recurrent SBO. Other comorbidities include CAD s/p CABG x 2 , mechanical aortic valve on coumadin, a fib, HTN. - Patient progressing well and now advanced to soft liquid diet - Finish 7 days total of antibiotics (Imipened Day /) - Restart Coumadin today, will require bridge with Lovenox on discharge due to mechanical valce - Patient refuses involvement of hospitalist team at this time and would like to only be treated by General Surgery - Transfer to General Surgery team at this time Resident Physician Supervision Note: I interviewed and examined the patient. Discussed with Dr. Fernandez and agree with findings and plan as documented in the note. Any exceptions or clarifications are listed here: None Documented By: Anthony Berry feeling better tolerating clear liquids well, flatus becomes nearly overtly hostile, standing over me wagging her finger sternly (near yelling) that i should not have ordered clears last night and "Dr Boss rescinded your diet order!!!" (this, despite the fact that he tolerated it well this AM, and almost certainly would have last night as well) tried to explain the role of hospitalist and how co-management is generally the norm in the modern era, but instead of expressing an understanding they then proceeded to (in very hostile, near yelling tones) explain how they are very upset with dr gillespie because they used to see him and only him for years and then "he expanded his practice and now the only way i can see him is if they have me with his student, and then he doesn't even come in the room" -- again tried to explain how this is a reflection of changes in the modern healthcare system and are unlikely to have been volitional choices by dr gillespie to try to push away, also multiple times offered to step out of their care entirely - but at first they didn't acknowledge this or accept it as an option, choosing rather to sternly reprimand me for all the ills they perceive in the healthcare system. finally explained that if he accepts, i will transfer their care to dr boss, and left the room vitals noted, no physical distress (emotionally upset as above) was unable to complete abdominal exam myself. no respiratory distress or conversational dyspnea despite rather vigorous conversation. no pallor or icterus SBO - improving. tolerating clears well. transfer care to surgery. finish abx per ID recs afib and mechanical valve - bridge anticoagulation due to mechanical valve HTN - reasonable control will transfer care to surgery as this is pt/'s clear preference as long as surgery is willing. Resident Tracking Resident Involvement: Resident Care Provided Care Provided: Adult Hospital Medicine
[2018-01-08 22:55] VITALS: BP 142/73; PULSE 80; TEMP 36.5; O2SAT 97
[2018-01-09] MEDS: IMIPENEM/CILASTATIN IV 400 MG in DEXTROSE 5% 100ML 100 ML IV SCH ×5 (01:20→23:45)
[2018-01-09] MEDS: ACETAMINOPHEN IV 1,000 MG in EMPTY BAG 0 ML IV SCH ×3 (02:08→18:16)
[2018-01-09 03:13] LABS: PTT PATIENT 58.5 SECONDS (21.0-31.0)
--- NOTE | 2018-01-09 06:31 | Surgery Progress Note ---
Surgery Progress Note Date of Service January 09, 2018. Subjective ++bms, kamaljit clear liquids on coumadin/ IV Heparin Objective Vital Signs: Date Time Temp Pulse Resp B/P (MAP) Pulse Ox O2 Delivery O2 Flow Rate FiO2 01/09/18 00:40 Room Air 01/08/18 22:55 36.5 80 16 142/73 (96) 97 Room Air 01/08/18 16:00 Room Air 01/08/18 15:01 36.4 80 16 134/78 (96) 97 Room Air 01/08/18 11:46 36.5 79 20 138/72 (94) 97 Room Air 01/08/18 08:00 Room Air 01/08/18 07:54 97 Room Air 01/08/18 07:52 36.9 73 20 142/66 (91) 97 Room Air General Appearance: no apparent distress Respiratory/Chest: no respiratory distress Abdomen: soft Incision(s): intact Laboratory Results: Results Past 24 Hours Test 01/08/18 12:28 01/08/18 18:27 01/09/18 02:09 01/09/18 04:44 Range/Units Activated Partial Thromboplast Time 59.6 46.7 58.5 21.0-31.0 SECONDS Partial Thromboplastin Ratio 2.3 1.8 2.3 Assessment & Plan 01/09/18- will adv to full liquids, cont ppn one more day cont IV Heparin, Coumadin, ck PT would keep in hospital 1-2 extra days to avoid Lovenox and Coumadin at home- risk of bleeding Also pt weak- needs to improve mobility 01/08/18- progressing- begin clear liquids, Cont ppn today begin Coumadin per med team, atbx per medical team Path - benign scar tissue- ? recurrent torsion ? 01/07/18- will d/c NG tube, cont ice only and ppn check labs, encourage ambulation- overall making slow progress 01/04/18- s/p exploratory laparotomy- lysis of adhesions, sm bowel resection w/ anastomosis- had severe scar/ sclerosis of mesentery causing stricture and obstruction- cont ppn- may benefit from picc line and Tpn- will not be able to eat for several days. cont IV fluids, orozco today, NG today Dr Palm covering over weekend 01/03/18- discussed options with pt- I think he has torsion of his small bowel causing partial obstruction. I think he should this taken care of now- on IV Heparin, ppn, persistent sbo findings on CT- he agrees and wishes to proceed with surgery later today. 01/02/18- CT - some transit but transition point still evident. see how he does overnight- possible OR tomorrow PPN ordered, discussed with pt and 01/02/18- discussed removing NG- will assess w/ CT abd/pelvis with contrast via NG . Cont other meds- may need ppn/Tpn if unable to progress or surgery needed. Check labs 01/08/18- progressing- begin clear liquids, Cont ppn today begin Coumadin per med team, atbx per medical team Path - benign scar tissue- ? recurrent torsion ? 01/07/18- will d/c NG tube, cont ice only and ppn check labs, encourage ambulation- overall making slow progress 01/04/18- s/p exploratory laparotomy- lysis of adhesions, sm bowel resection w/ anastomosis- had severe scar/ sclerosis of mesentery causing stricture and obstruction- cont ppn- may benefit from picc line and Tpn- will not be able to eat for several days. cont IV fluids, orozco today, NG today Dr Palm covering over weekend 01/03/18- discussed options with pt- I think he has torsion of his small bowel causing partial obstruction. I think he should this taken care of now- on IV Heparin, ppn, persistent sbo findings on CT- he agrees and wishes to proceed with surgery later today. 01/02/18- CT - some transit but transition point still evident. see how he does overnight- possible OR tomorrow PPN ordered, discussed with pt and 01/02/18- discussed removing NG- will assess w/ CT abd/pelvis with contrast via NG . Cont other meds- may need ppn/Tpn if unable to progress or surgery needed. Check labs
[2018-01-09] MEDS: HEPARIN 25,000 UNIT/500ML D5W 500 ML IV SCH ×4 (07:15→23:21)
[2018-01-09 07:53] VITALS: BP 123/68; PULSE 63; TEMP 36.7; O2SAT 96
[2018-01-09 07:57] VITALS: O2SAT 96
[2018-01-09] MEDS: PANTOprazole INJ 40 MG in SYRINGE 0 ML IV SCH (10:48)
[2018-01-09 11:31] VITALS: BP 120/73; PULSE 66; TEMP 36.5; O2SAT 98
[2018-01-09] MEDS ORDERED: HYDR-5688 PO (15:10)
--- NOTE | 2018-01-09 15:13 | Discharge Instructions ---
Discharge Instructions Date of Service January 09, 2018. Admission Reason for Admission: Small Bowel Obstruction Discharge Discharge Diagnosis / Problem: sbo Discharge Goals Goal(s): Decrease discomfort, Improve function, Improve disease control Activity Recommendations Activity Limitations: as noted below Lifting Limitations: no more than 10 pounds (for 4 weeks) Exercise/Sports Limitations: until after follow-up appointment May Resume Sexual Activity: when tolerated Shower/Bathe: tomorrow Driving or Machine Use: 2 weeks, may ride in car . Instructions / Follow-Up Instructions / Follow-Up SPECIAL CARE INSTRUCTIONS: * Cover incisions and change daily for comfort/drainage * Expect some swelling and bruising. Call your doctor if: * Temperature above 101 degrees * Pain not relieved by pain medicine ordered * There is increased drainage or redness from any incision * You have any unanswered questions or concerns [phone]. FOLLOW UP VISIT: If not already scheduled, please call the office for a follow-up visit. call office for appointment in 3-4 days- some staple removal and with any questions OFFICE PHONE NUMBER: Dr. Boss Office Current Hospital Diet Patient's current hospital diet: Full Liquid Diet Discharge Diet Recommended Diet: Low Fiber Diet Procedures Procedures Performed: laparotomy, lysis of adhesions, small bowel resection w/ anastomosis Pending Studies Studies pending at discharge: no Laboratory Results Lipid Panel Test 01/06/18 06:15 Range/Units Triglycerides Level 79 0-150 mg/dl Medical Emergencies . Who to Call and When: Medical Emergencies: If at any time you feel your situation is an emergency, please call 911 immediately. . Non-Emergent Contact Non-Emergency issues call your: Primary Care Provider, Surgeon . "Provider Documentation" section prepared by Ignacio Boss. .
[2018-01-09 15:16] VITALS: BP 144/81; PULSE 57; TEMP 36.6; O2SAT 97
[2018-01-09] MEDS ORDERED: CUSTOM PERIPHERAL PN 1 BAG IV SCH (16:00)
[2018-01-09] MEDS: WARFARIN SOD 7.5 MG TAB PO SCH (16:25)
[2018-01-09] MEDS: LATANOPROST 0.005% OP SOLN 2.5 ML BTL OP SCH (20:38)
[2018-01-09 23:29] VITALS: BP 153/61; PULSE 83; TEMP 36.6; O2SAT 97
[2018-01-10] MEDS: ACETAMINOPHEN IV 1,000 MG in EMPTY BAG 0 ML IV SCH ×3 (02:07→17:15)
[2018-01-10] MEDS: HEPARIN 25,000 UNIT/500ML D5W 500 ML IV SCH ×3 (04:10→15:17)
[2018-01-10] MEDS: IMIPENEM/CILASTATIN IV 400 MG in DEXTROSE 5% 100ML 100 ML IV SCH ×3 (06:00→17:26)
[2018-01-10 06:28] LABS: HEMATOCRIT 32.1 % (42-52); MEAN CELL VOLUME 91.2 fL (80-100); MEAN CORPUSCULAR HEMOGLOBIN 31.3 pg (25-34); MEAN CORPUSCULAR HGB CONC 34.3 g/dl (32-36); MEAN PLATELET VOLUME 10.3 fL (7.4-10.4); PLATELET COUNT 253 K/uL (130-400); RED CELL DISTRIBUTION WIDTH CV 13.7 % (11.5-14.5); RED CELL DISTRIBUTION WIDTH SD 45.4 fL (36.4-46.3); WHITE BLOOD COUNT 7.62 K/uL (4.8-10.8)
--- NOTE | 2018-01-10 06:46 | Surgery Progress Note ---
Surgery Progress Note Date of Service January 10, 2018. Subjective doing well- very weak on IV Hep, coum, ppn tolerating full liquids Objective Vital Signs: Date Time Temp Pulse Resp B/P (MAP) Pulse Ox O2 Delivery O2 Flow Rate FiO2 01/09/18 23:45 Room Air 01/09/18 23:29 36.6 83 16 153/61 (91) 97 Room Air 01/09/18 16:20 Room Air 01/09/18 15:16 36.6 57 18 144/81 (102) 97 Room Air 01/09/18 11:31 36.5 66 20 120/73 (89) 98 Room Air 01/09/18 08:00 Room Air 01/09/18 07:57 96 Room Air 01/09/18 07:53 36.7 63 20 123/68 (86) 96 Room Air General Appearance: no apparent distress Respiratory/Chest: no respiratory distress Abdomen: soft Incision(s): intact Laboratory Results: Results Past 24 Hours Test 01/09/18 07:16 01/10/18 06:09 Range/Units Prothrombin Time 10.7 9.0-12.0 SECONDS Prothromb Time International Ratio 1.0 0.9-1.1 White Blood Count 7.62 4.8-10.8 K/uL Red Blood Count 3.52 4.7-6.1 M/uL Hemoglobin 11.0 14.0-18.0 g/dL Hematocrit 32.1 42-52 % Mean Corpuscular Volume 91.2 80-100 fL Mean Corpuscular Hemoglobin 31.3 25-34 pg Mean Corpuscular Hemoglobin Concent 34.3 32-36 g/dl RDW Standard Deviation 45.4 36.4-46.3 fL RDW Coefficient of Variation 13.7 11.5-14.5 % Platelet Count 253 130-400 K/uL Mean Platelet Volume 10.3 7.4-10.4 fL Assessment & Plan 01/10/18- adv to low fiber, stop ppn after current bag complete. adjust IV Heparin / Coumadin Needs PT depending on coags , may need a couple more days 01/09/18- will adv to full liquids, cont ppn one more day cont IV Heparin, Coumadin, ck PT would keep in hospital 1-2 extra days to avoid Lovenox and Coumadin at home- risk of bleeding Also pt weak- needs to improve mobility 01/08/18- progressing- begin clear liquids, Cont ppn today begin Coumadin per med team, atbx per medical team Path - benign scar tissue- ? recurrent torsion ? 01/07/18- will d/c NG tube, cont ice only and ppn check labs, encourage ambulation- overall making slow progress 01/04/18- s/p exploratory laparotomy- lysis of adhesions, sm bowel resection w/ anastomosis- had severe scar/ sclerosis of mesentery causing stricture and obstruction- cont ppn- may benefit from picc line and Tpn- will not be able to eat for several days. cont IV fluids, orozco today, NG today Dr Palm covering over weekend 01/03/18- discussed options with pt- I think he has torsion of his small bowel causing partial obstruction. I think he should this taken care of now- on IV Heparin, ppn, persistent sbo findings on CT- he agrees and wishes to proceed with surgery later today. 01/02/18- CT - some transit but transition point still evident. see how he does overnight- possible OR tomorrow PPN ordered, discussed with pt and 01/02/18- discussed removing NG- will assess w/ CT abd/pelvis with contrast via NG . Cont other meds- may need ppn/Tpn if unable to progress or surgery needed. Check labs 01/09/18- will adv to full liquids, cont ppn one more day cont IV Heparin, Coumadin, ck PT would keep in hospital 1-2 extra days to avoid Lovenox and Coumadin at home- risk of bleeding Also pt weak- needs to improve mobility 01/08/18- progressing- begin clear liquids, Cont ppn today begin Coumadin per med team, atbx per medical team Path - benign scar tissue- ? recurrent torsion ? 01/07/18- will d/c NG tube, cont ice only and ppn check labs, encourage ambulation- overall making slow progress 01/04/18- s/p exploratory laparotomy- lysis of adhesions, sm bowel resection w/ anastomosis- had severe scar/ sclerosis of mesentery causing stricture and obstruction- cont ppn- may benefit from picc line and Tpn- will not be able to eat for several days. cont IV fluids, orozco today, NG today Dr Palm covering over weekend 01/03/18- discussed options with pt- I think he has torsion of his small bowel causing partial obstruction. I think he should this taken care of now- on IV Heparin, ppn, persistent sbo findings on CT- he agrees and wishes to proceed with surgery later today. 01/02/18- CT - some transit but transition point still evident. see how he does overnight- possible OR tomorrow PPN ordered, discussed with pt and 01/02/18- discussed removing NG- will assess w/ CT abd/pelvis with contrast via NG . Cont other meds- may need ppn/Tpn if unable to progress or surgery needed. Check labs
[2018-01-10 06:53] LABS: PTT PATIENT 59.2 SECONDS (21.0-31.0)
[2018-01-10 07:45] VITALS: BP 123/63; PULSE 80; TEMP 36.7; O2SAT 96
[2018-01-10 07:49] VITALS: O2SAT 96
[2018-01-10] MEDS: SENNA 8.8 MG/5 ML UDP PO SCH ×2 (09:00→20:26)
[2018-01-10] MEDS: PANTOprazole INJ 40 MG in SYRINGE 0 ML IV SCH (10:42)
--- NOTE | 2018-01-10 11:35 | Clinical Documentation Query ---
CLINICAL DOCUMENTATION QUERY Dr. JEFFRIES, In your clinical opinion is this patient being managed for: (X ) severe protein-calorie malnutrition ( ) Not Agree ( ) Other explanation of clinical findings (No explanation is considered a No Response) ( ) Unable to determine ( ) Need to Discuss (Phone CDS or qliq) (No discussion is considered a No Response) The medical record reflects the following clinical findings, treatment, and risk factors. Clinical Indicators:82 yo male presenting with bowel obstruction requiring resection. Presenting wt 72.1 Kg down to 67.7 over a 9 day period (6.1% wt loss). Pt had been NPO x 9 days Treatment: PPN, start CL diet on 01/08, currently on a low fiber diet, cardiac rehab nurse consult Risk Factors: bowel obstruction requiring resection with NGT x 9 days Severe Malnutrition Criteria: (2 criteria needed) Energy intake: <50% of estimated energy requirement for > 5 days Wt loss: 1-2% in 1 wk, 5% in 1 month, or 7.5% in 3 months Body fat: moderate loss of SQ fat from the orbits, triceps or fat overlying the ribs Muscle mass: moderate muscle wasting at the temples, clavicles, shoulders, interosseous spaces, scapula, thigh, calf Fluid accumulation: moderate to severe localized or generalized edema of the extremities, vulva, scrotum-wt loss may be masked by edema Dashboard Developer strength: measurably decreased per the devices standards Please clarify and document your clinical opinion in the progress notes and discharge summary. Terms such as "probable", "suspected", "likely", "questionable", "possible", or "still to be ruled out" are acceptable. IF IN AGREEMENT, YOU MUST DOCUMENT ABOVE DIAGNOSTIC STATEMENT IN DAILY PROGRESS NOTES AND DISCHARGE SUMMARY. This document is not part of the patient's record. Thank You, Angelica Garcia RN [phone]
[2018-01-10 15:08] VITALS: BP 178/90; PULSE 90; TEMP 36.2; O2SAT 99
[2018-01-10 15:55] VITALS: BP 157/81
[2018-01-10] MEDS ORDERED: [UNRECOGNIZED DRUG - REMARK] ONE (16:00)
[2018-01-10] MEDS: WARFARIN SOD 7.5 MG TAB PO SCH (17:15)
[2018-01-10] MEDS: LATANOPROST 0.005% OP SOLN 2.5 ML BTL OP SCH (20:26)
[2018-01-10 23:00] VITALS: BP 155/85; PULSE 78; TEMP 36.3; O2SAT 97
[2018-01-11] MEDS: HEPARIN 25,000 UNIT/500ML D5W 500 ML IV SCH ×4 (01:46→22:45)
[2018-01-11] MEDS: ACETAMINOPHEN IV 1,000 MG in EMPTY BAG 0 ML IV SCH ×3 (01:48→18:17)
[2018-01-11 06:44] LABS: INR 1.1 (0.9-1.1)
[2018-01-11 06:51] LABS: PTT PATIENT 58.5 SECONDS (21.0-31.0)
[2018-01-11] MEDS ORDERED: MINERAL OIL 30 ML UDC PO ONE (07:00)
--- NOTE | 2018-01-11 07:34 | Surgery Progress Note ---
Surgery Progress Note Date of Service January 11, 2018. Subjective progressing well still on IV Heparin/Coumadin tolerating low fiber diet Objective Vital Signs: Date Time Temp Pulse Resp B/P (MAP) Pulse Ox O2 Delivery O2 Flow Rate FiO2 01/10/18 23:00 36.3 78 20 155/85 (108) 97 Room Air 01/10/18 19:20 Room Air 01/10/18 17:00 Room Air 01/10/18 15:55 157/81 (106) 01/10/18 15:08 36.2 90 16 178/90 (119) 99 Room Air 01/10/18 07:49 96 Room Air 01/10/18 07:45 36.7 80 20 123/63 (83) 96 Room Air 01/10/18 07:45 Room Air General Appearance: no apparent distress Respiratory/Chest: no respiratory distress Abdomen: soft Incision(s): intact Laboratory Results: Results Past 24 Hours Test 01/11/18 05:43 Range/Units Prothrombin Time 11.7 9.0-12.0 SECONDS Prothromb Time International Ratio 1.1 0.9-1.1 Activated Partial Thromboplast Time 58.5 21.0-31.0 SECONDS Partial Thromboplastin Ratio 2.3 Assessment & Plan 01/11/18- INR still low- will discuss with Dr Rossi- cont IV Heparin- d/c when INR therapeutic may be 1-2 days- Coag clinic/ pharmacy to help adjust pt Dr Mueller covering- d/c info in EMR- office next week 01/10/18- adv to low fiber, stop ppn after current bag complete. adjust IV Heparin / Coumadin Needs PT depending on coags , may need a couple more days 01/09/18- will adv to full liquids, cont ppn one more day cont IV Heparin, Coumadin, ck PT would keep in hospital 1-2 extra days to avoid Lovenox and Coumadin at home- risk of bleeding Also pt weak- needs to improve mobility 01/08/18- progressing- begin clear liquids, Cont ppn today begin Coumadin per med team, atbx per medical team Path - benign scar tissue- ? recurrent torsion ? 01/07/18- will d/c NG tube, cont ice only and ppn check labs, encourage ambulation- overall making slow progress 01/04/18- s/p exploratory laparotomy- lysis of adhesions, sm bowel resection w/ anastomosis- had severe scar/ sclerosis of mesentery causing stricture and obstruction- cont ppn- may benefit from picc line and Tpn- will not be able to eat for several days. cont IV fluids, orozco today, NG today Dr Palm covering over weekend 01/03/18- discussed options with pt- I think he has torsion of his small bowel causing partial obstruction. I think he should this taken care of now- on IV Heparin, ppn, persistent sbo findings on CT- he agrees and wishes to proceed with surgery later today. 01/02/18- CT - some transit but transition point still evident. see how he does overnight- possible OR tomorrow PPN ordered, discussed with pt and 01/02/18- discussed removing NG- will assess w/ CT abd/pelvis with contrast via NG . Cont other meds- may need ppn/Tpn if unable to progress or surgery needed. Check labs 01/10/18- adv to low fiber, stop ppn after current bag complete. adjust IV Heparin / Coumadin Needs PT depending on coags , may need a couple more days 01/09/18- will adv to full liquids, cont ppn one more day cont IV Heparin, Coumadin, ck PT would keep in hospital 1-2 extra days to avoid Lovenox and Coumadin at home- risk of bleeding Also pt weak- needs to improve mobility 01/08/18- progressing- begin clear liquids, Cont ppn today begin Coumadin per med team, atbx per medical team Path - benign scar tissue- ? recurrent torsion ? 01/07/18- will d/c NG tube, cont ice only and ppn check labs, encourage ambulation- overall making slow progress 01/04/18- s/p exploratory laparotomy- lysis of adhesions, sm bowel resection w/ anastomosis- had severe scar/ sclerosis of mesentery causing stricture and obstruction- cont ppn- may benefit from picc line and Tpn- will not be able to eat for several days. cont IV fluids, orozco today, NG today Dr Palm covering over weekend 01/03/18- discussed options with pt- I think he has torsion of his small bowel causing partial obstruction. I think he should this taken care of now- on IV Heparin, ppn, persistent sbo findings on CT- he agrees and wishes to proceed with surgery later today. 01/02/18- CT - some transit but transition point still evident. see how he does overnight- possible OR tomorrow PPN ordered, discussed with pt and 01/02/18- discussed removing NG- will assess w/ CT abd/pelvis with contrast via NG . Cont other meds- may need ppn/Tpn if unable to progress or surgery needed. Check labs
[2018-01-11 07:38] VITALS: BP 147/84; PULSE 66; TEMP 36.6; O2SAT 96
[2018-01-11] MEDS: SENNA 8.8 MG/5 ML UDP PO SCH ×2 (08:39→21:16)
[2018-01-11] MEDS: PANTOprazole INJ 40 MG in SYRINGE 0 ML IV SCH (10:35)
[2018-01-11] MEDS ORDERED: WARF5TAB7 PO ×2 (14:46)
[2018-01-11 15:20] VITALS: BP 144/87; PULSE 100; TEMP 36.6; O2SAT 99
[2018-01-11] MEDS: WARFARIN SOD 7.5 MG TAB PO SCH (16:02)
[2018-01-11] MEDS: LATANOPROST 0.005% OP SOLN 2.5 ML BTL OP SCH (21:14)
[2018-01-11 22:46] VITALS: BP 130/66; PULSE 100; TEMP 36.6; O2SAT 99
[2018-01-12] MEDS: ACETAMINOPHEN IV 1,000 MG in EMPTY BAG 0 ML IV SCH ×3 (01:56→18:43)
[2018-01-12] MEDS: HEPARIN 25,000 UNIT/500ML D5W 500 ML IV SCH ×4 (06:51→22:48)
[2018-01-12 06:59] VITALS: BP 160/74; PULSE 80; TEMP 36.3; O2SAT 97
[2018-01-12 07:51] LABS: HEMATOCRIT 32.7 % (42-52); HEMOGLOBIN 11.1 g/dL (14.0-18.0); MEAN CELL VOLUME 92.6 fL (80-100); MEAN CORPUSCULAR HEMOGLOBIN 31.4 pg (25-34); MEAN CORPUSCULAR HGB CONC 33.9 g/dl (32-36); MEAN PLATELET VOLUME 10.1 fL (7.4-10.4); PLATELET COUNT 284 K/uL (130-400); RED CELL DISTRIBUTION WIDTH CV 14.1 % (11.5-14.5); RED CELL DISTRIBUTION WIDTH SD 47.6 fL (36.4-46.3)
[2018-01-12 08:16] LABS: INR 1.8 (0.9-1.1)
[2018-01-12 08:19] LABS: PTT PATIENT 88.6 SECONDS (21.0-31.0)
[2018-01-12] MEDS: SENNA 8.8 MG/5 ML UDP PO SCH ×2 (08:38→20:58)
--- NOTE | 2018-01-12 09:08 | Surgery Progress Note ---
Surgery Progress Note Date of Service January 12, 2018. Subjective Post OP Day: 9 + feeling well, + bowel movement, + flatus, + diet (regular), No complaints, No nausea, No vomiting Objective Vital Signs: Date Time Temp Pulse Resp B/P (MAP) Pulse Ox O2 Delivery O2 Flow Rate FiO2 01/12/18 06:59 36.3 80 16 160/74 (102) 97 Room Air 01/11/18 23:02 Room Air 01/11/18 22:46 36.6 100 16 130/66 (87) 99 Room Air 01/11/18 16:00 Room Air 01/11/18 15:20 36.6 100 18 144/87 (106) 99 Room Air General Appearance: WD/WN, no apparent distress Head: normocephalic, atraumatic Neck: supple, no carotid bruits Respiratory/Chest: chest non-tender Cardiovascular: regular rate, rhythm, no gallop, no murmur Abdomen: normal bowel sounds, non tender, non distended, soft Incision(s): clean, dry, intact Extremities: non-tender, no pedal edema Laboratory Results: Results Past 24 Hours Test 01/12/18 07:29 Range/Units White Blood Count 7.10 4.8-10.8 K/uL Red Blood Count 3.53 4.7-6.1 M/uL Hemoglobin 11.1 14.0-18.0 g/dL Hematocrit 32.7 42-52 % Mean Corpuscular Volume 92.6 80-100 fL Mean Corpuscular Hemoglobin 31.4 25-34 pg Mean Corpuscular Hemoglobin Concent 33.9 32-36 g/dl RDW Standard Deviation 47.6 36.4-46.3 fL RDW Coefficient of Variation 14.1 11.5-14.5 % Platelet Count 284 130-400 K/uL Mean Platelet Volume 10.1 7.4-10.4 fL Prothrombin Time 18.3 9.0-12.0 SECONDS Prothromb Time International Ratio 1.8 0.9-1.1 Activated Partial Thromboplast Time 88.6 21.0-31.0 SECONDS Partial Thromboplastin Ratio 3.4 Assessment & Plan s/p ex lap w/SB resection -doing well -INR 1.8 -if over 2 tomorrow will discharge in AM
[2018-01-12] MEDS: PANTOprazole INJ 40 MG in SYRINGE 0 ML IV SCH (10:27)
[2018-01-12 14:56] VITALS: BP 125/67; PULSE 81; TEMP 36.3; O2SAT 98
[2018-01-12 15:43] LABS: PTT PATIENT 66.1 SECONDS (21.0-31.0)
[2018-01-12] MEDS ORDERED: WARFARIN SOD 7.5 MG TAB PO SCH (16:00)
[2018-01-12] MEDS: LATANOPROST 0.005% OP SOLN 2.5 ML BTL OP SCH (20:57)
[2018-01-12 23:00] VITALS: BP 117/66; PULSE 78; TEMP 36.6; O2SAT 96
[2018-01-13] MEDS: ACETAMINOPHEN IV 1,000 MG in EMPTY BAG 0 ML IV SCH ×2 (01:27→10:04)
[2018-01-13] MEDS: HEPARIN 25,000 UNIT/500ML D5W 500 ML IV SCH (06:58)
[2018-01-13 07:45] LABS: INR 2.4 (0.9-1.1)
[2018-01-13 08:16] LABS: PTT PATIENT 82.6 SECONDS (21.0-31.0)
[2018-01-13 08:24] VITALS: BP 157/75; PULSE 78; TEMP 36.8; O2SAT 97
[2018-01-13] MEDS: SENNA 8.8 MG/5 ML UDP PO SCH (09:00)
[2018-01-13] MEDS: PANTOprazole INJ 40 MG in SYRINGE 0 ML IV SCH (10:04)
[2018-01-13 10:21] VITALS: BP 157/75; PULSE 78; TEMP 36.8; O2SAT 97
--- NOTE | 2018-01-13 10:54 | Surgery Progress Note ---
Surgery Progress Note Date of Service January 13, 2018. Subjective Post OP Day: 10 + feeling well, No complaints Objective Vital Signs: Date Time Temp Pulse Resp B/P (MAP) Pulse Ox O2 Delivery O2 Flow Rate FiO2 01/13/18 10:21 36.8 78 19 97 Room Air 01/13/18 09:57 Room Air 01/13/18 08:24 36.8 78 19 157/75 (102) 97 Room Air 01/12/18 23:55 Room Air 01/12/18 23:00 36.6 78 18 117/66 (83) 96 Room Air 01/12/18 16:05 Room Air 01/12/18 14:56 36.3 81 16 125/67 (86) 98 Room Air General Appearance: WD/WN, no apparent distress Head: normocephalic, atraumatic Neck: supple Respiratory/Chest: lungs clear Cardiovascular: regular rate, rhythm Abdomen: normal bowel sounds, non tender, non distended, soft Incision(s): clean, dry, intact Extremities: non-tender, no pedal edema Laboratory Results: Results Past 24 Hours Test 01/12/18 14:57 01/13/18 07:11 Range/Units Activated Partial Thromboplast Time 66.1 82.6 21.0-31.0 SECONDS Partial Thromboplastin Ratio 2.5 3.2 Prothrombin Time 25.1 9.0-12.0 SECONDS Prothromb Time International Ratio 2.4 0.9-1.1 Assessment & Plan s/p ex lap w/SB resection -doing well -INR 2.4 -will discharge
[2018-01-13] MEDS ORDERED: WARFARIN SOD 7.5 MG TAB PO SCH (16:00)
[2018-01-14] MEDS ORDERED: WARFARIN SOD 5 MG TAB PO SCH (16:00)
--- NOTE | 2018-01-15 13:44 | DISCHARGE SUMMARY ---
PRINCIPAL DIAGNOSIS: Small bowel obstruction. PROCEDURES: Patient underwent laparotomy with lysis of adhesions and small bowel resection. HISTORY OF PRESENT ILLNESS: Patient is an 82-year-old male who was admitted to the Emergency Room with acute abdominal pain and evidence of a small bowel obstruction. Initially, Dr. Moseley saw the patient and then between he and the patient and the medical team decided to have me see the patient. Patient did have small bowel obstruction, but did appear to have somewhat resolved and improve. After approximately 48 hours, I did obtain a CAT scan with contrast showing what appeared to be the same transition point with some transmission of contrast through the area. Because his CT did show a swirl pattern and possible torsion of the small bowel, we did decide to proceed with laparotomy. Patient was taken to the operating room on 01/03/2018 where he underwent laparotomy with small bowel resection. 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 He did undergo resection with re-anastomosis. He did progress well in both diet and activity. He was maintained on IV heparin and restarted on his Coumadin, which added some extra time to his hospitalization. He was felt stable for discharge on 01/13/2018 to be followed in the surgical clinic within 1-2 weeks.
== END 2018-01-13 11:42 | disposition home health service (06) | DRG 330 ==
LOC: C.EDB 01:22 → C.MSN 05:42 → ENRESERV 06:09
PROVIDERS: ADMIT Surgery; ATTEND Surgery
PROC: 0DB80ZZ Excision of Small Intestine, Open Approach (ICD-10-PCS; principal; 2018-01-03 12:15)
PROC: 0DBV0ZX Excision of Mesentery, Open Approach, Diagnostic (ICD-10-PCS; principal; 2018-01-03 12:15)
DX: K56.2 Volvulus (principal); K65.4 Sclerosing mesenteritis; R18.8 Other ascites; K21.9 Gastro-esophageal reflux disease without esophagitis; K56.609 Unspecified intestinal obstruction, unspecified as to partial versus complete obstruction; I25.10 Atherosclerotic heart disease of native coronary artery without angina pectoris; Z95.2 Presence of prosthetic heart valve; Z87.891 Personal history of nicotine dependence; Z79.01 Long term (current) use of anticoagulants; I48.91 Unspecified atrial fibrillation; E78.5 Hyperlipidemia, unspecified; Z79.82 Long term (current) use of aspirin; J32.9 Chronic sinusitis, unspecified; I10 Essential (primary) hypertension; H40.9 Unspecified glaucoma; Z88.2 Allergy status to sulfonamides; Z88.8 Allergy status to other drugs, medicaments and biological substances

== ENCOUNTER 2018-04-18 16:48 | Emergency (ER) | payer BC ==
[~2018-04-18] VITALS: Ht 182.9 cm; Wt 70.6 kg
[~2018-04-18 16:48] MED LIST changes: +LISI-730 PO; -LISI10TA PO; +MINE1OIL PO; -NUTR-977 PO; -SENN-61 PO; -WARF10TA PO; +WARF5TAB7 PO; -WARF7.5T PO; +[UNRECOGNIZED DRUG - CODE] PO
[2018-04-18 16:55] VITALS: TEMP 36.4; Ht 182.9 cm; Wt 70.6 kg
[2018-04-18] MEDS ORDERED: ONDANSETRON INJ 2 MG/ML 2 ML VIAL IV STA (17:24)
--- NOTE | 2018-04-18 17:27 | EMERGENCY ROOM VISIT NOTE ---
History Report prepared by Ced: Sola Romero Under the Supervision of: Dr. Yomi Lora M.D. First contact with patient: 17:12 Chief Complaint: ABDOMINAL PAIN Stated Complaint: SEVERE STOMACH AND BACK PAIN History of Present Illness The patient is a 83 year old white male with a past medical history of bowel obstruction, knee replacements, and heart valve replacement who presents to the ED with a cc of severe abdominal pain beginning about 4 hours ago. The patient was seen in the ED 3 months ago for a bowel obstruction and notes he has had some discomfort since then. He states his current pain is severe and feels similar to the obstruction. He states the pain is in the middle of his abdomen, but wraps around to both flanks, especially the R flank. He reports movement makes his pain worse, and nothing seems to make it better. The patient states he ate a large breakfast today and had some slight discomfort at that time, likely due to overeating. He states he and his went to the [facility], where he ate 2 or 3 curly fries, when his abdominal pain became severe and he became sweaty. He notes dark brown vomiting this afternoon and denies SOB. The patient denies recent sick contacts, falls, trauma, or heavy lifting. He notes he still has his gallbladder and appendix. Source of History: patient Onset: 4 hours ago Position: abdomen Symptom Intensity: severe Associated Symptoms: + diaphoresis, + vomiting, No SOB Review of Systems See HPI for pertinent positives and negatives. A total of ten systems were reviewed and were otherwise negative. Past Medical & Surgical Medical Problems: (1) Anticoagulant therapy (2) Bleeding (3) Gastroesophageal reflux disease (4) Heart disease (5) open heart surgery (6) Prosthetic replacement of heart valve (7) right knee surgery (8) skin problems (9) Small bowel obstruction (10) Small bowel obstruction (11) Tonsillectomy (12) urinary problems Family History Heart disease Hypertension Social History Smoking Status: Former Smoker Alcohol Use: occasionally Drug Use: none Marital Status: Housing Status: lives with significant other Occupation Status: employed Current/Historical Medications Scheduled Acetaminophen (Tylenol), 650 MG PO DAILY Aspirin (Aspirin Ec), 81 MG PO DAILY Atorvastatin (Lipitor), 40 MG PO QPM Biotin (Biotin), 1,000 MCG PO DAILY Cholecalciferol (Vitamin D), 1,000 UNIT PO DAILY Docusate Sodium (Docusate Sodium), 100 MG PO QPM Latanoprost (Xalatan 0.005% Oph Tonia), 1 DROPS OP HS Lisinopril (Lisinopril), 5 MG PO DAILY Mineral Oil (Mineral Oil), 15 ML PO DAILY Nutritional Supplements (Ensure Nutrition Shake), 8 OZ PO DAILY Omeprazole (Prilosec), 20 MG PO DAILY Warfarin Sod (Jantoven), 5 MG PO 3XWK Warfarin Sod (Jantoven), 7.5 MG PO 4XWK Scheduled PRN Amoxicillin (Amoxil), 2,000 MG PO UD PRN for Prior To Dental Procedure Calcipotriene (Dovonex), 1 APPLN TD DAILY PRN for DRY SKIN Ipratropium [place] (Nasal) (Ipratropium [place]), 2 SPRAY [place] TID PRN for Sinusitis Allergies Coded Allergies: BEE STING (Verified Allergy, Severe, ANAPHYLACTIC REACTION, 12/31/17) PT WENT THROUGH DESENSITIZATION PROCESS Celecoxib (Verified Allergy, Intermediate, HIVES, 12/31/17) Chlorhexidine (Verified Allergy, Intermediate, ITCHING WITH CHLORHEXIDINE SCRUB, 12/31/17) Povidone Iodine (Verified Allergy, Intermediate, ITCHY RASH, 12/31/17) BETADINE SURGICAL SCRUB 7.5% TOPICAL SOAP Shellfish (Verified Allergy, Intermediate, GI SYMPTOMS, 01/01/18) Piperacillin (Verified Allergy, Mild, rash, 01/06/18) Blotchy rash that comes and goes, + itchiness, hands involved per Dr Skinner she did not believe this was related to Morphine histamine rxn. Tazobactam (Verified Allergy, Mild, rash, 01/06/18) Blotchy rash that comes and goes, + itchiness, hands involved per Dr Skinner she did not believe this was related to Morphine histamine rxn. Uncoded Allergies: ANESTHESIA (Adverse Reaction, Unknown, HALLUCINATION, , 07/04/17) Physical Exam Vital Signs Date Time Temp Pulse Resp B/P (MAP) Pulse Ox O2 Delivery O2 Flow Rate FiO2 04/18/18 19:31 78 18 159/88 98 Room Air 04/18/18 18:31 77 16 166/80 98 Room Air 04/18/18 17:54 85 04/18/18 16:55 36.4 79 20 174/82 99 Room Air Physical Exam GENERAL: Awake, alert, well-appearing, NAD, wearing glasses. HENT: Normocephalic, atraumatic. EYES: Normal conjunctiva. Sclera non-icteric. PERRL. No anisocoria. NECK: Supple. No nuchal rigidity. FROM. RESPIRATORY: CTAB, no rhonchi, wheezing, crackles CARDIAC: RRR, no MRG ABDOMEN: Soft, NTND, BS+. midline incisional scar, pain over area, no overlying skin changes, not peritonitic. negative obturators, negative psoas MSK: No chest wall TTP, no LE edema NEURO: GCS 15, CN 2-12 intact, moves all 4s on command SKIN: No rash or jaundice noted. Medical Decision & Procedures ER Provider Diagnostic Interpretation: Radiology results as stated below per my review and radiologist interpretation: CHEST ONE VIEW PORTABLE CLINICAL HISTORY: Productive cough COMPARISON STUDY: 01/03/2018 FINDINGS: The heart is borderline enlarged. There are postsurgical changes of midline sternotomy. There is no lobar consolidation. There is no overt failure. There are no pleural effusions. There is basilar interstitial thickening.[ IMPRESSION: 1. Basilar interstitial thickening 2. No evidence of failure. Electronically signed by: Hudson Patrick M.D. 04/18/2018 5:47 PM Dictated Date/Time: 04/18/2018 5:[address] ABD/PELVIS IV CONTRAST ONLY CLINICAL HISTORY: Abdominal pain. History of small bowel obstruction. COMPARISON STUDY: January 02, 2018 TECHNIQUE: Following the IV administration of 118 mL of Optiray-320, CT scan of the abdomen and pelvis was performed from the lung bases to the proximal femurs. Images are reviewed in the axial, sagittal, and coronal planes. IV contrast was administered without complication. A dose lowering technique was utilized adhering to the principles of ALARA. CT DOSE: 306.30 mGy.cm FINDINGS: Lower chest: The heart is mildly enlarged. There are increased basilar markings, likely atelectatic. Liver: The contrast-enhanced liver is normal in size, contour, and attenuation. There is no intrahepatic biliary ductal dilatation. The hepatic veins and portal veins are patent. Gallbladder: Unremarkable. Spleen: Top normal in size measuring 12 cm Pancreas: Unremarkable. Adrenal glands: Unremarkable. Kidneys: There is symmetric renal cortical enhancement. The kidneys are normal in size without hydronephrosis. Bowel: There are multiple fluid-filled small bowel loops. These are mildly dilated measuring up to 36 mm. There is scattered small bowel air-fluid levels. There is evidence for prior postsurgical changes with a right lower quadrant anterolateral enteroanastomosis. There is a left mid abdominal small bowel loop demonstrating luminal narrowing and tethering as it crosses the midline. The findings are likely secondary to adhesion or internal hernia. This is felt to result in a partial small bowel obstruction. There is moderate stool present within the colon. Normal. There is no acute diverticulitis. Peritoneum: There is free fluid present within the pelvis. No free air is visualized. Vasculature: There is no evidence of abdominal aortic aneurysm. There are advanced atherosclerotic changes within the iliac, common femoral, and proximal superficial femoral arteries. Adenopathy: None. Pelvic viscera: The bladder, and pelvic viscera are unremarkable. Skeletal structures: No destructive osseous lesions are seen. IMPRESSION: 1. CT findings suggestive of a partial small bowel obstruction. There is a 6 left mid abdominal small bowel loop which demonstrates tethering and luminal narrowing is across the midline. The findings are likely secondary to an adhesion or internal hernia. 2. No evidence of free intraperitoneal air 3. Normal appendix. No evidence of diverticulitis. 4. Pelvic ascites. Electronically signed by: Hudson Patrick M.D. 04/18/2018 6:44 PM Dictated Date/Time: 04/18/2018 6:33 PM Laboratory Results 04/18/18 18:00 Red Blood Count 4.22, Mean Corpuscular Volume 93.6, Mean Corpuscular Hemoglobin 32.2, Mean Corpuscular Hemoglobin Concent 34.4, Mean Platelet Volume 10.4, Neutrophils (%) (Auto) 87.7, Lymphocytes (%) (Auto) 10.1, Monocytes (%) (Auto) 1.4, Eosinophils (%) (Auto) 0.3, Basophils (%) (Auto) 0.2, Neutrophils # (Auto) 11.07, Lymphocytes # (Auto) 1.28, Monocytes # (Auto) 0.18, Eosinophils # (Auto) 0.04, Basophils # (Auto) 0.03 04/18/18 18:00 Test 04/18/18 18:00 04/18/18 18:10 White Blood Count 12.64 K/uL (4.8-10.8) Red Blood Count 4.22 M/uL (4.7-6.1) Hemoglobin 13.6 g/dL (14.0-18.0) Hematocrit 39.5 % (42-52) Mean Corpuscular Volume 93.6 fL (80-100) Mean Corpuscular Hemoglobin 32.2 pg (25-34) Mean Corpuscular Hemoglobin Concent 34.4 g/dl (32-36) Platelet Count 210 K/uL (130-400) Mean Platelet Volume 10.4 fL (7.4-10.4) Neutrophils (%) (Auto) 87.7 % Lymphocytes (%) (Auto) 10.1 % Monocytes (%) (Auto) 1.4 % Eosinophils (%) (Auto) 0.3 % Basophils (%) (Auto) 0.2 % Neutrophils # (Auto) 11.07 K/uL (1.4-6.5) Lymphocytes # (Auto) 1.28 K/uL (1.2-3.4) Monocytes # (Auto) 0.18 K/uL (0.11-0.59) Eosinophils # (Auto) 0.04 K/uL (0-0.5) Basophils # (Auto) 0.03 K/uL (0-0.2) RDW Standard Deviation 46.3 fL (36.4-46.3) RDW Coefficient of Variation 13.6 % (11.5-14.5) Immature Granulocyte % (Auto) 0.3 % Immature Granulocyte # (Auto) 0.04 K/uL (0.00-0.02) Prothrombin Time 21.1 SECONDS (9.0-12.0) Prothromb Time International Ratio 2.0 (0.9-1.1) Activated Partial Thromboplast Time 32.2 SECONDS (21.0-31.0) Partial Thromboplastin Ratio 1.2 Urine Color YELLOW Urine Appearance CLEAR (CLEAR) Urine pH 6.5 (4.5-7.5) Urine Specific [place] 1.018 (1.000-1.030) Urine Protein NEG (NEG) Urine Glucose (UA) NEG (NEG) Urine Ketones 1+ (NEG) Urine Occult Blood NEG (NEG) Urine Nitrite NEG (NEG) Urine Bilirubin NEG (NEG) Urine Urobilinogen NEG (NEG) Urine Leukocyte Esterase NEG (NEG) Est Creatinine Clear Calc Drug Dose 65.8 ml/min Estimated GFR () 93.4 Estimated GFR (Non- 80.6 BUN/Creatinine Ratio 19.9 (10-20) Calcium Level 9.3 mg/dl (8.5-10.1) Total Bilirubin 1.0 mg/dl (0.2-1) Direct Bilirubin 0.3 mg/dl (0-0.2) Aspartate Amino Transf (AST/SGOT) 37 U/L (15-37) Alanine Aminotransferase (ALT/SGPT) 34 U/L (12-78) Alkaline Phosphatase 78 U/L (45-117) Troponin I < 0.015 ng/ml (0-0.045) Total Protein 7.8 gm/dl (6.4-8.2) Albumin 4.2 gm/dl (3.4-5.0) Lipase 191 U/L (73-393) Bedside Hemoglobin 13.6 g/dl (14.0-18.0) Bedside Hematocrit 40 % (42-52) Bedside Sodium 136 mEq/L (135-144) Bedside Potassium 4.6 mEq/L (3.3-5.0) Bedside Chloride 97 mEq/L (101-112) Bedside Total CO2 27 mEq/l (24-31) Anion Gap 18.0 mmol/L (16-25) Bedside Blood Urea Nitrogen 17 mg/dl (7-18) Bedside Creatinine 0.8 mg/dl (0.6-1.3) Bedside Glucose (other) 146 mg/dl (70-99) Bedside Ionized Calcium (Feliz) 1.14 mmol/l (1.12-1.32) Laboratory results reviewed by me ECG Per My Interpretation Indication: abdominal pain Rate (beats per minute): 83 Rhythm: normal sinus Findings: 1st degree AV block, other (normal QRS duration. normal axis. T-wave flattening in AVL.) ED Course 171: The patient was evaluated in room B10. A complete history and physical exam was performed. 1843: Discussed the patient's case with Dr. Bsos, general surgery. He recommends admission to medical service and will follow with consult. He also recommends NG tube placement. 1933: I reviewed the case again with Dr. Boss, general surgery. Following his evaluation of the patient, he agrees with discharge home and close follow-up. He recommends the patient return if he experiences worsening of his symptoms. Medical Decision Nursing notes reviewed. Ancillary studies and prior records reviewed. The patient is a 83 year old white male with a past medical history of bowel obstruction, knee replacements, and heart valve replacement who presents to the ED with a cc of severe abdominal pain beginning about 4 hours ago. Differential diagnosis: Etiologies such as appendicitis, diverticulitis, PUD, biliary pathology, UTI, pancreatitis, obstruction, mesenteric ischemia, aortic pathology, infections, inflammatory bowel disease, renal colic, as well as others were entertained. Patient was seen and evaluated the bedside. Patient was complaining some middle abdominal pain. The patient states that he has had persistent type symptoms since his procedure after he had an SBO status post resection however it is very bad today fairly sudden in onset after [facility] Patient does have a midline surgical site scar with some associated pain. Patient otherwise fairly well-appearing. Patient denies any other infectious symptoms although questionable phlegm with cough versus emesis. Patient did a blood work completed along with EKG, troponin, chest x-ray and CT the abdomen pelvis. The patient was also given medications for symptom control. Patient's EKG is nonischemic. Troponin is not elevated. Chest x-ray does not show any evidence of volume overload. CT of the abdomen pelvis shows a partial small bowel obstruction. I did speak with the on-call general surgeon who recommended admission to medicine with an NG tube placed. Surgeon did come and speak with the patient the bedside. The patient actually declined any antiemetics or pain medication. The patient's pain is resolved and the patient would like to return home. General surgery believes that this is appropriate and he is already discussed this with the medicine team. The patient will be discharged with close outpatient follow-up. The patient currently is asymptomatic would like to go home. I did litigation counsel the patient on avoiding any alcohol tobacco or irritating foods and the patient should try clear liquids for the next 24 hours and then may slowly advance his diet. Patient was given strict follow-up, discharge, and return precautions. All questions were answered. Patient was deemed suitable for outpatient follow-up at this time. Patient agreed with the plan of care and was safely discharged home. Medication Reconcilliation Current Medication List: was personally reviewed by me Blood Pressure Screening Patient's blood pressure: Elevated blood pressure Blood pressure disposition: Referred to PCP Consults Time Called: 1839 Consulting Physician: Dr. Boss, general surgery Returned Call: [phone]: Discussed the patient's case with Dr. Boss, general surgery. He recommends admission to medical service and will follow with consult. He also recommends NG tube placement. 1933: I reviewed the case again with Dr. Boss, general surgery. Following his evaluation of the patient, he agrees with discharge home and close follow-up. He recommends the patient return if he experiences worsening of his symptoms. Impression Primary Impression: SBO (small bowel obstruction) Additional Impressions: Abdominal pain Anemia Scribe Attestation The scribe's documentation has been prepared under my direction and personally reviewed by me in its entirety. I confirm that the note above accurately reflects all work, treatment, procedures, and medical decision making performed by me. Departure Information Dispostion Home / Self-Care Referrals Cesar Moseley M.D. (PCP) Forms HOME CARE DOCUMENTATION FORM, IMPORTANT VISIT INFORMATION Patient Instructions [facility], Obstruction Sm Bowel Additional Instructions Please return to the emergency department if you have worsening or recurrent symptoms not amenable to at-home treatment. Please call for a follow-up appointment with her primary care physician. Please take your medications as prescribed. If you have other concerns and/or complaints please feel free to also call your primary care physician's office or return the ED for further evaluation, management, and treatment. You may take tylenol 650 mg every 6 hours as needed for pain/fever unless told by your physician to not take it or have liver problems. Take your medications as prescribed. Clear liquids for the next 24 hours. Continue a bland diet. Please avoid alcohol. You have been examined and treated today on an emergency basis only. This is not a substitute for, or an effort to provide, complete comprehensive medical care. It is impossible to recognize and treat all injuries or illnesses in a single emergency department visit. It is therefore important that you follow up closely with [facility], your PCP, and/or your specialist(s). Call as soon as possible for an appointment. Thank you for your time and consideration. I look forward to speaking with you again soon. Please don't hesitate to call us if you have any questions. Problem Qualifiers Additional Impressions: Abdominal pain Abdominal location: periumbilical Qualified Codes: R10.33 - Periumbilical pain
[2018-04-18] MEDS ORDERED: OPTIRAY 320 IV PRN (17:30)
[2018-04-18] MEDS ORDERED: FENTANYL CITRATE INJ 50 MCG/1 ML 2 ML VIAL IV ONE (17:30)
--- NOTE | 2018-04-18 17:49 | DIAGNOSTIC IMAGING REPORT ---
CHEST ONE VIEW PORTABLE CLINICAL HISTORY: Productive cough COMPARISON STUDY: 01/03/2018 FINDINGS: The heart is borderline enlarged. There are postsurgical changes of midline sternotomy. There is no lobar consolidation. There is no overt failure. There are no pleural effusions. There is basilar interstitial thickening.[ IMPRESSION: 1. Basilar interstitial thickening 2. No evidence of failure. Electronically signed by: Hudson Patrick M.D. 04/18/2018 5:47 PM Dictated Date/Time: 04/18/2018 5:46 PM
[2018-04-18 18:23] LABS: HEMATOCRIT 39.5 % (42-52); HEMOGLOBIN 13.6 g/dL (14.0-18.0); MEAN CELL VOLUME 93.6 fL (80-100); MEAN CORPUSCULAR HEMOGLOBIN 32.2 pg (25-34); MEAN CORPUSCULAR HGB CONC 34.4 g/dl (32-36); MEAN PLATELET VOLUME 10.4 fL (7.4-10.4); PLATELET COUNT 210 K/uL (130-400); RED CELL DISTRIBUTION WIDTH CV 13.6 % (11.5-14.5); RED CELL DISTRIBUTION WIDTH SD 46.3 fL (36.4-46.3); WHITE BLOOD COUNT 12.64 K/uL (4.8-10.8)
[2018-04-18 18:26] LABS: ISTAT CREATININE 0.8 mg/dl (0.6-1.3); ISTAT IONIZED CALCIUM 1.14 mmol/l (1.12-1.32); ISTAT POTASSIUM 4.6 mEq/L (3.3-5.0)
[2018-04-18 18:31] LABS: PTT PATIENT 32.2 SECONDS (21.0-31.0)
[2018-04-18 18:40] LABS: ALBUMIN 4.2 gm/dl (3.4-5.0); ALKALINE PHOSPHATASE 78 U/L (45-117); ALT/SGPT 34 U/L (12-78); AST/SGOT 37 U/L (15-37); BLOOD UREA NITROGEN 17 mg/dl (7-18); CALCIUM 9.3 mg/dl (8.5-10.1); CARBON DIOXIDE 28 mmol/L (21-32); CREATININE 0.85 mg/dl (0.60-1.40); GLUCOSE 141 mg/dl (70-99); LIPASE 191 U/L (73-393); POTASSIUM 4.5 mmol/L (3.5-5.1); SODIUM 135 mmol/L (136-145); TOTAL PROTEIN 7.8 gm/dl (6.4-8.2)
--- NOTE | 2018-04-18 18:45 | DIAGNOSTIC IMAGING REPORT ---
CT ABD/PELVIS IV CONTRAST ONLY CLINICAL HISTORY: Abdominal pain. History of small bowel obstruction. COMPARISON STUDY: January 02, 2018 TECHNIQUE: Following the IV administration of 118 mL of Optiray-320, CT scan of the abdomen and pelvis was performed from the lung bases to the proximal femurs. Images are reviewed in the axial, sagittal, and coronal planes. IV contrast was administered without complication. A dose lowering technique was utilized adhering to the principles of ALARA. CT DOSE: 306.30 mGy.cm FINDINGS: Lower chest: The heart is mildly enlarged. There are increased basilar markings, likely atelectatic. Liver: The contrast-enhanced liver is normal in size, contour, and attenuation. There is no intrahepatic biliary ductal dilatation. The hepatic veins and portal veins are patent. Gallbladder: Unremarkable. Spleen: Top normal in size measuring 12 cm Pancreas: Unremarkable. Adrenal glands: Unremarkable. Kidneys: There is symmetric renal cortical enhancement. The kidneys are normal in size without hydronephrosis. Bowel: There are multiple fluid-filled small bowel loops. These are mildly dilated measuring up to 36 mm. There is scattered small bowel air-fluid levels. There is evidence for prior postsurgical changes with a right lower quadrant anterolateral enteroanastomosis. There is a left mid abdominal small bowel loop demonstrating luminal narrowing and tethering as it crosses the midline. The findings are likely secondary to adhesion or internal hernia. This is felt to result in a partial small bowel obstruction. There is moderate stool present within the colon. Normal. There is no acute diverticulitis. Peritoneum: There is free fluid present within the pelvis. No free air is visualized. Vasculature: There is no evidence of abdominal aortic aneurysm. There are advanced atherosclerotic changes within the iliac, common femoral, and proximal superficial femoral arteries. Adenopathy: None. Pelvic viscera: The bladder, and pelvic viscera are unremarkable. Skeletal structures: No destructive osseous lesions are seen. IMPRESSION: 1. CT findings suggestive of a partial small bowel obstruction. There is a 6 left mid abdominal small bowel loop which demonstrates tethering and luminal narrowing is across the midline. The findings are likely secondary to an adhesion or internal hernia. 2. No evidence of free intraperitoneal air 3. Normal appendix. No evidence of diverticulitis. 4. Pelvic ascites. Electronically signed by: Hudson Patrick M.D. 04/18/2018 6:44 PM Dictated Date/Time: 04/18/2018 6:33 PM
[2018-04-18 18:53] LABS: BASO % 0.2 %; BASO ABS # 0.03 K/uL (0-0.2); EOS % 0.3 %; EOS ABS # 0.04 K/uL (0-0.5); IG# 0.04 K/uL (0.00-0.02); LYMPH % 10.1 %; LYMPH ABS # 1.28 K/uL (1.2-3.4); MONO % 1.4 %; MONO ABS # 0.18 K/uL (0.11-0.59); NEUT % 87.7 %; NEUT ABS # 11.07 K/uL (1.4-6.5)
[2018-04-18 19:31] VITALS: BP 159/88; PULSE 78; O2SAT 98
--- NOTE | 2018-04-18 23:00 | SURGICAL CONSULTATION ---
DATE OF CONSULTATION: 04/18/2018 REASON FOR CONSULTATION: Possible bowel obstruction. HISTORY OF PRESENT ILLNESS: The patient is an 83-year-old male who is well known to me, presenting to the Emergency Room after some episodes of abdominal pain and vomiting. He says at the present time, he feels completely normal and feels that he can go home. His history is that he was from this morning had bowel movements is normal, ate breakfast, ate some grapes and oranges, had some abdominal cramping. His had some abdominal cramping also and then they went to the [facility]. He ate some [place] fries and developed a relatively severe pain and then went home and vomited clear fluid. There was no bile or dark coffee grounds. It appeared to be gastric contents. He presented to the Emergency Room with a history of prior small bowel obstruction and concern for this. He did undergo a laparotomy in 12/2017 with lysis of adhesions and small bowel resection by me. I had to resect 16.5 cm of small bowel. 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 REVIEW OF SYSTEMS: His other review of systems essentially negative except for the HPI. Ten other systems are negative. SOCIAL AND FAMILY HISTORY: Noncontributory. PAST HISTORY: Other past history includes knee replacements, prosthetic heart valve, reflux, history of small bowel obstruction with small bowel resection approximately 5-6 months prior to this. MEDICATIONS: He does take multiple medications including warfarin, omeprazole, atorvastatin. See history for other meds. ALLERGIES: HE DOES HAVE ALLERGIES TO PIPERACILLIN PHYSICAL EXAMINATION: GENERAL: He is awake and alert. He is responsive. He is in no distress. HEENT: His sclerae are nonicteric. NECK: Supple. LUNGS: Clear. He has no respiratory distress. HEART: Regular rate and rhythm. ABDOMEN: Soft. He has no tenderness. He does have active bowel sounds. EXTREMITIES: Warm without rash. His white blood cell count is 12.6. I did review his CAT scan. Does show some mildly dilated small bowel, which I would expect. There was some concern for some tethering again, which I suspect from previous surgery. ASSESSMENT AND PLAN: An 83-year-old male with history of abdominal pain and vomiting. I do not feel the patient is in any acute situation. I do not think he has a significant bowel obstruction. He and his would like to go home and they do not live far. I do trust them, they are competent and I feel that if he does have further problems, he could return to the Emergency Room and they do understand this. I have discussed this with Dr. Lora. KAILEY
== END 2018-04-18 19:44 | disposition home or self-care (01) ==
LOC: C.EDB 16:50
DX: K56.609 Unspecified intestinal obstruction, unspecified as to partial versus complete obstruction (principal); R10.33 Periumbilical pain; D64.9 Anemia, unspecified; K21.9 Gastro-esophageal reflux disease without esophagitis; I51.9 Heart disease, unspecified; Z96.659 Presence of unspecified artificial knee joint; Z87.891 Personal history of nicotine dependence; Z79.82 Long term (current) use of aspirin; Z79.01 Long term (current) use of anticoagulants; Z51.81 Encounter for therapeutic drug level monitoring; Z91.030 Bee allergy status; Z88.8 Allergy status to other drugs, medicaments and biological substances; Z91.013 Allergy to seafood

== ENCOUNTER 2018-09-09 11:09 | Inpatient (IN) ==
[2018-09-09] MEDS ORDERED: METOPROLOL TARTRATE 1 MG/ML VIAL IV STA ×2 (11:47→13:10)
[2018-09-09] MEDS ORDERED: SODIUM CHLORIDE 0.9% 1000ML 500 ML IV ONE (11:47)
--- NOTE | 2018-09-09 12:09 | Emergency Department Note ---
Entered by Chyna Mcdonald acting as a scribe for History of Present Illness General Chief complaint: Swelling/Edema to Extremity Stated complaint: SWOLLEN ANKLES AND LEGS Source: patient and family () History of Present Illness Provider complaint: swelling Onset (ago): week(s) (this week) Location: lower extremity, left and right Maximum Pain Intensity: 0 Quality: + other (swelling) Associated symptoms: + other (atrial fibrillation); no fever/chills, no nausea/ vomiting and no shortness of breath The patient is an 83 year old male who presents to the Emergency Room with complaints of swelling and redness to his bilateral legs this week. His states that Dr. Rossi referred the patient here. Per , the patient has been cardioverted twice before. Per , the patient is on Coumadin. Per , the patient has a history of an open heart surgery. The patient reports that he felt that he was in atrial fibrillation 2 nights ago. The patient states that his legs worsened after he felt himself in atrial fibrillation. Per , the patient's INR was 1.8. He denies having fevers, chills, nausea, shortness of breath, or vomiting. Per , the patient has a history of a double bowel obstruction. The patient states that his bowels have been good lately. Home Medications Home Medications Medication Instructions Recorded Confirmed Type aspirin [Aspirin Low Dose] 81 mg PO HS 05/16/18 09/09/18 History cholecalciferol (vitamin D3) 1,000 units PO HS 05/16/18 09/09/18 History [Vitamin D3] ipratropium bromide 2 spray INTRANASAL TID PRN 05/16/18 09/09/18 History latanoprost 1 drp OPB HS 05/16/18 09/09/18 History mineral oil 30 ml PO 3XWK #360 ml 05/23/18 09/09/18 Rx acetaminophen [Tylenol Arthritis 650 mg PO AMHS 05/31/18 09/09/18 History Pain] sennosides 5 ml PO HS 05/31/18 09/09/18 History metoprolol tartrate 25 mg PO BID #30 tab 07/16/18 09/09/18 Rx lisinopril 5 mg tablet 5 mg PO DAILY 07/25/18 09/09/18 History omeprazole 20 mg capsule,delayed 20 mg PO DAILY 07/25/18 09/09/18 History release biotin 1 mg capsule 1 mg PO DAILY 08/05/18 09/09/18 History calcipotriene 0.005 % topical cream 1 appln TOP DAILY PRN 08/05/18 09/09/18 History docusate sodium 100 mg capsule 100 mg PO DAILY 08/05/18 09/09/18 History food supplement, lactose-reduced See Label Instructions PO BID ml 08/15/18 History oral liquid simvastatin 40 mg tablet 40 mg PO DAILY 08/15/18 09/09/18 History warfarin 5 mg tablet See Label Instructions PO UD 90 09/09/18 09/09/18 Rx Days #135 tab Allergies Allergy/AdvReac Type Severity Reaction Status Date / Time bee venom protein (honey bee) Allergy Severe ANAPHYLACTIC Verified 09/09/18 12: 34 REACTION celecoxib Allergy Intermediate HIVES Verified 09/09/18 12:34 chlorhexidine Allergy Intermediate ITCHING Verified 09/09/18 12:34 WITH CHLORHEXIDINE SCRUB povidone-iodine Allergy Intermediate ITCHY RASH Verified 09/09/18 12:34 shellfish derived Allergy Intermediate GI SYMPTOMS Verified 09/09/18 12:34 piperacillin Allergy Mild rash Verified 09/09/18 12:34 tazobactam Allergy Mild rash Verified 09/09/18 12:34 ANESTHESIA AdvReac Unknown HALLUCINATI Uncoded 09/09/18 12:34 ON Past Med/Surg History Medical History Small bowel obstruction (Acute) 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 Last INR 2.4 History of total left knee replacement (TKR) History of total right knee replacement (TKR) Hx of exploratory laparotomy Social History marital status: Current Living Situation: Spouse Feels Safe at Home: Yes Safety Concerns: Feels Safe At This Time Smoking Status: Former smoker Tobacco Type: cigarettes Cigarettes per Day: 20 Do You Dip or Chew Tobacco: No Smoking End Date: 1968 Second Hand Exposure: No Tobacco Cessation Education Requested by Patient: No Hx Alcohol Use: Yes Alcohol type: beer and wine Alcohol Intake Frequency: 0-2 drinks per day Hx Substance Use: No Beliefs That Will Affect Care: None Preferred Language: Ivorian Communication Ability: Effective 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 and A total of 10 systems reviewed and were otherwise negative Physical Exam Vital Signs Vital Signs - 24 hr 09/09/18 11:13 09/09/18 11:53 09/09/18 12:04 Temperature 36.4 C L Temperature Source Oral Sepsis Recent Fever Within 48 Hours No Sepsis New/Unexplained Change in Mental Status No Sepsis Action Taken by Nursing No Action Required Pulse Rate 137 H 135 H Pulse Rate [Apical] 136 H Pulse Rate [Finger] Pulse Rhythm Pulse Rhythm [Apical] Irregular Pulse Strength [Apical] Normal Respiratory Rate 20 18 Respiratory Effort / Characteristics Non-Labored Spontaneous Non-Labored Spontaneous Respiratory Depth Normal Normal Respiratory Pattern Regular Regular Blood Pressure 167/103 H 143/91 H Blood Pressure [Left Arm] Blood Pressure [Right Arm] Blood Pressure Mean 124 Blood Pressure Mean [Left Arm] Blood Pressure Mean [Right Arm] Blood Pressure Position [Left Arm] Blood Pressure Position [Right Arm] Pulse Oximetry 100 Oxygen Delivery Method Room Air 09/09/18 12:30 09/09/18 13:07 09/09/18 13:13 Temperature Temperature Source Sepsis Recent Fever Within 48 Hours Sepsis New/Unexplained Change in Mental Status Sepsis Action Taken by Nursing Pulse Rate 133 H 133 H 133 H Pulse Rate [Apical] 133 H Pulse Rate [Finger] Pulse Rhythm Regular Pulse Rhythm [Apical] Irregular Pulse Strength [Apical] Normal Respiratory Rate 18 17 Respiratory Effort / Characteristics Non-Labored Spontaneous Respiratory Depth Normal Respiratory Pattern Regular Blood Pressure 166/111 H 166/111 H Blood Pressure [Left Arm] Blood Pressure [Right Arm] 166/111 H Blood Pressure Mean 129 Blood Pressure Mean [Left Arm] Blood Pressure Mean [Right Arm] 129 Blood Pressure Position [Left Arm] Blood Pressure Position [Right Arm] Pulse Oximetry 100 100 Oxygen Delivery Method Room Air Room Air 09/09/18 13:15 09/09/18 13:30 09/09/18 13:46 Temperature Temperature Source Sepsis Recent Fever Within 48 Hours Sepsis New/Unexplained Change in Mental Status Sepsis Action Taken by Nursing Pulse Rate 133 H 132 H 132 H Pulse Rate [Apical] Pulse Rate [Finger] Pulse Rhythm Pulse Rhythm [Apical] Pulse Strength [Apical] Respiratory Rate 17 18 18 Respiratory Effort / Characteristics Respiratory Depth Respiratory Pattern Blood Pressure 142/108 H 121/96 141/100 H Blood Pressure [Left Arm] Blood Pressure [Right Arm] Blood Pressure Mean 119 104 113 Blood Pressure Mean [Left Arm] Blood Pressure Mean [Right Arm] Blood Pressure Position [Left Arm] Blood Pressure Position [Right Arm] Pulse Oximetry 100 100 100 Oxygen Delivery Method Room Air 09/09/18 14:00 09/09/18 14:16 09/09/18 14:30 Temperature Temperature Source Sepsis Recent Fever Within 48 Hours Sepsis New/Unexplained Change in Mental Status Sepsis Action Taken by Nursing Pulse Rate 133 H 133 H 134 H Pulse Rate [Apical] Pulse Rate [Finger] Pulse Rhythm Pulse Rhythm [Apical] Pulse Strength [Apical] Respiratory Rate 18 16 18 Respiratory Effort / Characteristics Respiratory Depth Respiratory Pattern Blood Pressure 134/99 123/107 H 146/104 H Blood Pressure [Left Arm] Blood Pressure [Right Arm] Blood Pressure Mean 110 112 118 Blood Pressure Mean [Left Arm] Blood Pressure Mean [Right Arm] Blood Pressure Position [Left Arm] Blood Pressure Position [Right Arm] Pulse Oximetry 100 100 99 Oxygen Delivery Method 09/09/18 14:46 09/09/18 14:49 09/09/18 15:59 Temperature 36.4 C L Temperature Source Oral Sepsis Recent Fever Within 48 Hours Sepsis New/Unexplained Change in Mental Status Sepsis Action Taken by Nursing Pulse Rate 134 H Pulse Rate [Apical] 133 H Pulse Rate [Finger] Pulse Rhythm Pulse Rhythm [Apical] Irregular Pulse Strength [Apical] Strong Respiratory Rate 17 18 Respiratory Effort / Characteristics Non-Labored Respiratory Depth Normal Respiratory Pattern Regular Blood Pressure 135/109 H Blood Pressure [Left Arm] Blood Pressure [Right Arm] 159/105 H Blood Pressure Mean 117 Blood Pressure Mean [Left Arm] Blood Pressure Mean [Right Arm] 123 Blood Pressure Position [Left Arm] Blood Pressure Position [Right Arm] Sitting Pulse Oximetry 99 100 Oxygen Delivery Method Room Air Room Air 09/09/18 19:48 09/09/18 22:45 09/09/18 23:20 Temperature 37.2 C 36.4 C L 36.5 C Temperature Source Oral Oral Oral Sepsis Recent Fever Within 48 Hours Sepsis New/Unexplained Change in Mental Status Sepsis Action Taken by Nursing Pulse Rate Pulse Rate [Apical] 128 H 108 H Pulse Rate [Finger] 123 H Pulse Rhythm Pulse Rhythm [Apical] Pulse Strength [Apical] Normal Respiratory Rate 18 18 15 Respiratory Effort / Characteristics Non-Labored Respiratory Depth Normal Respiratory Pattern Regular Blood Pressure Blood Pressure [Left Arm] 156/87 H 126/84 133/90 Blood Pressure [Right Arm] Blood Pressure Mean Blood Pressure Mean [Left Arm] 110 98 104 Blood Pressure Mean [Right Arm] Blood Pressure Position [Left Arm] Semi-fowlers Lying Lying Blood Pressure Position [Right Arm] Pulse Oximetry 100 95 97 Oxygen Delivery Method Room Air Room Air Room Air 09/10/18 04:00 Temperature 36.8 C Temperature Source Oral Sepsis Recent Fever Within 48 Hours Sepsis New/Unexplained Change in Mental Status Sepsis Action Taken by Nursing Pulse Rate Pulse Rate [Apical] Pulse Rate [Finger] 137 H Pulse Rhythm Pulse Rhythm [Apical] Pulse Strength [Apical] Respiratory Rate Respiratory Effort / Characteristics Respiratory Depth Normal Respiratory Pattern Blood Pressure Blood Pressure [Left Arm] 150/94 H Blood Pressure [Right Arm] Blood Pressure Mean Blood Pressure Mean [Left Arm] 112 Blood Pressure Mean [Right Arm] Blood Pressure Position [Left Arm] Lying Blood Pressure Position [Right Arm] Pulse Oximetry 94 Oxygen Delivery Method Room Air GENERAL: Patient is awake alert in no acute distress patient is resting comfortably and showing no signs of anxiety EYES: The conjunctivae are clear. The pupils are round and reactive. EARS, NOSE, MOUTH AND THROAT: The nose is without any evidence of any deformity. Mucous membranes are moist tongue is midline NECK: The neck is nontender and supple. RESPIRATORY: Normal respiratory effort is noted there is no evidence of wheezing rhonchi or rales CARDIOVASCULAR: Tachycardic rate with regular rhythm was noted. There was a metallic click noted to auscultation. GASTROINTESTINAL: The abdomen is soft. Bowel sounds are present in all quadrants. Abdomen is nontender MUSCULOSKELETAL/EXTREMITIES: There is no evidence of gross deformity full range of motion is noted in the hips and shoulders SKIN: Pedal edema was noted bilaterally. Venous stasis changes were noted. There is erythema to both lower extremities. NEUROLOGIC: Patient is awake alert and oriented x3. Course 1139: Past medical records reviewed. The patient was evaluated in room B7, and a complete history and physical examination were performed. 1309: I updated the patient and his who verbalized agreement and understanding of the treatment plan. 1315: I discussed the patient's case with Dr. Beau Feliciano who will evaluate the patient for further management. Consultations Consultation #1: Dr. Beau Feliciano Time: 13:15 Administered Medications Aspirin (Ecotrin Ectab) 81 mg PO HS [facility] Stop: 10/09/18 20:59 Last Admin: 09/09/18 21:00 Dose: 81 mg Latanoprost (Xalatan Oph) 1 drops OPB [facility] Stop: 10/09/18 20:59 Last Admin: 09/09/18 21:01 Dose: 1 drops Metoprolol Tartrate (Lopressor) 25 mg PO BID [facility] Stop: 10/09/18 20:59 Last Admin: 09/09/18 20:59 Dose: 25 mg Mineral Oil (Kondremul) 30 ml PO [id number] [facility] Stop: 10/09/18 20:59 Last Admin: 09/09/18 20:59 Dose: 30 ml Sennosides (Senokot) 8.8 mg PO [facility] Stop: 10/09/18 20:59 Last Admin: 09/09/18 20:58 Dose: 8.8 mg Simvastatin (Zocor) 40 mg PO DAILY [facility] Stop: 10/09/18 15:59 Last Admin: 09/09/18 16:56 Dose: 40 mg Vitamin D (Vitamin D3) 1,000 units PO HS [facility] Stop: 10/09/18 20:59 Last Admin: 09/09/18 21:00 Dose: 1,000 units Warfarin Sodium (Coumadin) 7.5 mg PO [id number]@1600 [facility] Stop: 10/09/18 15:59 Last Admin: 09/09/18 16:56 Dose: 7.5 mg Discontinued Medications Sodium Chloride (Nss 1000ml) 500 mls @ 999 mls/hr IV .Q31M ONE Stop: 09/09/18 12:17 Last Infusion: 09/09/18 13:07 Dose: 0 mls/hr Admin: 09/09/18 12:07 Dose: 999 mls/hr Metoprolol Tartrate (Lopressor) 5 mg IV NOW STA Stop: 09/09/18 11:48 Last Admin: 09/09/18 12:04 Dose: 5 mg Metoprolol Tartrate (Lopressor) 5 mg IV NOW STA Stop: 09/09/18 13:11 Last Admin: 09/09/18 13:13 Dose: 5 mg Medical Decision Making Differential Diagnosis Etiologies such as premature contractions, electrolyte abnormality, cardiac dysrhythmia, thyroid dysfunction, pulmonary embolism, infection, gastrointestinal, as well as others were entertained. Medical Records Attestation: I reviewed the patient's medical records. Home Medications Current Medication List: was personally reviewed by me Laboratory Data Attestation: I reviewed the patient's lab results. Result diagrams: 09/09/18 11:57 09/09/18 11:57 Lab Results 09/09/18 09/09/18 09/09/18 Range/Units 11:57 11:57 11:57 WBC 5.46 (4.8-10.8) K/uL RBC 3.52 L (4.7-6.1) M/uL Hgb 10.9 L (14.0-18.0) g/dL Hct 34.3 L (42-52) % MCV 97.4 (80-100) fL MCH 31.0 (25-34) pg MCHC 31.8 L (32-36) g/dL RDW Std Deviation 59.7 H (36.4-46.3) fL RDW Coeff of Robbi 16.9 H (11.5-14.5) % Plt Count 186 (130-400) K/uL MPV 10.5 H (7.4-10.4) fL Immature Gran % (Auto) 0.4 % Neut % (Auto) 69.9 % Lymph % (Auto) 20.0 % [place] % (Auto) 7.3 % Eos % (Auto) 2.0 % Baso % (Auto) 0.4 % Immature Gran # (Auto) 0.02 (0.00-0.02) K/uL Neut # (Auto) 3.82 (1.4-6.5) K/uL Lymph # (Auto) 1.09 L (1.2-3.4) K/uL [place] # (Auto) 0.40 (0.11-0.59) K/uL Eos # (Auto) 0.11 (0-0.5) K/uL Baso # (Auto) 0.02 (0-0.2) K/uL ESR 22 H (0-14) mm/hr PT 17.8 H (9.0-12.0) Seconds INR 1.8 H (0.9-1.1) APTT 31.1 H (21.0-31.0) Seconds PTT Ratio 1.2 Sodium (136-145) mmol/L Potassium (3.5-5.1) mmol/L Chloride (98-107) mmol/L Carbon Dioxide (21-32) mmol/L Anion Gap (3-11) BUN (7-18) mg/dl Creatinine (0.6-1.4) mg/dl Est Cr Clr Drug Dosing ml/min Est GFR ( Amer) Est GFR (Non-Af Amer) BUN/Creatinine Ratio (10-20) Glucose (70-99) mg/dl Calcium (8.5-10.1) mg/dl Magnesium (1.8-2.4) mg/dl Total Bilirubin (0.2-1) mg/dl AST (15-37) U/L ALT (12-78) U/L Alkaline Phosphatase (45-117) U/L Troponin I (0-0.045) ng/ml C-Reactive Protein (0-0.29) mg/dl Total Protein (6.4-8.2) gm/dl Albumin (3.4-5.0) gm/dl Globulin (2.5-4.0) gm/dl Albumin/Globulin Ratio (0.9-2) TSH (0.300-4.500) uIu/ml Urine Color Urine Appearance (Clear) Urine pH (4.5-7.5) Ur Specific [place] (1.000-1.030) Urine Protein (Negative) Urine Glucose (UA) (Negative) Urine Ketones (Negative) Urine Blood (Negative) Urine Nitrite (Negative) Urine Bilirubin (Negative) Urine Urobilinogen (Negative) Ur Leukocyte Esterase (Negative) Urine WBC (Auto) (0-5) /hpf Urine RBC (Auto) (0-4) /hpf U Hyaline Cast (Auto) (0-5) /lpf U Epithel Cells (Auto) (0-5) /lpf Urine Bacteria (Auto) (Negative) 09/09/18 09/09/18 09/09/18 Range/Units 11:57 15:28 19:45 WBC (4.8-10.8) K/uL RBC (4.7-6.1) M/uL Hgb (14.0-18.0) g/dL Hct (42-52) % MCV (80-100) fL MCH (25-34) pg MCHC (32-36) g/dL RDW Std Deviation (36.4-46.3) fL RDW Coeff of Robbi (11.5-14.5) % Plt Count (130-400) K/uL MPV (7.4-10.4) fL Immature Gran % (Auto) % Neut % (Auto) % Lymph % (Auto) % [place] % (Auto) % Eos % (Auto) % Baso % (Auto) % Immature Gran # (Auto) (0.00-0.02) K/uL Neut # (Auto) (1.4-6.5) K/uL Lymph # (Auto) (1.2-3.4) K/uL [place] # (Auto) (0.11-0.59) K/uL Eos # (Auto) (0-0.5) K/uL Baso # (Auto) (0-0.2) K/uL ESR (0-14) mm/hr PT (9.0-12.0) Seconds INR (0.9-1.1) APTT (21.0-31.0) Seconds PTT Ratio Sodium 138 (136-145) mmol/L Potassium 4.0 (3.5-5.1) mmol/L Chloride 108 H (98-107) mmol/L Carbon Dioxide 27 (21-32) mmol/L Anion Gap 3.0 (3-11) BUN 17 (7-18) mg/dl Creatinine 0.77 (0.6-1.4) mg/dl Est Cr Clr Drug Dosing 75.4 ml/min Est GFR ( Amer) 97.3 Est GFR (Non-Af Amer) 83.9 BUN/Creatinine Ratio 22.6 H (10-20) Glucose 98 (70-99) mg/dl Calcium 8.5 (8.5-10.1) mg/dl Magnesium 2.2 (1.8-2.4) mg/dl Total Bilirubin 0.9 (0.2-1) mg/dl AST 72 H (15-37) U/L ALT 56 (12-78) U/L Alkaline Phosphatase 82 (45-117) U/L Troponin I 0.186 H* 0.200 H* (0-0.045) ng/ml C-Reactive Protein 0.58 H (0-0.29) mg/dl Total Protein 7.3 (6.4-8.2) gm/dl Albumin 3.6 (3.4-5.0) gm/dl Globulin 3.7 (2.5-4.0) gm/dl Albumin/Globulin Ratio 1.0 (0.9-2) TSH 2.470 (0.300-4.500) uIu/ml Urine Color Dark Yellow Urine Appearance Clear (Clear) Urine pH 5.0 (4.5-7.5) Ur Specific [place] 1.026 (1.000-1.030) Urine Protein Trace H (Negative) Urine Glucose (UA) Negative (Negative) Urine Ketones Trace H (Negative) Urine Blood Negative (Negative) Urine Nitrite Negative (Negative) Urine Bilirubin Negative (Negative) Urine Urobilinogen Negative (Negative) Ur Leukocyte Esterase Negative (Negative) Urine WBC (Auto) 1-5 (0-5) /hpf Urine RBC (Auto) 0-4 (0-4) /hpf U Hyaline Cast (Auto) 1-5 (0-5) /lpf U Epithel Cells (Auto) 0-5 (0-5) /lpf Urine Bacteria (Auto) Negative (Negative) 09/09/18 Range/Units 21:21 WBC (4.8-10.8) K/uL RBC (4.7-6.1) M/uL Hgb (14.0-18.0) g/dL Hct (42-52) % MCV (80-100) fL MCH (25-34) pg MCHC (32-36) g/dL RDW Std Deviation (36.4-46.3) fL RDW Coeff of Robbi (11.5-14.5) % Plt Count (130-400) K/uL MPV (7.4-10.4) fL Immature Gran % (Auto) % Neut % (Auto) % Lymph % (Auto) % [place] % (Auto) % Eos % (Auto) % Baso % (Auto) % Immature Gran # (Auto) (0.00-0.02) K/uL Neut # (Auto) (1.4-6.5) K/uL Lymph # (Auto) (1.2-3.4) K/uL [place] # (Auto) (0.11-0.59) K/uL Eos # (Auto) (0-0.5) K/uL Baso # (Auto) (0-0.2) K/uL ESR (0-14) mm/hr PT (9.0-12.0) Seconds INR (0.9-1.1) APTT (21.0-31.0) Seconds PTT Ratio Sodium (136-145) mmol/L Potassium (3.5-5.1) mmol/L Chloride (98-107) mmol/L Carbon Dioxide (21-32) mmol/L Anion Gap (3-11) BUN (7-18) mg/dl Creatinine (0.6-1.4) mg/dl Est Cr Clr Drug Dosing ml/min Est GFR ( Amer) Est GFR (Non-Af Amer) BUN/Creatinine Ratio (10-20) Glucose (70-99) mg/dl Calcium (8.5-10.1) mg/dl Magnesium (1.8-2.4) mg/dl Total Bilirubin (0.2-1) mg/dl AST (15-37) U/L ALT (12-78) U/L Alkaline Phosphatase (45-117) U/L Troponin I 0.188 H* (0-0.045) ng/ml C-Reactive Protein (0-0.29) mg/dl Total Protein (6.4-8.2) gm/dl Albumin (3.4-5.0) gm/dl Globulin (2.5-4.0) gm/dl Albumin/Globulin Ratio (0.9-2) TSH (0.300-4.500) uIu/ml Urine Color Urine Appearance (Clear) Urine pH (4.5-7.5) Ur Specific [place] (1.000-1.030) Urine Protein (Negative) Urine Glucose (UA) (Negative) Urine Ketones (Negative) Urine Blood (Negative) Urine Nitrite (Negative) Urine Bilirubin (Negative) Urine Urobilinogen (Negative) Ur Leukocyte Esterase (Negative) Urine WBC (Auto) (0-5) /hpf Urine RBC (Auto) (0-4) /hpf U Hyaline Cast (Auto) (0-5) /lpf U Epithel Cells (Auto) (0-5) /lpf Urine Bacteria (Auto) (Negative) Imaging Data Radiologist's Impression: Radiology results as stated below per my review and the radiologist's interpretation: XR chest 1V portable CLINICAL HISTORY: 83 years-old Male presenting with weakness. TECHNIQUE: Portable upright AP view of the chest was obtained. COMPARISON: 07/03/2018. FINDINGS: Median sternotomy wires unchanged. Atherosclerosis of the aortic arch. Cardiac silhouette mildly enlarged. Heterogeneity of lung parenchyma with persistent elevation of the left hemidiaphragm. Improved aeration of the right lung base since the prior exam. No new focal opacity. No large effusion or pneumothorax. Degenerative changes of the thoracic spine. Upper abdomen normal. IMPRESSION: 1. Mild cardiomegaly. No other convincing evidence of acute cardiopulmonary disease. Electronically signed by: Adrian Rivera M.D. 09/09/2018 12:25 PM ECG Data Attestation: I personally reviewed and interpreted this ECG as follows: Indication: tachycardia Rate (beats per minute): 136 Rhythm: atrial fibrillation (with RVR) Findings: + PVC and + ST depression (diffuse, likely rate related) Comparison ECG Date: from (06/30/18) Change: no significant change Blood Pressure Blood Pressure Findings: Elevated blood pressure Blood Pressure Disposition: further management by hospitalist SYLVIE Narrative The patient is an 83-year-old male who presented to the emergency department for an evaluation of lower extremity edema. The patient was seen recently at the Coumadin clinic and was sent to the emergency department for possible cellulitis. The patient was found to be in rapid atrial fibrillation. He has no fever. His extremity evaluation appears to be more consistent with stasis dermatitis however the patient's significant other does state that the color change is new over the last 2 weeks. I discussed the patient's laboratory and radiographic studies with him. He was treated with IV fluids and IV beta- blockers. On subsequent reevaluation he was feeling somewhat improved however was found to have an elevated troponin. I feel this is likely due to the patient's elevated heart rate and he feels that the symptoms began 2 nights ago. I discussed his case with the on-call [facility] hospitalist. They have agreed to evaluate the patient in the emergency department for further management and disposition. Impression & Plan Atrial fibrillation with RVR, Edema, peripheral Critical Care Time I have personally spent greater than 60 minutes of critical care time in the direct management of this patient. This includes bedside care, interpretation of diagnostic studies, and testing, discussion with consultants, patient, and family members, and other required patient management activities. This 60 minutes is in excess of all separately billable procedures. Critical Care Time: Yes Total Critical Care Time: 60 Discharge Plan Visit Data *Final* Discharge Date/Time: 09/09/18 14:49 Chief Complaint: Swelling/Edema to Extremity Stated Complaint: SWOLLEN ANKLES AND LEGS ED Provider: Remy Sharp Discharge Problem: Atrial fibrillation with RVR, Edema, peripheral Patient Disposition: Admitted As Inpatient Discharge Instructions Interventions: ED Discharge Assessment Last Done: 09/09/18 14:49 The scribe's documentation has been prepared under my direction and personally reviewed by me in its entirety. I confirm that the note above accurately reflects all work, treatment, procedures, and medical decision making performed by me.
[2018-09-09 12:17] LABS: Basophils # (auto) 0.02 K/uL (0-0.2); Basophils % (auto) 0.4 %; Eosinophils # (auto) 0.11 K/uL (0-0.5); Hematocrit (blood only) 34.3 % (42-52); Hemoglobin 10.9 g/dL (14.0-18.0); Immature Granulocytes # (auto) 0.02 K/uL (0.00-0.02); Immature Granulocytes % (auto) 0.4 %; Lymphocytes # (auto) 1.09 K/uL (1.2-3.4); Mean Corpuscular Hgb Conc 31.8 g/dL (32-36); Mean Corpuscular Volume 97.4 fL (80-100); Mean Platelet Volume 10.5 fL (7.4-10.4); Monocytes % (auto) 7.3 %; Neutrophils # (auto) 3.82 K/uL (1.4-6.5); Neutrophils % (auto) 69.9 %; Platelet Count 186 K/uL (130-400); RDW Coefficient of Variation 16.9 % (11.5-14.5); RDW Standard Deviation 59.7 fL (36.4-46.3); Red Blood Count 3.52 M/uL (4.7-6.1); White Blood Count 5.46 K/uL (4.8-10.8)
--- NOTE | 2018-09-09 12:26 | XRay Report ---
XR chest 1V portable CLINICAL HISTORY: 83 years-old Male presenting with weakness. TECHNIQUE: Portable upright AP view of the chest was obtained. COMPARISON: 07/03/2018. FINDINGS: Median sternotomy wires unchanged. Atherosclerosis of the aortic arch. Cardiac silhouette mildly enla rged. Heterogeneity of lung parenchyma with persistent elevation of the left hemidiaphragm. Improved aeration of the right lung base since the prior exam. No new focal opacity. No large effusion or pneu mothorax. Degenerative changes of the thoracic spine. Upper abdomen normal. IMPRESSION: 1. Mild cardiomegaly. No other convincing evidence of acute cardiopulmonary disease. Electronically signed by: Adrian Rivera M.D. 09/09/2018 12:25 PM
[2018-09-09 12:28] LABS: INR 1.8 (0.9-1.1); Partial Thromboplastin Ratio 1.2; Partial Thromboplastin Time 31.1 Seconds (21.0-31.0); Prothrombin Time 17.8 Seconds (9.0-12.0)
[2018-09-09 12:39] LABS: Albumin Level 3.6 gm/dl (3.4-5.0); BUN Creatinine Ratio 22.6 (10-20); Calcium 8.5 mg/dl (8.5-10.1); Creatinine Clr Calc Pharmacy 75.4 ml/min; Est GFR (African American) 97.3; Est GFR (Non-African American) 83.9; Magnesium 2.2 mg/dl (1.8-2.4)
[2018-09-09 12:57] LABS: Bilirubin,Total 0.9 mg/dl (0.2-1); C Reactive Protein 0.58 mg/dl (0-0.29); Globulin 3.7 gm/dl (2.5-4.0); Total Protein 7.3 gm/dl (6.4-8.2); Troponin I 0.186 ng/ml (0-0.045)
--- NOTE | 2018-09-09 14:22 | History & Physical Report ---
Date of Service September 09, 2018 Assessment & Plan (1) Edema, peripheral: Likely related to afib with RVR CXR neg for fluid Will hold on lasix for now given likely resolution with improved HR LE US pending--b/l DVT in the setting of coumadin use would be unlikely, however given redness and warmth, with slightly subtherapeutic INR with recent dosing changes, will r/o (2) Atrial fibrillation with RVR: h/o AVR ECHO pending h/o requiring cardioversion in the past Dr. Barron c/s pending Elevated trop x1, likely demand ischemia in the setting of afib with RVR, serials pending (3) Ileus following gastrointestinal surgery: Doing well post-op (4) Anticoagulated on Coumadin: Monitor 1.8 today Was to start 7.5mg daily on all days except 5mg Sun/Sun, will use this dosing schedule (5) H/O mechanical aortic valve replacement: continue home meds (6) HTN (hypertension): continue home meds (7) Acid reflux: continue home meds (8) Hypocalcemia: stable, monitor (9) Hypophosphatemia: stable, monitor (10) Hypokalemia: stable, monitor (11) DVT prophylaxis: Coumadin History of Present Illness Chief Complaint: 83 y/o M c/o LE swelling and redness. Pt states that this started about 1 week ago and has not improved. He was seen by Dr. Boss just prior to this and had no swelling. Over the last week he has had redness, swelling, and increased heat of b/l LE, R>L. The skin was very shiny and tight. He has never had LE swelling before. He was seen by Dr. Rossi with the [facility] today and she sent him to the ED for further eval. Pt denies pain to the LE. When pt arrived to the ED, he was found to be in afib with RVR. Pt states that he had had palpitations at night the last two nights. He has hx of palpitations and when this occurs, he had to be cardioverted. He does not respond to medication for this historically. Pt has had some difficulty with his INR levels after prolonged abx this fall. He was to change to 7.5mg every day except Sun/Sun on which he would take 5mg. Pt denies fever, SOB, chest pain, abd pain, n/v/c/d. Primary Care Provider: NO PCP Allergies Allergy/AdvReac Type Severity Reaction Status Date / Time bee venom protein (honey bee) Allergy Severe ANAPHYLACTIC Verified 09/09/18 12: 34 REACTION celecoxib Allergy Intermediate HIVES Verified 09/09/18 12:34 chlorhexidine Allergy Intermediate ITCHING Verified 09/09/18 12:34 WITH CHLORHEXIDINE SCRUB povidone-iodine Allergy Intermediate ITCHY RASH Verified 09/09/18 12:34 shellfish derived Allergy Intermediate GI SYMPTOMS Verified 09/09/18 12:34 piperacillin Allergy Mild rash Verified 09/09/18 12:34 tazobactam Allergy Mild rash Verified 09/09/18 12:34 ANESTHESIA AdvReac Unknown HALLUCINATI Uncoded 09/09/18 12:34 ON Home Medications Home Medications Medication Instructions Recorded Confirmed Type aspirin [Aspirin Low Dose] 81 mg PO HS 05/16/18 09/09/18 History cholecalciferol (vitamin D3) 1,000 units PO HS 05/16/18 09/09/18 History [Vitamin D3] ipratropium bromide 2 spray INTRANASAL TID PRN 05/16/18 09/09/18 History latanoprost 1 drp OPB HS 05/16/18 09/09/18 History mineral oil 30 ml PO 3XWK #360 ml 05/23/18 09/09/18 Rx acetaminophen [Tylenol Arthritis 650 mg PO AMHS 05/31/18 09/09/18 History Pain] sennosides 5 ml PO HS 05/31/18 09/09/18 History metoprolol tartrate 25 mg PO BID #30 tab 07/16/18 09/09/18 Rx lisinopril 5 mg tablet 5 mg PO DAILY 07/25/18 09/09/18 History omeprazole 20 mg capsule,delayed 20 mg PO DAILY 07/25/18 09/09/18 History release biotin 1 mg capsule 1 mg PO DAILY 08/05/18 09/09/18 History calcipotriene 0.005 % topical cream 1 appln TOP DAILY PRN 08/05/18 09/09/18 History docusate sodium 100 mg capsule 100 mg PO DAILY 08/05/18 09/09/18 History food supplement, lactose-reduced See Label Instructions PO BID ml 08/15/18 History oral liquid simvastatin 40 mg tablet 40 mg PO DAILY 08/15/18 09/09/18 History warfarin 5 mg tablet See Label Instructions PO UD 90 09/09/18 09/09/18 Rx Days #135 tab Past Med/Surg History Medical History Small bowel obstruction (Acute) halfway (current) use of anticoagulants (Acute) DVT prophylaxis HLD (hyperlipidemia) (Chronic) HTN (hypertension) (Chronic) Hyponatremia Abdominal pain, acute (Acute) Arthritis Acid reflux BPH (benign prostatic hyperplasia) Hypertension Surgical History H/O mechanical aortic valve replacement (Chronic) On Coumadin. Last INR 2.4 History of total left knee replacement (TKR) History of total right knee replacement (TKR) Hx of exploratory laparotomy Social History marital status: Current Living Situation: Spouse Feels Safe at Home: Yes Smoking Status: Former smoker Smoking End Date: 1968 Second Hand Exposure: No Hx Alcohol Use: Yes (1-2 per day, most days) Alcohol type: beer and wine Alcohol Intake Frequency: 0-2 drinks per day Hx Substance Use: No Beliefs That Will Affect Care: None Preferred Language: [place] Review of Systems Pertinent positives and negatives reviewed in HPI--all others negative Physical Exam 2 Vital Signs (Past 24 Hours): Last Vital Signs Temp 36.4 C L 09/09/18 11:53 Pulse 132 H 09/09/18 13:46 Resp 18 09/09/18 13:46 BP 141/100 H 09/09/18 13:46 Pulse Ox 100 09/09/18 13:46 Constitutional: WD/WN, vitals as above Eyes: normal visual yanez by confrontation and + anicteric sclerae Neck: normal visual inspection and trachea midline Respiratory: normal respiratory effort, lungs clear to auscultation Cardiovascular: irregularly irregular Gastrointestinal (Abdomen): Inspection/Auscultation: abdomen not distended Percussion/Palpation: abdomen soft; abdomen nontender Musculoskeletal: Head/Neck/Chest: normocephalic and head atraumatic b/l LE edema--R>L 1+ pitting, peripheral pulses intact Skin: skin is tight with haines discoloration that states is chronic, nonTTP , mildly warm Neurologic: awake; not confused Speech / Cognition: normal speech Psychiatric: A+Ox3, euthymic affect Results & Data Diagnostic Findings CXR: neg for acute Code Status & VTE Plan Code Status Full code VTE Prophylaxis Plan VTE Prophylaxis will be ordered: Yes _ (1) HTN (hypertension) Hypertension type: essential hypertension Qualified Code(s): I10 - Essential (primary) hypertension
[2018-09-09] MEDS ORDERED: CALCIPOTRIENE TOP PRN (15:14)
[2018-09-09] MEDS ORDERED: IPRATROPIUM BROMIDE NASAL SPRAY 0.06% 15ML PRN (15:14)
[2018-09-09] MEDS ORDERED: ONDANSETRON INJ 2 MG/ML 2 ML VIAL IV PRN (15:14)
[2018-09-09] MEDS ORDERED: MAGNESIUM HYDROXIDE SUSP 30 ML UDC PO PRN (15:14)
[2018-09-09] MEDS: SIMVASTATIN 40 MG TAB PO SCH (16:56)
[2018-09-09] MEDS: WARFARIN SOD 7.5 MG TAB PO SCH (16:56)
[2018-09-09 20:25] LABS: Appearance Urine Clear (Clear); Bacteria Urine Automated Negative (Negative); Bilirubin Urine Negative (Negative); Color Urine Dark Yellow; Epithelial Cell Urine Auto 0-5 /lpf (0-5); Glucose Urine UA Negative (Negative); Ketones Urine Trace (Negative); Leukocyte Esterase Urine Negative (Negative); Nitrite Urine Negative (Negative); Protein Urine Trace (Negative); Specific Gravity Urine 1.026 (1.000-1.030); Urobilinogen Urine Negative (Negative)
[2018-09-09] MEDS: SENNA 8.8 MG/5 ML UDP PO SCH (20:58)
[2018-09-09] MEDS: METOPROLOL TARTRATE 25 MG TAB PO SCH (20:59)
[2018-09-09] MEDS ORDERED: KONDREMUL 30ML UDP PO SCH (21:00)
[2018-09-09] MEDS ORDERED: FOOD SUPPLEMT LACTOSE REDUCED PO SCH (21:00)
[2018-09-09] MEDS: CHOLECALCIFEROL 1,000 UNITS TAB PO SCH (21:00)
[2018-09-09] MEDS ORDERED: NON-FORMULARY MEDICATION (Acetaminophen [Tylenol Arthritis Pain] 650 MG) PO SCH (21:00)
[2018-09-09] MEDS: ASPIRIN 81 MG ECTAB PO SCH (21:00)
[2018-09-09] MEDS: LATANOPROST 0.005% OP SOLN 2.5 ML BTL OPB SCH (21:01)
[2018-09-10 06:37] LABS: Basophils # (auto) 0.03 K/uL (0-0.2); Basophils % (auto) 0.6 %; Eosinophils # (auto) 0.08 K/uL (0-0.5); Eosinophils % (auto) 1.6 %; Hematocrit (blood only) 31.8 % (42-52); Hemoglobin 10.2 g/dL (14.0-18.0); Immature Granulocytes # (auto) 0.01 K/uL (0.00-0.02); Immature Granulocytes % (auto) 0.2 %; Lymphocytes # (auto) 1.26 K/uL (1.2-3.4); Lymphocytes % (auto) 24.8 %; Mean Corpuscular Hgb Conc 32.1 g/dL (32-36); Mean Corpuscular Volume 96.4 fL (80-100); Mean Platelet Volume 10.1 fL (7.4-10.4); Monocytes # (auto) 0.47 K/uL (0.11-0.59); Monocytes % (auto) 9.2 %; Neutrophils # (auto) 3.24 K/uL (1.4-6.5); Neutrophils % (auto) 63.6 %; Platelet Count 165 K/uL (130-400); RDW Coefficient of Variation 16.9 % (11.5-14.5); RDW Standard Deviation 59.4 fL (36.4-46.3); White Blood Count 5.09 K/uL (4.8-10.8)
[2018-09-10 07:02] LABS: BUN Creatinine Ratio 20.4 (10-20); Calcium 8.6 mg/dl (8.5-10.1); Creatinine Clr Calc Pharmacy 71.3 ml/min; Est GFR (African American) 94.3; Est GFR (Non-African American) 81.4; INR 1.9 (0.9-1.1); Potassium 3.9 mmol/L (3.5-5.1); Prothrombin Time 18.9 Seconds (9.0-12.0)
--- NOTE | 2018-09-10 07:03 | Ultrasound Report ---
BILATERAL LOWER EXTREMITY VENOUS DOPPLER HISTORY: Bilateral leg redness and swelling COMPARISON STUDY: None. FINDINGS: There is normal compressibility, flow, and augmentation within the bilateral lower extremit y deep venous systems. IMPRESSION: No DVT within the right or left lower extremity. Electronically signed by: Ryan Harding M.D. 09/10/2018 7:02 AM
[2018-09-10] MEDS ORDERED: NON-FORMULARY MEDICATION (Biotin [Biotin] 1 MG) PO SCH (09:00)
--- NOTE | 2018-09-10 09:22 | Cardiology Consultation ---
Date of Consultation September 10, 2018 Assessment & Plan (1) Atrial flutter with rapid ventricular response: He presents now with at least several days of atrial flutter based on symptoms. He is not terribly symptomatic despite the rate so it could have been somewhat longer and is likely a cause of his shortness of breath and edema. He has been cardioverted in the past, at this moment I am a little reluctant to do that because he has been subtherapeutic on his INR recently. He was therapeutic about 2 weeks ago but in the interim we do not know. I would prefer to try rate control, he may spontaneously convert back to normal as he has in the past with atrial fibrillation. If he remains symptomatic or remains rapid with his atrial arrhythmia we can consider cardioversion but we might want to do a MILADYS before that so would prefer to wait. (2) Coronary artery disease: He has known coronary artery disease, his troponin is slightly elevated but it is stable and not trending upward, I suspect this is due to his heart rate and demand ischemia. And less it becomes more apparent that there is an issue with his coronary arteries I would not pursue evaluation. (3) H/O heart valve replacement with mechanical valve: Clinically his valve is working well, on echocardiography today the gradients are appropriate for this valve. He needs to be on anticoagulation, apparently he is being maintained between 2 and 3 for his INR. (4) Anticoagulated on Coumadin: He is on warfarin for his valve, this is the anticoagulant that needs to be used. He has been having little trouble with regulation recently, in part perhaps with antibiotic usage when he was ill in the fall. He is a little sub- therapeutic now so I would recommend starting heparin. History of Present Illness Reason for Consultation: Atrial flutter with rapid ventricular response Attending Physician: Margret Oconnor MD History of Present Illness This is a 83-year-old male who has a history of aortic valve replacement with a [place] valve, coronary artery disease with bypass surgery in 2003 as well as a Maze procedure at that time. He had a prolonged hospitalization in the fall 2017 where he had multiple episodes of atrial fibrillation with rapid ventricular response, he did not require cardioversion. That hospitalization was for small bowel obstruction. He has had cardioversion for atrial flutter in the past, I performed cardioversion on July 06, 2017. He presented to the emergency room on September 09, 2018 with feeling palpitations starting 2 days before. In the emergency room he was noted to be in atrial flutter with a heart rate of 136 bpm, it looks like typical atrial flutter based on the atrial morphology. His heart rate has remained elevated. He is maintained on chronic warfarin anticoagulation due to his mechanical valve , however he has been subtherapeutic for atrial fibrillation on the last 2 tests (September 09, September 10) and subtherapeutic for mechanical valve since mid June (INR less than 2.5). He has also had difficulty with leg swelling and erythema over the last week. He is not terribly symptomatic with his arrhythmia, he notices it mostly at night, not during the day, when he has an awareness of the rapid heart rate. It does not seem to interfere with activities. Allergies Allergy/AdvReac Type Severity Reaction Status Date / Time bee venom protein (honey bee) Allergy Severe ANAPHYLACTIC Verified 09/09/18 12: 34 REACTION celecoxib Allergy Intermediate HIVES Verified 09/09/18 12:34 chlorhexidine Allergy Intermediate ITCHING Verified 09/09/18 12:34 WITH CHLORHEXIDINE SCRUB povidone-iodine Allergy Intermediate ITCHY RASH Verified 09/09/18 12:34 shellfish derived Allergy Intermediate GI SYMPTOMS Verified 09/09/18 12:34 piperacillin Allergy Mild rash Verified 09/09/18 12:34 tazobactam Allergy Mild rash Verified 09/09/18 12:34 ANESTHESIA AdvReac Unknown HALLUCINATI Uncoded 09/09/18 12:34 ON Home Medications Home Medications Medication Instructions Recorded Confirmed Type aspirin [Aspirin Low Dose] 81 mg PO HS 05/16/18 09/09/18 History cholecalciferol (vitamin D3) 1,000 units PO HS 05/16/18 09/09/18 History [Vitamin D3] ipratropium bromide 2 spray INTRANASAL TID PRN 05/16/18 09/09/18 History latanoprost 1 drp OPB HS 05/16/18 09/09/18 History mineral oil 30 ml PO 3XWK #360 ml 05/23/18 09/09/18 Rx acetaminophen [Tylenol Arthritis 650 mg PO AMHS 05/31/18 09/09/18 History Pain] sennosides 5 ml PO HS 05/31/18 09/09/18 History metoprolol tartrate 25 mg PO BID #30 tab 07/16/18 09/09/18 Rx lisinopril 5 mg tablet 5 mg PO DAILY 07/25/18 09/09/18 History omeprazole 20 mg capsule,delayed 20 mg PO DAILY 07/25/18 09/09/18 History release biotin 1 mg capsule 1 mg PO DAILY 08/05/18 09/09/18 History calcipotriene 0.005 % topical cream 1 appln TOP DAILY PRN 08/05/18 09/09/18 History docusate sodium 100 mg capsule 100 mg PO DAILY 08/05/18 09/09/18 History food supplement, lactose-reduced See Label Instructions PO BID ml 08/15/18 History oral liquid simvastatin 40 mg tablet 40 mg PO DAILY 08/15/18 09/09/18 History warfarin 5 mg tablet See Label Instructions PO UD 90 09/09/18 09/09/18 Rx Days #135 tab Patient History Medical History Small bowel obstruction (Acute) half-way (current) use of anticoagulants (Acute) DVT prophylaxis HLD (hyperlipidemia) (Chronic) HTN (hypertension) (Chronic) Hyponatremia Abdominal pain, acute (Acute) Arthritis Acid reflux BPH (benign prostatic hyperplasia) Hypertension Surgical History H/O mechanical aortic valve replacement (Chronic) On Coumadin. Last INR 2.4 History of total left knee replacement (TKR) History of total right knee replacement (TKR) Hx of exploratory laparotomy Social History marital status: Current Living Situation: Spouse Feels Safe at Home: Yes Safety Concerns: Feels Safe At This Time Smoking Status: Former smoker Tobacco Type: cigarettes Cigarettes per Day: 20 Do You Dip or Chew Tobacco: No Smoking End Date: 1968 Second Hand Exposure: No Tobacco Cessation Education Requested by Patient: No Hx Alcohol Use: Yes Alcohol type: beer and wine Alcohol Intake Frequency: 0-2 drinks per day Hx Substance Use: No Beliefs That Will Affect Care: None Communication Ability: Effective Review of Systems Negative for lightheadedness, dizziness, presyncope or syncope. Notable for palpitations. No exertional symptoms, no dyspnea on exertion or exertional chest pain. No orthopnea or PND, recent onset of peripheral edema. No GI complaints, no bleeding. No neurologic complaints such as TIA or stroke symptoms. Other systems negative. Physical Exam 2 Vital Signs (Past 24 Hours): Last Vital Signs Temp 36.8 C 09/10/18 07:25 Pulse 55 L 09/10/18 07:25 Resp 16 09/10/18 07:25 BP 156/99 H 09/10/18 07:25 Pulse Ox 96 09/10/18 07:25 Physical Exam: Constitutional: Alert, cooperative and in no distress. He is very thin. HEENT: Unremarkable Neck: No jugular venous distention, carotid pulses are rapid and equal bilaterally without bruits. Pulmonary: Clear to auscultation bilaterally. Cardiac: Regular rapid rhythm with good prosthetic valve sounds, no gallop or rub. Abdomen: Soft, nontender with normal bowel sounds. Extremities: +1 bilateral edema. Distal pulses intact. Neurologic: No focal findings. Gait is steady. Skin: No rash, ecchymoses or petechiae. Results & Data Diagnostic Findings His admission electrocardiogram shows atrial flutter with 2-1 AV conduction and a heart rate of 136 bpm. This was repeated this morning and is similar. An echocardiogram done today shows moderate left ventricular dysfunction with an ejection fraction of 30-35%, the right ventricular systolic function was also moderately reduced but normal in size.
[2018-09-10] MEDS ORDERED: Heparin IV Standard *NO* Bolus SCH (09:55)
[2018-09-10] MEDS ORDERED: dilTIAZem HCl 5 MG/ML 5 ML VIAL IV STA (09:55)
[2018-09-10] MEDS: LISINOPRIL 5 MG TAB PO SCH (10:14)
[2018-09-10] MEDS: METOPROLOL TARTRATE 25 MG TAB PO SCH ×2 (10:14→20:01)
[2018-09-10] MEDS: DOCUSATE SODIUM 100 MG CAP PO SCH (10:14)
[2018-09-10] MEDS: PANTOprazole 40 MG TAB PO SCH (10:14)
[2018-09-10] MEDS: SIMVASTATIN 40 MG TAB PO SCH (10:15)
[2018-09-10] MEDS: dilTIAZem HCl 125 MG in DEXTROSE 5% 100 ML IV PRN ×2 (10:36→19:20)
[2018-09-10] MEDS: HEPARIN STANDARD DEXTROSE 25,000 UNITS/500 ML IV SCH (11:04)
[2018-09-10] MEDS: WARFARIN SOD 7.5 MG TAB PO SCH (17:30)
[2018-09-10 17:41] LABS: Partial Thromboplastin Ratio 2.6
[2018-09-10 17:50] LABS: Partial Thromboplastin Time 67.8 Seconds (21.0-31.0)
--- NOTE | 2018-09-10 19:31 | Hospitalist Progress Note ---
Date of Service September 10, 2018 Assessment & Plan (1) Edema, peripheral: Likely related to afib with RVR, and acute CHF as below CXR neg for pulm vascular congestion No diuretics were given Doppler LE neg for DVT (2) Acute systolic (congestive) heart failure: ECHO here with newly reduced LVEF 30-35%, and with moderate Right ventricular systolic dysfunction, global hypokinesis Mod MR -no signs of ischemia, question if could be rate-related? Presented with LE edema. RV failure from LV failure? Will d/w Cardiology -no diuresis needed at this time -continue metoprolol and consider switching to Toprol XL for CHF -will d/w Cardiology about increasing beta michael dose rather than putting him on po diltiazem given the LV dysfunction -continue lisinopril 5mg daily -will need close f/u of LV function after rate controlled -follow I/Os, daily weights, low sodium diet (3) Atrial flutter with rapid ventricular response: With rates persistently in the 130s since admission, now improved on diltiazem gtt Rate control approach being utilized given subtherapeutic INR -INR subtherapeutic, goal is 2.0-3.0 for "low risk" mechanical AV as per [facility] notes -started heparin gtt for bridging, continue coumadin -follow INR in AM -consider increasing metoprol and switching to Toprol XL 75mg daily given systolic CHF as above -appreciate Cardiology consult -continue tele monitoring (4) Anticoagulated on Coumadin: as above (5) H/O mechanical aortic valve replacement: With [facility] Brett valve on Coumadin, goal 2.0-3.0 as per [facility] for "low risk" valve (6) HTN (hypertension): Stable -continue metoprolol, dilt gtt for now, lisinopril (7) Acid reflux: continue PPI (8) Elevated troponin: Elevated trop x 3 but mild and stable, likely demand ischemia in the setting of afib with RVR (9) Coronary artery disease: h/o CAD, with demand ischemia here, no chest pain -continue ASA, statin, metoprolol (10) DVT prophylaxis: Coumadin, heparin gtt Dispo-remain on tele Subjective Pt feeling much better, leg swelling is less, no SOB, no CP. No abd pain, no nausea. Rates are now controlled on dilt gtt. Tele with A-flutter, rates were in the 130s,now in the 70s. Review of Systems All systems reviewed & are unremarkable except as noted in HPI & below Physical Exam 2 Vital Signs (Past 24 Hours): Last Vital Signs Temp 37.7 C H 09/10/18 17:51 Pulse 89 09/10/18 17:51 Resp 16 09/10/18 17:51 BP 134/68 09/10/18 17:51 Pulse Ox 97 09/10/18 17:51 Constitutional: WD/WN, vitals as above Eyes: PERRL, conjunctivae normal, anicteric sclerae ENMT: external ear and nose normal, oropharynx normal Neck: trachea midline, no thyromegaly Respiratory: normal respiratory effort, lungs clear to auscultation Cardiovascular: Rate/Rhythm: regular rate; + abnormal rhythm (irreg irreg) Heart Sounds: + click (S2) Extremities: + edema (trace pitting edema bilat legs) Gastrointestinal (Abdomen): normal bowel sounds, soft, nontender, no hepatosplenomegaly Musculoskeletal: Extremities: extremities normal to inspection; no cyanosis and no clubbing Skin: no rashes, warm and dry Neurologic: moves all extremities and awake; no focal motor deficits Psychiatric: A+Ox3, euthymic affect Results & Data Laboratory Results 09/10/18 09/10/18 09/10/18 Range/Units 17:04 06:14 06:14 WBC (4.8-10.8) K/uL RBC (4.7-6.1) M/uL Hgb (14.0-18.0) g/dL Hct (42-52) % MCV (80-100) fL MCH (25-34) pg MCHC (32-36) g/dL RDW Std Deviation (36.4-46.3) fL RDW Coeff of Robbi (11.5-14.5) % Plt Count (130-400) K/uL MPV (7.4-10.4) fL Immature Gran % (Auto) % Neut % (Auto) % Lymph % (Auto) % [place] % (Auto) % Eos % (Auto) % Baso % (Auto) % Immature Gran # (Auto) (0.00-0.02) K/uL Neut # (Auto) (1.4-6.5) K/uL Lymph # (Auto) (1.2-3.4) K/uL [place] # (Auto) (0.11-0.59) K/uL Eos # (Auto) (0-0.5) K/uL Baso # (Auto) (0-0.2) K/uL PT 18.9 H (9.0-12.0) Seconds INR 1.9 H (0.9-1.1) APTT 67.8 H* (21.0-31.0) Seconds PTT Ratio 2.6 Sodium 140 (136-145) mmol/L Potassium 3.9 (3.5-5.1) mmol/L Chloride 107 (98-107) mmol/L Carbon Dioxide 24 (21-32) mmol/L Anion Gap 9.0 (3-11) BUN 17 (7-18) mg/dl Creatinine 0.83 (0.6-1.4) mg/dl Est Cr Clr Drug Dosing 71.3 ml/min Est GFR ( Amer) 94.3 Est GFR (Non-Af Amer) 81.4 BUN/Creatinine Ratio 20.4 H (10-20) Glucose 92 (70-99) mg/dl Calcium 8.6 (8.5-10.1) mg/dl Troponin I (0-0.045) ng/ml Urine Color Urine Appearance (Clear) Urine pH (4.5-7.5) Ur Specific [place] (1.000-1.030) Urine Protein (Negative) Urine Glucose (UA) (Negative) Urine Ketones (Negative) Urine Blood (Negative) Urine Nitrite (Negative) Urine Bilirubin (Negative) Urine Urobilinogen (Negative) Ur Leukocyte Esterase (Negative) Urine WBC (Auto) (0-5) /hpf Urine RBC (Auto) (0-4) /hpf U Hyaline Cast (Auto) (0-5) /lpf U Epithel Cells (Auto) (0-5) /lpf Urine Bacteria (Auto) (Negative) 09/10/18 09/09/18 09/09/18 Range/Units 06:14 21:21 19:45 WBC 5.09 (4.8-10.8) K/uL RBC 3.30 L (4.7-6.1) M/uL Hgb 10.2 L (14.0-18.0) g/dL Hct 31.8 L (42-52) % MCV 96.4 (80-100) fL MCH 30.9 (25-34) pg MCHC 32.1 (32-36) g/dL RDW Std Deviation 59.4 H (36.4-46.3) fL RDW Coeff of Robbi 16.9 H (11.5-14.5) % Plt Count 165 (130-400) K/uL MPV 10.1 (7.4-10.4) fL Immature Gran % (Auto) 0.2 % Neut % (Auto) 63.6 % Lymph % (Auto) 24.8 % [place] % (Auto) 9.2 % Eos % (Auto) 1.6 % Baso % (Auto) 0.6 % Immature Gran # (Auto) 0.01 (0.00-0.02) K/uL Neut # (Auto) 3.24 (1.4-6.5) K/uL Lymph # (Auto) 1.26 (1.2-3.4) K/uL [place] # (Auto) 0.47 (0.11-0.59) K/uL Eos # (Auto) 0.08 (0-0.5) K/uL Baso # (Auto) 0.03 (0-0.2) K/uL PT (9.0-12.0) Seconds INR (0.9-1.1) APTT (21.0-31.0) Seconds PTT Ratio Sodium (136-145) mmol/L Potassium (3.5-5.1) mmol/L Chloride (98-107) mmol/L Carbon Dioxide (21-32) mmol/L Anion Gap (3-11) BUN (7-18) mg/dl Creatinine (0.6-1.4) mg/dl Est Cr Clr Drug Dosing ml/min Est GFR ( Amer) Est GFR (Non-Af Amer) BUN/Creatinine Ratio (10-20) Glucose (70-99) mg/dl Calcium (8.5-10.1) mg/dl Troponin I 0.188 H* (0-0.045) ng/ml Urine Color Dark Yellow Urine Appearance Clear (Clear) Urine pH 5.0 (4.5-7.5) Ur Specific [place] 1.026 (1.000-1.030) Urine Protein Trace H (Negative) Urine Glucose (UA) Negative (Negative) Urine Ketones Trace H (Negative) Urine Blood Negative (Negative) Urine Nitrite Negative (Negative) Urine Bilirubin Negative (Negative) Urine Urobilinogen Negative (Negative) Ur Leukocyte Esterase Negative (Negative) Urine WBC (Auto) 1-5 (0-5) /hpf Urine RBC (Auto) 0-4 (0-4) /hpf U Hyaline Cast (Auto) 1-5 (0-5) /lpf U Epithel Cells (Auto) 0-5 (0-5) /lpf Urine Bacteria (Auto) Negative (Negative) _ (1) HTN (hypertension) Hypertension type: essential hypertension Qualified Code(s): I10 - Essential (primary) hypertension
[2018-09-10] MEDS: LATANOPROST 0.005% OP SOLN 2.5 ML BTL OPB SCH (20:00)
[2018-09-10] MEDS: ASPIRIN 81 MG ECTAB PO SCH (20:01)
[2018-09-10] MEDS: SENNA 8.8 MG/5 ML UDP PO SCH (20:01)
[2018-09-10] MEDS ORDERED: METOPROLOL TARTRATE 25 MG TAB PO SCH (21:00)
[2018-09-10] MEDS: CHOLECALCIFEROL 1,000 UNITS TAB PO SCH (21:19)
[2018-09-10] MEDS: ACETAMINOPHEN 325 MG TAB PO PRN (22:14)
[2018-09-10] MEDS ORDERED: KETOROLAC TROMETHAMINE 15 MG/ML VIAL IV ONE (23:58)
[2018-09-11] MEDS: HEPARIN STANDARD DEXTROSE 25,000 UNITS/500 ML IV SCH (04:25)
[2018-09-11 06:19] LABS: Basophils # (auto) 0.04 K/uL (0-0.2); Basophils % (auto) 0.7 %; Eosinophils # (auto) 0.09 K/uL (0-0.5); Eosinophils % (auto) 1.6 %; Hemoglobin 10.1 g/dL (14.0-18.0); Immature Granulocytes # (auto) 0.02 K/uL (0.00-0.02); Immature Granulocytes % (auto) 0.3 %; Lymphocytes # (auto) 1.52 K/uL (1.2-3.4); Lymphocytes % (auto) 26.5 %; Mean Corpuscular Hgb Conc 32.6 g/dL (32-36); Mean Corpuscular Volume 95.1 fL (80-100); Mean Platelet Volume 9.7 fL (7.4-10.4); Monocytes # (auto) 0.52 K/uL (0.11-0.59); Monocytes % (auto) 9.1 %; Neutrophils # (auto) 3.55 K/uL (1.4-6.5); Neutrophils % (auto) 61.8 %; Platelet Count 159 K/uL (130-400); RDW Coefficient of Variation 16.7 % (11.5-14.5); RDW Standard Deviation 58.4 fL (36.4-46.3); Red Blood Count 3.26 M/uL (4.7-6.1); White Blood Count 5.74 K/uL (4.8-10.8)
[2018-09-11 06:43] LABS: INR 2.1 (0.9-1.1); Partial Thromboplastin Ratio 4.5; Prothrombin Time 20.3 Seconds (9.0-12.0)
[2018-09-11 06:53] LABS: BUN Creatinine Ratio 19.8 (10-20); Creatinine Clr Calc Pharmacy 58.7 ml/min; Est GFR (African American) 81.3; Est GFR (Non-African American) 70.1; Potassium 3.9 mmol/L (3.5-5.1)
[2018-09-11 07:14] LABS: Partial Thromboplastin Time 117.4 Seconds (21.0-31.0)
[2018-09-11] MEDS: LISINOPRIL 5 MG TAB PO SCH (07:44)
[2018-09-11] MEDS: SIMVASTATIN 40 MG TAB PO SCH (07:44)
[2018-09-11] MEDS ORDERED: METOPROLOL SUCC 50MG EXT REL TAB PO SCH (09:00)
[2018-09-11] MEDS ORDERED: dilTIAZem HCL 240 MG CAPCR PO SCH (09:00)
[2018-09-11] MEDS: PANTOprazole 40 MG TAB PO SCH (09:28)
[2018-09-11] MEDS: DOCUSATE SODIUM 100 MG CAP PO SCH (09:28)
--- NOTE | 2018-09-11 10:09 | Cardiology Progress Note ---
Date of Service September 11, 2018 Assessment & Plan (1) Atrial flutter with rapid ventricular response: He presents now with at least several days of atrial flutter based on symptoms. He is not terribly symptomatic despite the rate so it could have been somewhat longer and is likely a cause of his shortness of breath and edema. He has been cardioverted in the past, at this moment I am a little reluctant to do that because he has been subtherapeutic on his INR recently. He was therapeutic about 2 weeks ago but in the interim we do not know. I would prefer to try rate control, he may spontaneously convert back to normal as he has in the past with atrial fibrillation. If he remains symptomatic or remains rapid with his atrial arrhythmia we can consider cardioversion but we might want to do a MILADYS before that so would prefer to wait. He did respond well to intravenous diltiazem with good rate control, now with switching to oral his rate is rapid and I believe it has been about 2 hours since he took the medications. I am going to go up on his metoprolol, that was changed to metoprolol succinate 50 mg daily this morning. I going to give him another 25 mg this morning and recheck his heart rate in an hour or 2. (2) Coronary artery disease: He has known coronary artery disease, his troponin was slightly elevated but it is stable and not trending upward, I suspect this is due to his heart rate and demand ischemia. Unless It becomes more apparent that there is an issue with his coronary perfusion I would not pursue evaluation. (3) H/O heart valve replacement with mechanical valve: Clinically his valve is working well, on echocardiography this admission the gradients are appropriate for this valve. He needs to be on anticoagulation , apparently he is being maintained between 2 and 3 for his INR. (4) Anticoagulated on Coumadin: He is on warfarin for his valve, this is the anticoagulant that needs to be used. He has been having little trouble with regulation recently, in part perhaps with antibiotic usage when he was ill in the fall. He was a little sub- therapeutic yesterday, now his INR is just over 2. We can discontinue heparin although I might continue it for today as his INR comes up since he is just over the minimum measurements. Subjective He feels well this morning, he has not been out of bed and his heart rate is elevated but he is not terribly aware of it. Physical Exam 2 Vital Signs (Past 24 Hours): Last Vital Signs Temp 37.2 C 09/11/18 07:39 Pulse 101 H 09/11/18 07:39 Resp 16 09/11/18 07:39 BP 157/90 H 09/11/18 07:39 Pulse Ox 97 09/11/18 07:39 Physical Exam: Constitutional: Alert, cooperative and in no distress. Pulmonary: Clear to auscultation bilaterally. Cardiac: Regular rapid rhythm with good prosthetic valve sounds, no gallop or rub. Abdomen: Soft, nontender with normal bowel sounds. Extremities: No edema. Skin: No rash, ecchymoses or petechiae. Results & Data Diagnostic Findings Telemetry: Good heart rate control until this morning when IV diltiazem was discontinued, now 2-1 conduction of atrial flutter.
[2018-09-11] MEDS ORDERED: METOPROLOL SUCC 25MG EXT REL TAB PO ONE ×2 (10:10→13:30)
--- NOTE | 2018-09-11 13:21 | Hospitalist Progress Note ---
Date of Service September 11, 2018 Assessment & Plan (1) Acute systolic (congestive) heart failure: ECHO here with newly reduced LVEF 30-35%, and with moderate Right ventricular systolic dysfunction, global hypokinesis Mod MR -no signs of ischemia, question if could be rate-related? Presented with LE edema. RV failure from LV failure? 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 may not be the best option in the setting of LV dysfunction, but ok for now as per Cardio -continue lisinopril 5mg daily -will need close f/u of LV function after rate controlled -follow I/Os, daily weights, low sodium diet-gave education on this today with pt and (2) Edema, peripheral: Likely related to afib with RVR, and acute CHF CXR neg for pulm vascular congestion No diuretics were given and not needed at this point Doppler LE neg for DVT (3) Atrial flutter with rapid ventricular response: With rates persistently in the 130s since admission, was improved on diltiazem gtt, but now off gtt and back to the 130s despite po dilt 240 and Toprol XL 75 today Rate control approach being utilized 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 valve on Coumadin, goal 2.0-3.0 as per [facility] for "low risk" valve (6) HTN (hypertension): Stable -continue metoprolol, diltiazem, lisinopril (7) Acid reflux: continue PPI (8) Elevated troponin: Elevated trop x 3 but mild and stable, likely demand ischemia in the setting of afib with RVR (9) Coronary artery disease: h/o CAD, with demand ischemia here, no chest pain -continue ASA, statin, metoprolol (10) DVT prophylaxis: Coumadin Dispo-remain on tele Subjective Pt reports he had a small BM this AM. His UOP is low today. Denies SOB or CP. Rates are back up into the 130s since being off the dilt gtt this AM. Discussed case with Cardiology. Review of Systems All systems reviewed & are unremarkable except as noted in HPI & below Physical Exam 2 Vital Signs (Past 24 Hours): Last Vital Signs Temp 36.5 C 09/11/18 11:21 Pulse 133 H 09/11/18 11:21 Resp 16 09/11/18 11:21 BP 130/88 09/11/18 11:21 Pulse Ox 97 09/11/18 11:21 Constitutional: WD/WN, vitals as above Eyes: PERRL, conjunctivae normal, anicteric sclerae Neck: trachea midline, no thyromegaly Respiratory: normal respiratory effort, lungs clear to auscultation Cardiovascular: Rate/Rhythm: + tachycardic; + abnormal rhythm (irreg irreg) Heart Sounds: + click (S2) Extremities: + edema (trace pitting edema bilat legs, improved from yesterday) Gastrointestinal (Abdomen): normal bowel sounds, soft, nontender, no hepatosplenomegaly Musculoskeletal: Extremities: extremities normal to inspection; no cyanosis and no clubbing Skin: no rashes, warm and dry Neurologic: moves all extremities and awake; no focal motor deficits Psychiatric: A+Ox3, euthymic affect Results & Data Laboratory Results 09/11/18 09/11/18 09/11/18 Range/Units 06:05 06:05 06:05 WBC 5.74 (4.8-10.8) K/uL RBC 3.26 L (4.7-6.1) M/uL Hgb 10.1 L (14.0-18.0) g/dL Hct 31.0 L (42-52) % MCV 95.1 (80-100) fL MCH 31.0 (25-34) pg MCHC 32.6 (32-36) g/dL RDW Std Deviation 58.4 H (36.4-46.3) fL RDW Coeff of Robbi 16.7 H (11.5-14.5) % Plt Count 159 (130-400) K/uL MPV 9.7 (7.4-10.4) fL Immature Gran % (Auto) 0.3 % Neut % (Auto) 61.8 % Lymph % (Auto) 26.5 % Moca % (Auto) 9.1 % Eos % (Auto) 1.6 % Baso % (Auto) 0.7 % Immature Gran # (Auto) 0.02 (0.00-0.02) K/uL Neut # (Auto) 3.55 (1.4-6.5) K/uL Lymph # (Auto) 1.52 (1.2-3.4) K/uL Moca # (Auto) 0.52 (0.11-0.59) K/uL Eos # (Auto) 0.09 (0-0.5) K/uL Baso # (Auto) 0.04 (0-0.2) K/uL PT 20.3 H (9.0-12.0) Seconds INR 2.1 H (0.9-1.1) APTT 117.4 H* (21.0-31.0) Seconds PTT Ratio 4.5 Sodium 138 (136-145) mmol/L Potassium 3.9 (3.5-5.1) mmol/L Chloride 107 (98-107) mmol/L Carbon Dioxide 25 (21-32) mmol/L Anion Gap 6.0 (3-11) BUN 20 H (7-18) mg/dl Creatinine 0.99 (0.6-1.4) mg/dl Est Cr Clr Drug Dosing 58.7 ml/min Est GFR ( Amer) 81.3 Est GFR (Non-Af Amer) 70.1 BUN/Creatinine Ratio 19.8 (10-20) Glucose 103 H (70-99) mg/dl Calcium 8.0 L (8.5-10.1) mg/dl Magnesium 2.0 (1.8-2.4) mg/dl 09/10/18 Range/Units 17:04 WBC (4.8-10.8) K/uL RBC (4.7-6.1) M/uL Hgb (14.0-18.0) g/dL Hct (42-52) % MCV (80-100) fL MCH (25-34) pg MCHC (32-36) g/dL RDW Std Deviation (36.4-46.3) fL RDW Coeff of Robbi (11.5-14.5) % Plt Count (130-400) K/uL MPV (7.4-10.4) fL Immature Gran % (Auto) % Neut % (Auto) % Lymph % (Auto) % Moca % (Auto) % Eos % (Auto) % Baso % (Auto) % Immature Gran # (Auto) (0.00-0.02) K/uL Neut # (Auto) (1.4-6.5) K/uL Lymph # (Auto) (1.2-3.4) K/uL Moca # (Auto) (0.11-0.59) K/uL Eos # (Auto) (0-0.5) K/uL Baso # (Auto) (0-0.2) K/uL PT (9.0-12.0) Seconds INR (0.9-1.1) APTT 67.8 H* (21.0-31.0) Seconds PTT Ratio 2.6 Sodium (136-145) mmol/L Potassium (3.5-5.1) mmol/L Chloride (98-107) mmol/L Carbon Dioxide (21-32) mmol/L Anion Gap (3-11) BUN (7-18) mg/dl Creatinine (0.6-1.4) mg/dl Est Cr Clr Drug Dosing ml/min Est GFR ( Amer) Est GFR (Non-Af Amer) BUN/Creatinine Ratio (10-20) Glucose (70-99) mg/dl Calcium (8.5-10.1) mg/dl Magnesium (1.8-2.4) mg/dl _ (1) HTN (hypertension) Hypertension type: essential hypertension Qualified Code(s): I10 - Essential (primary) hypertension
[2018-09-11] MEDS ORDERED: POTASSIUM CHLORIDE 10 MEQ TABCR PO ONE (14:00)
[2018-09-11] MEDS: WARFARIN SOD 7.5 MG TAB PO SCH (16:17)
[2018-09-11] MEDS ORDERED: MINERAL OIL 30 ML UDC PO SCH (21:00)
[2018-09-11] MEDS: ASPIRIN 81 MG ECTAB PO SCH (21:04)
[2018-09-11] MEDS: LATANOPROST 0.005% OP SOLN 2.5 ML BTL OPB SCH (21:04)
[2018-09-11] MEDS: CHOLECALCIFEROL 1,000 UNITS TAB PO SCH (21:04)
[2018-09-11] MEDS: SENNA 8.8 MG/5 ML UDP PO SCH (21:05)
[2018-09-11] MEDS: ACETAMINOPHEN 325 MG TAB PO PRN (21:13)
[2018-09-12] MEDS ORDERED: LIDOCAINE HCL 2% MPF (LOCAL) 5 ML VIAL INFIL ONE (08:13)
[2018-09-12] MEDS ORDERED: ESMOLOL HCL INJ 10 MG/ML 10ML VIAL IV ONE (08:13)
[2018-09-12] MEDS ORDERED: PROPOFOL IV EMULSION 10 MG/ML 20 ML VIAL IV ONE (08:13)
[2018-09-12] MEDS ORDERED: fentaNYL citrate 100 MCG/2 ML VIAL ONE (08:14)
--- NOTE | 2018-09-12 08:18 | Cardiology Progress Note ---
Date of Service September 12, 2018 Assessment & Plan (1) Atrial flutter with rapid ventricular response: He presents now with at least several days of atrial flutter based on symptoms. He is not terribly symptomatic despite the rate so it could have been somewhat longer and is likely a cause of his shortness of breath and edema. He has been cardioverted in the past, this admission I have beeen a little reluctant to do that because he has been subtherapeutic on his INR recently. He was therapeutic about 2 weeks ago but in the interim we do not know. He has not converted back to sinus rhythm. He is now on diltiazem 360 mg daily and Toprol succinate 100 mg daily and his heart rate remains fast. At this point we need to consider MILADYS guided cardioversion since we have not been able to control the rate. He is agreeable. I have arranged that for this morning. (2) Coronary artery disease: He has known coronary artery disease, his troponin was slightly elevated but it is stable and not trending upward, I suspect this is due to his heart rate and demand ischemia. Unless It becomes more apparent that there is an issue with his coronary perfusion I would not pursue evaluation. (3) H/O heart valve replacement with mechanical valve: Clinically his valve is working well, on echocardiography this admission the gradients are appropriate for this valve. He needs to be on anticoagulation , apparently he is being maintained between 2 and 3 for his INR. (4) Anticoagulated on Coumadin: He is on warfarin for his valve, this is the anticoagulant that needs to be used. He has been having little trouble with regulation recently, in part perhaps with antibiotic usage when he was ill in the fall. He was a little sub- therapeutic yesterday, now his INR is just over 2. Subjective He remains quite asymptomatic, he was ambulating yesterday without difficulty. Physical Exam 2 Vital Signs (Past 24 Hours): Last Vital Signs Temp 36.6 C 09/12/18 03:48 Pulse 100 H 09/12/18 03:48 Resp 18 09/12/18 03:48 BP 124/71 09/12/18 03:48 Pulse Ox 96 09/12/18 03:48 Physical Exam: Constitutional: Alert, cooperative and in no distress. Pulmonary: Clear to auscultation bilaterally. Cardiac: Regular rapid rhythm with good prosthetic valve sounds, no gallop or rub. Abdomen: Soft, nontender with normal bowel sounds. Extremities: No edema. Skin: No rash, ecchymoses or petechiae. Results & Data Diagnostic Findings Telemetry: He remains predominantly in 2-1 AV conduction with a rapid heart rate. Occasional somewhat slower episodes but still tachycardic.
--- NOTE | 2018-09-12 08:36 | Anesthesiology Consultation ---
Date of Service September 12, 2018 Assessment & Plan Chart Review Chart Review: Acceptable Risk for Surgery and Patient NOT seen in Pre Admission Testing Consults Requested none ASA ASA3 Proposed Anesthesia Anesthesia Type: MAC Risk / Benefits Reviewed With: PT / POA / Parent / Guardian, Accepts Plan and Informed Consent Obtained NPO Date Last Intake of Fluids: 09/11/18 Time Last Intake of Fluids: 17:00 Date Last Intake of Solids: 09/11/18 Time Last Intake of Solids: 23:45 History Surgery Operation Date: 09/12/18 08:30 Proposed Procedures p Cardioversion - Shay Dunne MD s Transesophageal Echo - Shay Dunne MD Height/Weight Height: 6 ft Weight: 74.2 kg Allergies Allergy/AdvReac Type Severity Reaction Status Date / Time bee venom protein (honey bee) Allergy Severe ANAPHYLACTIC Verified 09/09/18 12: 34 REACTION celecoxib Allergy Intermediate HIVES Verified 09/09/18 12:34 chlorhexidine Allergy Intermediate ITCHING Verified 09/09/18 12:34 WITH CHLORHEXIDINE SCRUB povidone-iodine Allergy Intermediate ITCHY RASH Verified 09/09/18 12:34 shellfish derived Allergy Intermediate GI SYMPTOMS Verified 09/09/18 12:34 piperacillin Allergy Mild rash Verified 09/09/18 12:34 tazobactam Allergy Mild rash Verified 09/09/18 12:34 ANESTHESIA AdvReac Unknown HALLUCINATI Uncoded 09/09/18 12:34 ON Medications Home Medications Medication Instructions Recorded Confirmed Last Taken aspirin [Aspirin Low Dose] 81 mg PO HS 05/16/18 09/09/18 09/08/18 cholecalciferol (vitamin D3) 1,000 units PO HS 05/16/18 09/09/18 09/08/18 [Vitamin D3] ipratropium bromide 2 spray INTRANASAL TID PRN 05/16/18 09/09/18 09/08/18 latanoprost 1 drp OPB HS 05/16/18 09/09/18 09/08/18 mineral oil 30 ml PO 3XWK #360 ml 05/23/18 09/09/18 09/08/18 acetaminophen [Tylenol Arthritis 650 mg PO AMHS 05/31/18 09/09/18 09/09/18 Pain] sennosides 5 ml PO HS 05/31/18 09/09/18 09/08/18 metoprolol tartrate 25 mg PO BID #30 tab 07/16/18 09/09/18 09/08/18 lisinopril 5 mg tablet 5 mg PO DAILY 07/25/18 09/09/18 09/08/18 omeprazole 20 mg capsule,delayed 20 mg PO DAILY 07/25/18 09/09/18 09/09/18 release biotin 1 mg capsule 1 mg PO DAILY 08/05/18 09/09/18 09/08/18 calcipotriene 0.005 % topical cream 1 appln TOP DAILY PRN 08/05/18 09/09/18 docusate sodium 100 mg capsule 100 mg PO DAILY 08/05/18 09/09/18 09/08/18 food supplement, lactose-reduced See Label Instructions PO BID ml 08/15/1809/08/18 oral liquid simvastatin 40 mg tablet 40 mg PO DAILY 08/15/18 09/09/18 09/08/18 warfarin 5 mg tablet See Label Instructions PO UD 90 09/09/18 09/09/18 09/08/18 Days #135 tab Active Medications Generic Name Dose Route Start Last Admin Trade Name Freq PRN Reason Stop Dose Admin Acetaminophen 650 mg 09/09/18 15:14 09/11/18 21:13 Tylenol PO 10/09/18 15:13 650 mg Q4H PRN Administration Pain or Fever Aspirin 81 mg 09/09/18 21:00 09/11/18 21:04 Ecotrin Ectab PO 10/09/18 20:59 81 mg HS MERRITT Administration Diltiazem HCl 240 mg 09/11/18 09:00 09/11/18 07:44 Cardizem Cd PO 10/11/18 08:59 240 mg QAM MERRITT Administration Docusate Sodium 100 mg 09/10/18 09:00 09/11/18 09:28 Colace PO 10/10/18 08:59 100 mg DAILY MERRITT Administration Diltiazem HCl 125 mg/ Dextrose 125 mls @ 0 mls/hr 09/10/18 10:00 09/10/18 23: 09 IV 10/10/18 09:59 0 mg/hr .Q0M PRN 0 mls/hr Titration Titration Protocol 0 MG/HR Latanoprost 1 drops 09/09/18 21:00 09/11/18 21:04 Xalatan Oph OPB 10/09/18 20:59 1 drops HS MERRITT Administration Lisinopril 5 mg 09/10/18 09:00 09/11/18 07:44 Zestril PO 10/10/18 08:59 5 mg DAILY MERRITT Administration Mineral Oil 30 ml 09/11/18 21:00 09/11/18 21:04 Mineral Oil PO 10/11/18 14:14 30 ml [id number] MERRITT Administration Pantoprazole Sodium 40 mg 09/10/18 09:00 09/11/18 09:28 Protonix PO 10/10/18 08:59 40 mg DAILY MERRITT Administration Sennosides 8.8 mg 09/09/18 21:00 09/11/18 21:05 Senokot PO 10/09/18 20:59 8.8 mg HS MERRITT Administration Simvastatin 40 mg 09/09/18 16:00 09/11/18 07:44 Zocor PO 10/09/18 15:59 40 mg DAILY MERRITT Administration Vitamin D 1,000 units 09/09/18 21:00 09/11/18 21:04 Vitamin D3 PO 10/09/18 20:59 1,000 units HS MERRITT Administration Warfarin Sodium 7.5 mg 09/09/18 16:00 09/11/18 16:17 Coumadin PO 10/09/18 15:59 7.5 mg [id number]@1600 MERRITT Administration Beta Mat Beta Mat Taken Within 24 Hours: Yes Past Medical History Medical History Acute systolic (congestive) heart failure Small bowel obstruction (Acute) 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 Last INR 2.4 History of total left knee replacement (TKR) History of total right knee replacement (TKR) Hx of exploratory laparotomy Past Anesthesia History No Family Hx of Anesthesia Complications patient had hallucinations History of PONV No Motion Sickness Screening History of Motion Sickness: No Social History Smoking Status: Former smoker tobacco type: cigarettes Smoking cigarettes per day: 20 Do You Dip or Chew Tobacco: No Smoking End Date: 1968 Hx Alcohol Use: Yes Alcohol type: beer and wine alcohol intake frequency: 0-2 drinks per day Hx Substance Use: No Exercise / Class Metabolic Activity II 4-5 Yardwork/Stairs/Walk up hill Review of Systems no chest pain or sob Physical Exam Vital Signs Last Vital Signs Temp 36.6 C 09/12/18 03:48 Pulse 100 H 09/12/18 03:48 Resp 18 09/12/18 03:48 BP 124/71 09/12/18 03:48 Pulse Ox 96 09/12/18 03:48 ENMT Mouth: + dentures and + dental restorations Thyromental Distance: > or= 3.5 Finger Breadths Mallampati Class: II Neck normal visual inspection Respiratory normal respiratory effort Cardiovascular Rate/Rhythm: + tachycardic; + abnormal rhythm Heart Sounds: + murmur (Systolic) Vessels: no carotid bruit Musculoskeletal Spine: no pain with cervical ROM Neurologic moves all extremities Psychiatric Orientation: alert and oriented x 3 Testing Electrocardiogram Date: 09/11/18 Aflutter with variable AV block rate 89 Echocardiogram Date: 09/10/18 EF: 30-35 moderate global hypokinesis, biatrial dilation, mod MR, mechanical aortic valve Laboratory Results 09/12/18 08:20 PT 20.3 Seconds (9.0-12.0) H 09/11/18 06:05 INR 2.1 (0.9-1.1) H 09/11/18 06:05 APTT 117.4 Seconds (21.0-31.0) H* 09/11/18 06:05 Urine Color Dark Yellow 09/09/18 19:45 Urine Appearance Clear (Clear) 09/09/18 19:45 Urine pH 5.0 (4.5-7.5) 09/09/18 19:45 Ur Specific [place] 1.026 (1.000-1.030) 09/09/18 19:45 Urine Protein Trace (Negative) H 09/09/18 19:45 Urine Glucose (UA) Negative (Negative) 09/09/18 19:45 Urine Ketones Trace (Negative) H 09/09/18 19:45 Urine Nitrite Negative (Negative) 09/09/18 19:45 Ur Leukocyte Esterase Negative (Negative) 09/09/18 19:45 Urine WBC (Auto) 1-5 /hpf (0-5) 09/09/18 19:45 Urine RBC (Auto) 0-4 /hpf (0-4) 09/09/18 19:45 U Hyaline Cast (Auto) 1-5 /lpf (0-5) 09/09/18 19:45 U Epithel Cells (Auto) 0-5 /lpf (0-5) 09/09/18 19:45 Urine Bacteria (Auto) Negative (Negative) 09/09/18 19:45 09/09/18 12:03 Blood Culture - Preliminary Blood No growth to date. 09/09/18 11:57 Blood Culture - Preliminary Blood No growth to date. INR 2.1 on 09/11/18
[2018-09-12 08:39] LABS: Basophils # (auto) 0.02 K/uL (0-0.2); Basophils % (auto) 0.4 %; Eosinophils % (auto) 1.9 %; Hematocrit (blood only) 33.1 % (42-52); Hemoglobin 10.7 g/dL (14.0-18.0); Immature Granulocytes # (auto) 0.02 K/uL (0.00-0.02); Immature Granulocytes % (auto) 0.4 %; Lymphocytes # (auto) 1.16 K/uL (1.2-3.4); Lymphocytes % (auto) 22.2 %; Mean Corpuscular Hgb Conc 32.3 g/dL (32-36); Mean Corpuscular Volume 95.4 fL (80-100); Mean Platelet Volume 10.3 fL (7.4-10.4); Monocytes % (auto) 9.6 %; Neutrophils # (auto) 3.43 K/uL (1.4-6.5); Neutrophils % (auto) 65.5 %; Platelet Count 187 K/uL (130-400); RDW Coefficient of Variation 16.6 % (11.5-14.5); RDW Standard Deviation 57.7 fL (36.4-46.3); Red Blood Count 3.47 M/uL (4.7-6.1); White Blood Count 5.23 K/uL (4.8-10.8)
--- NOTE | 2018-09-12 08:58 | Procedure Note ---
Procedure Note Date of Service September 12, 2018 Note Procedure performed: Cardioversion Indication: The patient is an 83-year-old gentleman with a history of paroxysmal atrial fibrillation who presented not in any Medical Center with atrial flutter. Despite aggressive attempts at rate control he has had persistently elevated ventricular rates. He also has evidence of reduced LV systolic function. Based on the persistent nature of his arrhythmia and difficulty with rate control is felt to be a good candidate for cardioversion. Staff shoemaking finisher: Ilia Dunne MD Procedure in detail: The patient was informed of the risks benefits and alternatives to the intended procedure. Immediately prior to this procedure the patient did undergo transesophageal echocardiography in order to exclude left atrial appendage thrombus. He understood such which proceed. He was taken to the cardiac catheterization suite holding area. A general anesthetic was administered by the Anesthesiology Service. Once appropriately anesthetized, the patient was cardioverted using 30 joules delivered in a biphasic fashion. This returned the patient to sinus rhythm. The patient tolerated procedure well, there were no immediate complications. Patient was neurologically intact subsequent to the procedure. Impression: Successful cardioversion from atrial flutter to normal sinus rhythm
[2018-09-12] MEDS ORDERED: dilTIAZem HCL 120 MG CAPCR PO SCH (09:00)
--- NOTE | 2018-09-12 09:12 | Anesthesiology Progress Note ---
Date of Service September 12, 2018 Anesthesia Post Procedure Vital Signs Vital Signs: Temp Pulse Pulse Resp BP BP Pulse Ox 09/12/18 03:48 36.6 C 100 H 18 124/71 96 09/12/18 00:17 100 H 09/11/18 23:19 36.3 C L 107 H 17 135/84 92 09/11/18 19:45 36.6 C 96 H 19 130/74 97 09/11/18 16:00 107 H 09/11/18 15:54 36.3 C L 114 H 18 118/81 98 09/11/18 11:21 36.5 C 133 H 16 130/88 97 Notes Mental Status: alert / awake / arousable Patient Amnestic to Procedure: Yes Nausea / Vomiting: adequately controlled Pain: adequately controlled Airway Patency, RR, SpO2: stable & adequate BP & HR: stable & adequate Hydration State: stable & adequate Anesthetic Complications: no major complications apparent and Pt Satisfied with anesthetic care Notes: The patient is awake and stable.
[2018-09-12 09:13] LABS: BUN Creatinine Ratio 19.7 (10-20); Calcium 8.2 mg/dl (8.5-10.1); Creatinine Clr Calc Pharmacy 66.8 ml/min; Est GFR (African American) 92.1; Est GFR (Non-African American) 79.4; INR 2.3 (0.9-1.1); Magnesium 2.2 mg/dl (1.8-2.4); Prothrombin Time 22.1 Seconds (9.0-12.0)
--- NOTE | 2018-09-12 09:16 | History & Physical Bridge Note ---
Date of Service September 12, 2018 History & Physical Bridge Note I have examined the patient, reviewed the History & Physical and in the interval since the performance of the History & Physical I have noted the following changes of clinical significance: no changes noted
[2018-09-12] MEDS ORDERED: MINERAL OIL 30 ML UDC PO ONE (12:30)
[2018-09-12] MEDS: METOPROLOL SUCC 50MG EXT REL TAB PO SCH (17:55)
[2018-09-12] MEDS: PANTOprazole 40 MG TAB PO SCH (17:55)
[2018-09-12] MEDS: DOCUSATE SODIUM 100 MG CAP PO SCH (17:55)
[2018-09-12] MEDS: LISINOPRIL 5 MG TAB PO SCH (17:56)
[2018-09-12] MEDS: SIMVASTATIN 40 MG TAB PO SCH (17:56)
[2018-09-12] MEDS: WARFARIN SOD 7.5 MG TAB PO SCH (17:57)
--- NOTE | 2018-09-12 18:50 | Hospitalist Progress Note ---
Date of Service September 12, 2018 Assessment & Plan (1) Acute systolic (congestive) heart failure: ECHO here with newly reduced LVEF 30-35%, and with moderate Right ventricular systolic dysfunction, global hypokinesis Mod MR -no signs of ischemia, question if could be rate-related? Presented with LE edema. RV failure from LV failure? 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 may not be the best option in the setting of LV dysfunction, and therefore was discontinued today -continue lisinopril 5mg daily -will need close f/u of LV function after rate controlled-recommend repeat echo in a few months -follow I/Os, daily weights, low sodium diet-gave education on this to pt and (2) Edema, peripheral: Likely related to afib with RVR, and acute CHF CXR neg for pulm vascular congestion No diuretics were given and not needed at this point Doppler LE neg for DVT Edema almost completely resolved at this point with rate control alone (3) Atrial flutter with rapid ventricular response: With rates persistently in the 130s since admission, was improved on diltiazem gtt, but then once off gtt and back to the 130s despite po dilt 360 and Toprol XL 100 today Rate control approach being utilized 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 diltiazem -appreciate Cardiology consult -continue tele monitoring (4) Anticoagulated on Coumadin: as above (5) H/O mechanical aortic valve replacement: With St. Brett valve on Coumadin, goal 2.0-3.0 as per [facility] for "low risk" valve (6) HTN (hypertension): Stable -continue metoprolol, lisinopril (7) Acid reflux: continue PPI (8) Elevated troponin: Elevated trop x 3 but mild and stable, likely demand ischemia in the setting of afib with RVR (9) Coronary artery disease: h/o CAD, with demand ischemia here, no chest pain -continue ASA, statin, metoprolol (10) DVT prophylaxis: Coumadin Dispo-remain on tele overnight and discharge in the morning if blood pressure and rate/rhythm remain normal after taking Toprol-XL this evening Subjective Patient was not able to pass his gag reflex all day after his MILADYS and cardioversion this morning. 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 He has seen ENT for this in the past. He for dinner time was finally able to take clears and did fine with that. Because of that, he just got his metoprolol at dinnertime and so will stay overnight. Remains in sinus rhythm since cardioversion this morning. Denies chest pain shortness of breath Review of Systems All systems reviewed & are unremarkable except as noted in HPI & below Physical Exam 2 Vital Signs (Past 24 Hours): Last Vital Signs Temp 36.5 C 09/12/18 16:03 Pulse 88 09/12/18 18:00 Resp 18 09/12/18 16:03 BP 188/104 H 09/12/18 18:00 Pulse Ox 96 09/12/18 16:03 Constitutional: WD/WN, vitals as above Eyes: PERRL, conjunctivae normal, anicteric sclerae ENMT: external ear and nose normal, oropharynx normal Neck: trachea midline, no thyromegaly Respiratory: normal respiratory effort, lungs clear to auscultation Cardiovascular: Rate/Rhythm: regular rate and regular rhythm Heart Sounds: + click (S2) Extremities: + edema (trace pitting edema left ankle, otherwise normal) Gastrointestinal (Abdomen): normal bowel sounds, soft, nontender, no hepatosplenomegaly Musculoskeletal: Extremities: extremities normal to inspection; no cyanosis and no clubbing Skin: no rashes, warm and dry Neurologic: moves all extremities and awake; no focal motor deficits Psychiatric: A+Ox3, euthymic affect Results & Data Laboratory Results 09/13/18 09/13/18 09/12/18 Range/Units 06:00 06:00 08:20 WBC (4.8-10.8) K/uL RBC (4.7-6.1) M/uL Hgb (14.0-18.0) g/dL Hct (42-52) % MCV (80-100) fL MCH (25-34) pg MCHC (32-36) g/dL RDW Std Deviation (36.4-46.3) fL RDW Coeff of Robbi (11.5-14.5) % Plt Count (130-400) K/uL MPV (7.4-10.4) fL Immature Gran % (Auto) % Neut % (Auto) % Lymph % (Auto) % [place] % (Auto) % Eos % (Auto) % Baso % (Auto) % Immature Gran # (Auto) (0.00-0.02) K/uL Neut # (Auto) (1.4-6.5) K/uL Lymph # (Auto) (1.2-3.4) K/uL [place] # (Auto) (0.11-0.59) K/uL Eos # (Auto) (0-0.5) K/uL Baso # (Auto) (0-0.2) K/uL PT Pending 22.1 H (9.0-12.0) Seconds INR Pending 2.3 H (0.9-1.1) Sodium Pending (136-145) mmol/L Potassium Pending (3.5-5.1) mmol/L Chloride Pending (98-107) mmol/L Carbon Dioxide Pending (21-32) mmol/L Anion Gap Pending (3-11) BUN Pending (7-18) mg/dl Creatinine Pending (0.6-1.4) mg/dl Est Cr Clr Drug Dosing Pending ml/min Est GFR ( Amer) Pending Est GFR (Non-Af Amer) Pending BUN/Creatinine Ratio Pending (10-20) Glucose Pending (70-99) mg/dl Calcium Pending (8.5-10.1) mg/dl Magnesium Pending (1.8-2.4) mg/dl 09/12/18 09/12/18 Range/Units 08:20 08:20 WBC 5.23 (4.8-10.8) K/uL RBC 3.47 L (4.7-6.1) M/uL Hgb 10.7 L (14.0-18.0) g/dL Hct 33.1 L (42-52) % MCV 95.4 (80-100) fL MCH 30.8 (25-34) pg MCHC 32.3 (32-36) g/dL RDW Std Deviation 57.7 H (36.4-46.3) fL RDW Coeff of Robbi 16.6 H (11.5-14.5) % Plt Count 187 (130-400) K/uL MPV 10.3 (7.4-10.4) fL Immature Gran % (Auto) 0.4 % Neut % (Auto) 65.5 % Lymph % (Auto) 22.2 % [place] % (Auto) 9.6 % Eos % (Auto) 1.9 % Baso % (Auto) 0.4 % Immature Gran # (Auto) 0.02 (0.00-0.02) K/uL Neut # (Auto) 3.43 (1.4-6.5) K/uL Lymph # (Auto) 1.16 L (1.2-3.4) K/uL [place] # (Auto) 0.50 (0.11-0.59) K/uL Eos # (Auto) 0.10 (0-0.5) K/uL Baso # (Auto) 0.02 (0-0.2) K/uL PT (9.0-12.0) Seconds INR (0.9-1.1) Sodium 138 (136-145) mmol/L Potassium 4.0 (3.5-5.1) mmol/L Chloride 106 (98-107) mmol/L Carbon Dioxide 25 (21-32) mmol/L Anion Gap 7.0 (3-11) BUN 17 (7-18) mg/dl Creatinine 0.88 (0.6-1.4) mg/dl Est Cr Clr Drug Dosing 66.8 ml/min Est GFR ( Amer) 92.1 Est GFR (Non-Af Amer) 79.4 BUN/Creatinine Ratio 19.7 (10-20) Glucose 92 (70-99) mg/dl Calcium 8.2 L (8.5-10.1) mg/dl Magnesium 2.2 (1.8-2.4) mg/dl _ (1) HTN (hypertension) Hypertension type: essential hypertension Qualified Code(s): I10 - Essential (primary) hypertension
[2018-09-12] MEDS: ASPIRIN 81 MG ECTAB PO SCH (20:52)
[2018-09-12] MEDS: SENNA 8.8 MG/5 ML UDP PO SCH (20:52)
[2018-09-12] MEDS: CHOLECALCIFEROL 1,000 UNITS TAB PO SCH (20:52)
[2018-09-12] MEDS: LATANOPROST 0.005% OP SOLN 2.5 ML BTL OPB SCH (20:52)
[2018-09-13 07:15] LABS: INR 2.8 (0.9-1.1)
[2018-09-13 07:24] LABS: BUN Creatinine Ratio 18.9 (10-20); Calcium 8.5 mg/dl (8.5-10.1); Creatinine Clr Calc Pharmacy 73.5 ml/min; Est GFR (African American) 95.3; Est GFR (Non-African American) 82.2; Magnesium 2.3 mg/dl (1.8-2.4); Potassium 3.7 mmol/L (3.5-5.1)
[2018-09-13] MEDS: PANTOprazole 40 MG TAB PO SCH (08:09)
[2018-09-13] MEDS: METOPROLOL SUCC 50MG EXT REL TAB PO SCH (08:09)
[2018-09-13] MEDS: LISINOPRIL 5 MG TAB PO SCH (08:09)
[2018-09-13] MEDS: DOCUSATE SODIUM 100 MG CAP PO SCH (08:09)
[2018-09-13] MEDS: SIMVASTATIN 40 MG TAB PO SCH (08:09)
--- NOTE | 2018-09-13 08:42 | Cardiology Progress Note ---
Date of Service September 13, 2018 Assessment & Plan (1) Atrial flutter with rapid ventricular response: He presented now with at least several days of atrial flutter based on symptoms. He was not terribly symptomatic despite the rate so it could have been somewhat longer and is likely a cause of his shortness of breath and edema. He has been cardioverted in the past, this admission I had been a little reluctant to do that because he has been subtherapeutic on his INR recently. He was therapeutic about 2 weeks ago but in the interim we do not know. He had not converted back to sinus rhythm. He had a MILADYS guided cardioversion yesterday, he did well with that and has remained in sinus rhythm. I would continue his current dose of metoprolol. He does have a follow-up already arranged with Dr. Haile in about 10 days, I have suggested that he keep that appointment. (2) Coronary artery disease: He has known coronary artery disease, his troponin was slightly elevated but it is stable and not trending upward, I suspect this is due to his heart rate and demand ischemia. Unless It becomes more apparent that there is an issue with his coronary perfusion I would not pursue evaluation. (3) H/O heart valve replacement with mechanical valve: Clinically his valve is working well, on echocardiography this admission the gradients are appropriate for this valve. He needs to be on anticoagulation , apparently he is being maintained between 2 and 3 for his INR. (4) Anticoagulated on Coumadin: He is on warfarin for his valve, this is the anticoagulant that needs to be used. He has been having little trouble with regulation recently, in part perhaps with antibiotic usage when he was ill in the fall. Subjective He feels well today from the cardiovascular standpoint, he is having some difficulty with his bowels. He has been able to eat well. Physical Exam 2 Vital Signs (Past 24 Hours): Last Vital Signs Temp 36.5 C 09/13/18 07:57 Pulse 74 09/13/18 07:57 Resp 20 09/13/18 07:57 BP 143/68 H 09/13/18 07:57 Pulse Ox 99 09/13/18 07:57 Physical Exam: Constitutional: Alert, cooperative and in no distress. Pulmonary: Clear to auscultation bilaterally. Cardiac: Regular rhythm with good prosthetic valve sounds, no gallop or rub. Abdomen: Soft, nontender with normal bowel sounds. Extremities: No edema. Skin: No rash, ecchymoses or petechiae. Results & Data Diagnostic Findings ECG post cardioversion: Sinus rhythm with first-degree AV block, 1 PVC Telemetry: Sinus rhythm since cardioversion. Mostly in the 80s.
[2018-09-13] MEDS ORDERED: POTASSIUM CHLORIDE 20 MEQ/15 ML UDC PO STA (09:16)
--- NOTE | 2018-09-13 10:35 | Anesthesiology Progress Note ---
Date of Service September 13, 2018 Anesthesia Post Procedure Vital Signs Vital Signs: Temp Pulse Pulse Resp BP BP Pulse Ox 09/13/18 07:57 36.5 C 74 20 143/68 H 99 09/13/18 04:01 36.4 C L 92 H 16 155/88 H 154/79 H 91 09/13/18 00:37 36.5 C 90 18 159/80 H 92 09/12/18 22:20 83 09/12/18 19:45 36.6 C 89 18 157/82 H 96 09/12/18 18:00 88 188/104 H 09/12/18 17:26 85 09/12/18 16:03 36.5 C 86 18 176/69 H 96 09/12/18 12:00 36.4 C L 85 18 143/72 H 98 09/12/18 11:00 86 18 153/88 H 97 Notes Mental Status: alert / awake / arousable and participated in evaluation Patient Amnestic to Procedure: Yes Nausea / Vomiting: adequately controlled Pain: adequately controlled Airway Patency, RR, SpO2: stable & adequate BP & HR: stable & adequate Hydration State: stable & adequate Anesthetic Complications: no major complications apparent and Pt Satisfied with anesthetic care
--- NOTE | 2018-09-13 13:05 | Discharge Summary ---
Date of Service September 13, 2018 Admission HPI Per Admitting Provider Chief Complaint: 83 y/o M c/o LE swelling and redness. Pt states that this started about 1 week ago and has not improved. He was seen by Dr. Boss just prior to this and had no swelling. Over the last week he has had redness, swelling, and increased heat of b/l LE, R>L. The skin was very shiny and tight. He has never had LE swelling before. He was seen by Dr. Rossi with the coag clinic today and she sent him to the ED for further eval. Pt denies pain to the LE. When pt arrived to the ED, he was found to be in afib with RVR. Pt states that he had had palpitations at night the last two nights. He has hx of palpitations and when this occurs, he had to be cardioverted. He does not respond to medication for this historically. Pt has had some difficulty with his INR levels after prolonged abx this fall. He was to change to 7.5mg every day except Sun/Sun on which he would take 5mg. Pt denies fever, SOB, chest pain, abd pain, n/v/c/d. Principal Diagnosis Rapid atrial flutter Discharge Exam Constitutional WD/WN, vitals as above Eyes PERRL, conjunctivae normal, anicteric sclerae ENMT external ear and nose normal, oropharynx normal Neck trachea midline, no thyromegaly Respiratory normal respiratory effort, lungs clear to auscultation Cardiovascular Rate/Rhythm: regular rate and regular rhythm Heart Sounds: + click (S2) Extremities: + edema (trace pitting edema left ankle, otherwise normal) Gastrointestinal (Abdomen) normal bowel sounds, soft, nontender, no hepatosplenomegaly Musculoskeletal Extremities: extremities normal to inspection; no cyanosis and no clubbing Skin no rashes, warm and dry Neurologic moves all extremities and awake; no focal motor deficits Psychiatric A+Ox3, euthymic affect Discharge Data Allergies Allergy/AdvReac Type Severity Reaction Status Date / Time bee venom protein (honey bee) Allergy Severe ANAPHYLACTIC Verified 09/09/18 12: 34 REACTION celecoxib Allergy Intermediate HIVES Verified 09/09/18 12:34 chlorhexidine Allergy Intermediate ITCHING Verified 09/09/18 12:34 WITH CHLORHEXIDINE SCRUB povidone-iodine Allergy Intermediate ITCHY RASH Verified 09/09/18 12:34 shellfish derived Allergy Intermediate GI SYMPTOMS Verified 09/09/18 12:34 piperacillin Allergy Mild rash Verified 09/09/18 12:34 tazobactam Allergy Mild rash Verified 09/09/18 12:34 ANESTHESIA AdvReac Unknown HALLUCINATI Uncoded 09/09/18 12:34 ON Consultations Cardiology Procedures Performed Operation Date: 09/12/18 08:30 Actual Procedures p Cardioversion(Not Applicable) - Shay Dunne MD s Transesophageal Echo w/Anesthesia - Shay Dunne MD ECHOCARDIOGRAM Ordered Studies 09/09/18 15:14 US venous doppler LE BI Urgent Hospital Course (1) Acute systolic (congestive) heart failure: ECHO here with newly reduced LVEF 30-35%, and with moderate Right ventricular systolic dysfunction, global hypokinesis Mod MR -no signs of ischemia, question if could be rate-related? Presented with LE edema which is now improved. RV failure from LV failure? I did discuss w/ Cardiology -no diuretics needed at this time -continue Toprol XL and increased dose to 100mg daily --Discontinued po diltiazem as is not ideal in the setting of LV dysfunction -continue lisinopril 5mg daily -will need close f/u of LV function after rate controlled-recommend repeat echo in a few months -follow I/Os, daily weights, low sodium diet-gave education on this to pt and (2) Edema, peripheral: Likely related to afib with RVR, and acute CHF CXR neg for pulm vascular congestion No diuretics were given and not needed at this point Doppler LE neg for DVT Edema almost completely resolved at this point with rate/rhythm control alone (3) Atrial flutter with rapid ventricular response: With rates persistently in the 130s since admission, was improved on diltiazem gtt, but then once off gtt and back to the 130s despite po dilt 360 and Toprol XL 100 daily Rate control approach being utilized given 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 diltiazem -appreciate Cardiology consult (4) Anticoagulated on Coumadin: as above (5) H/O mechanical aortic valve replacement: With St. Brett valve on Coumadin, goal 2.0-3.0 as per [facility] for "low risk" valve (6) HTN (hypertension): Stable -continue metoprolol, lisinopril (7) Acid reflux: continue PPI (8) Elevated troponin: Elevated trop x 3 but mild and stable, likely demand ischemia in the setting of afib with RVR (9) Coronary artery disease: h/o CAD, with demand ischemia here, no chest pain -continue ASA, statin, metoprolol (10) Abnormal gag reflex: Pt did not have a gag reflex which was noted after return from his MILADYS, but reports is chronic for him due to numerous NGTs for bowel obstructions over the years. has seen ENT in the past but was years ago. Occasinally gets pills or pieces of food stuck in throat -recommend outpt f/u with ENT (11) DVT prophylaxis: Coumadin Dispo-stable for dc to home today Total Time Total Time Spent Total Time Spent (In Minutes): >30 min Total Time Includes: Examination of the Patient, Discharge Planning and Medication Reconciliation Discharge Plan Discharge Items Patient Disposition: Home - Self-Care Reason For Visit: Rapid Atrial Flutter Discharge Diagnosis: Rapid Atrial Flutter Condition: Good Discharge Goals: Diagnostic testing, Improve disease control, Learn about illness and Therapeutic intervention Activity: Resume your previous activity Lifting: Gradually increase as tolerated Bathing: No limitations Exercise/Sports: Gradually increase as tolerated Driving/Machine Use: No limitations Non-emergency contact: Primary Care Provider and Call Center Manager Call non-emergency contact if: you have any medication questions and your symptoms worsen Follow-up/Referrals: Parvez Haile MD [Physician] - 09/24/18 10:30 am (Please, follow up with Dr. Haile on SundaySeptember 24 at 10:30 am. *If you need to change this appointment, call the office at [phone].) Tosha Rossi MD, PhD [Pathologist] - 09/19/18 12:00 pm (Please, follow up at [facility] on September 19 at 12:00 pm. *This office is located at the rear of the hospital in [facility]. If you need to change this appointment, call the central scheduling department at [phone].) Jasen Quiles MD [Primary Care Provider] - 09/16/18 2:40 pm (Please, follow up with Dr. Quiles on SundaySeptember 16 at 3:00 pm (arrive 2: [address] Quiles will be your new primary care provider. *This office is located in [address] - big building next to this hospital. If you need to change this appointment, call the office at [phone].) Diet: Low Sodium (2gm) Fluids: 1800ml (7 cups) Addtl Provider Instructions: You were admitted with rapid atrial flutter and had a cardioversion to revert you to a normal rhythm. Your Metoprolol was increased to 100mg daily and your diltiazem was discontinued. Your echocardiogram (ultrasound of the heart) did show that you have developed congestive heart failure. This may have been due to the rapid heart rate. It is important that you have close follow up with your Call Center Manager to monitor this in the future. Because of your poor gag reflex, it is recommended that you follow back up with your ENT doctor, Dr. Reynolds. Please also follow up with your new PCP, Dr. Quiles, as scheduled for you. It was a pleasure taking care of you and best wishes for 2019! -Dr. Oconnor Prescriptions: New metoprolol succinate 100 mg tablet extended release 24 hr 100 mg PO HS Qty: 30 RF: 0 Continue docusate sodium [Colace] 100 mg capsule 100 mg PO DAILY RF: 0 calcipotriene [Dovonex] 0.005 % cream 1 appln TOP DAILY PRN (Reason: rash) RF: 0 biotin 1 mg capsule 1 mg PO DAILY RF: 0 simvastatin 40 mg tablet 40 mg PO DAILY RF: 0 warfarin [Coumadin] 5 mg tablet See Label Instructions PO UD 90 Days Qty: 135 RF: 0 omeprazole 20 mg capsule,delayed release(DR/EC) 20 mg PO DAILY RF: 0 lisinopril 5 mg tablet 5 mg PO DAILY RF: 0 latanoprost 0.005 % drops 1 drp OPB HS RF: 0 aspirin [Aspirin Low Dose] 81 mg Tablet,Delayed Release (Dr/Ec) 81 mg PO HS RF: 0 ipratropium bromide 0.03 % spray,non-aerosol 2 spray Intranasal TID PRN (Reason: Nasal Drainage) RF: 0 cholecalciferol (vitamin D3) [Vitamin D3] 1,000 unit Tablet 1,000 units PO HS RF: 0 mineral oil oil 30 ml PO 3XWK Qty: 360 RF: 0 food supplemt, lactose-reduced [Ensure] liquid See Patient Comments PO BID RF: 0 sennosides 8.8 mg/5 mL syrup 5 ml PO HS RF: 0 acetaminophen [Tylenol Arthritis Pain] 650 mg Tablet Extended Release 650 mg PO AMHS RF: 0 Discontinued metoprolol succinate 50 mg tablet extended release 24 hr 50 mg PO HS RF: 0 Visit Report Forms: My [facility] Portal Stand-Alone Forms: My [facility] Discharge Orders: Discharge Order (Routine); Ordered 09/13/18 Ordered By: Margret Oconnor Admission Data Admit Date/Time: 09/09/18 14:07 Attending Provider: Margret Oconnor Admit Provider: Hiral Santamaria Primary Care Provider: Jasen Quiles Other Providers: Nathan Barron Service: Telemetry Other Pending Studies at Discharge: No
[2018-09-13] MEDS ORDERED: WARFARIN SOD 5 MG TAB PO SCH (16:00)
== END 2018-09-13 14:35 | disposition home or self-care (01) | DRG 308 ==
LOC: ED 11:09 → 2S 14:07 → SUATTDRO 14:07 → 2S 14:49

== ENCOUNTER 2020-08-11 08:24 | Inpatient (IN) ==
[2020-08-11] MEDS ORDERED: ONDANSETRON INJ 2 MG/ML 2 ML VIAL IV STA (08:37)
--- NOTE | 2020-08-11 08:44 | Emergency Department Note ---
Impression & Plan Acetabular fracture, Closed fracture of pubic ramus, Fall, Elevated troponin I level ED Provider Note NAME: KENISHA SMALL Sr AGE: 85 SEX: M : 1935 ARRIVES VIA: Ambulance INFORMANT: Patient, the patient's significant other ED PROVIDER(S): Remy Sharp DO CHIEF COMPLAINT: Left hip pain HPI: The patient is an 85-year-old male who is a history of atrial fibrillation who takes Coumadin who presented to the emergency department after a fall. The patient states he got up to use the bathroom last evening. He states at that time he fell onto his left side hurting his left hip. He was able to ambulate and went back to bed. He states that when he awoke this morning he is noticed that he has had much more pain in his left hip. Pain is worsened with ambulation. Pain is worsened with weightbearing as well as movement of the hip. He denies having any back pain. He denies having any neck pain or chest pain. He has multiple skin tears to both upper extremities. His dressed these with wound dressings prior to arrival. He states his pain is mild to moderate when lying in bed but moderate to severe when trying to ambulate or weight-bear. His did give him Tylenol. He states this helped mildly. He denies having any headache. He denies having any loss of consciousness. His thinks he may have struck the left side of his head because she thought his left eye looked a little swollen. The patient arrived via ALS. ROS: See above HPI for pertinent positives & negatives. A total of 10 systems reviewed and were otherwise negative. PAST MEDICAL HISTORY: See Below PAST SURGICAL HISTORY: See Below FAMILY HISTORY: See Below SOCIAL HISTORY: See Below HOME MEDICATIONS: See Below ALLERGIES: See Below VITALS: See Below PHYSICAL EXAMINATION: GENERAL: The patient is awake and alert. He is somewhat anxious appearing appears uncomfortable. EYES: The conjunctivae are clear. The pupils are round and reactive. EARS, NOSE, MOUTH AND THROAT: The nose is without any evidence of any deformity. NECK: The neck is nontender and supple. RESPIRATORY: Normal respiratory effort is noted there is no evidence of wheezing rhonchi or rales CARDIOVASCULAR: Regular rate and rhythm noted there no murmurs rubs or gallops normal S1 normal S2. GASTROINTESTINAL: The abdomen is soft. Abdomen is nontender. BACK: There is no midline tenderness appreciated. Range of motion appears intact. MUSCULOSKELETAL/EXTREMITIES: There is no deformity of the lower extremity but the patient has significant pain with range of motion testing of the left hip. There is tenderness over the lateral aspect the left hip. There is no tenderness distal to the hip. SKIN: There is venous stasis changes in both lower extremities. Multiple skin tears were noted to the upper extremities. There was no active bleeding in wound dressings were in place. NEUROLOGIC: Patient is awake alert and oriented x3. MEDICAL DECISION MAKING: The patient is an 85-year-old male who presented to the emergency department for an evaluation of left hip pain. The patient fell while walking last evening. He awoke this morning and was unable to bear weight because of severe pain. The patient's x-ray did not show any definite fracture to the hip but he was shown to have a pubic ramus fracture. For this reason further radiographic studies were obtained due to the high suspicion of bony injury of the hip joint. As it turned out the patient was found to have an acetabular fracture. I discussed the patient's laboratory and radiographic studies with him. The patient was treated with pain medication in the emergency department. He was feeling much better. He was found to have a mild elevation in his troponin however he has no chest pain at this time and does not appear to have any new changes on his EKG. I discussed the patient's condition with the on-call orthopedic group. No specific surgical intervention would be required at this time but given the fracture morphology if it were to displace or worsen he would require surgical intervention and possible transfer to a tertiary center because of the specialty type of fracture. For this reason I do feel the patient would be better managed as an inpatient. I discussed his case with the on-call [facility] hospitalist group. They have agreed to evaluate the patient in the emergency department for further management and disposition. Triage Nursing notes reviewed. Prior medical records reviewed Vital Signs: reviewed and remarkable for elevated blood pressure Differential diagnosis: Fracture, subluxation, dislocation, contusion, ligamentous injury, neurovascular, compartment syndrome, rhabdomyolysis, as well as other pathologies. ER treatment provided: See below Diagnostics interpreted by me: ECG: EKG was obtained in the emergency department. My interpretation is normal sinus rhythm at 87 bpm. There is no ectopy. Nonspecific ST segment abnormalities were appreciated. This was compared to a tracing from September 12, 2018. No specific changes were noted. Cardiac Monitoring: An order was placed for continuous cardiac monitoring. The monitor shows a rate of 77 bpm with sinus rhythm. Laboratory studies: As stated above and show below. Imaging studies: See below Consultation(s): 1100: I discussed this case with Marvin Chaidez who is on-call for orthopedic group. They will evaluate the radiographic studies. 1140: I discussed this case with [facility] who is on-call for the [facility] hospitalist group. Past Med/Surg History Medical History (Updated 08/11/20 @ 11:43 by Remy Sharp DO) Abdominal abscess Acid reflux Atrial flutter BPH (benign prostatic hyperplasia) Diastolic heart failure Foreign body of ear, right Glaucoma HLD (hyperlipidemia) Secondary prevention. Managed with moderate intensity statin (simvastatin 20mg) Hyponatremia Impacted cerumen of both ears Nipple pain Osteoarthritis Peripheral vascular disease SNHL (sensorineural hearing loss) Surgical History H/O mechanical aortic valve replacement (2003) History of total left knee replacement (TKR) History of total right knee replacement (TKR) Hx of exploratory laparotomy S/P CABG x 2 S/P knee replacement Family History Father Colorectal cancer MAybe Mother Myocardial infarction Heart disease Hypertension Sister FH: early sudden deaths Valvular heart disease Denies family history of Ovarian cancer Prostate cancer Breast cancer Lung cancer Stroke Social History Smoking Status: Former smoker Cigarettes Per Day: 20; Second Hand Exposure: No; Hx Alcohol Use: Yes Alcohol type: beer and wine Hx Substance Use: No Preferred Language: Turkmen Communication Ability: Effective Visual Impairment: Limited Hearing Ability: Normal Destination Imagination Coordinator Required: No Beliefs That Will Affect Care: None marital status: Current Living Situation: Spouse current occupational status: retired Feels Safe at Home: Yes Dental Care, Regularly: Yes Physical Activity Frequency: 5-6 Times per Week Seatbelt Use: always Sunscreen Use: No Assistive Devices: Glasses, Hearing Aid - Left and Hearing Aid - Right Allergies Allergies Allergy/AdvReac Type Severity Reaction Status Date / Time bee venom protein (honey bee) Allergy Severe ANAPHYLACTIC Verified 08/11/20 08:53 REACTION celecoxib Allergy Intermediate HIVES Verified 08/11/20 08:53 chlorhexidine Allergy Intermediate ITCHING Verified 08/11/20 08:53 WITH CHLORHEXIDINE SCRUB povidone-iodine Allergy Intermediate ITCHY RASH Verified 08/11/20 08:53 shellfish derived Allergy Intermediate GI SYMPTOMS Verified 08/11/20 08:53 piperacillin Allergy Mild rash Verified 08/11/20 08:53 tazobactam Allergy Mild rash Verified 08/11/20 08:53 Sulfa Drugs Allergy Unknown Unknown Uncoded 08/11/20 08:53 ANESTHESIA AdvReac Unknown HALLUCINATI Uncoded 08/11/20 08:53 ON Home Meds Home Medications Medication Instructions Recorded Confirmed docusate sodium 100 mg capsule 100 mg PO DAILY cap 05/17/19 08/11/20 cholecalciferol (vitamin D3) 25 1,000 units PO DAILY 07/08/19 08/11/20 mcg (1,000 unit) capsule Ensure 1 ea PO DAILY 08/02/19 08/11/20 acetaminophen 650 mg 650 mg PO Q12H PRN tab 02/13/20 08/11/20 tablet,extended release amoxicillin 500 mg tablet 2,000 mg PO ONCE tab 03/30/20 08/11/20 sennosides 8.8 mg/5 mL oral syrup 10 ml PO DAILY ml 03/30/20 08/11/20 mineral oil 30 ml PO 3XWK 08/11/20 08/11/20 Previous Rx's Medication Instructions Recorded calcipotriene 0.005 % topical cream 1 appln TOP DAILY #120 gm 07/03/19 omeprazole 20 mg capsule,delayed 20 mg PO DAILY #90 cap 09/22/19 release metoprolol succinate 100 mg 100 mg PO DAILY #90 tab 09/24/19 tablet,extended release 24 hr lisinopril 5 mg tablet 5 mg PO DAILY #90 tab 10/27/19 simvastatin 40 mg tablet 40 mg PO DAILY #90 tab 10/27/19 aspirin [Adult Low Dose Aspirin] 81 mg PO DAILY #30 tab 03/19/20 ammonium lactate 12 % lotion 1 appln TOP BID PRN #225 gm 04/06/20 ipratropium bromide 42 mcg (0.06 See Rx Instructions INTRANASAL TID 04/23/20 %) nasal spray PRN #15 ml warfarin 2.5 mg tablet See Rx Instructions PO DAILY #40 07/14/20 tab warfarin 5 mg tablet See Rx Instructions PO DAILY #90 07/14/20 tab Results & Data (ED) Vital Signs Vital Signs - 24 hr 08/11/20 08:32 08/11/20 08:37 Temperature 36.9 C Temperature Source Oral Pulse Rate 81 Pulse Rhythm Regular Pulse Strength Normal Respiratory Rate 18 Respiratory Effort / Characteristics Non-Labored Spontaneous Respiratory Depth Normal Respiratory Pattern Regular Blood Pressure 169/77 H Blood Pressure Mean 107 Blood Pressure Position Sitting Pulse Oximetry 96 94 Oxygen Delivery Method Room Air Room Air Sepsis Recent Fever Within 48 Hours No Sepsis New/Unexplained Change in Mental Status No Sepsis Action Taken by Nursing No Action Required Home Medications Current Medication List: was personally reviewed by me Laboratory Data Attestation: I reviewed the patient's lab results. Result diagrams: 08/11/20 08:55 08/11/20 08:55 Lab Results 08/11/20 08/11/20 08/11/20 Range/Units 08:55 08:55 08:55 WBC 9.02 (4.8-10.8) K/uL RBC 3.72 L (4.7-6.1) M/uL Hgb 11.8 L (14.0-18.0) g/dL Hct 35.0 L (42-52) % MCV 94.1 (80-100) fL MCH 31.7 (25-34) pg MCHC 33.7 (32-36) g/dL RDW Std Deviation 44.7 (36.4-46.3) fL RDW Coeff of Robbi 13.0 (11.5-14.5) % Plt Count 154 (130-400) K/uL MPV 10.3 (7.4-10.4) fL Immature Gran % (Auto) 0.3 % Neut % (Auto) 82.0 % Lymph % (Auto) 11.8 % Craven % (Auto) 5.4 % Eos % (Auto) 0.3 % Baso % (Auto) 0.2 % Neut # (Auto) 7.39 H (1.4-6.5) K/uL Lymph # (Auto) 1.06 L (1.2-3.4) K/uL Craven # (Auto) 0.49 (0.11-0.59) K/uL Eos # (Auto) 0.03 (0-0.5) K/uL Baso # (Auto) 0.02 (0-0.2) K/uL Immature Gran # (Auto) 0.03 H (0.00-0.02) K/uL PT 25.6 H (9.0-12.0) Seconds INR 2.6 H (0.9-1.1) APTT 38.3 H (21.0-31.0) Seconds PTT Ratio 1.4 Sodium 135 L (136-145) mmol/L Potassium 4.3 (3.5-5.1) mmol/L Chloride 101 (98-107) mmol/L Carbon Dioxide 27 (21-32) mmol/L Anion Gap 7.0 (3-11) BUN 15 (7-18) mg/dl Creatinine 0.85 (0.6-1.4) mg/dl Est Cr Clr Drug Dosing 67.3 ml/min Est GFR ( Amer) 92.1 Est GFR (Non-Af Amer) 79.5 BUN/Creatinine Ratio 17.6 (10-20) Glucose 92 (70-99) mg/dl Calcium 8.9 (8.5-10.1) mg/dl Total Bilirubin 1.8 H (0.2-1) mg/dl AST 46 H (15-37) U/L ALT 33 (12-78) U/L Alkaline Phosphatase 47 (45-117) U/L Troponin I 0.098 H* (0-0.045) ng/ml Total Protein 7.0 (6.4-8.2) gm/dl Albumin 4.0 (3.4-5.0) gm/dl Globulin 3.0 (2.5-4.0) gm/dl Albumin/Globulin Ratio 1.3 (0.9-2) Lipase 187 (73-393) U/L Administered Medications Fentanyl Citrate (Fentanyl Citrate 100 Mcg/2 Ml Vial) 50 mcg IV Q15M PRN PRN Reason: Pain Stop: 08/25/20 08:36 Last Admin: 08/11/20 11:21 Dose: 50 mcg Documented by: [id number] Admin: 08/11/20 09:05 Dose: 50 mcg Documented by: [id number] Discontinued Medications Sodium Chloride (Nss) 500 mls @ 999 mls/hr IV .Q31M MERRITT Stop: 08/11/20 09:15 Last Infusion: 08/11/20 10:03 Dose: 0 mls/hr Documented by: [id number] Admin: 08/11/20 09:05 Dose: 999 mls/hr Documented by: [id number] Ondansetron HCl (Ondansetron Inj 2 Mg/Ml 2 Ml Vial) 4 mg IV NOW STA Stop: 08/11/20 08:38 Last Admin: 08/11/20 09:05 Dose: 4 mg Documented by: [id number] Imaging Data Radiologist's Impression: Patient: KENISHA SMALL Sr Admit Date: 08/11/20 MR#: [id number] Address1: [address] [facility] Acct ID:[id number] Address2: Date: 1935 [facility] Zip: [place] [address] Age: 85 Location: ED Sex: M Room/Bed: Att Phy: Diagnosis: Fall, Left Hip Pain Hue Phy: RV. Brumfield MD Service Date: 08/11/20 Fam Phy: Interpreting Phy: Valentin Guadarrama MD Admit Phy: Ordering Phy: Remy Sharp DO cc: ~ CT SCAN OF THE LEFT HIP WITHOUT IV CONTRAST CLINICAL HISTORY: Fall. Left hip pain. COMPARISON STUDY: Pelvic CT dated 07/09/2018. Left hip and pelvic radiographs dated 08/11/2020. TECHNIQUE: CT scan of the left hip is performed from the bony pelvis to the proximal femoral shaft. Images are reviewed in the axial, sagittal, and coronal planes. IV contrast was not administered for this examination. 3-D reformats are created and assessed. A dose lowering technique was utilized adhering to the principles of ALARA. FINDINGS: The skeletal structures are osteopenic. There is a comminuted inferior left pubic ring fracture with small distracted fragments. There is also fracture of the superior pubic ring adjacent to the symphysis. There is a comminuted fracture involving the anterior and medial giles of the left acetabulum. The left proximal femur is intact. There is no evidence of avascular necrosis of the left femoral head. Moderate degenerative joint space narrowing is seen in the left hip joint. There is a small amount of hemorrhage identified around the left pubic ring fractures. No intramuscular hematoma is identified. There is no left pelvic sidewall or inguinal adenopathy. Advanced atherosclerotic calcification is seen in the left femoral artery. IMPRESSION: 1. Left pubic ring fractures as above. 2. There are comminuted fractures of the medial and superior giles of the left acetabulum. 3. The left proximal femur is intact. ACT 112: Negative or not required by law. Electronically signed by: Valentin Guadarrama M.D. 08/11/2020 10:20 AM Dictated: 08/11/20 1012 Transcribed: Patient: KENISHA SMALL Sr Admit Date: 08/11/20 MR#: [id number] Address1: [address] [facility] Acct ID:[id number] Address2: Date: 1935 [facility] Zip: [place] [address] Age: 85 Location: ED Sex: M Room/Bed: Att Phy: Diagnosis: Fall, Left Hip Pain Hue Phy: RV. Brumfield MD Service Date: 08/11/20 Fam Phy: Interpreting Phy: Hudson Patrick MD Admit Phy: Ordering Phy: Remy Sharp DO cc: ~ XR hip LT 2V w pelvis CLINICAL HISTORY: Left hip pain status post trauma COMPARISON: None DISCUSSION: There are extensive vascular calcifications. No fractures the proximal femur are visualized. There is a fracture the left inferior pubic ramus. There is no SI joint diastases. There is no symphysis diastases. IMPRESSION: 1. Acute fracture of the left inferior pubic ramus 2. No femoral fracture is visualized. ACT 112: Negative or not required by law. Electronically signed by: Hudson Patrick M.D. 08/11/2020 9:36 AM Dictated: 08/11/20 0935 Transcribed: 08/11/20 09 Patient: KENISHA SMALL Admit Date: 08/11/20 MR#: [id number] Address1: [address] [facility] Acct ID:[id number] Address2: Date: 1935 [facility] Zip: [place] [address] Age: 85 Location: ED Sex: M Room/Bed: Att Phy: Diagnosis: Fall, Left Hip Pain Hue Phy: RV. Brumfield MD Service Date: 08/11/20 [facility] Phy: Interpreting Phy: Valentin Guadarrama MD Admit Phy: Ordering Phy: Remy Sharp DO cc: ~ CT SCAN OF THE BRAIN WITHOUT IV CONTRAST CLINICAL HISTORY: Fall. COMPARISON STUDY: CT of the brain dated 08/02/2019. TECHNIQUE: Unenhanced axial CT scan of the brain is performed from the vertex to the skull base. A dose lowering technique was utilized adhering to the principles of ALARA. CT DOSE: 971.83 mGy.cm FINDINGS: Brain parenchyma: There are age-related involutional changes noting moderate subcortical and periventricular microangiopathic change. There is no hemorrhage, mass effect, or evidence of acute territorial ischemia by CT criteria. A small focus of right frontal encephalomalacia is consistent with a remote insult. Coulter-white matter differentiation is preserved. No extra-axial fluid collection is seen. Ventricles, sulci, cisterns: Prominent secondary to involutional change. Intracranial vasculature: There is atherosclerotic calcification of the cavernous carotid and vertebral arteries. Calvarium: The skeletal structures are osteopenic. No depressed calvarial fracture is identified. Sinuses and mastoids: The visualized paranasal sinuses are clear. There are small mastoid effusions. Orbits: The bony orbits are grossly intact. There are bilateral ocular lens implants. IMPRESSION: There is no hemorrhage, mass effect, or evidence of acute territorial ischemia by CT criteria. ACT 112: Negative or not required by law. Electronically signed by: Valentin Guadarrama M.D. 08/11/2020 10:10 AM Dictated: 08/11/20 1008 Transcribed: 08/11/20 1008 Patient: KENISHA SMALL Admit Date: 08/11/20 MR#: [id number] Address1: [facility] [facility] Acct ID:[id number] Address2: Date: 1935 [facility] Zip: [place] [address] Age: 85 Location: ED Sex: M Room/Bed: Att Phy: Diagnosis: Fall, Left Hip Pain Hue Phy: RV. Brumfield MD Service Date: 08/11/20 [facility] Phy: Interpreting Phy: Dipak Pimentel MD Admit Phy: Ordering Phy: Remy Sharp DO cc: ~ XR chest 1V portable CLINICAL HISTORY: Fall. Chest pain. COMPARISON STUDY: Chest radiograph September 09, 2018. FINDINGS: Median sternotomy wires are noted. Cardiomegaly is unchanged. There is no evidence for pulmonary edema. Elevation of the left hemidiaphragm is unchanged. No consolidation is identified. IMPRESSION: No acute cardiopulmonary findings. No change in appearance of the chest. ACT 112: Negative or not required by law. Electronically signed by: Dipak Pimentel M.D. 08/11/2020 9:36 AM Dictated: 08/11/20933 Transcribed: 08/11/20933 Blood Pressure Blood Pressure Findings: Elevated blood pressure Blood Pressure Disposition: further management by hospitalist Discharge Plan Visit Data Chief Complaint: Hip Pain Stated Complaint: Fall, Left Hip Pain ED Provider: Remy Sharp Discharge Problem: Acetabular fracture, Closed fracture of pubic ramus, Fall, Elevated troponin I level Patient Disposition: Being Evaluated by Hospitalist Condition: Good Forms Stand Alone Forms: [facility] [employer] Prescriptions Prescriptions: No Action calcipotriene [Dovonex] 0.005 % cream 1 appln TOP DAILY Qty: 120 RF: 0 omeprazole 20 mg capsule,delayed release(DR/EC) 20 mg PO DAILY Qty: 90 RF: 3 metoprolol succinate 100 mg tablet extended release 24 hr 100 mg PO DAILY Qty: 90 RF: 3 simvastatin 40 mg tablet 40 mg PO DAILY Qty: 90 RF: 3 lisinopril 5 mg tablet 5 mg PO DAILY Qty: 90 RF: 3 ipratropium bromide 42 mcg (0.06 %) spray,non-aerosol See Rx Instructions intranasal TID PRN (Reason: allergy symptoms) Qty: 15 RF: 3 warfarin 5 mg tablet See Rx Instructions PO DAILY Qty: 90 RF: 2 warfarin 2.5 mg tablet See Rx Instructions PO DAILY Qty: 40 RF: 2 cholecalciferol (vitamin D3) 1,000 unit capsule 1,000 units PO DAILY RF: 0 sennosides [senna] 8.8 mg/5 mL syrup 10 ml PO DAILY RF: 0 amoxicillin 500 mg tablet 2,000 mg PO ONCE RF: 0 acetaminophen [Tylenol 8 Hour] 650 mg tablet extended release 650 mg PO Q12H PRN (Reason: Pain) RF: 0 ammonium lactate 12 % lotion 1 appln TOP BID PRN (Reason: dry skin) Qty: 225 RF: 1 docusate sodium 100 mg capsule 100 mg PO DAILY RF: 0 Ensure Liquid 1 ea PO DAILY RF: 0 aspirin [Adult Low Dose Aspirin] 81 mg tablet,delayed release (DR/EC) 81 mg PO DAILY Qty: 30 RF: 3 mineral oil Oil 30 ml PO 3XWK RF: 0 Referrals Referrals: Josias Chopra MD [Primary Care Provider] - Discharge Problem: Acetabular fracture Qualifiers: Encounter type: initial encounter Sublocation of acetabulum: unspecified portion of acetabulum Fracture type: closed Fracture alignment: nondisplaced Laterality: left Qualified Code(s): S32.402A - Unspecified fracture of left acetabulum, initial encounter for closed fracture Closed fracture of pubic ramus Qualifiers: Encounter type: initial encounter Laterality: left Qualified Code(s): S32.592A - Other specified fracture of left pubis, initial encounter for closed fracture Fall Qualifiers: Encounter type: initial encounter Qualified Code(s): W19.XXXA - Unspecified fall, initial encounter
[2020-08-11] MEDS ORDERED: SODIUM CHLORIDE 0.9% 500 ML IV SCH (08:45)
[2020-08-11] MEDS: fentaNYL citrate 100 MCG/2 ML VIAL IV PRN ×3 (09:05→14:09)
[2020-08-11 09:13] LABS: Basophils # (auto) 0.02 K/uL (0-0.2); Basophils % (auto) 0.2 %; Eosinophils # (auto) 0.03 K/uL (0-0.5); Eosinophils % (auto) 0.3 %; Hemoglobin 11.8 g/dL (14.0-18.0); Immature Granulocytes # (auto) 0.03 K/uL (0.00-0.02); Immature Granulocytes % (auto) 0.3 %; Lymphocytes # (auto) 1.06 K/uL (1.2-3.4); Lymphocytes % (auto) 11.8 %; Mean Corpuscular Hemoglobin 31.7 pg (25-34); Mean Corpuscular Hgb Conc 33.7 g/dL (32-36); Mean Corpuscular Volume 94.1 fL (80-100); Mean Platelet Volume 10.3 fL (7.4-10.4); Monocytes # (auto) 0.49 K/uL (0.11-0.59); Monocytes % (auto) 5.4 %; Neutrophils # (auto) 7.39 K/uL (1.4-6.5); Platelet Count 154 K/uL (130-400); RDW Standard Deviation 44.7 fL (36.4-46.3); Red Blood Count 3.72 M/uL (4.7-6.1); White Blood Count 9.02 K/uL (4.8-10.8)
[2020-08-11 09:26] LABS: INR 2.6 (0.9-1.1); Partial Thromboplastin Ratio 1.4; Partial Thromboplastin Time 38.3 Seconds (21.0-31.0); Prothrombin Time 25.6 Seconds (9.0-12.0)
[2020-08-11 09:34] LABS: BUN Creatinine Ratio 17.6 (10-20); Calcium 8.9 mg/dl (8.5-10.1); Creatinine Clr Calc Pharmacy 67.3 ml/min; Est GFR (African American) 92.1; Est GFR (Non-African American) 79.5; Potassium 4.3 mmol/L (3.5-5.1)
--- NOTE | 2020-08-11 09:38 | XRay Report ---
XR chest 1V portable CLINICAL HISTORY: Fall. Chest pain. COMPARISON STUDY: Chest radiograph September 09, 2018. FINDINGS: Median sternotomy wires are noted. Cardiomegaly is unchanged. There is no evidence for pulm onary edema. Elevation of the left hemidiaphragm is unchanged. No consolidation is identified. IMPRESSION: No acute cardiopulmonary findings. No change in appearance of the chest. ACT 112: Negative or not required by law. Electronically signed by: Dipak Pimentel M.D. 08/11/2020 9:36 AM
--- NOTE | 2020-08-11 09:38 | XRay Report ---
XR hip LT 2V w pelvis CLINICAL HISTORY: Left hip pain status post trauma COMPARISON: None DISCUSSION: There are extensive vascular calcifications. No fractures the proximal femur are visualiz ed. There is a fracture the left inferior pubic ramus. There is no SI joint diastases. There is no sy mphysis diastases. IMPRESSION: 1. Acute fracture of the left inferior pubic ramus 2. No femoral fracture is visualized. ACT 112: Negative or not required by law. Electronically signed by: Hudson Patrick M.D. 08/11/2020 9:36 AM
[2020-08-11 09:44] LABS: Albumin Globulin Ratio 1.3 (0.9-2); Bilirubin,Total 1.8 mg/dl (0.2-1); Troponin I 0.098 ng/ml (0-0.045)
--- NOTE | 2020-08-11 10:11 | CT Scan Report ---
CT SCAN OF THE BRAIN WITHOUT IV CONTRAST CLINICAL HISTORY: Fall. COMPARISON STUDY: CT of the brain dated 08/02/2019. TECHNIQUE: Unenhanced axial CT scan of the brain is performed from the vertex to the skull base. A do se lowering technique was utilized adhering to the principles of ALARA. CT DOSE: 971.83 mGy.cm FINDINGS: Brain parenchyma: There are age-related involutional changes noting moderate subcortical and periven tricular microangiopathic change. There is no hemorrhage, mass effect, or evidence of acute territori al ischemia by CT criteria. A small focus of right frontal encephalomalacia is consistent with a pedro te insult. Coulter-white matter differentiation is preserved. No extra-axial fluid collection is seen. Ventricles, sulci, cisterns: Prominent secondary to involutional change. Intracranial vasculature: There is atherosclerotic calcification of the cavernous carotid and vertebr al arteries. Calvarium: The skeletal structures are osteopenic. No depressed calvarial fracture is identified. Sinuses and mastoids: The visualized paranasal sinuses are clear. There are small mastoid effusions. Orbits: The bony orbits are grossly intact. There are bilateral ocular lens implants. IMPRESSION: There is no hemorrhage, mass effect, or evidence of acute territorial ischemia by CT helen benitez. ACT 112: Negative or not required by law. Electronically signed by: Valentin Guadarrama M.D. 08/11/2020 10:10 AM
--- NOTE | 2020-08-11 10:22 | CT Scan Report ---
CT SCAN OF THE LEFT HIP WITHOUT IV CONTRAST CLINICAL HISTORY: Fall. Left hip pain. COMPARISON STUDY: Pelvic CT dated 07/09/2018. Left hip and pelvic radiographs dated 08/11/2020. TECHNIQUE: CT scan of the left hip is performed from the bony pelvis to the proximal femoral shaft. Images are reviewed in the axial, sagittal, and coronal planes. IV contrast was not administered for this examination. 3-D reformats are created and assessed. A dose lowering technique was utilized adh ering to the principles of ALARA. FINDINGS: The skeletal structures are osteopenic. There is a comminuted inferior left pubic ring frac ture with small distracted fragments. There is also fracture of the superior pubic ring adjacent to t he symphysis. There is a comminuted fracture involving the anterior and medial giles of the left acet abulum. The left proximal femur is intact. There is no evidence of avascular necrosis of the left fem oral head. Moderate degenerative joint space narrowing is seen in the left hip joint. There is a smal l amount of hemorrhage identified around the left pubic ring fractures. No intramuscular hematoma is identified. There is no left pelvic sidewall or inguinal adenopathy. Advanced atherosclerotic calcifi cation is seen in the left femoral artery. IMPRESSION: 1. Left pubic ring fractures as above. 2. There are comminuted fractures of the medial and superior giles of the left acetabulum. 3. The left proximal femur is intact. ACT 112: Negative or not required by law. Electronically signed by: Valentin Guadarrama M.D. 08/11/2020 10:20 AM
[2020-08-11] MEDS ORDERED: ACETAMINOPHEN 500 MG TAB PO PRN (12:31)
[2020-08-11] MEDS ORDERED: ONDANSETRON INJ 2 MG/ML 2 ML VIAL IV PRN (12:31)
[2020-08-11] MEDS ORDERED: oxyCODONE HCL IR 5 MG TAB (IMMEDIATE RELEASE) PO PRN (12:31)
[2020-08-11] MEDS ORDERED: NALOXONE HCL 0.4 MG/1 ML VIAL/CARP IV PRN (12:31)
[2020-08-11] MEDS ORDERED: MoRPHine SULFATE 2 MG/ML CARP IV PRN (12:31)
[2020-08-11] MEDS ORDERED: IPRATROPIUM BROMIDE NASAL SPRAY 0.06% 15ML PRN (12:40)
--- NOTE | 2020-08-11 13:05 | History & Physical Report ---
Date of Service August 11, 2020 Assessment & Plan (1) Closed fracture of pubic ramus: * Patient sustained a ground-level fall early this morning. * Pelvic CT findings: * There is a comminuted inferior left pubic ring fracture with small distracted fragments. There is also fracture of the superior pubic ring adjacent to the symphysis. There is a comminuted fracture involving the anterior and medial giles of the left acetabulum. The left proximal femur is intact. * Orthopedic consultation obtained. Patient to remain nonweightbearing status. Okay with range of motion activities. Okay with bed to chair with assistance as tolerated by patient. * Patient would likely require PT OT assessment and possible placement as he lives at home primarily with his who was unable to help him with ambulation today. * Per orthopedics, likely no surgical intervention at this time. * Will trend H&H in the setting of pelvic fracture to evaluate for possible delayed bleeding in the anticoagulated patient. (2) Acetabular fracture: * As above. (3) Fall: * Patient reports being "unsteady" on his feet for the last few weeks. * PT/OT evaluation when Ortho approved. * CT head unremarkable. * No other significant laboratory findings. * No focal neurological deficits on exam. (4) NSTEMI (non-ST elevated myocardial infarction): * Likely secondary to demand/stress in the setting of recent injury. * Will trend troponins. * EKG without acute findings. * Will consult with procurement professional logistics given the patient's complex coronary artery disease/AVR repair. * Will hold on Echo for now. (5) Atrial flutter, paroxysmal: * Will continue home Rx as tolerated. * See MARIANA for anticoagulation recommendations. (6) CAD (coronary atherosclerotic disease): * Previous h/o 2 vessel CABG. * Continue home ASCVD Rx as tolerated. (7) Dyslipidemia: * Continue home dosing of Simvastatin. (8) Atrial fibrillation: * Continue Rx per A.Fib Tx above. (9) Hypertension: * Continue home Rx as patient is w/o s/s renal injury or overt hypotension. (10) H/O mechanical aortic valve replacement: * Currently anticoagulated on Coumadin. * INR 2.6 today. * Will hold Coumadin in the setting of pelvic fracture with risk for bleeding and potential need for surgery/intervention. * Will recheck INR in AM. * Transition to Heparin when INR 2.0 or <. * Heparin Standard NO bolus per pharmacy recommendation. * Would hold on Vitamin K, FFP, PCC at this time unless patient were to develop significant bleeding. History of Present Illness Primary Care Provider: Josias Chopra MD Patient is an 85-year-old male with a significant past medical history of cor onary artery disease status post two-vessel CABG, paroxysmal A. fib, status post Maze procedure, ischemic cardiomyopathy, mitral regurgitation, mechanical aortic valve replacement, history of SBO status post surgical intervention, hypertension, hyperlipidemia, and peripheral arterial disease. Patient reports that he has been unsure in his feet over the last few weeks. He reports being cautious when he ambulates. Earlier this morning, the patient exited his bed to use the restroom when he reports that his legs "gave out from under him" and caused him to fall and land on his LEFT side. He is uncertain if he struck his head. He did not lose consciousness. His was able to help him from the floor. Throughout the morning, the patient had increasing pain and inability to ambulate. EMS was contacted and the patient was brought to the emergency department for further evaluation and management. Upon assessment, the patient was found to have a fracture of the LEFT pubic ring as well as comminuted fractures of the medial and superior giles of the LEFT acetabulum. No femur fractures appreciated. Patient was also noted to have a slight elevation of his troponin. EKG demonstrates no acute changes, thankfully. Upon evaluation in the emergency department, the patient is awake, alert, and oriented. He elicits pain to the LEFT-sided hip which she reports is worse with range of motion. He reports that he did have a slight headache which has resolved. Patient denies any prefall headaches, dizziness, lightheadedness, chest pain, palpitations, shortness of breath. Currently, the patient denies any of the same symptoms. Patient's is at bedside and reports that she did go to the attic and retrieve a walker for him to use, however he was unable to tolerate weightbearing and she knows time to bring him to the hospital. Allergies Allergy/AdvReac Type Severity Reaction Status Date / Time bee venom protein (honey bee) Allergy Severe ANAPHYLACTIC Verified 08/11/20 08:53 REACTION celecoxib Allergy Intermediate HIVES Verified 08/11/20 08:53 chlorhexidine Allergy Intermediate ITCHING Verified 08/11/20 08:53 WITH CHLORHEXIDINE SCRUB povidone-iodine Allergy Intermediate ITCHY RASH Verified 08/11/20 08:53 shellfish derived Allergy Intermediate GI SYMPTOMS Verified 08/11/20 08:53 piperacillin Allergy Mild rash Verified 08/11/20 08:53 tazobactam Allergy Mild rash Verified 08/11/20 08:53 Sulfa Drugs Allergy Unknown Unknown Uncoded 08/11/20 08:53 ANESTHESIA AdvReac Unknown HALLUCINATI Uncoded 08/11/20 08:53 ON Home Medications Medication Instructions Recorded Confirmed Type docusate sodium 100 mg capsule 100 mg PO DAILY cap 05/17/19 08/11/20 History calcipotriene 0.005 % topical cream 1 appln TOP DAILY #120 gm 07/03/19 08/11/20 Rx cholecalciferol (vitamin D3) 25 1,000 units PO DAILY 07/08/19 08/11/20 History mcg (1,000 unit) capsule Ensure 1 ea PO DAILY 08/02/19 08/11/20 History omeprazole 20 mg capsule,delayed 20 mg PO DAILY #90 cap 09/22/19 08/11/20 Rx release metoprolol succinate 100 mg 100 mg PO DAILY #90 tab 09/24/19 08/11/20 Rx tablet,extended release 24 hr lisinopril 5 mg tablet 5 mg PO DAILY #90 tab 10/27/19 08/11/20 Rx simvastatin 40 mg tablet 40 mg PO DAILY #90 tab 10/27/19 08/11/20 Rx acetaminophen 650 mg 650 mg PO Q12H PRN tab 02/13/20 08/11/20 History tablet,extended release aspirin [Adult Low Dose Aspirin] 81 mg PO DAILY #30 tab 03/19/20 08/11/20 Rx amoxicillin 500 mg tablet 2,000 mg PO ONCE tab 03/30/20 08/11/20 History sennosides 8.8 mg/5 mL oral syrup 10 ml PO DAILY ml 03/30/20 08/11/20 History ammonium lactate 12 % lotion 1 appln TOP BID PRN #225 gm 04/06/20 08/11/20 Rx ipratropium bromide 42 mcg (0.06 See Rx Instructions INTRANASAL TID 04/23/20 08/11/20 Rx %) nasal spray PRN #15 ml warfarin 2.5 mg tablet See Rx Instructions PO DAILY #40 07/14/20 08/11/20 Rx tab warfarin 5 mg tablet See Rx Instructions PO DAILY #90 07/14/20 08/11/20 Rx tab mineral oil 30 ml PO 3XWK 08/11/20 08/11/20 History Past Med/Surg History Medical History (Updated 08/11/20 @ 16:22 by Margarito Graf MD) Abdominal abscess Acid reflux BPH (benign prostatic hyperplasia) CAD (coronary atherosclerotic disease) Foreign body of ear, right Glaucoma HLD (hyperlipidemia) Hypertension Hyponatremia Impacted cerumen of both ears Mitral regurgitation Nipple pain Osteoarthritis Paroxysmal atrial fibrillation Peripheral vascular disease SNHL (sensorineural hearing loss) Surgical History H/O mechanical aortic valve replacement (2003) History of total left knee replacement (TKR) History of total right knee replacement (TKR) Hx of exploratory laparotomy S/P CABG x 2 S/P knee replacement Family History Father Colorectal cancer MAybe Mother Myocardial infarction Heart disease Hypertension Sister FH: early sudden deaths Valvular heart disease Denies family history of Ovarian cancer Prostate cancer Breast cancer Lung cancer Stroke Social History Smoking Status: Former smoker Cigarettes Per Day: 20; Second Hand Exposure: No; Hx Alcohol Use: No Hx Substance Use: No Preferred Language: Guyanese Communication Ability: Effective Visual Impairment: Limited Hearing Ability: Normal It Senior Analyst Required: No Beliefs That Will Affect Care: None marital status: Current Living Situation: Alone and Spouse current occupational status: retired Other Information That Helps Us Care for You: No Feels Safe at Home: Yes Dental Care, Regularly: Yes Physical Activity Frequency: 5-6 Times per Week Seatbelt Use: always Sunscreen Use: No Assistive Devices: Cane, Denture - Upper, Denture - Lower, Glasses, Hearing Aid - Bilateral and Walker Review of Systems Review of Systems: A complete 10 point review of systems was reviewed with the patient with pertinent positives and negatives as per history of present illness. All else were negative. Physical Exam Physical Exam: VITAL SIGNS - Vital signs and nursing notes were reviewed. GENERAL - 85-year-old male appearing his stated age who is in no acute distress. Communicates well with provider and answers questions appropriately. SKIN - Without rashes. Dressings in place to the bilateral arms secondary to skin tears. HEAD - NC/AT. EYES - PERRL with EOMI bilaterally. Sclera anicteric. EARS - No deformities of external structures noted on gross examination bilaterally. NOSE - Midline and without cyanosis. No epistaxis or purulent drainage noted. MOUTH/OROPHARYNX - Without perioral cyanosis. Buccal mucosa pink and moist and without leukoplakia. Tongue midline with equal elevation of palate bilaterally. NECK - Neck with FROM. Supple to palpation. No nuchal rigidity. LUNGS - Chest wall symmetric without accessory muscle use, intercostals retractions, or central cyanosis. Normal vesicular breath sounds CTA B/L. No wheezes, rales, or rhonchi appreciated. CARDIAC - RRR with S1/S2. No murmur, rubs, or gallops appreciated. ABDOMEN - Abdominal contour flat without pulsations or visible masses. BS normoactive all four quadrants. No tenderness, palpable masses, hepatospl enomegaly, or ascites noted. EXTREMITIES - TTP over the lateral aspect of the LEFT hip. No clubbing or peripheral cyanosis. No pretibial edema present. +3/5 radial pulses w/ diminished pedal pulses bilaterally. NEUROLOGIC - Cranial nerves II through XII grossly intact. Sensory intact to light touch throughout. PSYCH - A&Ox3 and cooperates fully with examiner. Pt is very pleasant and interacts well with examiner. Results & Data Results & Data ([facility]) Vital Signs (Past 12 Hours) Vital Signs Temp Pulse Resp BP Pulse Ox 08/11/20 11:30 77 15 163/86 H 95 08/11/20 10:30 61 14 186/92 H 97 08/11/20 10:01 76 12 192/94 H 95 08/11/20 09:30 70 13 199/92 H 92 08/11/20 09:15 63 13 167/85 H 95 08/11/20 08:37 94 08/11/20 08:32 36.9 C 81 18 169/77 H 96 08/11/20 08:29 77 17 169/77 H 97 Code Status & VTE Plan VTE Prophylaxis Plan VTE Prophylaxis will be ordered: Yes Supervising Physician Co-Signing Physician Notes Patient was seen and examined independently I discussed the case with Buster ALVAREZ I reviewed pertinent past medical social family history and also the plan of care and agree with the plan of care. this pt is with some pain especially to his left hip, Ct scan reveals There is a comminuted inferior left pubic ring fracture with small distracted fragments. There is also fracture of the superior pubic ring adjacent to the symphysis. There is a comminuted fracture involving the anterior and medial giles of the left acetabulum. The left proximal femur is intact. Pt has an incidental elevated troponin and has already been seen by cardiology, with recommendation " Elevated troponin: His troponin is minimally elevated and not diagnostic of myocardial infarction. He did not present with acute coronary syndrome and has not experienced any recent anginal or heart failure symptoms. He appears to typically have elevated troponins at other hospital visits as well. Can continue to trend troponin until peak. No ischemic evaluation necessary at this time." his physical exam is with regular heart tones and clear lungs although diminshed at bases good capillary refill and sensation to left foot Any exceptions will be noted below PG Care Time/CCT Total # of Minutes Spent Total Time Spent with Patient: Total time spent is greater than 50% in coordination of care (as documented) at patient's floor/unit and/or counseling patient: Coding Level of Care Code 34372 Initial Inpt Care Lvl 3 Diagnoses Closed fracture of pubic ramus S32.592A Encounter type: initial encounter Laterality: left Acetabular fracture S32.402A Encounter type: initial encounter Fracture alignment: nondisplaced Fracture type: closed Laterality: left Sublocation of acetabulum: unspecified portion of acetabulum Fall W19.XXXA Encounter type: initial encounter NSTEMI (non-ST elevated myocardial infarction) I21.4 Atrial flutter, paroxysmal I48.92 CAD (coronary atherosclerotic disease) I25.10 Dyslipidemia E78.5 Atrial fibrillation I48.91 Hypertension I10 H/O mechanical aortic valve replacement Z95.2 Time Spent (min) 55 (1) Closed fracture of pubic ramus Encounter type: initial encounter Laterality: left Qualified Code(s): S3 2.592A - Other specified fracture of left pubis, initial encounter for closed fracture (2) Acetabular fracture Encounter type: initial encounter Fracture alignment: nondisplaced Fracture type: closed Laterality: left Sublocation of acetabulum: unspecified portion of acetabulum Qualified Code(s): S32.402A - Unspecified fracture of left acetabulum, initial encounter for closed fracture (3) Fall Encounter type: initial encounter Qualified Code(s): W19.XXXA - Unspecified fall, initial encounter
[2020-08-11 16:10] LABS: Hematocrit (blood only) 35.9 % (42-52); Hemoglobin 12.1 g/dL (14.0-18.0)
[2020-08-11] MEDS: SODIUM CHLORIDE 0.9% 1000ML 1,000 ML IV SCH (16:14)
--- NOTE | 2020-08-11 16:24 | Cardiology Consultation ---
Date of Consultation August 11, 2020 Assessment & Plan (1) Elevated troponin I level: (2) Fall: (3) Preop examination: (4) CAD (coronary atherosclerotic disease): (5) S/P CABG (coronary artery bypass graft): (6) Mitral regurgitation: (7) Paroxysmal atrial fibrillation: (8) H/O mechanical aortic valve replacement: (9) Hypertension: ASSESSMENT/PLAN: 1. Elevated troponin: His troponin is minimally elevated and not diagnostic of myocardial infarction. He did not present with acute coronary syndrome and has not experienced any recent anginal or heart failure symptoms. He appears to typically have elevated troponins at other hospital visits as well. Can continue to trend troponins until peak. No ischemic evaluation necessary at this time. 2. Fall: Appears to be mechanical. 3. CAD s/p CABG x 2: No angina. On anti-platelet therapy. Continue statin therapy and beta-michael. 4. Mitral regurgitation: Reported as moderate to severe. Followed as an outpatient by Dr. Haile. Appears to be asymptomatic. 5. Paroxysmal atrial fibrillation s/p MAZE: Currently in sinus. On anticoagulation therapy. Continue beta-michael. 6. Mechanical aortic valve: On anticoagulation therapy in the form of Coumadin. Anticoagulation will likely need to be held for hip surgery if indicated. Ortho consult is currently pending. 7. Hypertension: Blood pressure elevated but he also is in pain from his left hip fracture. Continue home regimen. Pain control. 8. Hip fracture: As per Ortho. 9. Preoperative evaluation: He has underlying coronary disease. If his troponin becomes significantly elevated, he would be considered higher risk for surgical procedure. Currently, troponins are at his typical level for other hospitalizations in comparison. No further ischemic evaluation is recommended prior to surgery, if indicated. Recommend that he remain on metoprolol succinate throughout the perioperative period, including the morning of surgery. 10. Disposition: Follow-up with Dr. Haile as an outpatient. Please call with any other questions or concerns. Thank you for allowing me to participate in the care of your patient. Please call for any other questions or concerns. Sincerely, Mckay Graf M.D. History of Present Illness Reason for Consultation: Concern for possible NSTEMI Requesting Physician: Dimas Dominguez MD Attending Physician: Dimas Dominguez MD History of Present Illness Mr. Pate is a pleasant 85-year-old gentleman with a history significant for CABG x2 and mechanical aortic valve replacement ([facility]) in 2003, paroxysmal atrial fibrillation s/p MAZE, moderate to severe mitral regurgitation, cardiomyopathy with normalized LV systolic function, peripheral arterial disease status post bilateral lower extremity angioplasty (followed by Dr. Garcia), hypertension, and dyslipidemia. 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 He follows with Dr. Garcia for peripheral arterial disease. At approximately midnight this morning, he got out of bed to use the restroom and lost his balance. When he fell, he fractured his left hip (pubic ring fracture and comminuted fractures of the medial and superior giles of the left acetabulum). He states that he did not lose consciousness at any time. He states that he simply lost his balance. He denies chest pain, shortness of breath, palpitations, syncope, or near-syncope. He typically uses a cane to ambulate. He has not had any exertional symptoms such as chest pain or shortness of breath. He does have lower extremity claudication bilaterally which initially improved following angioplasty but once again is occurring. He follows up with vascular. He currently has left hip pain but denies any cardiac symptoms. He denies fevers, chills, or bleeding such as melena, hematochezia, or hematuria. Cardiology was consulted for concern of myocardial infarction. He was noted to have initial troponin of 0.098 which increased to 0.157. Incidentally, other than 2 troponin levels in 2018, his troponins appear to be chronically elevated during hospital visits in August of 2018, and June of 2017. Troponins tend to be minimally elevated, not diagnostic of myocardial infarction. Review of systems: As above. Review of systems otherwise negative/unremarkable. Family history: Mother at the age of 53 from myocardial infarction. Social history: Quit smoking in 1967. He consumes 2 or 3 beers per day and 2 or 3 glasses of wine per day, estimating 4 5 drinks total per day. He lives at home with his . They have 3 children. He was unaccompanied in his hospital room. Allergies Allergy/AdvReac Type Severity Reaction Status Date / Time bee venom protein (honey bee) Allergy Severe ANAPHYLACTIC Verified 08/11/20 08:53 REACTION celecoxib Allergy Intermediate HIVES Verified 08/11/20 08:53 chlorhexidine Allergy Intermediate ITCHING Verified 08/11/20 08:53 WITH CHLORHEXIDINE SCRUB povidone-iodine Allergy Intermediate ITCHY RASH Verified 08/11/20 08:53 shellfish derived Allergy Intermediate GI SYMPTOMS Verified 08/11/20 08:53 piperacillin Allergy Mild rash Verified 08/11/20 08:53 tazobactam Allergy Mild rash Verified 08/11/20 08:53 Sulfa Drugs Allergy Unknown Unknown Uncoded 08/11/20 08:53 ANESTHESIA AdvReac Unknown HALLUCINATI Uncoded 08/11/20 08:53 ON Home Medications Medication Instructions Recorded Confirmed Type docusate sodium 100 mg capsule 100 mg PO DAILY cap 05/17/19 08/11/20 History calcipotriene 0.005 % topical cream 1 appln TOP DAILY #120 gm 07/03/19 08/11/20 Rx cholecalciferol (vitamin D3) 25 1,000 units PO DAILY 07/08/19 08/11/20 History mcg (1,000 unit) capsule Ensure 1 ea PO DAILY 08/02/19 08/11/20 History omeprazole 20 mg capsule,delayed 20 mg PO DAILY #90 cap 09/22/19 08/11/20 Rx release metoprolol succinate 100 mg 100 mg PO DAILY #90 tab 09/24/19 08/11/20 Rx tablet,extended release 24 hr lisinopril 5 mg tablet 5 mg PO DAILY #90 tab 10/27/19 08/11/20 Rx simvastatin 40 mg tablet 40 mg PO DAILY #90 tab 10/27/19 08/11/20 Rx acetaminophen 650 mg 650 mg PO Q12H PRN tab 02/13/20 08/11/20 History tablet,extended release aspirin [Adult Low Dose Aspirin] 81 mg PO DAILY #30 tab 03/19/20 08/11/20 Rx amoxicillin 500 mg tablet 2,000 mg PO ONCE tab 03/30/20 08/11/20 History sennosides 8.8 mg/5 mL oral syrup 10 ml PO DAILY ml 03/30/20 08/11/20 History ammonium lactate 12 % lotion 1 appln TOP BID PRN #225 gm 04/06/20 08/11/20 Rx ipratropium bromide 42 mcg (0.06 See Rx Instructions INTRANASAL TID 04/23/20 08/11/20 Rx %) nasal spray PRN #15 ml warfarin 2.5 mg tablet See Rx Instructions PO DAILY #40 11/18/20 12/16/20 Rx tab warfarin 5 mg tablet See Rx Instructions PO DAILY #90 07/14/20 08/11/20 Rx tab mineral oil 30 ml PO 3XWK 08/11/20 08/11/20 History Patient History Medical History (Updated 08/11/20 @ 16:22 by Margarito Graf MD) Abdominal abscess Acid reflux BPH (benign prostatic hyperplasia) CAD (coronary atherosclerotic disease) Foreign body of ear, right Glaucoma HLD (hyperlipidemia) Hypertension Hyponatremia Impacted cerumen of both ears Mitral regurgitation Nipple pain Osteoarthritis Paroxysmal atrial fibrillation Peripheral vascular disease SNHL (sensorineural hearing loss) Surgical History H/O mechanical aortic valve replacement (2003) History of total left knee replacement (TKR) History of total right knee replacement (TKR) Hx of exploratory laparotomy S/P CABG x 2 S/P knee replacement Family History Father Colorectal cancer MAybe Mother Myocardial infarction Heart disease Hypertension Sister FH: early sudden deaths Valvular heart disease Denies family history of Ovarian cancer Prostate cancer Breast cancer Lung cancer Stroke Social History Smoking Status: Former smoker Cigarettes Per Day: 20; Second Hand Exposure: No; Hx Alcohol Use: No Hx Substance Use: No Preferred Language: Slovak Communication Ability: Effective Visual Impairment: Limited Hearing Ability: Normal Home Builder Required: No Beliefs That Will Affect Care: None marital status: Current Living Situation: Alone and Spouse current occupational status: retired Other Information That Helps Us Care for You: No Feels Safe at Home: Yes Dental Care, Regularly: Yes Physical Activity Frequency: 5-6 Times per Week Seatbelt Use: always Sunscreen Use: No Assistive Devices: Cane, Denture - Upper, Denture - Lower, Glasses, Hearing Aid - Bilateral and Walker Physical Exam Physical Exam: Gen.: No acute distress. Alert and oriented. HEENT: Anicteric sclera. Neck: No JVD. Bilateral bruits vs radiation of cardiac murmur. Normal carotid upstrokes bilaterally. Cardiac: PMI was nonpalpable. No ventricular heave. Regular rate and rhythm. Normal S1. Rowan S2. 2/6 systolic ejection murmur. No rubs or gallops. Pulmonary: Clear to auscultation bilaterally without wheezes, rales, or rhonchi. Abdomen: Soft, nontender, nondistended, with normoactive bowel sounds. No bruits noted. Extremities: 2+ radial pulses bilaterally. Dorsalis pedis pulses nonpalpable. Distal lower extremities were warm and pink. No edema or cyanosis. No palpable cords. Psychiatric: Affect appears appropriate. Results & Data ([facility]) Vital Signs (Past 12 Hours) Vital Signs Temp Pulse Pulse Resp BP BP Pulse Ox 08/11/20 14:38 37.1 C 84 20 163/82 H 91 08/11/20 14:13 82 18 164/85 H 93 08/11/20 14:10 84 18 94 08/11/20 14:00 83 18 164/85 H 08/11/20 13:50 81 19 92 08/11/20 13:40 84 18 93 08/11/20 13:30 102 H 29 H 159/71 H 91 08/11/20 13:20 75 18 93 08/11/20 13:11 78 18 155/84 H 88 L 08/11/20 13:10 87 20 08/11/20 13:00 81 21 08/11/20 12:50 77 20 08/11/20 12:40 93 H 15 08/11/20 12:30 75 15 159/80 H 08/11/20 12:20 90 17 08/11/20 12:10 78 17 08/11/20 12:00 73 19 170/81 H 08/11/20 11:50 140 H 29 H 08/11/20 11:40 91 H 16 94 08/11/20 11:30 77 15 163/86 H 95 08/11/20 10:30 61 14 186/92 H 97 08/11/20 10:01 76 12 192/94 H 95 08/11/20 09:30 70 13 199/92 H 92 08/11/20 09:15 63 13 167/85 H 95 08/11/20 08:37 94 08/11/20 08:32 36.9 C 81 18 169/77 H 96 08/11/20 08:29 77 17 169/77 H 97 Laboratory Results Laboratory Results - last 24 hr 08/11/20 08/11/20 08/11/20 08:55 08:55 08:55 WBC 9.02 RBC 3.72 L Hgb 11.8 L Hct 35.0 L MCV 94.1 MCH 31.7 MCHC 33.7 RDW Std Deviation 44.7 RDW Coeff of Robbi 13.0 Plt Count 154 MPV 10.3 Immature Gran % (Auto) 0.3 Neut % (Auto) 82.0 Lymph % (Auto) 11.8 Moore % (Auto) 5.4 Eos % (Auto) 0.3 Baso % (Auto) 0.2 Neut # (Auto) 7.39 H Lymph # (Auto) 1.06 L Moore # (Auto) 0.49 Eos # (Auto) 0.03 Baso # (Auto) 0.02 Immature Gran # (Auto) 0.03 H PT 25.6 H INR 2.6 H APTT 38.3 H PTT Ratio 1.4 Sodium 135 L Potassium 4.3 Chloride 101 Carbon Dioxide 27 Anion Gap 7.0 BUN 15 Creatinine 0.85 Est Cr Clr Drug Dosing 67.3 Est GFR ( Amer) 92.1 Est GFR (Non-Af Amer) 79.5 BUN/Creatinine Ratio 17.6 Glucose 92 Calcium 8.9 Total Bilirubin 1.8 H AST 46 H ALT 33 Alkaline Phosphatase 47 Troponin I 0.098 H* Total Protein 7.0 Albumin 4.0 Globulin 3.0 Albumin/Globulin Ratio 1.3 Lipase 187 SARS-CoV-2 Ag (Rapid) Blood Type Antibody Screen 08/11/20 08/11/20 08/11/20 12:20 13:03 13:03 WBC RBC Hgb Hct MCV MCH MCHC RDW Std Deviation RDW Coeff of Robbi Plt Count MPV Immature Gran % (Auto) Neut % (Auto) Lymph % (Auto) Moore % (Auto) Eos % (Auto) Baso % (Auto) Neut # (Auto) Lymph # (Auto) Moore # (Auto) Eos # (Auto) Baso # (Auto) Immature Gran # (Auto) PT INR APTT PTT Ratio Sodium Potassium Chloride Carbon Dioxide Anion Gap BUN Creatinine Est Cr Clr Drug Dosing Est GFR ( Amer) Est GFR (Non-Af Amer) BUN/Creatinine Ratio Glucose Calcium Total Bilirubin AST ALT Alkaline Phosphatase Troponin I 0.157 H* Total Protein Albumin Globulin Albumin/Globulin Ratio Lipase SARS-CoV-2 Ag (Rapid) Negative Blood Type A Positive Antibody Screen NEGATIVE 08/11/20 15:50 WBC RBC Hgb 12.1 L Hct 35.9 L MCV MCH MCHC RDW Std Deviation RDW Coeff of Robbi Plt Count MPV Immature Gran % (Auto) Neut % (Auto) Lymph % (Auto) Moore % (Auto) Eos % (Auto) Baso % (Auto) Neut # (Auto) Lymph # (Auto) Moore # (Auto) Eos # (Auto) Baso # (Auto) Immature Gran # (Auto) PT INR APTT PTT Ratio Sodium Potassium Chloride Carbon Dioxide Anion Gap BUN Creatinine Est Cr Clr Drug Dosing Est GFR ( Amer) Est GFR (Non-Af Amer) BUN/Creatinine Ratio Glucose Calcium Total Bilirubin AST ALT Alkaline Phosphatase Troponin I Total Protein Albumin Globulin Albumin/Globulin Ratio Lipase SARS-CoV-2 Ag (Rapid) Blood Type Antibody Screen Diagnostic Findings Echo November 2018: Normal LV systolic function. Moderate to severe MR. mild pulmonary hypertension. ECG personally reviewed: ECG 08/11/2020: Sinus rhythm first-degree AV block 87 beats per minute. Prolonged QT. CT hip report reviewed as noted in HPI. Medications Administered Current Inpatient Medications Acetaminophen (Acetaminophen 500 Mg Tab) 1,000 mg PO Q8H PRN PRN Reason: Pain & Pre PT Stop: 09/10/20 12:30 Aspirin (Aspirin 81 Mg Ectab) 81 mg PO DAILY [facility] Stop: 09/11/20 08:59 Docusate Sodium (Docusate Sodium 100 Mg Cap) 100 mg PO DAILY [facility] Stop: 09/11/20 08:59 Fentanyl Citrate (Fentanyl Citrate 100 Mcg/2 Ml Vial) 50 mcg IV Q15M PRN PRN Reason: Pain Stop: 08/25/20 08:36 Last Admin: 08/11/20 14:09 Dose: 50 mcg Documented by: Sodium Chloride (Nss 1000ml) 1,000 mls @ 75 mls/hr IV .[id number] [facility] Stop: 09/10/20 12:44 Last Admin: 08/11/20 16:14 Dose: 75 mls/hr Documented by: Ipratropium [place] (Ipratropium [place] Nasal [place] 0.06% 15ml) 2 sprays NA TID PRN PRN Reason: allergy symptoms Stop: 09/10/20 12:39 Lisinopril (Lisinopril 5 Mg Tab) 5 mg PO DAILY [facility] Stop: 09/11/20 08:59 Metoprolol Succinate (Metoprolol Succ 50mg Ext Rel Tab) 100 mg PO DAILY [facility] Stop: 09/11/20 08:59 Mineral Oil (Kondremul 30ml Udp) 30 ml PO MoWeFr [facility] Stop: 09/10/20 15:59 Miscellaneous (Calcipotriene: Order Awaiting Action) 1 ea N/A QS [facility] Stop: 09/10/20 15:59 Last Admin: 08/11/20 16:16 Dose: Not Given Documented by: Morphine Sulfate (Morphine Sulfate 2 Mg/Ml Carp) 2 mg IV Q4H PRN PRN Reason: Pain (1,2,3,4,5) & Pre PT Stop: 08/25/20 12:30 Naloxone HCl (Naloxone Hcl 0.4 Mg/1 Ml Vial/Carp) 0.1 mg IV UD PRN PRN Reason: Opiate Overdose Stop: 09/10/20 12:30 Ondansetron HCl (Ondansetron Inj 2 Mg/Ml 2 Ml Vial) 4 mg IV Q6H PRN PRN Reason: Nausea And Vomiting Stop: 09/10/20 12:30 Oxycodone HCl (Oxycodone Hcl Ir 5 Mg Tab (Immediate Release)) 5 mg PO Q6H PRN PRN Reason: MODERATE Pain (4,5,6) & Pre PT Stop: 08/25/20 12:30 Pantoprazole Sodium (Pantoprazole 40 Mg Tab) 40 mg PO DAILY [facility] Stop: 09/11/20 08:59 Sennosides (Sennosides 8.8 Mg/5 Ml Udc) 17.6 mg PO DAILY [facility] Stop: 09/11/20 08:59 Simvastatin (Simvastatin 40 Mg Tab) 40 mg PO DAILY [facility] Stop: 09/11/20 08:59 Vitamin D (Cholecalciferol 1,000 Units 25 Mcg Tab) 1,000 units PO DAILY [facility] Stop: 09/11/20 08:59 PG Care Time/CCT Total # of Minutes Spent Total Time Spent with Patient: Total time spent is greater than 50% in coordination of care (as documented) at patient's floor/unit and/or counseling patient: Coding Level of Care Code 96488 Initial Inpt Care Lvl 3 Diagnoses Elevated troponin I level R77.8 Fall W19.XXXA Encounter type: initial encounter Preop examination Z01.818 CAD (coronary atherosclerotic disease) I25.10 S/P CABG (coronary artery bypass graft) Z95.1 Mitral regurgitation I34.0 Paroxysmal atrial fibrillation I48.0 H/O mechanical aortic valve replacement Z95.2 Hypertension I10 (1) Fall Encounter type: initial encounter Qualified Code(s): W19.XXXA - Unspecified fall, initial encounter
[2020-08-11] MEDS: KONDREMUL 30ML UDP PO SCH (16:30)
[2020-08-11 21:16] LABS: Hematocrit (blood only) 34.6 % (42-52); Hemoglobin 11.9 g/dL (14.0-18.0)
[2020-08-12 04:33] LABS: Basophils # (auto) 0.03 K/uL (0-0.2); Basophils % (auto) 0.3 %; Eosinophils # (auto) 0.06 K/uL (0-0.5); Eosinophils % (auto) 0.6 %; Hematocrit (blood only) 36.9 % (42-52); Hemoglobin 12.6 g/dL (14.0-18.0); Immature Granulocytes # (auto) 0.02 K/uL (0.00-0.02); Immature Granulocytes % (auto) 0.2 %; Lymphocytes # (auto) 0.72 K/uL (1.2-3.4); Lymphocytes % (auto) 7.8 %; Mean Corpuscular Hemoglobin 32.3 pg (25-34); Mean Corpuscular Hgb Conc 34.1 g/dL (32-36); Mean Corpuscular Volume 94.6 fL (80-100); Mean Platelet Volume 10.2 fL (7.4-10.4); Monocytes # (auto) 0.82 K/uL (0.11-0.59); Monocytes % (auto) 8.9 %; Neutrophils # (auto) 7.59 K/uL (1.4-6.5); Neutrophils % (auto) 82.2 %; Platelet Count 160 K/uL (130-400); RDW Coefficient of Variation 13.5 % (11.5-14.5); RDW Standard Deviation 46.5 fL (36.4-46.3); White Blood Count 9.24 K/uL (4.8-10.8)
[2020-08-12 04:45] LABS: INR 2.3 (0.9-1.1); Prothrombin Time 23.3 Seconds (9.0-12.0)
[2020-08-12 04:52] LABS: BUN Creatinine Ratio 14.1 (10-20); Calcium 8.3 mg/dl (8.5-10.1); Creatinine Clr Calc Pharmacy 72.4 ml/min; Est GFR (African American) 95.9; Est GFR (Non-African American) 82.7; Potassium 3.8 mmol/L (3.5-5.1)
[2020-08-12 05:05] LABS: Troponin I 0.122 ng/ml (0-0.045)
[2020-08-12] MEDS: SODIUM CHLORIDE 0.9% 1000ML 1,000 ML IV SCH ×2 (05:33→17:13)
--- NOTE | 2020-08-12 06:28 | Electrocardiogram Report ---
Test Reason : Blood Pressure : / mmHG Vent. Rate : 087 BPM Atrial Rate : 087 BPM P-R Int : 232 ms QRS Dur : 088 ms QT Int : 404 ms P-R-T Axes : 073 003 063 degrees QTc Int : 486 ms Sinus rhythm with 1st degree A-V block Prolonged QT Abnormal ECG When compared with ECG of 12-SEP-2018 09:00, Premature ventricular complexes are no longer Present Premature atrial complexes are no longer Present Nonspecific T wave abnormality no longer evident in Inferior leads Nonspecific T wave abnormality no longer evident in Anterior leads Confirmed by Margarito Graf ([id number]) on 08/12/2020 6:28:24 AM Referred By: REFERRED SELF Confirmed By:Margarito Graf
[2020-08-12] MEDS: METOPROLOL SUCC 50MG EXT REL TAB PO SCH (07:58)
[2020-08-12] MEDS: DOCUSATE SODIUM 100 MG CAP PO SCH (07:58)
[2020-08-12] MEDS: ASPIRIN 81 MG ECTAB PO SCH (07:58)
[2020-08-12] MEDS: lisinopril 5 MG TAB PO SCH (07:59)
[2020-08-12] MEDS: PANTOprazole 40 MG TAB PO SCH (07:59)
[2020-08-12] MEDS: SENNOSIDES 8.8 MG/5 ML UDC PO SCH (07:59)
[2020-08-12] MEDS: CHOLECALCIFEROL 1,000 UNITS 25 MCG TAB PO SCH (07:59)
[2020-08-12] MEDS: SIMVASTATIN 40 MG TAB PO SCH (07:59)
[2020-08-12] MEDS ORDERED: NON-FORMULARY MEDICATION (Food Supplemt, Lactose-Reduced [Ensure] Liquid) PO SCH (09:00)
--- NOTE | 2020-08-12 09:22 | Hospitalist Progress Note ---
Date of Service August 12, 2020 Assessment & Plan (1) Closed fracture of pubic ramus: * Patient sustained a ground-level fall early on the morning of his presentation * Pelvic CT findings: * There is a comminuted inferior left pubic ring fracture with small distracted fragments. There is also fracture of the superior pubic ring adjacent to the symphysis. There is a comminuted fracture involving the anterior and medial giles of the left acetabulum. The left proximal femur is intact. * Orthopedic consultation obtained. Patient to remain nonweightbearing status. Okay with range of motion activities. Okay with bed to chair with assistance as tolerated by patient. * Patient would likely require PT OT assessment and possible placement as he lives at home primarily with his who was unable to help him with ambulation today. * Per orthopedics, no plans for surgical intervention * Globin has been stable (2) Acetabular fracture: * As above. (3) Fall: * Patient reports being "unsteady" on his feet for the last few weeks. * PT/OT evaluation when Ortho approved. * CT head unremarkable. (4) NSTEMI (non-ST elevated myocardial infarction): * Likely secondary to demand/stress in the setting of recent injury. * Cardiology consultation "Elevated troponin: His troponin is minimally elevated and not diagnostic of myocardial infarction. He did not present with acute coronary syndrome and has not experienced any recent anginal or heart failure symptoms. He appears to typically have elevated troponins at other hospital visits as well. Can continue to trend troponins until peak. No ischemic evaluation necessary at this time." (5) Atrial flutter, paroxysmal: * rate controlled with metoprolol typically on warfarin, his hemoglobin has been stable resume his warfarin dosing on 08/12/2020 (6) CAD (coronary atherosclerotic disease): * Previous h/o 2 vessel CABG. * Continue home ASCVD Rx as tolerated. (7) Dyslipidemia: * Continue home dosing of Simvastatin. (8) Atrial fibrillation: * Continue Rx per A.Fib Tx above. (9) Hypertension: (10) H/O mechanical aortic valve replacement: * Resume Coumadin therapy at this time following daily INRs Admission and Anticipated Discharge Date Admission Date: August 11, 2020 Subjective this pt was in significant pain, however with medication adjustment he is much more comfortable. Review of Systems Review of Systems: Mild distress and fatigue no headache, blurry or double vision no speech or swallowing issues no chest pain, pressure or palpitations no shortness of breath, cough or wheezes no abdominal pain, nausea or vomiting, diarrhea or constipation no dysuria, hematuria or frequency Focal left hip pain worse with movement no back pain, CVA tenderness or radicular pain no bruising, bleeding or rashes no focal signs of weakness or numbness or altered sensation no complaints of anxiety or depression.. Physical Exam Physical Exam: The patient appeared well nourished and normally developed. Pain is much more controlled when I did visit him Vital signs as documented. Head exam is normocephalic atraumatic no scleral icterus Neck is without JVD, thyromegaly, or carotid bruits. Lungs are clear to auscultation, no focal loss of breath sounds Cardiac exam, Rhythm is regular.. No murmurs, rubs or gallops. Abdominal exam reveals normal bowel sounds, soft non tender, no masses Still point tenderness and tender to front flexion and external rotation Neurologic exam is alert and oriented, no focal loss of strength or sensation Skin is without bruises or rashes Psychologically is without concerns for anxiety or depression. Results & Data Results & Data ([facility]) Vital Signs (Past 12 Hours) Vital Signs Temp Pulse Pulse Resp BP Pulse Ox 08/12/20 08:00 91 H 08/12/20 03:21 97.9 F 101 H 18 178/90 H 90 08/12/20 00:50 81 08/11/20 22:23 98.1 F 88 16 170/71 H 90 PG Care Time/CCT Total # of Minutes Spent Total Time Spent with Patient: Total time spent is greater than 50% in coordination of care (as documented) at patient's floor/unit and/or counseling patient: Coding Level of Care Code 94478 Subseq Hosp Care Lvl 3 Diagnoses Closed fracture of pubic ramus S32.592A Encounter type: initial encounter Laterality: left Acetabular fracture S32.402A Encounter type: initial encounter Fracture alignment: nondisplaced Fracture type: closed Laterality: left Sublocation of acetabulum: unspecified portion of acetabulum Fall W19.XXXA Encounter type: initial encounter NSTEMI (non-ST elevated myocardial infarction) I21.4 Atrial flutter, paroxysmal I48.92 CAD (coronary atherosclerotic disease) I25.10 Dyslipidemia E78.5 Atrial fibrillation I48.91 Hypertension I10 H/O mechanical aortic valve replacement Z95.2 (1) Closed fracture of pubic ramus Encounter type: initial encounter Laterality: left Qualified Code(s): S32.5 92A - Other specified fracture of left pubis, initial encounter for closed fracture (2) Acetabular fracture Encounter type: initial encounter Fracture alignment: nondisplaced Fracture type: closed Laterality: left Sublocation of acetabulum: unspecified portion of acetabulum Qualified Code(s): S32.402A - Unspecified fracture of left acetabulum, initial encounter for closed fracture (3) Fall Encounter type: initial encounter Qualified Code(s): W19.XXXA - Unspecified fall, initial encounter
[2020-08-12] MEDS ORDERED: MoRPHine SULFATE 2 MG/ML CARP IV PRN (09:30)
[2020-08-12] MEDS: oxyCODONE HCL IR 5 MG TAB (IMMEDIATE RELEASE) PO PRN ×2 (09:39→17:14)
[2020-08-12] MEDS ORDERED: METOPROLOL SUCC 50MG EXT REL TAB PO ONE (09:45)
--- NOTE | 2020-08-12 10:13 | Orthopedic Consultation ---
Date of Consultation August 12, 2020 Assessment & Plan (1) Acetabular fracture: X-rays and CT scan reviewed with Dr. Minaya. Patient will need to remain nonweightbearing on the left lower extremity. Ambulation with walker or crutches. Continue pain control. Gentle range of motion of the left hip. Patient currently on Coumadin. No surgery indicated at this time. Continue Coumadin as per cardiology's recommendations. Follow H/H. Follow-up with in 2 weeks. (2) Closed fracture of pubic ramus: History of Present Illness Reason for Consultation: Left pubic ring fracture/acetabular fracture Attending Physician: Dimas Dominguez MD History of Present Illness Patient is an 85-year-old male who states that he had gotten up to use the restroom yesterday and inadvertently lost his balance. He fell onto his left hip and had immediate pain in the left hip and groin. He had difficulty ambula ting. He denies loss of consciousness. Denies any shortness of breath, chest pain prior to or after the fall. He was brought to the emergency room and was seen by the staff. X-rays were taken and was found to have a left pubic ring as well as acetabular fracture. Patient was having difficulty ambulating and was admitted for further care. We have been asked to see him for his pelvic fracture. Allergies Allergy/AdvReac Type Severity Reaction Status Date / Time bee venom protein (honey bee) Allergy Severe ANAPHYLACTIC Verified 08/11/20 08:53 REACTION celecoxib Allergy Intermediate HIVES Verified 08/11/20 08:53 chlorhexidine Allergy Intermediate ITCHING Verified 08/11/20 08:53 WITH CHLORHEXIDINE SCRUB povidone-iodine Allergy Intermediate ITCHY RASH Verified 08/11/20 08:53 shellfish derived Allergy Intermediate GI SYMPTOMS Verified 08/11/20 08:53 piperacillin Allergy Mild rash Verified 08/11/20 08:53 tazobactam Allergy Mild rash Verified 08/11/20 08:53 Sulfa Drugs Allergy Unknown Unknown Uncoded 08/11/20 08:53 ANESTHESIA AdvReac Unknown HALLUCINATI Uncoded 08/11/20 08:53 ON Home Medications Medication Instructions Recorded Confirmed Type docusate sodium 100 mg capsule 100 mg PO DAILY cap 05/17/19 08/11/20 History calcipotriene 0.005 % topical cream 1 appln TOP DAILY #120 gm 07/03/19 08/11/20 Rx cholecalciferol (vitamin D3) 25 1,000 units PO DAILY 07/08/19 08/11/20 History mcg (1,000 unit) capsule Ensure 1 ea PO DAILY 08/02/19 08/11/20 History omeprazole 20 mg capsule,delayed 20 mg PO DAILY #90 cap 09/22/19 08/11/20 Rx release metoprolol succinate 100 mg 100 mg PO DAILY #90 tab 09/24/19 08/11/20 Rx tablet,extended release 24 hr lisinopril 5 mg tablet 5 mg PO DAILY #90 tab 10/27/19 08/11/20 Rx simvastatin 40 mg tablet 40 mg PO DAILY #90 tab 10/27/19 08/11/20 Rx acetaminophen 650 mg 650 mg PO Q12H PRN tab 02/13/20 08/11/20 History tablet,extended release aspirin [Adult Low Dose Aspirin] 81 mg PO DAILY #30 tab 03/19/20 08/11/20 Rx amoxicillin 500 mg tablet 2,000 mg PO ONCE tab 03/30/20 08/11/20 History sennosides 8.8 mg/5 mL oral syrup 10 ml PO DAILY ml 03/30/20 08/11/20 History ammonium lactate 12 % lotion 1 appln TOP BID PRN #225 gm 04/06/20 08/11/20 Rx ipratropium bromide 42 mcg (0.06 See Rx Instructions INTRANASAL TID 04/23/20 08/11/20 Rx %) nasal spray PRN #15 ml warfarin 2.5 mg tablet See Rx Instructions PO DAILY #40 07/14/20 08/11/20 Rx tab warfarin 5 mg tablet See Rx Instructions PO DAILY #90 07/14/20 08/11/20 Rx tab mineral oil 30 ml PO 3XWK 08/11/20 08/11/20 History Patient History Medical History Abdominal abscess Acid reflux BPH (benign prostatic hyperplasia) CAD (coronary atherosclerotic disease) Foreign body of ear, right Glaucoma HLD (hyperlipidemia) Hypertension Hyponatremia Impacted cerumen of both ears Mitral regurgitation Nipple pain Osteoarthritis Paroxysmal atrial fibrillation Peripheral vascular disease SNHL (sensorineural hearing loss) Surgical History H/O mechanical aortic valve replacement (2003) History of total left knee replacement (TKR) History of total right knee replacement (TKR) Hx of exploratory laparotomy S/P CABG x 2 S/P knee replacement Family History Father Colorectal cancer MAybe Mother Myocardial infarction Heart disease Hypertension Sister FH: early sudden deaths Valvular heart disease Denies family history of Ovarian cancer Prostate cancer Breast cancer Lung cancer Stroke Social History Smoking Status: Former smoker Cigarettes Per Day: 20; Second Hand Exposure: No; Hx Alcohol Use: No Hx Substance Use: No Preferred Language: Sammarinese Communication Ability: Effective Visual Impairment: Limited Hearing Ability: Normal 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 Beliefs That Will Affect Care: None marital status: Current Living Situation: Alone and Spouse current occupational status: retired Other Information That Helps Us Care for You: No Feels Safe at Home: Yes Dental Care, Regularly: Yes Physical Activity Frequency: 5-6 Times per Week Seatbelt Use: always Sunscreen Use: No Assistive Devices: Cane, Denture - Upper, Denture - Lower, Glasses, Hearing Aid - Bilateral and Walker Review of Systems Review of Systems: All systems reviewed & are unremarkable except as noted in HPI & below Physical Exam Physical Exam: On examination, the patient is sitting up in bed and has finished eating his breakfast. He appears comfortable. No acute distress. Pleasant and cooperative. States that while lying in bed without moving he has good pain control. Focusing the exam on the left lower extremity, I am able to take him through gentle range of motion of the left hip. He has minimal to no pain with flexion and extension. He has minimal to no pain with internal and external rotation. He does have moderate pain with abduction and abduction. He has no pain in the left knee and range of motion is somewhat decreased due to his pelvic fracture. He has good ankle range of motion and is nontender on palpation or through range of motion. Right lower extremity is unaffected at this time and he has good range of motion of the right hip knee and ankle. Upper extremities are nontender at the shoulders. He has a dressing over his left elbow from his skin tear but has good range of motion of the left elbow with minimal discomfort. Right elbow is within normal limits with range of motion and is nontender. He has good range of motion of bilateral wrists without discomfort. There is no gross motor or sensory loss seen at this time. I cannot appreciate dorsalis pedis pulses in either feet however capillary refill is less than 2 seconds. Upper extremity pulses are equal bilaterally. Results & Data ([facility]) Vital Signs (Past 12 Hours) Vital Signs Temp Pulse Pulse Resp BP Pulse Ox 08/12/20 08:00 91 H 08/12/20 03:21 36.6 C 101 H 18 178/90 H 90 08/12/20 00:50 81 08/11/20 22:23 36.7 C 88 16 170/71 H 90 Diagnostic Findings Patient: KENISHA SMALL SrAdmit Date: 08/11/20#: [id number]: [address]Acct ID:[id number]: Date: 1935[facility] Zip: [place], [place] [address]Uwt: 85Location: EDSex: MRoom/Bed:Att Phy:Diagnosis: Fall, Left Hip PainPri Phy: RV. Octaviano, MDService Date: 08/11/20Fa Phy:Interpreting Phy: Valentin Guadarrama MDAdmit Phy: Ordering Phy: Remy Sharp DO cc: ~ CT SCAN OF THE LEFT HIP WITHOUT IV CONTRAST CLINICAL HISTORY: Fall. Left hip pain. COMPARISON STUDY: Pelvic CT dated 07/09/2018. Left hip and pelvic radiographs dated 08/11/2020. TECHNIQUE: CT scan of the left hip is performed from the bony pelvis to the proximal femoral shaft. Images are reviewed in the axial, sagittal, and coronal planes. IV contrast was not administered for this examination. 3-D reformats are created and assessed. A dose lowering technique was utilized adhering to the principles of ALARA. FINDINGS: The skeletal structures are osteopenic. There is a comminuted inferior left pubic ring fracture with small distracted fragments. There is also fracture of the superior pubic ring adjacent to the symphysis. There is a comminuted fracture involving the anterior and medial giles of the left acetabulum. The left proximal femur is intact. There is no evidence of avascular necrosis of the left femoral head. Moderate degenerative joint space narrowing is seen in the left hip joint. There is a small amount of hemorrhage identified around the left pubic ring fractures. No intramuscular hematoma is identified. There is no left pelvic sidewall or inguinal adenopathy. Advanced atherosclerotic calcification is seen in the left femoral artery. IMPRESSION: 1. Left pubic ring fractures as above. 2. There are comminuted fractures of the medial and superior giles of the left acetabulum. 3. The left proximal femur is intact. (1) Closed fracture of pubic ramus Encounter type: initial encounter Laterality: left Qualified Code(s): S32.592A - Other specified fracture of left pubis, initial encounter for closed fracture (2) Acetabular fracture Encounter type: initial encounter Fracture alignment: nondisplaced Fracture type: closed Laterality: left Sublocation of acetabulum: unspecified portion of acetabulum Qualified Code(s): S32.402A - Unspecified fracture of left acetabulum, initial encounter for closed fracture
[2020-08-12] MEDS: LIDOCAINE 5% 1 PATCH TD SCH (10:47)
[2020-08-12] MEDS: ACETAMINOPHEN 500 MG TAB PO SCH ×3 (10:47→22:28)
[2020-08-12] MEDS: MoRPHine SULFATE 4 MG/ML 1 ML CARP\\VIAL IV PRN ×2 (10:58→14:55)
[2020-08-12] MEDS: WARFARIN SOD 5 MG TAB PO SCH (17:13)
[2020-08-12] MEDS ORDERED: LORazepam 0.5 MG/1 ML VIAL IV STA (22:02)
[2020-08-12] MEDS ORDERED: LORazepam 0.5 MG/1 ML VIAL IV PRN (22:20)
--- NOTE | 2020-08-12 22:20 | Communication Note ---
Date of Service: August 12, 2020 Patient appears delirious, trying to get out of bed, angry, agitated. Believes objects do not fall to ground and gravity doesn't exist in the room. Believes the building was "misconstructed" and that building was going to fall. Tried to provide redirection and orientation, unsuccessful. Will give Ativan 0.5mg IV. Will reassess for further medication management. Fall precautions ordered. Currently unsafe to self. 1:1 ordered as needed.
[2020-08-13] MEDS: ACETAMINOPHEN 500 MG TAB PO SCH ×3 (05:52→21:00)
[2020-08-13] MEDS: SODIUM CHLORIDE 0.9% 1000ML 1,000 ML IV SCH ×2 (07:57→20:59)
[2020-08-13 09:07] LABS: Hematocrit (blood only) 35.3 % (42-52); Hemoglobin 12.1 g/dL (14.0-18.0); Mean Corpuscular Hemoglobin 31.9 pg (25-34); Mean Corpuscular Hgb Conc 34.3 g/dL (32-36); Mean Corpuscular Volume 93.1 fL (80-100); Mean Platelet Volume 10.6 fL (7.4-10.4); Platelet Count 130 K/uL (130-400); RDW Coefficient of Variation 13.3 % (11.5-14.5); RDW Standard Deviation 45.6 fL (36.4-46.3); Red Blood Count 3.79 M/uL (4.7-6.1); White Blood Count 8.41 K/uL (4.8-10.8)
[2020-08-13] MEDS: DOCUSATE SODIUM 100 MG CAP PO SCH ×2 (09:21→12:48)
[2020-08-13] MEDS: ASPIRIN 81 MG ECTAB PO SCH ×2 (09:21→12:48)
[2020-08-13] MEDS: SIMVASTATIN 40 MG TAB PO SCH ×2 (09:22→12:45)
[2020-08-13] MEDS: CHOLECALCIFEROL 1,000 UNITS 25 MCG TAB PO SCH ×2 (09:22→12:46)
[2020-08-13] MEDS: PANTOprazole 40 MG TAB PO SCH ×2 (09:22→12:47)
[2020-08-13] MEDS: METOPROLOL SUCC 50MG EXT REL TAB PO SCH ×4 (09:22→17:44)
[2020-08-13] MEDS: SENNOSIDES 8.8 MG/5 ML UDC PO SCH ×2 (09:22→12:47)
[2020-08-13] MEDS: lisinopril 5 MG TAB PO SCH ×2 (09:22→12:46)
[2020-08-13] MEDS: LIDOCAINE 5% 1 PATCH TD SCH (09:23)
[2020-08-13 09:26] LABS: BUN Creatinine Ratio 17.9 (10-20); Calcium 8.4 mg/dl (8.5-10.1); Est GFR (African American) 96.9; Est GFR (Non-African American) 83.6; Potassium 3.9 mmol/L (3.5-5.1)
[2020-08-13 09:29] LABS: INR 2.3 (0.9-1.1); Prothrombin Time 23.1 Seconds (9.0-12.0)
[2020-08-13] MEDS ORDERED: WARFARIN SOD 7.5 MG TAB PO SCH (16:30)
[2020-08-13] MEDS: METOPROLOL TARTRATE 1 MG/ML VIAL IV PRN (16:52)
[2020-08-13] MEDS: KONDREMUL 30ML UDP PO SCH (16:53)
[2020-08-13] MEDS ORDERED: CONSULT PHARMACY STA (17:11)
--- NOTE | 2020-08-13 17:11 | Hospitalist Progress Note ---
Date of Service August 13, 2020 Assessment & Plan (1) Closed fracture of pubic ramus: * Patient sustained a ground-level fall early on the morning of his presentation * Pelvic CT findings: * There is a comminuted inferior left pubic ring fracture with small distracted fragments. There is also fracture of the superior pubic ring adjacent to the symphysis. There is a comminuted fracture involving the anterior and medial giles of the left acetabulum. The left proximal femur is intact. * Orthopedic consultation obtained. Patient to remain nonweightbearing status. Okay with range of motion activities. Okay with bed to chair with assistance as tolerated by patient. * Patient would likely require PT OT assessment and possible placement as he lives at home primarily with his who was unable to help him with ambulation today. * Per orthopedics, no plans for surgical intervention, Patient will need to remain nonweightbearing on the left lower extremity. Ambulation with walker or crutches. Continue pain control. Gentle range of motion of the left hip. * HemaGlobin has been stable (2) Acetabular fracture: * As above. (3) Fall: * Patient reports being "unsteady" on his feet for the last few weeks. * PT/OT evaluation consider inpatient rehab * CT head unremarkable. (4) NSTEMI (non-ST elevated myocardial infarction): * Likely secondary to demand/stress in the setting of recent injury. * Cardiology consultation "Elevated troponin: His troponin is minimally elevated and not diagnostic of myocardial infarction. He did not present with acute coronary syndrome and has not experienced any recent anginal or heart failure symptoms. He appears to typically have elevated troponins at other hospital visits as well. Can continue to trend troponins until peak. No ischemic evaluation necessary at this time." (5) Atrial flutter, paroxysmal: * rate controlled with metoprolol typically on warfarin, his hemoglobin has been stable resumed his warfarin dosing on 08/12/2020 (6) CAD (coronary atherosclerotic disease): * Previous h/o 2 vessel CABG. * Continue home ASCVD Rx as tolerated. (7) Dyslipidemia: * Continue home dosing of Simvastatin. (8) Atrial fibrillation: * Continue Rx per A.Fib Tx above. (9) H/O mechanical aortic valve replacement: * Resume Coumadin therapy at this time following daily INRs. since its the aortic valve will not bridge and will just allow inr to come up will have pharmacy help Admission and Anticipated Discharge Date Admission Date: August 11, 2020 Subjective This patient had likely toxic encephalopathy last evening or in hospital delirium associate with opiate use. He received Ativan therapy. He was awakening when I saw him late in the morning he was still sedate though he was a directable he said his pain was controlled with straight leg and a remove the opiates from his pain management scheme at this time. I attempted to call his son per his request and got a voicemail which I left a detailed message for. The patient himself is not in any discomfort given need to begin physical and occupational therapy to begin the process to have him to rehab Review of Systems Review of Systems: Mild distress and fatigue patient is groggy and lethargic but does deny the following no headache, blurry or double vision no speech or swallowing issues no chest pain, pressure or palpitations no shortness of breath, cough or wheezes no abdominal pain, nausea or vomiting, diarrhea or constipation no dysuria, hematuria or frequency no back pain, CVA tenderness or radicular pain no bruising, bleeding or rashes no focal signs of weakness or numbness or altered sensation no complaints of anxiety or depression. He does have Focal left hip pain worse with movement. Physical Exam Physical Exam: The patient appeared slightly sedated but appropriate Vital signs as documented. Head exam is normocephalic atraumatic no scleral icterus Neck is without JVD, thyromegaly, or carotid bruits. Lungs are clear to auscultation, no focal loss of breath sounds Cardiac exam, Rhythm is regular.. No murmurs, rubs or gallops. Abdominal exam reveals normal bowel sounds, soft non tender, no masses Still point tenderness and tender to front flexion and external rotation Neurologic exam is alert and confused, reproducible pain at left hip Skin is without bruises or rashes Psychologically is sedate with some confusion Results & Data Results & Data ([facility]) Vital Signs (Past 12 Hours) Vital Signs Temp Pulse Pulse Resp BP Pulse Ox 08/13/20 16:52 135 H 08/13/20 16:13 99.7 F H 100 H 18 168/84 H 97 08/13/20 11:35 97.9 F 73 18 177/92 H 90 08/13/20 09:29 108 H PG Care Time/CCT Total # of Minutes Spent Total Time Spent with Patient: Total time spent is greater than 50% in coordination of care (as documented) at patient's floor/unit and/or counseling patient: Coding Level of Care Code 03766 Subs Hosp Care Lvl 3 Diagnoses Closed fracture of pubic ramus S32.592A Encounter type: initial encounter Laterality: left Acetabular fracture S32.402A Encounter type: initial encounter Fracture alignment: nondisplaced Fracture type: closed Laterality: left Sublocation of acetabulum: unspecified portion of acetabulum Fall W19.XXXA Encounter type: initial encounter NSTEMI (non-ST elevated myocardial infarction) I21.4 Atrial flutter, paroxysmal I48.92 CAD (coronary atherosclerotic disease) I25.10 Dyslipidemia E78.5 Atrial fibrillation I48.91 H/O mechanical aortic valve replacement Z95.2 (1) Closed fracture of pubic ramus Encounter type: initial encounter Laterality: left Qualified Code(s): S32.592A - Other specified fracture of left pubis, initial encounter for closed fracture (2) Acetabular fracture Encounter type: initial encounter Fracture alignment: nondisplaced Fracture type: closed Laterality: left Sublocation of acetabulum: unspecified portion of acetabulum Qualified Code(s): S32.402A - Unspecified fracture of left acetabulum, initial encounter for closed fracture (3) Fall Encounter type: initial encounter Qualified Code(s): W19.XXXA - Unspecified fall, initial encounter
[2020-08-13] MEDS ORDERED: METOPROLOL TARTRATE 1 MG/ML VIAL IV STA (21:56)
[2020-08-14] MEDS: ACETAMINOPHEN 500 MG TAB PO SCH ×3 (05:21→22:46)
[2020-08-14 06:59] LABS: Hematocrit (blood only) 32.5 % (42-52); Hemoglobin 11.4 g/dL (14.0-18.0); Mean Corpuscular Hemoglobin 32.8 pg (25-34); Mean Corpuscular Hgb Conc 35.1 g/dL (32-36); Mean Corpuscular Volume 93.4 fL (80-100); Mean Platelet Volume 10.6 fL (7.4-10.4); Platelet Count 140 K/uL (130-400); RDW Coefficient of Variation 13.4 % (11.5-14.5); RDW Standard Deviation 45.9 fL (36.4-46.3); Red Blood Count 3.48 M/uL (4.7-6.1); White Blood Count 7.12 K/uL (4.8-10.8)
[2020-08-14 07:09] LABS: INR 2.1 (0.9-1.1); Prothrombin Time 21.6 Seconds (9.0-12.0)
[2020-08-14 07:28] LABS: BUN Creatinine Ratio 15.3 (10-20); Calcium 7.9 mg/dl (8.5-10.1); Creatinine Clr Calc Pharmacy 79.8 ml/min; Est GFR (African American) 97.5; Est GFR (Non-African American) 84.1
[2020-08-14] MEDS: SODIUM CHLORIDE 0.9% 1000ML 1,000 ML IV SCH ×2 (09:53→22:46)
[2020-08-14] MEDS: SIMVASTATIN 40 MG TAB PO SCH (09:54)
[2020-08-14] MEDS: CHOLECALCIFEROL 1,000 UNITS 25 MCG TAB PO SCH (09:54)
[2020-08-14] MEDS: ASPIRIN 81 MG ECTAB PO SCH (09:54)
[2020-08-14] MEDS: SENNOSIDES 8.8 MG/5 ML UDC PO SCH (09:55)
[2020-08-14] MEDS: PANTOprazole 40 MG TAB PO SCH (09:57)
[2020-08-14] MEDS: METOPROLOL SUCC 50MG EXT REL TAB PO SCH ×3 (09:58→10:45)
[2020-08-14] MEDS: lisinopril 5 MG TAB PO SCH (09:58)
[2020-08-14] MEDS: LIDOCAINE 5% 1 PATCH TD SCH (09:59)
[2020-08-14] MEDS: DOCUSATE SODIUM 100 MG CAP PO SCH (10:00)
[2020-08-14] MEDS: METOPROLOL TARTRATE 1 MG/ML VIAL IV PRN (16:31)
[2020-08-14] MEDS: WARFARIN SOD 5 MG TAB PO SCH (16:33)
[2020-08-14] MEDS ORDERED: dilTIAZem HCL 30 MG TAB PO ONE (18:39)
--- NOTE | 2020-08-14 18:48 | Hospitalist Progress Note ---
Date of Service August 14, 2020 Assessment & Plan (1) Closed fracture of pubic ramus: * Patient sustained a ground-level fall early on the morning of his presentation * Pelvic CT findings: * There is a comminuted inferior left pubic ring fracture with small distracted fragments. There is also fracture of the superior pubic ring adjacent to the symphysis. There is a comminuted fracture involving the anterior and medial giles of the left acetabulum. The left proximal femur is intact. * Orthopedic consultation obtained. Patient to remain nonweightbearing status. Okay with range of motion activities. Okay with bed to chair with assistance as tolerated by patient. * Per orthopedics, no plans for surgical intervention, Patient will need to remain nonweightbearing on the left lower extremity. Ambulation with walker or crutches. Continue pain control. Gentle range of motion of the left hip. * ongoing PT/OT - case management for placement for rehab/subacute rehab (once afib better controlled) (2) Acetabular fracture: * As above. suspect osteoporotic fractures for this and pubic ramus. outpt [facility] eval. (3) Fall: * Patient reports being "unsteady" on his feet for the last few weeks. * PT/OT evaluation and anticipate need for some type of rehab * CT head unremarkable. (4) NSTEMI (non-ST elevated myocardial infarction): * Likely secondary to demand/stress in the setting of recent injury. * Cardiology consultation "Elevated troponin: His troponin is minimally elevated and not diagnostic of myocardial infarction. He did not present with acute coronary syndrome and has not experienced any recent anginal or heart failure symptoms. He appears to typically have elevated troponins at other hospital visits as well. Can continue to trend troponins until peak. No ischemic evaluation necessary at this time." (5) Atrial flutter, paroxysmal: * rates up. increase meds - fortunately is asymptomatic. add dilt and follow. (6) CAD (coronary atherosclerotic disease): * Previous h/o 2 vessel CABG. * Continue home ASCVD Rx as tolerated. (7) Dyslipidemia: * Continue home dosing of Simvastatin. (8) Atrial fibrillation: * Continue Rx per A.Fib Tx above. (9) H/O mechanical aortic valve replacement: * coumadin - follow INR. will hold on bridging since aortic valve and risk of bleeding Admission and Anticipated Discharge Date Admission Date: August 11, 2020 Subjective feeling reasonably well. pain and difficulty w mobility as expected. no chest pain/sob. no palpitations. HR up but he really doesn't feel it. aware of need for rehab. no urinary sx. Review of Systems Review of Systems: All systems reviewed & are unremarkable except as noted in HPI & below Physical Exam Physical Exam: gen awake and pleasant nad heeent nc at mmm cardio irreg irreg rate up lungs cta b/l no rr//w good effort abd soft nd nt no guarding/rebound. ext chronic stasis type changes b/l LE but no edema no calf tenderness. no focal neuro deficits. Results & Data Results & Data ([facility]) Vital Signs (Past 12 Hours) Vital Signs Temp Pulse Pulse Resp BP BP Pulse Ox 08/14/20 16:31 144 H 127/85 08/14/20 15:44 97.5 F L 134 H 20 127/85 100 08/14/20 12:00 97.2 F L 98 H 18 98/64 L 100 08/14/20 10:30 97 08/14/20 07:50 98.4 F 130 H 18 125/68 96 08/14/20 07:00 143 H PG Care Time/CCT Total # of Minutes Spent Total Time Spent with Patient: Total time spent is greater than 50% in coord ination of care (as documented) at patient's floor/unit and/or counseling patient: Coding Level of Care Code 09530 Subseq Hosp Care Lvl 3 Diagnoses Closed fracture of pubic ramus S32.592A Encounter type: initial encounter Laterality: left Acetabular fracture S32.402A Encounter type: initial encounter Fracture alignment: nondisplaced Fracture type: closed Laterality: left Sublocation of acetabulum: unspecified portion of acetabulum Fall W19.XXXA Encounter type: initial encounter NSTEMI (non-ST elevated myocardial infarction) I21.4 Atrial flutter, paroxysmal I48.92 CAD (coronary atherosclerotic disease) I25.10 Dyslipidemia E78.5 Atrial fibrillation I48.91 H/O mechanical aortic valve replacement Z95.2 (1) Closed fracture of pubic ramus Encounter type: initial encounter Laterality: left Qualified Code(s): S32.592A - Other specified fracture of left pubis, initial encounter for closed fracture (2) Acetabular fracture Encounter type: initial encounter Fracture alignment: nondisplaced Fracture type: closed Laterality: left Sublocation of acetabulum: unspecified portion of acetabulum Qualified Code(s): S32.402A - Unspecified fracture of left acetabulum, initial encounter for closed fracture (3) Fall Encounter type: initial encounter Qualified Code(s): W19.XXXA - Unspecified fall, initial encounter
[2020-08-14] MEDS: dilTIAZem HCL 30 MG TAB PO SCH (22:47)
[2020-08-15] MEDS: ACETAMINOPHEN 500 MG TAB PO SCH ×3 (05:53→20:18)
[2020-08-15 07:34] LABS: Hematocrit (blood only) 33.3 % (42-52); Hemoglobin 11.4 g/dL (14.0-18.0); Mean Corpuscular Hemoglobin 32.1 pg (25-34); Mean Corpuscular Hgb Conc 34.2 g/dL (32-36); Mean Corpuscular Volume 93.8 fL (80-100); Mean Platelet Volume 10.5 fL (7.4-10.4); Platelet Count 185 K/uL (130-400); RDW Coefficient of Variation 13.6 % (11.5-14.5); RDW Standard Deviation 47.1 fL (36.4-46.3); Red Blood Count 3.55 M/uL (4.7-6.1); White Blood Count 8.46 K/uL (4.8-10.8)
[2020-08-15] MEDS: lisinopril 5 MG TAB PO SCH (08:00)
[2020-08-15] MEDS: dilTIAZem HCL 30 MG TAB PO SCH (08:00)
[2020-08-15] MEDS: PANTOprazole 40 MG TAB PO SCH (08:02)
[2020-08-15] MEDS: LIDOCAINE 5% 1 PATCH TD SCH (08:02)
[2020-08-15] MEDS: SIMVASTATIN 40 MG TAB PO SCH (08:03)
[2020-08-15] MEDS: CHOLECALCIFEROL 1,000 UNITS 25 MCG TAB PO SCH (08:03)
[2020-08-15] MEDS: ASPIRIN 81 MG ECTAB PO SCH (08:03)
[2020-08-15 08:04] LABS: INR 3.9 (0.9-1.1); Prothrombin Time 38.3 Seconds (9.0-12.0)
[2020-08-15] MEDS: SENNOSIDES 8.8 MG/5 ML UDC PO SCH (08:04)
[2020-08-15] MEDS: METOPROLOL SUCC 50MG EXT REL TAB PO SCH ×2 (08:04→09:22)
[2020-08-15 08:08] LABS: BUN Creatinine Ratio 15.1 (10-20); Calcium 8.1 mg/dl (8.5-10.1); Est GFR (African American) 97.5; Est GFR (Non-African American) 84.1; Potassium 4.1 mmol/L (3.5-5.1)
[2020-08-15] MEDS: DOCUSATE SODIUM 100 MG CAP PO SCH (09:22)
[2020-08-15] MEDS: SODIUM CHLORIDE 0.9% 1000ML 1,000 ML IV SCH (10:09)
[2020-08-15] MEDS: METOPROLOL TARTRATE 1 MG/ML VIAL IV PRN (10:30)
[2020-08-15] MEDS: dilTIAZem HCl 60 MG TAB PO SCH ×4 (12:16→20:17)
[2020-08-15] MEDS ORDERED: COUGH DROP (SUGAR FREE) LOZ 24 LOZ/1 BOX BUCCAL STA (14:11)
[2020-08-15] MEDS ORDERED: DIGOXIN 0.125 MG TAB PO ONE (16:55)
--- NOTE | 2020-08-15 17:03 | Hospitalist Progress Note ---
Date of Service August 15, 2020 Assessment & Plan (1) Closed fracture of pubic ramus: * Patient sustained a ground-level fall early on the morning of his presentation * Pelvic CT findings: * There is a comminuted inferior left pubic ring fracture with small distracted fragments. There is also fracture of the superior pubic ring adjacent to the symphysis. There is a comminuted fracture involving the anterior and medial giles of the left acetabulum. The left proximal femur is intact. * Orthopedic consultation obtained. Patient to remain nonweightbearing status. Okay with range of motion activities. Okay with bed to chair with assistance as tolerated by patient. * Per orthopedics, no plans for surgical intervention, Patient will need to remain nonweightbearing on the left lower extremity. Ambulation with walker or crutches. Continue pain control. Gentle range of motion of the left hip. * ongoing PT/OT - case management for placement for rehab/subacute rehab (once afib better controlled - hopefully in the next day or so) (2) Acetabular fracture: * As above. suspect osteoporotic fractures for this and pubic ramus. outpt bone [employer] eval. PT/OT and pain control for now (3) Fall: * Patient reports being "unsteady" on his feet for the last few weeks. * PT/OT evaluation and anticipate need for rehab * CT head unremarkable. (4) NSTEMI (non-ST elevated myocardial infarction): * Likely secondary to demand/stress in the setting of recent injury. * Cardiology consultation "Elevated troponin: His troponin is minimally elevated and not diagnostic of myocardial infarction. He did not present with acute coronary syndrome and has not experienced any recent anginal or heart failure symptoms. He appears to typically have elevated troponins at other hospital visits as well. Can continue to trend troponins until peak. No ischemic evaluation necessary at this time." (5) Atrial flutter, paroxysmal: * rates still unacceptable. faint rales and "tickle" ??possibly very mild acute diastolic chf - stop fluids but no clear need to diurese now - just stop fluids and control rates. increase dilt and metoprolol, digoxin x1. follow. anticoagulated on coumadin. (6) CAD (coronary atherosclerotic disease): * Previous h/o 2 vessel CABG. * Continue home ASCVD Rx as tolerated. * no angina (7) Dyslipidemia: * Continue home dosing of Simvastatin. (8) Atrial fibrillation: * Continue Rx per A.Fib Tx above. (9) H/O mechanical aortic valve replacement: * coumadin - follow INR. (10) Discharge planning issues: anticipate rehab once afib better controlled Admission and Anticipated Discharge Date Admission Date: August 11, 2020 Subjective feeling ok overall pain reasonably controlled but still certainly hurts a lot of a lot of trouble w mobility a little bit of a dry cough "tickle in my throat" but no sob no palpitations or sensation of heart racing Review of Systems Review of Systems: All systems reviewed & are unremarkable except as noted in HPI & below Physical Exam Physical Exam: gen aao pleasant nad heent nc at mmm cardio irreg irreg rate fast no r/m/g lungs very faint rales bibasilar no other r//rw good effort no accessory muscles no visible dyspnea. skin no rashes no pallor or icterus. rachana ro no focal deficits Results & Data Results & Data ([facility]) Vital Signs (Past 12 Hours) Vital Signs Temp Pulse Pulse Resp BP BP BP 08/15/20 15:48 97.9 F 120 H 18 153/94 H 08/15/20 12:15 98 H 125/88 08/15/20 11:32 97.3 F L 137 H 18 133/97 08/15/20 10:30 129 H 119/87 08/15/20 08:00 102 H 136/88 08/15/20 07:00 91 H Pulse Ox 08/15/20 15:48 94 08/15/20 12:15 08/15/20 11:32 95 08/15/20 10:30 08/15/20 08:00 08/15/20 07:00 PG Care Time/CCT Total # of Minutes Spent Total Time Spent with Patient: Total time spent is greater than 50% in coordination of care (as documented) at patient's floor/unit and/or counseling patient: Coding Level of Care Code 50827 Subseq Hosp Care Lvl 3 Diagnoses Closed fracture of pubic ramus S32.592A Encounter type: initial encounter Laterality: left Acetabular fracture S32.402A Encounter type: initial encounter Fracture alignment: nondisplaced Fracture type: closed Laterality: left Sublocation of acetabulum: unspecified portion of acetabulum Fall W19.XXXA Encounter type: initial encounter NSTEMI (non-ST elevated myocardial infarction) I21.4 Atrial flutter, paroxysmal I48.92 CAD (coronary atherosclerotic disease) I25.10 Dyslipidemia E78.5 Atrial fibrillation I48.91 H/O mechanical aortic valve replacement Z95.2 Discharge planning issues Z02.9 (1) Closed fracture of pubic ramus Encounter type: initial encounter Laterality: left Qualified Code(s): S32.592A - Other specified fracture of left pubis, initial encounter for closed fracture (2) Acetabular fracture Encounter type: initial encounter Fracture alignment: nondisplaced Fracture type: closed Laterality: left Sublocation of acetabulum: unspecified portion of acetabulum Qualified Code(s): S32.402A - Unspecified fracture of left acetabulum, initial encounter for closed fracture (3) Fall Encounter type: initial encounter Qualified Code(s): W19.XXXA - Unspecified fall, initial encounter
[2020-08-15] MEDS ORDERED: METOPROLOL SUCC 50MG EXT REL TAB PO SCH (21:00)
[2020-08-16] MEDS: ACETAMINOPHEN 500 MG TAB PO SCH ×4 (06:05→21:41)
[2020-08-16 07:13] LABS: Hematocrit (blood only) 30.3 % (42-52); Hemoglobin 10.5 g/dL (14.0-18.0); Mean Corpuscular Hemoglobin 32.4 pg (25-34); Mean Corpuscular Hgb Conc 34.7 g/dL (32-36); Mean Corpuscular Volume 93.5 fL (80-100); Mean Platelet Volume 10.3 fL (7.4-10.4); Platelet Count 187 K/uL (130-400); RDW Coefficient of Variation 13.4 % (11.5-14.5); RDW Standard Deviation 46.4 fL (36.4-46.3); Red Blood Count 3.24 M/uL (4.7-6.1); White Blood Count 6.85 K/uL (4.8-10.8)
[2020-08-16 07:43] LABS: BUN Creatinine Ratio 18.6 (10-20); Calcium 7.9 mg/dl (8.5-10.1); Creatinine Clr Calc Pharmacy 86.7 ml/min; Est GFR (African American) 100.9; Est GFR (Non-African American) 87.1; Potassium 3.8 mmol/L (3.5-5.1)
[2020-08-16] MEDS: METOPROLOL SUCC 50MG EXT REL TAB PO SCH (07:43)
[2020-08-16] MEDS: dilTIAZem HCl 60 MG TAB PO SCH ×3 (07:44→17:39)
[2020-08-16] MEDS: ASPIRIN 81 MG ECTAB PO SCH (07:45)
[2020-08-16] MEDS: PANTOprazole 40 MG TAB PO SCH (07:45)
[2020-08-16] MEDS: SENNOSIDES 8.8 MG/5 ML UDC PO SCH (07:45)
[2020-08-16] MEDS: LIDOCAINE 5% 1 PATCH TD SCH (07:46)
[2020-08-16] MEDS: SIMVASTATIN 40 MG TAB PO SCH (07:46)
[2020-08-16] MEDS: lisinopril 5 MG TAB PO SCH (07:46)
[2020-08-16] MEDS: CHOLECALCIFEROL 1,000 UNITS 25 MCG TAB PO SCH (07:47)
[2020-08-16] MEDS: DOCUSATE SODIUM 100 MG CAP PO SCH (07:48)
[2020-08-16 11:02] LABS: INR 5.3 (0.9-1.1); Prothrombin Time 51.3 Seconds (9.0-12.0)
--- NOTE | 2020-08-16 12:38 | Cardiology Progress Note ---
Date of Service August 16, 2020 Assessment & Plan (1) Paroxysmal atrial fibrillation: He has been consistently in atrial fibrillation recently and his heart rate is quite high during the day and well controlled at night. At home he is on metoprolol succinate 100 mg in the morning, here he is on metoprolol succinate 50 mg twice a day and diltiazem CD 60 mg 4 times daily. I think we need to modify his regimen so that he has more AV daisha blocking effect during the day and less at night, on his current regimen the AV block is fairly consistent throughout the day and night. I am therefore going to eliminate the evening dose of metoprolol succinate and his evening dose of Cardizem tonight and put him on Cardizem SR (the 12-hour preparation) tomorrow morning and see if that gives us a more stable heart rate. He will have calcium and beta-blockade during the day but only beta-blockade at night. Admission and Anticipated Discharge Date Admission Date: August 11, 2020 Subjective At the time of my evaluation today his only complaint is that of left hip discomfort. He does not feel palpitations in general, occasionally when specifically asked he says he might feel little something in his chest but is not pain and he evidently is not very aware of his atrial arrhythmia. Physical Exam Physical Exam: Constitutional: Alert, cooperative and in no distress. HEENT: Unremarkable Neck: No jugular venous distention, carotid pulses are irregular but otherwise normal and equal bilaterally without bruits. Pulmonary: Clear to auscultation bilaterally. Cardiac: Irregular rapid rhythm with no murmur, gallop or rub. Abdomen: Soft, nontender with normal bowel sounds. Extremities: No edema. Distal pulses intact. Neurologic: No focal findings. Gait is steady. Skin: No rash, ecchymoses or petechiae. Results & Data ([facility]) Vital Signs (Past 12 Hours) Vital Signs Temp Pulse Resp BP BP Pulse Ox 08/16/20 12:05 36.4 C L 88 20 151/75 H 93 08/16/20 07:50 36.5 C 96 H 20 172/94 H 95 08/16/20 03:29 36.3 C L 91 H 16 151/85 H 91 Laboratory Results Coagulation 08/16/20 Range/Units 10:13 PT 51.3 H (9.0-12.0) Seconds CBC 08/16/20 Range/Units 06:26 WBC 6.85 (4.8-10.8) K/uL RBC 3.24 L (4.7-6.1) M/uL Hgb 10.5 L (14.0-18.0) g/dL Hct 30.3 L (42-52) % Plt Count 187 (130-400) K/uL Comprehensive Metabolic Panel 08/16/20 Range/Units 06:26 Sodium 134 L (136-145) mmol/L Potassium 3.8 (3.5-5.1) mmol/L Chloride 103 (98-107) mmol/L Carbon Dioxide 25 (21-32) mmol/L BUN 13 (7-18) mg/dl Creatinine 0.68 (0.6-1.4) mg/dl Glucose 102 H (70-99) mg/dl Calcium 7.9 L (8.5-10.1) mg/dl Intake and Output 08/15/20 08/16/20 08/16/20 22:59 06:59 14:59 Intake Total 2014 Output Total 200 / 401 Balance 240 4 4 Intake: Oral 240 / 1015 200 / 1015 Output: Urine 200 / 400 Other: # Unmeasured Voids 1 Weight 77.2 kg Weight Measurement Method Built in [facility] Diagnostic Findings Telemetry: Atrial fibrillation, for the past 24 hours his rate was well controlled at night (around 70 bpm average) however yesterday during the day and this morning his heart rate is rapid at 140 bpm. PG Care Time/CCT Total # of Minutes Spent Total Time Spent with Patient: Total time spent is greater than 50% in coordination of care (as documented) at patient's floor/unit and/or counseling patient: Coding Level of Care Code 20723 Subseq Hosp Care Lvl 3 Diagnoses Paroxysmal atrial fibrillation I48.0
[2020-08-16] MEDS: KONDREMUL 30ML UDP PO SCH (15:44)
--- NOTE | 2020-08-16 18:25 | Hospitalist Progress Note ---
Date of Service August 16, 2020 Assessment & Plan (1) Closed fracture of pubic ramus: * Patient sustained a ground-level fall early on the morning of his presentation * Pelvic CT findings: * There is a comminuted inferior left pubic ring fracture with small distracted fragments. There is also fracture of the superior pubic ring adjacent to the symphysis. There is a comminuted fracture involving the anterior and medial giles of the left acetabulum. The left proximal femur is intact. * Orthopedic consultation obtained. Patient to remain nonweightbearing status. Okay with range of motion activities. Okay with bed to chair with assistance as tolerated by patient. * Per orthopedics, no plans for surgical intervention, Patient will need to remain nonweightbearing on the left lower extremity. Ambulation with walker or crutches. Continue pain control. Gentle range of motion of the left hip. * ongoing PT/OT - rehab once able to be set up (2) Acetabular fracture: * As above. suspect osteoporotic fractures for this and pubic ramus. outpt bone health eval. PT/OT and pain control for now (notes pain control adequate) (3) Fall: * Patient reports being "unsteady" on his feet for the last few weeks. * PT/OT evaluation and anticipate need for rehab - ongoing PT/OT * CT head unremarkable. (4) NSTEMI (non-ST elevated myocardial infarction): * Likely secondary to demand/stress in the setting of recent injury. * Cardiology consultation "Elevated troponin: His troponin is minimally elevated and not diagnostic of myocardial infarction. He did not present with acute coronary syndrome and has not experienced any recent anginal or heart failure symptoms. He appears to typically have elevated troponins at other hospital visits as well. Can continue to trend troponins until peak. No ischemic evaluation necessary at this time." (5) Atrial flutter, paroxysmal: * rates improving. appreciate cardiology assist. anticoagulated. follow INR (6) CAD (coronary atherosclerotic disease): * Previous h/o 2 vessel CABG. * Continue home ASCVD Rx as tolerated. * no angina (7) Dyslipidemia: * Continue home dosing of Simvastatin. (8) Atrial fibrillation: * Continue Rx per A.Fib Tx above. (9) H/O mechanical aortic valve replacement: * coumadin - follow INR. (10) Discharge planning issues: anticipate rehab once able to be facilitated Admission and Anticipated Discharge Date Admission Date: August 11, 2020 Subjective generally feeling ok - pain still about the same but control adequate. no cp no sob. cough persists but notes that he has PND - uses atrovent nasal and doesn't really want to do anything else about it. not averse to the idea of rehab as soon as it can be facilitated. does not feel heart racing or palpitations Review of Systems Review of Systems: Unobtainable due to cognitive status Physical Exam Physical Exam: gen aaox3 pleasant nad heent nc at mmm lungs cta b/l no r/r/w good effort cardio irreg irreg rate ~100 when i see him no focal neuro deficits skin no rashes no pallor or icterus Results & Data Results & Data ([facility]) Vital Signs (Past 12 Hours) Vital Signs Temp Pulse Resp BP BP Pulse Ox 08/16/20 15:55 97.9 F 114 H 18 150/89 H 94 08/16/20 12:05 97.5 F L 88 20 151/75 H 93 08/16/20 07:50 97.7 F 96 H 20 172/94 H 95 PG Care Time/CCT Total # of Minutes Spent Total Time Spent with Patient: Total time spent is greater than 50% in coordin ation of care (as documented) at patient's floor/unit and/or counseling patient: Coding Level of Care Code 11184 Subseq Hosp Care Lvl 3 Diagnoses Closed fracture of pubic ramus S32.592A Encounter type: initial encounter Laterality: left Acetabular fracture S32.402A Encounter type: initial encounter Fracture alignment: nondisplaced Fracture type: closed Laterality: left Sublocation of acetabulum: unspecified portion of acetabulum Fall W19.XXXA Encounter type: initial encounter NSTEMI (non-ST elevated myocardial infarction) I21.4 Atrial flutter, paroxysmal I48.92 CAD (coronary atherosclerotic disease) I25.10 Dyslipidemia E78.5 Atrial fibrillation I48.91 H/O mechanical aortic valve replacement Z95.2 Discharge planning issues Z02.9 (1) Closed fracture of pubic ramus Encounter type: initial encounter Laterality: left Qualified Code(s): S32.592A - Other specified fracture of left pubis, initial encounter for closed fracture (2) Acetabular fracture Encounter type: initial encounter Fracture alignment: nondisplaced Fracture type: closed Laterality: left Sublocation of acetabulum: unspecified portion of acetabulum Qualified Code(s): S32.402A - Unspecified fracture of left acetabulum, initial encounter for closed fracture (3) Fall Encounter type: initial encounter Qualified Code(s): W19.XXXA - Unspecified fall, initial encounter
[2020-08-17] MEDS: METOPROLOL TARTRATE 1 MG/ML VIAL IV PRN (05:29)
[2020-08-17] MEDS: ACETAMINOPHEN 500 MG TAB PO SCH ×3 (05:35→20:25)
[2020-08-17 07:13] LABS: INR 4.7 (0.9-1.1); Prothrombin Time 45.4 Seconds (9.0-12.0)
[2020-08-17] MEDS ORDERED: SENNOSIDES 8.8 MG/5 ML UDC PO ONE (08:30)
[2020-08-17] MEDS: LIDOCAINE 5% 1 PATCH TD SCH (09:01)
[2020-08-17] MEDS: SIMVASTATIN 40 MG TAB PO SCH (09:02)
[2020-08-17] MEDS: ASPIRIN 81 MG ECTAB PO SCH (09:02)
[2020-08-17] MEDS: lisinopril 5 MG TAB PO SCH (09:02)
[2020-08-17] MEDS: METOPROLOL SUCC 50MG EXT REL TAB PO SCH (09:02)
[2020-08-17] MEDS: SENNOSIDES 8.8 MG/5 ML UDC PO SCH (09:03)
[2020-08-17] MEDS: DOCUSATE SODIUM 100 MG CAP PO SCH (09:03)
[2020-08-17] MEDS: PANTOprazole 40 MG TAB PO SCH (09:03)
[2020-08-17] MEDS: CHOLECALCIFEROL 1,000 UNITS 25 MCG TAB PO SCH (09:03)
[2020-08-17] MEDS: POLYETHYLENE (MIRALAX) 17 GM PACK PO SCH ×2 (09:11→20:25)
--- NOTE | 2020-08-17 09:39 | Cardiology Progress Note ---
Date of Service August 17, 2020 Assessment & Plan (1) Paroxysmal atrial fibrillation: He has been consistently in atrial fibrillation recently and his heart rate was quite high during the day and well controlled at night. At home he was on metoprolol succinate 100 mg in the morning, here he was on metoprolol succinate 50 mg twice a day and diltiazem CD 60 mg 4 times daily. I modified his regimen so that he has more AV daisha blocking effect during the day and less at night, however this is the first day of that regimen and I held his evening and nighttime doses of diltiazem so that we could get him started on an appropriate medication for going home. That resulted in a rapid heart rate overnight but that was expected. This morning he recently received diltiazem SR which is a every 12 hours dose, as well as his metoprolol succinate which should last 24 hours. I will monitor his heart rate throughout the day and if it is elevated around 11:00 to noon I will give him an additional dose of diltiazem SR or perhaps metoprolol succinate. Admission and Anticipated Discharge Date Admission Date: August 11, 2020 Subjective From the cardiovascular standpoint he feels well, he has no palpitations despite the rapid heart rate. He is complaining of bowel difficulty and constipation still. Physical Exam Physical Exam: Constitutional: Alert, cooperative and in no distress. HEENT: Unremarkable Neck: No jugular venous distention, carotid pulses are irregular but otherwise normal and equal bilaterally without bruits. Pulmonary: Clear to auscultation bilaterally. Cardiac: Irregular rapid rhythm with no murmur, gallop or rub. Abdomen: Soft, nontender with normal bowel sounds. Extremities: No edema. Distal pulses intact. Neurologic: No focal findings. Gait is steady. Skin: No rash, ecchymoses or petechiae. Results & Data ([facility]) Vital Signs (Past 12 Hours) Vital Signs Temp Pulse Pulse Resp BP BP Pulse Ox 08/17/20 08:15 113 H 08/17/20 06:39 36.6 C 70 18 154/96 H 94 08/17/20 05:29 152 H 154/98 H 08/17/20 04:19 36.6 C 89 16 161/74 H 94 08/16/20 23:44 36.5 C 114 H 20 169/79 H 94 Diagnostic Findings Coagulation 08/16/20 08/17/20 Range/Units 10:13 06:11 PT 51.3 H 45.4 H (9.0-12.0) Seconds Intake and Output 08/16/20 08/17/20 08/17/20 22:59 06:59 14:59 Intake Total 120 / 780 Output Total 150 / 500 200 / 500 Balance -30 / 280 -200 / 280 Intake: Oral 120 / 780 Output: Urine 150 / 500 200 / 500 Other: Weight 79 kg Weight Measurement Method Built in [facility] Telemetry: Atrial fibrillation with an overall rapid heart rate. PG Care Time/CCT Total # of Minutes Spent Total Time Spent with Patient: Total time spent is greater than 50% in coordination of care (as documented) at patient's floor/unit and/or counseling patient: Coding Level of Care Code 90774 Subseq Hosp Care Lvl 3 Diagnoses Paroxysmal atrial fibrillation I48.0
--- NOTE | 2020-08-17 10:22 | XRay Report ---
XR KUB/Abdomen 1 view CLINICAL HISTORY: constipation, hx SBO COMPARISON STUDY: 06/27/2018 FINDINGS: There is mild gaseous prominence of multiple bowel loops. Postsurgical changes are evident. The findings may represent an ileus. If there is clinical concern over the presence of a small bowel obstruction, a CT scan could be obtained in follow-up. IMPRESSION: Nonspecific bowel gas pattern, likely representing an ileus. If there is a strong clinic al concern over the presence of bowel obstruction, a CT scan could be obtained in follow-up. ACT 112: Negative or not required by law. Electronically signed by: Hudson Patrick M.D. 08/17/2020 10:21 AM
[2020-08-17] MEDS ORDERED: METOPROLOL SUCC 50MG EXT REL TAB PO STA (13:58)
--- NOTE | 2020-08-17 18:01 | Hospitalist Progress Note ---
Date of Service August 17, 2020 Assessment & Plan (1) Closed fracture of pubic ramus: * Patient sustained a ground-level fall early on the morning of his presentation * Pelvic CT findings: * There is a comminuted inferior left pubic ring fracture with small distracted fragments. There is also fracture of the superior pubic ring adjacent to the symphysis. There is a comminuted fracture involving the anterior and medial giles of the left acetabulum. The left proximal femur is intact. * Orthopedic consultation obtained. Patient to remain nonweightbearing status. Okay with range of motion activities. Okay with bed to chair with assistance as tolerated by patient. * Per orthopedics, no plans for surgical intervention, Patient will need to remain nonweightbearing on the left lower extremity. Ambulation with walker or crutches. Continue pain control. Gentle range of motion of the left hip. * ongoing PT/OT - unfortunately rehab denied due to inability to do 3hrs a day of PT. will need to look at alternate placement options (2) Acetabular fracture: * As above. suspect osteoporotic fractures for this and pubic ramus. outpt [facility] eval. PT/OT and pain control, placement as above (3) Fall: * Patient reports being "unsteady" on his feet for the last few weeks. * not safe at home right now as above * CT head unremarkable. (4) NSTEMI (non-ST elevated myocardial infarction): * Likely secondary to demand/stress in the setting of recent injury. * Cardiology consultation "Elevated troponin: His troponin is minimally elevated and not diagnostic of myocardial infarction. He did not present with acute coronary syndrome and has not experienced any recent anginal or heart failure symptoms. He appears to typically have elevated troponins at other hospital visits as well. Can continue to trend troponins until peak. No ischemic evaluation necessary at this time." (5) Atrial flutter, paroxysmal: * rates improving, meds being titrated. appreciate cardiology assist. anticoagulated. following INR (6) CAD (coronary atherosclerotic disease): * Previous h/o 2 vessel CABG. * Continue home ASCVD Rx as tolerated. * no angina at this time (7) Dyslipidemia: * Continue home dosing of Simvastatin. (8) Atrial fibrillation: * Continue Rx per A.Fib Tx above. (9) H/O mechanical aortic valve replacement: * coumadin - follow INR. (10) Discharge planning issues: rehab denied. d/w pt snf options will likely need to be entertained. updated case management (11) Constipation: due to anxiety regarding situation, KUB was checked which was negative for SBO type findings bowel regimen escalated Admission and Anticipated Discharge Date Admission Date: August 11, 2020 Subjective more gruff and somewhat hostile today - does answer orientation questions appropriately but even angry that i ask. after further discussion notes that he's tired of being in the hospital. pain still about the same. no feelings in chest/palpitations. no abdominal pain or bloating. would like more boost. apparently called worried about his bowels and d/w nursing about senna syrup being the only thing that works. dr mendiola from anticoagulation clinic also called as called her worried about pt's bowels and wondering if we had bowel regimen ordered and also about boost. again pt without abdominal pain/bloating. Review of Systems Review of Systems: All systems reviewed & are unremarkable except as noted in HPI & below Physical Exam Physical Exam: gen aaox3, angry, nad. heent nc at mmm. cardio reg no r/m/g. lungs cta b/l no r/r/w good effort. abd soft nd nt no masses or organomegaly ext no c/c/e no calf tenderness neuro no focal deficits Results & Data Results & Data ([facility]) Vital Signs (Past 12 Hours) Vital Signs Temp Pulse Pulse Resp BP BP Pulse Ox 08/17/20 16:00 97.3 F L 69 20 174/82 H 08/17/20 14:35 97.3 F L 08/17/20 12:15 102.9 F H 77 18 150/94 H 90 08/17/20 08:15 113 H 08/17/20 06:39 97.9 F 70 18 154/96 H 94 PG Care Time/CCT Total # of Minutes Spent Total Time Spent with Patient: Total time spent is greater than 50% in coordination of care (as documented) at patient's floor/unit and/or counseling patient: Coding Level of Care Code 68137 Subseq Hosp Care Lvl 3 Diagnoses Closed fracture of pubic ramus S32.592A Encounter type: initial encounter Laterality: left Acetabular fracture S32.402A Encounter type: initial encounter Fracture alignment: nondisplaced Fracture type: closed Laterality: left Sublocation of acetabulum: unspecified portion of acetabulum Fall W19.XXXA Encounter type: initial encounter NSTEMI (non-ST elevated myocardial infarction) I21.4 Atrial flutter, paroxysmal I48.92 CAD (coronary atherosclerotic disease) I25.10 Dyslipidemia E78.5 Atrial fibrillation I48.91 H/O mechanical aortic valve replacement Z95.2 Discharge planning issues Z02.9 Constipation K59.00 (1) Closed fracture of pubic ramus Encounter type: initial encounter Laterality: left Qualified Code(s): S32.592A - Other specified fracture of left pubis, initial encounter for closed fracture (2) Acetabular fracture Encounter type: initial encounter Fracture alignment: nondisplaced Fracture type: closed Laterality: left Sublocation of acetabulum: unspecified portion of acetabulum Qualified Code(s): S32.402A - Unspecified fracture of left acetabulum, initial encounter for closed fracture (3) Fall Encounter type: initial encounter Qualified Code(s): W19.XXXA - Unspecified fall, initial encounter
[2020-08-18] MEDS: ACETAMINOPHEN 500 MG TAB PO SCH ×3 (05:34→21:31)
[2020-08-18 07:42] LABS: INR 3.5 (0.9-1.1); Prothrombin Time 34.5 Seconds (9.0-12.0)
[2020-08-18] MEDS: METOPROLOL SUCC 50MG EXT REL TAB PO SCH (08:11)
[2020-08-18] MEDS: PANTOprazole 40 MG TAB PO SCH (08:11)
[2020-08-18] MEDS: CHOLECALCIFEROL 1,000 UNITS 25 MCG TAB PO SCH (08:11)
[2020-08-18] MEDS: ASPIRIN 81 MG ECTAB PO SCH (08:11)
[2020-08-18] MEDS: lisinopril 5 MG TAB PO SCH (08:12)
[2020-08-18] MEDS: SENNOSIDES 8.8 MG/5 ML UDC PO SCH (08:12)
[2020-08-18] MEDS: SIMVASTATIN 40 MG TAB PO SCH (08:12)
[2020-08-18] MEDS: POLYETHYLENE (MIRALAX) 17 GM PACK PO SCH ×2 (08:12→19:55)
[2020-08-18] MEDS: LIDOCAINE 5% 1 PATCH TD SCH (08:12)
[2020-08-18] MEDS: DOCUSATE SODIUM 100 MG CAP PO SCH (08:13)
--- NOTE | 2020-08-18 14:01 | Cardiology Progress Note ---
Date of Service August 18, 2020 Assessment & Plan (1) Atrial flutter, paroxysmal: Rhythm appears to be atrial flutter, patient remains asymptomatic but ventricular rate is still suboptimally controlled. Would add metoprolol succinate 50 mg in the evening to his current diltiazem 120 mg daily/metoprolol 100 mg daily regimen. (2) H/O mechanical aortic valve replacement: Anticoagulated with warfarin, currently on hold due to supratherapeutic INR (3.5 today but improving). Discharge on warfarin, his previous INR goal was 2.03.0 for mechanical aortic valve, however with the additional risk factor of atrial fibrillation would consider increasing it up to his INR goal to 2.53.5, but might wait until further out from his acetabular fracture to reduce the risk of early bleeding complications. (3) Acetabular fracture: Admission and Anticipated Discharge Date Admission Date: August 11, 2020 Subjective Patient with pelvic and leg pain with any movement in the bed or attempting to stand up (even with considerable assistance). He also complains of longstanding heel pain (apparently from an injury during his knee replacement surgery in 2011). He denies any chest pain, subjective palpitations, or dyspnea. He was comfortable when lying still. Rhythm remains atrial fibrillation with average rate of 110 bpm (range 90 bpm - 140 bpm). Physical Exam Physical Exam: Patient appears chronically ill and uncomfortable but not a cutely distressed. BP mildly hypertensive. Did check orthostatic vital signs during his physical therapy and he was not orthostatic. Skin: no ecchymoses or generalized lesions. HEENT: unremarkable. Neck: Jugular venous pulse at the clavicle at 90 degrees, no carotid bruits. Lungs: clear. Cardiac: irregular rhythm, crisp/mechanical aortic closure sound, 3/6 early peaking crescendo decrescendo systolic murmur at the base that is nonradiating and 2/6 apical holosystolic murmur rating to the axilla, no diastolic murmur or gallop. Abdomen: benign. Extremities: no edema, pulses intact. Neurologic: normal affect, nonfocal. Results & Data ([facility]) Vital Signs (Past 12 Hours) Vital Signs Temp Pulse Pulse Resp BP BP Pulse Ox 08/18/20 12:09 98.1 F 93 H 20 157/88 H 97 08/18/20 08:58 137 H 08/18/20 07:00 97.7 F 122 H 18 175/107 H 179/103 H 93 08/18/20 05:42 137/89 08/18/20 04:10 97.5 F L 115 H 18 152/105 H 183/121 H 95 PG Care Time/CCT Total # of Minutes Spent Total Time Spent with Patient: Total time spent is greater than 50% in coordination of care (as documented) at patient's floor/unit and/or counseling patient: Coding Level of Care Code 04993 Subseq Hosp Care Lvl 3 Diagnoses Atrial flutter, paroxysmal I48.92 H/O mechanical aortic valve replacement Z95.2 Acetabular fracture S32.402A Encounter type: initial encounter Fracture alignment: nondisplaced Fracture type: closed Laterality: left Sublocation of acetabulum: unspecified portion of acetabulum (1) Acetabular fracture Encounter type: initial encounter Fracture alignment: nondisplaced Fracture type: closed Laterality: left Sublocation of acetabulum: unspecified portion of acetabulum Qualified Code(s): S32.402A - Unspecified fracture of left acetabulum, initial encounter for closed fracture
[2020-08-18] MEDS: KONDREMUL 30ML UDP PO SCH (15:45)
--- NOTE | 2020-08-18 18:37 | Hospitalist Progress Note ---
Date of Service August 18, 2020 Assessment & Plan (1) Closed fracture of pubic ramus: * Patient sustained a ground-level fall early on the morning of his presentation * Pelvic CT findings: * There is a comminuted inferior left pubic ring fracture with small distracted fragments. There is also fracture of the superior pubic ring adjacent to the symphysis. There is a comminuted fracture involving the anterior and medial giles of the left acetabulum. The left proximal femur is intact. * Orthopedic consultation obtained. Patient to remain nonweightbearing status. Okay with range of motion activities. Okay with bed to chair with assistance as tolerated by patient. * Per orthopedics, no plans for surgical intervention, Patient will need to remain nonweightbearing on the left lower extremity. Ambulation with walker or crutches. Continue pain control. Gentle range of motion of the left hip. * ongoing PT/OT - unfortunately rehab denied due to inability to do 3hrs a day of PT. will need to look at alternate placement options * pain control: continue scheduled tylenol. add toradol 15mg (doubt hives to celebrex will be relevant, renal function good, and will limit to short term so as to avoid stomach ulcer risk w coumadin); increase vitamin D. add miacalcin nasal (more studied in spine fractures, but since this is highly likely to be an osteoporotic fracture, may help w pain some and certainly low risk for harm) (2) Acetabular fracture: * As above. suspect osteoporotic fractures for this and pubic ramus. outpt bone health eval. PT/OT and pain control, placement as above pending options (3) Fall: * Patient reports being "unsteady" on his feet for the last few weeks. * not safe at home right now as above * CT head unremarkable. (4) NSTEMI (non-ST elevated myocardial infarction): * Likely secondary to demand/stress in the setting of recent injury. * Cardiology consultation "Elevated troponin: His troponin is minimally elevated and not diagnostic of myocardial infarction. He did not present with acute coronary syndrome and has not experienced any recent anginal or heart failure symptoms. He appears to typically have elevated troponins at other hospital visits as well. Can continue to trend troponins until peak. No ischemic evaluation necessary at this time." (5) Atrial flutter, paroxysmal: * rates better now, continue current meds. appreciate cardiology assist. anticoagulated. following INR (6) CAD (coronary atherosclerotic disease): * Previous h/o 2 vessel CABG. * Continue home ASCVD Rx as tolerated. * no angina at this time (7) Dyslipidemia: * Continue home dosing of Simvastatin. (8) Atrial fibrillation: * Continue Rx per A.Fib Tx above. (9) H/O mechanical aortic valve replacement: * coumadin - follow INR. (10) Discharge planning issues: rehab denied. d/w pt snf options will likely need to be entertained. updated case management (11) Constipation: due to anxiety regarding situation, KUB was checked which was negative for SBO type findings bowel regimen escalated Admission and Anticipated Discharge Date Admission Date: August 11, 2020 Subjective no chest symptoms robbie feels ok notes that pain is about the same - loosely wonders when it's going to get better. while he's declined any change in pain regimen before, today he notes that better pain control would be appreciated. he just does not want any narcotics. Review of Systems Review of Systems: All systems reviewed & are unremarkable except as noted in HPI & below Physical Exam Physical Exam: gen aaox3 pleasant nad heent nc at mmm breathing unlabored no accessory muscles good effort skin no rashes no pallor or icterus neuro no focal deficits Results & Data Results & Data ([facility]) Vital Signs (Past 12 Hours) Vital Signs Temp Pulse Pulse Resp BP BP Pulse Ox 08/18/20 17:07 104 H 08/18/20 15:00 98.1 F 80 16 145/90 H 97 08/18/20 12:09 98.1 F 93 H 20 157/88 H 97 08/18/20 08:58 137 H 08/18/20 07:00 97.7 F 122 H 18 175/107 H 179/103 H 93 PG Care Time/CCT Total # of Minutes Spent Total Time Spent with Patient: Total time spent is greater than 50% in coordination of care (as documented) at patient's floor/unit and/or counseling patient: Coding Level of Care Code 53658 Subseq Hosp Care Lvl 3 Diagnoses Closed fracture of pubic ramus S32.592A Encounter type: initial encounter Laterality: left Acetabular fracture S32.402A Encounter type: initial encounter Fracture alignment: nondisplaced Fracture type: closed Laterality: left Sublocation of acetabulum: unspecified portion of acetabulum Fall W19.XXXA Encounter type: initial encounter NSTEMI (non-ST elevated myocardial infarction) I21.4 Atrial flutter, paroxysmal I48.92 CAD (coronary atherosclerotic disease) I25.10 Dyslipidemia E78.5 Atrial fibrillation I48.91 H/O mechanical aortic valve replacement Z95.2 Discharge planning issues Z02.9 Constipation K59.00 (1) Closed fracture of pubic ramus Encounter type: initial encounter Laterality: left Qualified Code(s): S32.592A - Other specified fracture of left pubis, initial encounter for closed fracture (2) Acetabular fracture Encounter type: initial encounter Fracture alignment: nondisplaced Fracture type: closed Laterality: left Sublocation of acetabulum: unspecified portion of acetabulum Qualified Code(s): S32.402A - Unspecified fracture of left acetabulum, initial encounter for closed fracture (3) Fall Encounter type: initial encounter Qualified Code(s): W19.XXXA - Unspecified fall, initial encounter
[2020-08-18] MEDS: KETOROLAC TROMETHAMINE 15 MG/ML VIAL IV SCH ×2 (19:54→19:57)
[2020-08-19] MEDS: KETOROLAC TROMETHAMINE 15 MG/ML VIAL IV SCH ×5 (00:13→23:53)
[2020-08-19] MEDS: ACETAMINOPHEN 500 MG TAB PO SCH ×4 (05:47→22:21)
[2020-08-19 07:09] LABS: INR 1.8 (0.9-1.1); Prothrombin Time 18.4 Seconds (9.0-12.0)
[2020-08-19] MEDS: DOCUSATE SODIUM 100 MG CAP PO SCH (09:08)
[2020-08-19] MEDS: ASPIRIN 81 MG ECTAB PO SCH (09:09)
[2020-08-19] MEDS: SENNOSIDES 8.8 MG/5 ML UDC PO SCH (09:09)
[2020-08-19] MEDS: CHOLECALCIFEROL 1,000 UNITS 25 MCG TAB PO SCH (09:09)
[2020-08-19] MEDS: lisinopril 5 MG TAB PO SCH (09:10)
[2020-08-19] MEDS: PANTOprazole 40 MG TAB PO SCH (09:10)
[2020-08-19] MEDS: METOPROLOL SUCC 50MG EXT REL TAB PO SCH ×2 (09:10→20:52)
[2020-08-19] MEDS: SIMVASTATIN 40 MG TAB PO SCH (09:10)
[2020-08-19] MEDS: POLYETHYLENE (MIRALAX) 17 GM PACK PO SCH ×2 (09:10→20:52)
[2020-08-19] MEDS: CALCITONIN SALMON NA 200 IU/AC 3.7 ML BTL SCH (09:11)
[2020-08-19] MEDS: LIDOCAINE 5% 1 PATCH TD SCH ×2 (09:12→12:52)
--- NOTE | 2020-08-19 11:02 | Cardiology Progress Note ---
Date of Service August 19, 2020 Assessment & Plan (1) Atrial flutter, paroxysmal: Patient remains asymptomatic but ventricular rate is still suboptimally controlled. Recommend increasing metoprolol succinate to 100 mg twice daily while continuing his current diltiazem 120 mg daily. Given limited response to escalating beta-blockers thus far, would also add digoxin 125 mcg daily after digoxin loading. Case discussed with Dr. Berry. (2) H/O mechanical aortic valve replacement: INR dropped from supratherapeutic to mildly subtherapeutic today (1.8), would restart warfari. His previous INR goal was 2.03.0 for mechanical aortic valve, however with the additional risk factor of atrial fibrillation would consider increasing it up to his INR goal to 2.53.5, but might wait until further out from his acetabular fracture to reduce the risk of early bleeding complications. (3) Acetabular fracture: Admission and Anticipated Discharge Date Admission Date: August 11, 2020 Subjective Uneventful night. No chest pain, dyspnea, or lightheadedness. No subjective palpitations, presyncope, or syncope. Monitor shows persistent atrial flutter with still elevated ventricular response (130 bpm range). Physical Exam Physical Exam: Patient appears chronically ill and uncomfortable but not acutely distressed. BP normotensive to mildly hypertensive. Pulse 130 bpm range and mildly irregular. Skin: no ecchymoses or generalized lesions. HEENT: unremarkable. Neck: Jugular venous pulse at the clavicle at 90 degrees, no carotid bruits. Lungs: clear. Cardiac: irregular rhythm, crisp/mechanical aortic closure sound, 3/6 early p eaking crescendo decrescendo systolic murmur at the base that is nonradiating and 2/6 apical holosystolic murmur rating to the axilla, no diastolic murmur or gallop. Abdomen: benign. Extremities: no edema, pulses intact. Neurologic: normal affect, nonfocal. Results & Data ([facility]) Vital Signs (Past 12 Hours) Vital Signs Temp Pulse Resp BP Pulse Ox 08/19/20 07:47 97.9 F 135 H 20 172/95 H 96 08/19/20 05:11 97.9 F 102 H 20 142/68 H 97 08/18/20 23:34 97.5 F L 102 H 20 159/77 H 94 PG Care Time/CCT Total # of Minutes Spent Total Time Spent with Patient: Total time spent is greater than 50% in coordination of care (as documented) at patient's floor/unit and/or counseling patient: Coding Level of Care Code 74675 Subseq Hosp Care Lvl 3 Diagnoses Atrial flutter, paroxysmal I48.92 H/O mechanical aortic valve replacement Z95.2 Acetabular fracture S32.402A Encounter type: initial encounter Fracture alignment: nondisplaced Fracture type: closed Laterality: left Sublocation of acetabulum: unspecified portion of acetabulum (1) Acetabular fracture Encounter type: initial encounter Fracture alignment: nondisplaced Fracture type: closed Laterality: left Sublocation of acetabulum: unspecified portion of acetabulum Qualified Code(s): S32.402A - Unspecified fracture of left aceta bulum, initial encounter for closed fracture
[2020-08-19] MEDS ORDERED: METOPROLOL SUCC 50MG EXT REL TAB PO STA (12:18)
[2020-08-19] MEDS ORDERED: DIGOXIN 0.25 MG TAB PO ONE (14:00)
--- NOTE | 2020-08-19 14:03 | Hospitalist Progress Note ---
Date of Service August 19, 2020 Assessment & Plan (1) Closed fracture of pubic ramus: Daniel is AN 85-year-old gentleman with a notable past medical history of CAD s/p 2 vessel CABG, AVS s/p AVR with mechanical valve who presented to [facility] on 08/11 following a mechanical fall, subsequently found to have a closed fracture of the pubic ramus as well as an acetabular fracture. During his stay here, was also found to have atrial flutter with rapid ventricular rates. He has remained hemodynamically stable since his admission. Closed Fracture of Pubic Ramus / Acetabular Fracture -Clinically, patient reported sustaining a mechanical fall on the day of his presentation to [facility] -Upon his arrival to [facility], CT was significant for closed fractures of the pubic ramus and acetabulum, likely osteoporotic in nature - There is a comminuted inferior left pubic ring fracture with small distracted fragments. There is also fracture of the superior pubic ring adjacent to the symphysis. - There is a comminuted fracture involving the anterior and medial giles of the left acetabulum. The left proximal femur is intact. - Orthopedics consulted, appreciate recommendations: - No surgical intervention at this time. Remain nonweightbearing on the LLE. Utilize walker or crutches for ambulation - Continue [id number] with assistance as tolerated with above ambulation support - Continue regular PT/OT -- will require continuation of these in the outpatient setting - Unfortunately, patient was denied inpatient rehab -- working closely with case management to arrange alternative planning - Continue pain control regimen -- currently under control: Tylenol. Vitamin D. Miacalcin nasal (given osteoporotic fracture and low harm). Patient preferred discontinuation of Toradol 15mg PO given control of pain. Can consider again PRN Mechanical Fall - Patient reported to admitting and hospital teams that he feels unsteady on his feet in the weeks prior to admission - CT head obtained at admission unremarkable for acute pathology - Fall risk while here -- continue to work with closely with PT, OT, and CM to arrange dispositional placement Paroxysmal Atrial Flutter with RVR (at present) - Rates currently in the 100-140 range -- cardiology following and aware - Cardiology following, appreciate insight and recommendations: - Metoprolol succinate 100mg PO b.i.d. - Diltiazem 120mg PO daily - Digoxin 0.25mg PO x 1 given 08/19 - Add digoxin 0.125mg PO daily given poor response to BB/[id number]-CCBs - Anticoagulation: warfarin 5mg PO daily - INR goal was previously 2-3 for mechanical aortic valve, but given additional risk of AF, should consider increasing goal range from there to 2.5-3.5mg daily once farther out from fractures (given bleeding risk at present) Elevated Troponin - Mildly elevated troponin noted upon admission (0.1 - 0.15) - Cardiology input: "Elevated troponin: His troponin is minimally elevated and not diagnostic of myocardial infarction. He did not present with acute coronary syndrome and has not experienced any recent anginal or heart failure symptoms. He appears to typically have elevated troponins at other hospital visits as well. Can continue to trend troponins until peak. No ischemic evaluation necessary at this time." - May be due to demand ischemia in setting of fall, versus some chronic el evation (on review of his chart) Chronic Medical Problems - CAD: Continue ASCSVD medications as tolerated - AF: Please note anticoagulation goals above at d/c. Otherwise, as discussed under atrial flutter. - AVS s/p AVR with mechanical valve: INR goals as above. On Coumadin. (2) Atrial flutter, paroxysmal: (3) Acetabular fracture: (4) Coronary artery disease: Admission and Anticipated Discharge Date Admission Date: August 11, 2020 Supervising Physician Co-Signing Physician Notes I personally examined the patient and verified all alonzo points of history and exam, discussed case, and agree with decision making with Dr Dias feeling ok pain control reasonable. today is 60th anniversary. no abdominal symptoms. vitals noted nad heent nc at mmm breathing unlabored no accessory msucles good effort no focal neuro deficits presumably osteoporotic pelvic fractures - pain control, PT/OT, time; outpt bone health management afib RVR - continue to titrate med management constipation - bowel regimen. no s/s SBO otherwise as above Subjective No acute events overnight. This morning, patient reports feeling well with some mild pain. He is trying to have an optimistic perspective about the degree of his hip injury, and does seem to understand that with continued rehabilitation and pain management, he should be able to get most of his functional status back. He denies any numbness or tingling throughout his legs. Denies any chest pain, palpitations, shortness of breath. Telemetry does reveal that his heart rates were in the low 100s overnight, this morning going up into the 110s to 130s. Denies any shortness of breath. Ate his breakfast, reports having good appetite no nausea or vomiting. Review of Systems Review of Systems: As per HPI Physical Exam Constitutional: Well-appearing 85-year-old gentleman that is sitting in a chair, just having finished his breakfast prior to my arrival. He appears well overall. He is interactive and engaged in a conversation, making good eye contact. Does note that his leg feels weak. No acute distress Respiratory: Good respiratory effort with symmetric expansion of the chest. Lungs are clear to auscultation bilaterally without crackles or wheezes. Cardiovascular: Irregular rhythm with rapid rate. S1 and S2 are present without murmurs rubs or gallops. Gastrointestinal (Abdomen): Abdomen is soft, nontender, nondistended to palpation. Normoactive bowel sounds. Musculoskeletal: Flexion of the left hip does reveal a strength of 3 out of 5, compared to the right which is more of a 4+ out of 5. Sensation to light touch is equal across both extremities. Gait not assessed. Psychiatric: A+Ox3, euthymic affect Results & Data Results & Data ([facility]) Vital Signs (Past 12 Hours) Vital Signs Temp Pulse Pulse Resp BP Pulse Ox 08/19/20 12:53 140 H 08/19/20 11:03 36.7 C 136 H 20 147/98 H 97 08/19/20 08:00 132 H 08/19/20 07:47 36.6 C 135 H 20 172/95 H 96 08/19/20 05:11 36.6 C 102 H 20 142/68 H 97 Resident Activity Tracking Resident Involvement: Resident Care Provided Care Provided: Adult Hospital Medicine (1) Closed fracture of pubic ramus Encounter type: initial encounter Laterality: left Qualified Code(s): S32.592A - Other specified fracture of left pubis, initial encounter for closed fracture (2) Acetabular fracture Encounter type: initial encounter Fracture alignment: nondisplaced Fracture type: closed Laterality: left Sublocation of acetabulum: unspecified portion of acetabulum Qualified Code(s): S32.402A - Unspecified fracture of left acetabulum, initial encounter for closed fracture
--- NOTE | 2020-08-19 14:32 | Billing Data ---
Date of Service August 19, 2020 Coding Level of Care Code 94194 Subseq Hosp Care Lvl 3
[2020-08-19] MEDS ORDERED: DIGOXIN 0.125 MG TAB PO SCH (16:00)
[2020-08-19] MEDS: WARFARIN SOD 5 MG TAB PO SCH (17:29)
[2020-08-19] MEDS ORDERED: METOPROLOL SUCC 50MG EXT REL TAB PO SCH (21:00)
[2020-08-20] MEDS: ACETAMINOPHEN 500 MG TAB PO SCH ×3 (05:57→20:33)
--- NOTE | 2020-08-20 06:37 | Hospitalist Progress Note ---
Date of Service August 20, 2020 Assessment & Plan (1) Closed fracture of pubic ramus: Daniel is AN 85-year-old gentleman with a notable past medical history of CAD s/p 2 vessel CABG, AVS s/p AVR with mechanical valve who presented to [facility] on 08/11 following a mechanical fall, subsequently found to have a closed fracture of the pubic ramus as well as an acetabular fracture. During his stay here, was also found to have atrial flutter with rapid ventricular rates, which unfortunately have not resolved yet despite multiple rate-control medications. He has remained hemodynamically stable since his admission. Closed Fracture of Pubic Ramus / Acetabular Fracture -Clinically, patient reported sustaining a mechanical fall on the day of his presentation to [facility] -Upon his arrival to [facility], CT was significant for closed fractures of the pubic ramus and acetabulum, likely osteoporotic in nature - There is a comminuted inferior left pubic ring fracture with small distracted fragments. There is also fracture of the superior pubic ring adjacent to the symphysis. - There is a comminuted fracture involving the anterior and medial giles of the left acetabulum. The left proximal femur is intact. - Orthopedics consulted, appreciate recommendations: - No surgical intervention at this time. Remain nonweightbearing on the LLE. Utilize walker or crutches for ambulation - Continue [id number] with assistance as tolerated with above ambulation support - Continue regular PT/OT -- will require continuation of these in the outpatient setting - Unfortunately, patient was denied inpatient rehab -- working closely with case management to arrange alternative planning - Continue pain control regimen -- currently under control: Tylenol. Vitamin D. Miacalcin nasal (given osteoporotic fracture and low harm). Patient preferred discontinuation of Toradol 15mg PO given control of pain. Can consider again PRN Mechanical Fall - Patient reported to admitting and hospital teams that he feels unsteady on his feet in the weeks prior to admission - CT head obtained at admission unremarkable for acute pathology - Fall risk while here -- continue to work with closely with PT, OT, and CM to arrange dispositional placement Paroxysmal Atrial Flutter with RVR (at present) - Rates persistently in the 100-140 range despite medical therapy as below - Cardiology following, appreciate insight and recommendations: - Metoprolol succinate 100mg PO b.i.d. - Diltiazem 180mg PO daily - Digoxin 0.75mg PO daily x 1 today per cardiology to finish loading dose - Initiate digoxin 0.125mg PO daily tomorrow - Consider moving forward if no further control -- flutter ablation vs. cardioversion. Continue monitoring INR -- at present would require MILADYS prior to cardioversion. - Anticoagulation: warfarin 5mg PO daily - 08/20: Previously supratherapeutic. INR now subtherapeutic at 1.8 today. Warfarin resumed. - INR goal was previously 2-3 for mechanical aortic valve, but given additional risk of AF, should consider increasing goal range from there to 2.5-3.5mg daily once farther out from fractures (given bleeding risk at present) - INR qAM Elevated Troponin - Mildly elevated troponin noted upon admission (0.1 - 0.15) - Cardiology input: "Elevated troponin: His troponin is minimally elevated and not diagnostic of myocardial infarction. He did not present with acute coronary syndrome and has not experienced any recent anginal or heart failure symptoms. He appears to typically have elevated troponins at other hospital visits as well. Can continue to trend troponins until peak. No ischemic evaluation necessary at this time." - May be due to demand ischemia in setting of fall, versus some chronic elevation (on review of his chart) Chronic Medical Problems - CAD: Continue ASCSVD medications as tolerated - AF: Please note anticoagulation goals above at d/c. Otherwise, as discussed under atrial flutter. - AVS s/p AVR with mechanical valve: INR goals as above. On Coumadin. - Constipation: No signs or symptoms of SBO. Continue bowel regimen, monitor while here. (2) Atrial flutter, paroxysmal: (3) Acetabular fracture: (4) Coronary artery disease: Admission and Anticipated Discharge Date Admission Date: August 11, 2020 Supervising Physician Co-Signing Physician Notes I personally examined the patient and verified all alonzo points of history and exam, discussed case, and agree with decision making with Dr Dias feels ok overall. trying to do exercises as best as possible. vitals noted nad heent nc at mmm breathing unlabored no accessory muscles good effort no focal neuro deficits presumably osteoporotic pelvic fractures - continue pain control, PT/OT, time; outpatient bone health management afib RVR - continue to titrate med management, rates still not acceptable, cardiology input appreciated constipation -continue bowel regimen. no s/s SBO otherwise as above Subjective Per telemetry, patient remains in a flutter persistently in the 130s overnight. To recap, he was initiated on metoprolol succinate 100 mg p.o. twice daily, as well as digoxin 0.125 mg p.o. daily that is scheduled to begin today. Otherwise he is continuing his diltiazem as scheduled. At the bedside this morning, patient reports feeling well overall. He continues to endorse some left-sided pelvic pain that has remained unchanged from yesterday. Denies any numbness or tingling going down either of his legs. Despite his rapid rates, he further denies palpitations, chest pain, or shortness of breath. Good appetite, breakfast at the bedside. No nausea or vomiting. No new leg swelling. Review of Systems Review of Systems: As per HPI. Physical Exam Constitutional: Tired appearing 85-year-old gentleman who is lying back in his hospital bed, looking at the window upon my arrival. He is freely conversive during our conversation is fully alert and oriented. No acute distress. Respiratory: Good respiratory effort with symmetric expansion of the chest. Lungs are clear to auscultation bilaterally without crackles or wheezes. Cardiovascular: Irregular rhythm with rapid rate. S1 and S2 are present without murmurs rubs or gallops. Musculoskeletal: Strength of left hip flexion continues to be 3 out of 5. Right hip flexion 5 out of 5. Results & Data Results & Data ([facility]) Vital Signs (Past 12 Hours) Vital Signs Temp Pulse Pulse Pulse Resp BP BP 08/20/20 03:06 36.5 C 132 H 20 156/109 H 08/20/20 00:00 133 H 08/19/20 23:24 36.3 C L 97 H 20 166/84 H 08/19/20 20:50 133 H 143/85 H 08/19/20 19:05 36.7 C 136 H 18 152/94 H Pulse Ox 08/20/20 03:06 98 08/20/20 00:00 08/19/20 23:24 97 08/19/20 20:50 08/19/20 19:05 97 Resident Activity Tracking Resident Involvement: Resident Care Provided Care Provided: Adult Hospital Medicine (1) Closed fracture of pubic ramus Encounter type: initial encounter Laterality: left Qualified Code(s): S32.592A - Other specified fracture of left pubis, initial encounter for closed fracture (2) Acetabular fracture Encounter type: initial encounter Fracture alignment: nondisplaced Fracture type: closed Laterality: left Sublocation of acetabulum: unspecified portion of acetabulum Qualified Code(s): S32.402A - Unspecified fracture of left acetabulum, initial encounter for closed fracture
[2020-08-20 07:17] LABS: Basophils # (auto) 0.04 K/uL (0-0.2); Basophils % (auto) 0.6 %; Eosinophils # (auto) 0.19 K/uL (0-0.5); Eosinophils % (auto) 2.8 %; Hematocrit (blood only) 32.8 % (42-52); Immature Granulocytes # (auto) 0.08 K/uL (0.00-0.02); Immature Granulocytes % (auto) 1.2 %; Lymphocytes # (auto) 1.41 K/uL (1.2-3.4); Lymphocytes % (auto) 20.8 %; Mean Corpuscular Hemoglobin 31.5 pg (25-34); Mean Corpuscular Hgb Conc 33.5 g/dL (32-36); Mean Platelet Volume 9.7 fL (7.4-10.4); Monocytes # (auto) 0.68 K/uL (0.11-0.59); Neutrophils # (auto) 4.38 K/uL (1.4-6.5); Neutrophils % (auto) 64.6 %; Platelet Count 325 K/uL (130-400); RDW Coefficient of Variation 13.6 % (11.5-14.5); RDW Standard Deviation 46.9 fL (36.4-46.3); Red Blood Count 3.49 M/uL (4.7-6.1); White Blood Count 6.78 K/uL (4.8-10.8)
[2020-08-20 07:48] LABS: BUN Creatinine Ratio 19.7 (10-20); Calcium 8.5 mg/dl (8.5-10.1); Creatinine Clr Calc Pharmacy 92.6 ml/min; Est GFR (African American) 103.5; Est GFR (Non-African American) 89.3; Potassium 4.5 mmol/L (3.5-5.1)
[2020-08-20] MEDS: lisinopril 5 MG TAB PO SCH (08:45)
[2020-08-20] MEDS: KETOROLAC TROMETHAMINE 15 MG/ML VIAL IV SCH ×3 (08:47→17:00)
[2020-08-20] MEDS: POLYETHYLENE (MIRALAX) 17 GM PACK PO SCH ×2 (08:48→20:36)
[2020-08-20] MEDS: SENNOSIDES 8.8 MG/5 ML UDC PO SCH (08:48)
[2020-08-20] MEDS: PANTOprazole 40 MG TAB PO SCH (08:48)
[2020-08-20] MEDS: SIMVASTATIN 40 MG TAB PO SCH (08:49)
[2020-08-20] MEDS: CHOLECALCIFEROL 1,000 UNITS 25 MCG TAB PO SCH (08:49)
[2020-08-20] MEDS: ASPIRIN 81 MG ECTAB PO SCH (08:50)
[2020-08-20] MEDS: CALCITONIN SALMON NA 200 IU/AC 3.7 ML BTL SCH (08:54)
[2020-08-20] MEDS: LIDOCAINE 5% 1 PATCH TD SCH (08:54)
[2020-08-20] MEDS: METOPROLOL SUCC 50MG EXT REL TAB PO SCH ×2 (08:56→20:36)
[2020-08-20 09:28] LABS: INR 1.3 (0.9-1.1)
--- NOTE | 2020-08-20 12:14 | Cardiology Progress Note ---
Date of Service August 20, 2020 Assessment & Plan Admission and Anticipated Discharge Date Admission Date: August 11, 2020 Subjective He has no shortness of breath this morning. He denies any palpitations. He denies any lightheadedness or dizziness. He is not short of breath. He does have ongoing pelvic pain. He is eating Lunch. He denies any chest tightness or chest pressure. Results & Data ([facility]) Vital Signs (Past 12 Hours) Vital Signs Temp Pulse Resp BP Pulse Ox 08/20/20 11:00 36.4 C L 135 H 18 137/84 97 08/20/20 07:42 36.3 C L 130 H 18 143/87 H 94 08/20/20 03:06 36.5 C 132 H 20 156/109 H 98 Assessment & Plan (1) Atrial flutter, paroxysmal: Patient remains asymptomatic but ventricular rate is still suboptimally controlled. metoprolol succinate 100 mg twice daily while continuing his current diltiazem 120 mg daily. Given limited response to escalating beta-blockers thus far, would also add digoxin 125 mcg daily He only received a 0.25 mg of digoxin x1. I will add 3 more doses to completely dig load him. We will hold his 0.125 mg dose for this evening. If he remains tachycardic at that point his option is going to include a potential flutter ablation (No EKG this admission to confirm that it is right- sided flutter) versus cardioversion. The problem is he was subtherapeutic yesterday And his INR is only 1.3 today making cardioversion more complicated And would require transesophageal echocardiography before cardioversion. (2) H/O mechanical aortic valve replacement: INR dropped from supratherapeutic to mildly subtherapeutic today (1.8), would restart warfarin. His previous INR goal was 2.03.0 for mechanical aortic valve, however with the additional risk factor of atrial fibrillation would consider increasing it up to his INR goal to 2.53.5, but might wait until further out from his acetabular fracture to reduce the risk of early bleeding complications. (3) Acetabular fracture: Pulse 130 bpm range and mildly irregular. no carotid bruits. Lungs: clear. Cardiac: irregular rhythm, crisp/mechanical aortic closure sound, 3/6 early peaking crescendo decrescendo systolic murmur at the base that is nonradiating and 2/6 apical holosystolic murmur rating to the axilla, no diastolic murmur or gallop. Abdomen: benign.Soft nontender nondistended positive bowel sounds Extremities: no edema, pulses intact. Neurologic: normal affect, nonfocal. Psychiatric: Normal affect
[2020-08-20] MEDS: DOCUSATE SODIUM 100 MG CAP PO SCH (14:35)
[2020-08-20] MEDS: DIGOXIN 0.125 MG TAB PO SCH ×2 (14:42→20:34)
--- NOTE | 2020-08-20 15:01 | Billing Data ---
Date of Service August 20, 2020 Coding Level of Care Code 52415 Subseq Hosp Care Lvl 3
[2020-08-20] MEDS ORDERED: WARFARIN SOD 7.5 MG TAB PO ONE (15:15)
[2020-08-20] MEDS ORDERED: DIGOXIN 0.125 MG TAB PO SCH (16:00)
[2020-08-20] MEDS ORDERED: WARFARIN SOD 5 MG TAB PO ONE (16:00)
[2020-08-20] MEDS: WARFARIN SOD 5 MG TAB PO SCH (16:59)
[2020-08-20] MEDS: KONDREMUL 30ML UDP PO SCH (17:00)
[2020-08-21] MEDS: KETOROLAC TROMETHAMINE 15 MG/ML VIAL IV SCH ×4 (01:28→19:31)
[2020-08-21] MEDS: ACETAMINOPHEN 500 MG TAB PO SCH ×4 (04:45→22:12)
[2020-08-21] MEDS: LIDOCAINE 5% 1 PATCH TD SCH (08:52)
[2020-08-21] MEDS: METOPROLOL SUCC 50MG EXT REL TAB PO SCH ×2 (08:52→20:49)
[2020-08-21] MEDS: SENNOSIDES 8.8 MG/5 ML UDC PO SCH (08:52)
[2020-08-21] MEDS: PANTOprazole 40 MG TAB PO SCH (08:53)
[2020-08-21] MEDS: POLYETHYLENE (MIRALAX) 17 GM PACK PO SCH ×2 (08:53→20:49)
[2020-08-21] MEDS: DIGOXIN 0.125 MG TAB PO SCH ×2 (08:53→17:00)
[2020-08-21] MEDS: CHOLECALCIFEROL 1,000 UNITS 25 MCG TAB PO SCH (08:54)
[2020-08-21] MEDS: ASPIRIN 81 MG ECTAB PO SCH (08:54)
[2020-08-21] MEDS: SIMVASTATIN 40 MG TAB PO SCH (08:54)
[2020-08-21] MEDS: DOCUSATE SODIUM 100 MG CAP PO SCH (08:55)
[2020-08-21] MEDS: lisinopril 5 MG TAB PO SCH (08:55)
[2020-08-21] MEDS: CALCITONIN SALMON NA 200 IU/AC 3.7 ML BTL SCH (08:55)
[2020-08-21 09:59] LABS: INR 1.5 (0.9-1.1); Prothrombin Time 15.1 Seconds (9.0-12.0)
--- NOTE | 2020-08-21 11:42 | Hospitalist Progress Note ---
Date of Service August 21, 2020 Assessment & Plan (1) Closed fracture of pubic ramus: Daniel is AN 85-year-old gentleman with a notable past medical history of CAD s/p 2 vessel CABG, AVS s/p AVR with mechanical valve who presented to [facility] on 08/11 following a mechanical fall, subsequently found to have a closed fracture of the pubic ramus as well as an acetabular fracture. During his stay here, was also found to have atrial flutter with rapid ventricular rates, which unfortunately have not resolved yet despite multiple rate-control medications. He has remained hemodynamically stable since his admission. Closed Fracture of Pubic Ramus / Acetabular Fracture -Clinically, patient reported sustaining a mechanical fall on the day of his presentation to [facility] -Upon his arrival to [facility], CT was significant for closed fractures of the pubic ramus and acetabulum, likely osteoporotic in nature - There is a comminuted inferior left pubic ring fracture with small distracted fragments. There is also fracture of the superior pubic ring adjacent to the symphysis. - There is a comminuted fracture involving the anterior and medial giles of the left acetabulum. The left proximal femur is intact. - 25(OH)-VitD WNL in 01/2020 on chart review - Orthopedics consulted, appreciate recommendations: - No surgical intervention at this time. Remain nonweightbearing on the LLE. Utilize walker or crutches for ambulation - Continue [id number] with assistance as tolerated with above ambulation support - Continue regular PT/OT -- will require continuation of these in the outpatient setting - 08/21: Pt -- tolerating well, making progress, motivated, recommend rehab (3hr/d) - Case management following: anticipate [facility] Thursday 08/23 - Continue pain control regimen -- currently under control: Tylenol. Vitamin D. Miacalcin nasal (given osteoporotic fracture and low harm). Patient preferred discontinuation of Toradol 15mg PO given control of pain. Can consider again PRN Paroxysmal Atrial Flutter with Resolving RVR - 08/21: Rates nicely returned down to 90-110s this morning, still in flutter. - Cardiology following, appreciate insight and recommendations: - Metoprolol succinate 100mg PO b.i.d. - Diltiazem 180mg PO daily - Digoxin 0.75mg PO daily x 1 on 08/20 per cardiology to finish loading dose (for a total of 1.0mg) - Digoxin 0.125mg PO daily beginning 08/21 - Per cardiology, consider flutter ablation vs. cardioversion if rate control fails - INR as below Subtherapeutic INR - On Coumadin for AFib and mechanical aortic valve - INR goal was previously 2-3 for mechanical aortic valve, but given additional risk of AF, should consider increasing goal range from there to 2.5-3.5mg daily once farther out from fractures (given bleeding risk at present) - 08/20: Received total of warfarin 7.5 + 5.0mg /08/21: Due for 10mg today (aid from Dr. Kapoor) - Appreciate input from hematology / coagulation clinic - Proceed with heparin gtt/bridge given AFlutter, mechanical valve, and subtherapeutic INR for a few days -- transition to monotherapy with Warfarin once INR appropriate - INR qAM Mechanical Fall - Patient reported to admitting and hospital teams that he feels unsteady on his feet in the weeks prior to admission - CT head obtained at admission unremarkable for acute pathology - Fall risk while here -- continue to work with closely with PT, OT, and CM to arrange dispositional placement Elevated Troponin - Mildly elevated troponin noted upon admission (0.1 - 0.15) - Cardiology input: "Elevated troponin: His troponin is minimally elevated and not diagnostic of myocardial infarction. He did not present with acute coronary syndrome and has not experienced any recent anginal or heart failure symptoms. He appears to typically have elevated troponins at other hospital visits as well. Can continue to trend troponin until peak. No ischemic evaluation necessary at this time." - May be due to demand ischemia in setting of fall, versus some chronic elevation (on review of his chart) Chronic Medical Problems - CAD: Continue ASCSVD medications as tolerated - AF: Please note anticoagulation goals above at d/c. Otherwise, as discussed under atrial flutter. - AVS s/p AVR with mechanical valve: INR goals as above. On Coumadin. - Constipation: BM in the AM of 08/21. Continue bowel regimen, monitor while here. Dispo: Med/surg with Tele --> anticipate d/c to [facility] on[facility]after Sunday PPX: heparin gtt/bridge + warfarin pending therapeutic INR Diet: Heart-healthy Code: DNR/DNI (2) Atrial flutter, paroxysmal: (3) Acetabular fracture: (4) Coronary artery disease: Admission and Anticipated Discharge Date Admission Date: August 11, 2020 Supervising Physician Co-Signing Physician Notes Attending Attestation: Pt seen & examined, chart reviewed, care plan d/w PGY 1 Dr Anthony Dias. I agree w/ the alonzo components of his documentation. Rates improved s/p dig loading. During my rounds HR was in the 70s/80s on monitor. Pt had no complaints during my rounds - was talking on phone with family. Pain controlled at rest (pelvic, hip). Eating well. No dyspnea/cp. VSS, no fever gen - NAD, looks good neck - no JVD heart - irregular, HR< 100, s1 s2, mech valve closure sound heard all over chest lungs - CTA b/l abd - soft NT ext - no edema of ankles, pulses 2+ b/l A/P: 1. L acetabular fracture and pelvic fractures s/p fall, POA - pain controlled; vit D level earlier this year wnl Recommend outpatient DEXA 2. a flutter - rates improved on triple AV daisha agents (metoprolol 100 BID; cardizem qam; dig daily); appreciate cardiology assistance cont tele 3. subtherapeutic INR in face of #2 and mechanical AV -- heparin bridge - start now; daily INR; Dr Rossi assistance greatly appreciated with coumadin dosing 4. dispo - rehab at [facility]? Juan Diego Kimble MD Subjective No acute events overnight. At the bedside this morning, patient does report some pain in his left leg. He says that he was trying to get up, put too much weight on his left leg, and then felt pain almost immediately. Did not buckle o r fall. Was able to slip back in bed and getting more comfortable. Other than this, he reports that he feels fine. No palpitations. Overnight, telemetry did reveal that his rates nicely decreased from the 130s down to the 90-100 range. Denies shortness of breath, or chest pain. Reports good appetite. No nausea. Had a bowel movement this morning, which she said provided him great relief. C onstipation was previously a problem for him. Looking forward to [facility]. Questions and concerns were addressed and discussed. Review of Systems Review of Systems: As per HPI Physical Exam Constitutional: Well but tired appearing 85-year-old gentleman who is lying back in his hospital bed, looking at the window upon my arrival. During our conversation, he is completely alert and oriented. No acute distress. Respiratory: Normal expiratory effort with symmetric expansion of the chest. Lungs are clear to auscultation bilaterally without rales wheezes. Cardiovascular: Normal rate, irregular rhythm. S1 and S2 are present without murmurs rubs or gallops. Gastrointestinal (Abdomen): Normoactive bowel sounds. Abdomen soft, nontender, nondistended to palpation. Musculoskeletal: As on previous exams, the left lower extremity is nontender to palpation, but does only Exhibit 3/5 strength upon hip flexion. Right lower extremity does demonstrate 5/5 strength. Sensation to light touch is intact bilaterally. No clonus. Results & Data Results & Data ([facility]) Vital Signs (Past 12 Hours) Vital Signs Temp Pulse Pulse Pulse Resp BP BP 08/21/20 11:26 36.5 C 92 H 20 131/74 08/21/20 09:00 76 08/21/20 08:53 102 H 08/21/20 07:21 36.3 C L 95 H 18 135/76 08/21/20 03:17 36.5 C 91 H 18 142/72 H 08/20/20 23:50 36.2 C L 74 18 128/63 Pulse Ox 08/21/20 11:26 97 08/21/20 09:00 08/21/20 08:53 08/21/20 07:21 92 08/21/20 03:17 94 08/20/20 23:50 96 Resident Activity Tracking Resident Involvement: Resident Care Provided Care Provided: Adult Hospital Medicine (1) Closed fracture of pubic ramus Encounter type: initial encounter Laterality: left Qualified Code(s): S32.592A - Other specified fracture of left pubis, initial encounter for closed fracture (2) Acetabular fracture Encounter type: initial encounter Fracture alignment: nondisplaced Fracture type: closed Laterality: left Sublocation of acetabulum: unspecified portion of acetabulum Qualified Code(s): S32.402A - Unspecified fracture of left acetabulum, initial encounter for closed fracture
[2020-08-21] MEDS ORDERED: Heparin IV Standard *NO* Bolus ONE (11:48)
[2020-08-21] MEDS ORDERED: HEPARIN SODIUM/DEXTROSE 25,000 UNITS/500 ML BAG IV SCH (12:00)
[2020-08-21] MEDS ORDERED: WARFARIN SOD 10 MG TAB PO SCH (16:00)
[2020-08-21] MEDS: HEPARIN SODIUM/DEXTROSE 25,000 UNITS/500 ML BAG IV SCH (17:09)
--- NOTE | 2020-08-21 20:46 | Billing Data ---
Date of Service August 21, 2020 Coding Level of Care Code 94799 Subseq Hosp Care Lvl 2
[2020-08-21 23:22] LABS: INR 1.9 (0.9-1.1); Partial Thromboplastin Ratio 4.2; Prothrombin Time 19.1 Seconds (9.0-12.0)
[2020-08-21 23:41] LABS: Partial Thromboplastin Time 117.9 Seconds (21.0-31.0)
[2020-08-22] MEDS: KETOROLAC TROMETHAMINE 15 MG/ML VIAL IV SCH ×4 (02:00→20:20)
[2020-08-22] MEDS: ACETAMINOPHEN 500 MG TAB PO SCH ×3 (06:04→22:36)
[2020-08-22 07:16] LABS: Basophils # (auto) 0.05 K/uL (0-0.2); Basophils % (auto) 0.8 %; Eosinophils # (auto) 0.17 K/uL (0-0.5); Eosinophils % (auto) 2.6 %; Hematocrit (blood only) 32.5 % (42-52); Hemoglobin 11.2 g/dL (14.0-18.0); Immature Granulocytes # (auto) 0.08 K/uL (0.00-0.02); Immature Granulocytes % (auto) 1.2 %; Lymphocytes % (auto) 27.7 %; Mean Corpuscular Hemoglobin 32.2 pg (25-34); Mean Corpuscular Hgb Conc 34.5 g/dL (32-36); Mean Corpuscular Volume 93.4 fL (80-100); Mean Platelet Volume 9.2 fL (7.4-10.4); Monocytes # (auto) 0.57 K/uL (0.11-0.59); Monocytes % (auto) 8.8 %; Neutrophils # (auto) 3.83 K/uL (1.4-6.5); Neutrophils % (auto) 58.9 %; Platelet Count 342 K/uL (130-400); RDW Coefficient of Variation 13.8 % (11.5-14.5); Red Blood Count 3.48 M/uL (4.7-6.1)
[2020-08-22 07:25] LABS: Prothrombin Time 19.9 Seconds (9.0-12.0)
[2020-08-22 07:36] LABS: Partial Thromboplastin Ratio 3.8
[2020-08-22 07:57] LABS: Partial Thromboplastin Time 105.9 Seconds (21.0-31.0)
[2020-08-22] MEDS: LIDOCAINE 5% 1 PATCH TD SCH (08:24)
[2020-08-22] MEDS: POLYETHYLENE (MIRALAX) 17 GM PACK PO SCH ×2 (08:25→20:23)
[2020-08-22] MEDS: METOPROLOL SUCC 50MG EXT REL TAB PO SCH ×2 (08:26→20:29)
[2020-08-22] MEDS: SENNOSIDES 8.8 MG/5 ML UDC PO SCH (08:27)
[2020-08-22] MEDS: SIMVASTATIN 40 MG TAB PO SCH (08:27)
[2020-08-22] MEDS: PANTOprazole 40 MG TAB PO SCH (08:27)
[2020-08-22] MEDS: ASPIRIN 81 MG ECTAB PO SCH (08:28)
[2020-08-22] MEDS: CALCITONIN SALMON NA 200 IU/AC 3.7 ML BTL SCH (08:29)
[2020-08-22] MEDS: CHOLECALCIFEROL 1,000 UNITS 25 MCG TAB PO SCH (08:29)
[2020-08-22] MEDS: lisinopril 5 MG TAB PO SCH (08:29)
[2020-08-22] MEDS: DOCUSATE SODIUM 100 MG CAP PO SCH (08:29)
[2020-08-22 15:51] LABS: Partial Thromboplastin Ratio 2.3
[2020-08-22 15:54] LABS: Partial Thromboplastin Time 64.3 Seconds (21.0-31.0)
[2020-08-22] MEDS ORDERED: WARFARIN SOD 5 MG TAB PO SCH (16:00)
[2020-08-22] MEDS: DIGOXIN 0.125 MG TAB PO SCH (16:42)
[2020-08-22] MEDS: HEPARIN SODIUM/DEXTROSE 25,000 UNITS/500 ML BAG IV SCH (20:20)
[2020-08-22 22:03] LABS: Partial Thromboplastin Ratio 2.3
[2020-08-22 22:28] LABS: Partial Thromboplastin Time 65.2 Seconds (21.0-31.0)
[2020-08-23] MEDS: ACETAMINOPHEN 500 MG TAB PO SCH ×3 (04:57→21:54)
[2020-08-23 07:43] LABS: INR 2.2 (0.9-1.1); Partial Thromboplastin Ratio 2.7; Prothrombin Time 22.5 Seconds (9.0-12.0)
[2020-08-23 08:03] LABS: Partial Thromboplastin Time 75.7 Seconds (21.0-31.0)
[2020-08-23] MEDS: CHOLECALCIFEROL 1,000 UNITS 25 MCG TAB PO SCH (09:03)
[2020-08-23] MEDS: METOPROLOL SUCC 50MG EXT REL TAB PO SCH ×2 (09:04→19:59)
[2020-08-23] MEDS: SENNOSIDES 8.8 MG/5 ML UDC PO SCH (09:04)
[2020-08-23] MEDS: POLYETHYLENE (MIRALAX) 17 GM PACK PO SCH ×2 (09:05→19:59)
[2020-08-23] MEDS: CALCITONIN SALMON NA 200 IU/AC 3.7 ML BTL SCH (09:05)
[2020-08-23] MEDS: LIDOCAINE 5% 1 PATCH TD SCH (09:06)
--- NOTE | 2020-08-23 09:09 | Hospitalist Progress Note ---
Date of Service August 22, 2020 Assessment & Plan (1) Closed fracture of pubic ramus: Daniel is AN 85-year-old gentleman with a notable past medical history of CAD s/p 2 vessel CABG, AVS s/p AVR with mechanical valve who presented to [facility] on 08/11 following a mechanical fall, subsequently found to have a closed fracture of the pubic ramus as well as an acetabular fracture. During his stay here, was also found to have atrial flutter with rapid ventricular rates, which unfortunately have not resolved yet despite multiple rate-control medications. He has remained hemodynamically stable since his admission. Closed Fracture of Pubic Ramus / Acetabular Fracture -Clinically, patient reported sustaining a mechanical fall on the day of his presentation to [facility] -Upon his arrival to [facility], CT was significant for closed fractures of the pubic ramus and acetabulum, likely osteoporotic in nature - There is a comminuted inferior left pubic ring fracture with small distracted fragments. There is also fracture of the superior pubic ring adjacent to the symphysis. - There is a comminuted fracture involving the anterior and medial giles of the left acetabulum. The left proximal femur is intact. - 25(OH)-VitD WNL in 01/2020 on chart review - Orthopedics consulted, appreciate recommendations: - No surgical intervention at this time. Remain nonweightbearing on the LLE. Utilize walker or crutches for ambulation - Continue [id number] with assistance as tolerated with above ambulation support - Continue regular PT/OT -- will require continuation of these in the outpatient setting - PT -- tolerating well, making progress, motivated, recommend rehab (3hr/d) - Case management following: [facility]23 - Continue pain control regimen Paroxysmal Atrial Flutter with Resolving RVR - Rates well-controlled - flutter with HR <80 over last 24 hours - Cardiology following, appreciate insight and recommendations: - Metoprolol succinate 100mg PO b.i.d. - Diltiazem 180mg PO daily - Digoxin 0.125mg PO daily (s/p load) - Per cardiology, consider flutter ablation vs. cardioversion if rate control fails - INR as below Subtherapeutic INR - On Coumadin for AFib and mechanical aortic valve - INR goal was previously 2-3 for mechanical aortic valve, but given additional risk of AF, should consider increasing goal range from there to 2.5-3.5mg daily once farther out from fractures (given bleeding risk at present) - 12:27 INR 2.2 - 12:27: Dr. Block started alternating Warfarin 5/7.5 mg - Appreciate input from hematology / coagulation clinic - Continue with heparin gtt/bridge given AFlutter, mechanical valve, and subtherapeutic INR for a few days -- transition to monotherapy with Warfarin once INR appropriate - INR qAM Mechanical Fall - Patient reported to admitting and hospital teams that he feels unsteady on his feet in the weeks prior to admission - CT head obtained at admission unremarkable for acute pathology - Fall risk while here -- continue to work with closely with PT, OT, and CM to arrange dispositional placement Chronic Medical Problems - CAD: Continue ASCVD medications as tolerated - AF: Please note anticoagulation goals above at d/c. Otherwise, as discussed under atrial flutter. - AVS s/p AVR with mechanical valve: INR goals as above. On Coumadin. - Constipation: BM in the AM of 08/21. Continue bowel regimen, monitor while here. Dispo: Med/surg with Tele --> anticipate [facility] Sunday PPX: heparin gtt/bridge + warfarin pending therapeutic INR Diet: Heart-healthy Code: DNR/DNI (2) Atrial flutter, paroxysmal: (3) Acetabular fracture: (4) Coronary artery disease: Admission and Anticipated Discharge Date Admission Date: August 11, 2020 Supervising Physician Co-Signing Physician Notes Attending Attestation: Pt seen & examined, chart reviewed, care plan d/w PGY 1 Dr Jose Ricardo. I agree w/ the alonzo components of his documentation. Aflutter rates continue to be excellent - <100 mostly. Pelvic Pain controlled at rest. Had "good day" with good appetite and no other issues. VSS, no fever gen - NAD neck - no JVD heart - irregular, HR< 100, s1 s2, mech valve closure sound heard all over chest lungs - CTA b/l abd - soft NT ext - no edema of ankles, pulses 2+ b/l A/P: 1. L acetabular fracture and pelvic fractures s/p fall, POA - pain controlled; vit D level earlier this year wnl Recommend outpatient DEXA 2. a flutter - rates controlled with triple AV daisha agents including metoprolol 100 BID; cardizem 180mg qam; dig 0.125mg daily cont tele 3. subtherapeutic INR in face of #2 and mechanical AV -- cont heparin bridge as INR is 2 today (goal 2.5-3.5) daily INR; Dr Rossi assistance greatly appreciated with coumadin dosing 4. dispo - rehab at [facility]; patient was still agreeable when I spoke with him during my rounds today Juan Diego Kimble MD Subjective No acute events overnight. Patient reports working well with PT yesterday and improved ambulation. Denies fever/chills, chest pain, palpitations, cough, SOB, N/V, abdominal pain. Review of Systems Review of Systems: Pertinent positives and negatives mentioned in HPI Physical Exam Constitutional: WD/WN, vitals as above Respiratory: normal respiratory effort, lungs clear to auscultation Cardiovascular: RRR, no murmur, no edema Gastrointestinal (Abdomen): normal bowel sounds, soft, nontender, no hepatosplenomegaly Skin: no rashes, warm and dry Psychiatric: A+Ox3, euthymic affect Results & Data Results & Data ([facility]) Vital Signs (Past 12 Hours) Vital Signs Temp Pulse Pulse Resp BP BP Pulse Ox 08/23/20 07:24 36.6 C 72 18 173/79 H 95 08/23/20 03:23 60 08/23/20 03:19 36.3 C L 67 18 173/74 H 98 08/22/20 23:30 36.3 C L 66 18 145/74 H 96 Resident Activity Tracking Resident Involvement: Resident Care Provided Care Provided: Adult Hospital Medicine (1) Closed fracture of pubic ramus Encounter type: initial encounter Laterality: left Qualified Code(s): S32.592A - Other specified fracture of left pubis, initial encounter for closed fracture (2) Acetabular fracture Encounter type: initial encounter Fracture alignment: nondisplaced Fracture type: closed Laterality: left Sublocation of acetabulum: unspecified portion of acetabulum Qualified Code(s): S32.402A - Unspecified fracture of left acetabulum, initial encounter for closed fracture
[2020-08-23] MEDS: PANTOprazole 40 MG TAB PO SCH (09:48)
[2020-08-23] MEDS: SIMVASTATIN 40 MG TAB PO SCH (09:49)
[2020-08-23] MEDS: DOCUSATE SODIUM 100 MG CAP PO SCH (09:49)
[2020-08-23] MEDS: ASPIRIN 81 MG ECTAB PO SCH (09:49)
[2020-08-23] MEDS: lisinopril 5 MG TAB PO SCH (09:49)
[2020-08-23] MEDS ORDERED: KETOROLAC TROMETHAMINE 15 MG/ML VIAL IM PRN (10:53)
[2020-08-23] MEDS: DIGOXIN 0.125 MG TAB PO SCH (15:18)
[2020-08-23] MEDS: KONDREMUL 30ML UDP PO SCH (15:19)
[2020-08-23 15:20] LABS: Partial Thromboplastin Ratio 2.4
[2020-08-23 15:23] LABS: Partial Thromboplastin Time 66.3 Seconds (21.0-31.0)
[2020-08-23] MEDS ORDERED: WARFARIN SOD 7.5 MG TAB PO SCH (16:00)
--- NOTE | 2020-08-23 16:14 | Hospitalist Progress Note ---
Date of Service August 23, 2020 Assessment & Plan (1) Closed fracture of pubic ramus: Daniel is AN 85-year-old gentleman with a notable past medical history of CAD s/p 2 vessel CABG, AVS s/p AVR with mechanical valve who presented to [facility] on 08/11 following a mechanical fall, subsequently found to have a closed fracture of the pubic ramus as well as an acetabular fracture. During his stay here, was also found to have atrial flutter with rapid ventricular rates, which have been reduced by multiple rate-lowering medications to the 60-80s range. He has remained hemodynamically stable since his admission. Closed Fracture of Pubic Ramus / Acetabular Fracture -Clinically, patient reported sustaining a mechanical fall on the day of his presentation to [facility] -Upon his arrival to [facility], CT was significant for closed fractures of the pubic ramus and acetabulum, likely osteoporotic in nature - There is a comminuted inferior left pubic ring fracture with small distracted fragments. There is also fracture of the superior pubic ring adjacent to the symphysis. - There is a comminuted fracture involving the anterior and medial giles of the left acetabulum. The left proximal femur is intact. - 25(OH)-VitD WNL in 01/2020 on chart review - Orthopedics consulted, appreciate recommendations: - No surgical intervention at this time. Remain nonweightbearing on the LLE. Utilize walker or crutches for ambulation - Continue [id number] with assistance as tolerated with above ambulation support - Continue regular PT/OT -- will require continuation of these in the outpatient setting - PT -- tolerating well, making progress, motivated, recommend rehab (3hr/d) - Case management following: [facility] - Spoke with patient's ([phone]) who says she preferred [facility] (which already denied Mr. Pate although family is awaiting results of an appeal) over the [facility]. I then spoke with Case Management who said they will speak with patient's regarding this, as they have been in constant communication with patient's son, who is on-board with the decision to send to [facility]. Will follow up with CM in the morning. -Continue acetaminophen 1000mg PO q8h - Discontinuing ketorolac due to risk of GI bleed - Adding ultram 50mg q6h PRN for breakthrough pain Paroxysmal Atrial Flutter with Resolving RVR - Rates well-controlled - flutter with HR <80 over last 48 hours - Cardiology following, appreciate insight and recommendations: - Metoprolol succinate 100mg PO b.i.d. - Diltiazem 180mg PO daily - Digoxin 0.125mg PO daily (s/p load) - Per cardiology, consider flutter ablation vs. cardioversion if rate control fails - INR as below Subtherapeutic INR - On Coumadin for AFib and mechanical aortic valve - INR goal was previously 2-3 for mechanical aortic valve, but given additional risk of AF, should consider increasing goal range from there to 2.5-3.5mg daily once farther out from fractures (given bleeding risk at present) - 08/22: Dr. Block started alternating Warfarin 5/7.5mg - INR today: 2.2 - Discontinued heparin today as INR is near goal - INR qAM Mechanical Fall - Patient reported to admitting and hospital teams that he feels unsteady on his feet in the weeks prior to admission - CT head obtained at admission unremarkable for acute pathology - Fall risk while here -- continue to work with closely with PT, OT, and CM to arrange dispositional placement Chronic Medical Problems - CAD: Continue ASCVD medications as tolerated - AF: Please note anticoagulation goals above at d/c. Otherwise, as discussed under atrial flutter. - AVS s/p AVR with mechanical valve: INR goals as above. On Coumadin. - Constipation: BM in the AM of 08/21. Continue bowel regimen, monitor while here. Dispo: Med/surg with Tele --> anticipate d/[facility] tomorrow PPX: warfarin (dosing schedule noted above) Diet: Heart-healthy Code: DNR/DNI (2) Atrial flutter, paroxysmal: (3) Acetabular fracture: (4) Coronary artery disease: Admission and Anticipated Discharge Date Admission Date: August 11, 2020 Supervising Physician Co-Signing Physician Notes I saw the patient with the resident physician and confirmed alonzo portions of history and physical examination. I agree with the impression and plan as noted in the resident documentation. Exam Upon examination, the patient lying semi-supine in bed. He has no complaints Blood pressure 136/76, pulse 72, respiratory rate 16. Pulse oximetry 98% on room air. Heart with regular rhythm. 3/6 murmur consistent with mechanical valve Respirations are nonlabored Data INR equals 2.2 Sodium 135, potassium 4.5 Hemoglobin yesterday was 11.2 and stable. Assessment Left acetabular fracture and pelvic fracture status post fall Pain seems generally well controlled at this time. Tylenol as needed; would avoid NSAIDs given anticoagulation. Tramadol may be a reasonable alternative for pain unrelieved by Tylenol Atrial flutter Rates are acceptable With his current INR I think it is reasonable to discontinue heparin drip and continue with warfarin INR goal of 2.5-3.5, though okay with lower end of this goal at present given recent trauma. This will also have to be balanced moving forward given his continued fall risk Disposition still pending. [facility] - discussed above in the resident documentation. Subjective No acute events overnight. Patient reports working well with PT yesterday and improved ambulation. Denies fever/chills, chest pain, palpitations, cough, SOB, N/V, abdominal pain. Review of Systems Constitutional: as per Subjective / HPI; no fever and no fatigue Respiratory: no cough and no dyspnea Cardiovascular: no chest pain, no palpitations and no syncope Gastrointestinal: no abdominal pain, no nausea and no vomiting Neurologic: no headache(s) and no confusion Physical Exam Constitutional: well nourished; not ill appearing Respiratory: normal respiratory effort, lungs clear to auscultation Cardiovascular: Rate/Rhythm: regular rate and regular rhythm grade 5/6 crescendo-decrescendo murmur Neurologic: CN's II-XI intact bilaterally and awake; not confused Results & Data Results & Data ([facility]) Vital Signs (Past 12 Hours) Vital Signs Temp Pulse Pulse Pulse Resp BP BP 08/23/20 15:27 36.6 C 72 16 136/76 08/23/20 15:18 71 08/23/20 15:10 72 08/23/20 08:00 71 08/23/20 07:24 36.6 C 72 18 173/79 H Pulse Ox 08/23/20 15:27 98 08/23/20 15:18 08/23/20 15:10 08/23/20 08:00 08/23/20 07:24 95 Resident Activity Tracking Resident Involvement: Resident Care Provided Care Provided: Adult Hospital Medicine (1) Closed fracture of pubic ramus Encounter type: initial encounter Laterality: left Qualified Code(s): S32.592A - Other specified fracture of left pubis, initial encounter for closed fracture (2) Acetabular fracture Encounter type: initial encounter Fracture alignment: nondisplaced Fracture type: closed Laterality: left Sublocation of acetabulum: unspecified portion of acetabulum Qualified Code(s): S32.402A - Unspecified fracture of left acetabulum, initial encounter for closed fracture
[2020-08-23] MEDS ORDERED: KETOROLAC TROMETHAMINE 15 MG/ML VIAL IV PRN (16:15)
[2020-08-24 06:27] LABS: Basophils # (auto) 0.03 K/uL (0-0.2); Basophils % (auto) 0.4 %; Eosinophils # (auto) 0.08 K/uL (0-0.5); Eosinophils % (auto) 1.1 %; Hematocrit (blood only) 32.5 % (42-52); Immature Granulocytes # (auto) 0.07 K/uL (0.00-0.02); Lymphocytes % (auto) 22.3 %; Mean Corpuscular Hemoglobin 32.1 pg (25-34); Mean Corpuscular Hgb Conc 33.8 g/dL (32-36); Mean Corpuscular Volume 94.8 fL (80-100); Monocytes # (auto) 0.43 K/uL (0.11-0.59); Neutrophils # (auto) 4.97 K/uL (1.4-6.5); Neutrophils % (auto) 69.2 %; Platelet Count 339 K/uL (130-400); RDW Coefficient of Variation 13.9 % (11.5-14.5); RDW Standard Deviation 48.1 fL (36.4-46.3); Red Blood Count 3.43 M/uL (4.7-6.1); White Blood Count 7.18 K/uL (4.8-10.8)
[2020-08-24 06:38] LABS: INR 2.4 (0.9-1.1); Prothrombin Time 24.3 Seconds (9.0-12.0)
[2020-08-24] MEDS: ACETAMINOPHEN 500 MG TAB PO SCH ×2 (06:42→14:37)
[2020-08-24 06:55] LABS: BUN Creatinine Ratio 19.4 (10-20); Calcium 8.5 mg/dl (8.5-10.1); Creatinine Clr Calc Pharmacy 73.2 ml/min; Est GFR (African American) 94.4; Est GFR (Non-African American) 81.5; Potassium 4.8 mmol/L (3.5-5.1)
[2020-08-24] MEDS: ASPIRIN 81 MG ECTAB PO SCH (07:57)
[2020-08-24] MEDS: POLYETHYLENE (MIRALAX) 17 GM PACK PO SCH (07:58)
[2020-08-24] MEDS: LIDOCAINE 5% 1 PATCH TD SCH (07:58)
[2020-08-24] MEDS: CALCITONIN SALMON NA 200 IU/AC 3.7 ML BTL SCH (07:58)
[2020-08-24] MEDS: SENNOSIDES 8.8 MG/5 ML UDC PO SCH (07:59)
[2020-08-24] MEDS: PANTOprazole 40 MG TAB PO SCH (07:59)
[2020-08-24] MEDS: METOPROLOL SUCC 50MG EXT REL TAB PO SCH (07:59)
[2020-08-24] MEDS: lisinopril 5 MG TAB PO SCH (07:59)
[2020-08-24] MEDS: CHOLECALCIFEROL 1,000 UNITS 25 MCG TAB PO SCH (07:59)
[2020-08-24] MEDS: SIMVASTATIN 40 MG TAB PO SCH (08:00)
[2020-08-24] MEDS: DOCUSATE SODIUM 100 MG CAP PO SCH (10:02)
--- NOTE | 2020-08-24 10:23 | Hospitalist Progress Note ---
Date of Service August 24, 2020 Assessment & Plan (1) Closed fracture of pubic ramus: Daniel is AN 85-year-old gentleman with a notable past medical history of CAD s/p 2 vessel CABG, AVS s/p AVR with mechanical valve who presented to [facility] on 08/11 following a mechanical fall, subsequently found to have a closed fracture of the pubic ramus as well as an acetabular fracture. During his stay here, was also found to have atrial flutter with rapid ventricular rates, which have been reduced by multiple rate-lowering medications to the 60-80s range. He has remained hemodynamically stable since his admission. Closed fracture of pubic ramus, fracture of acetabulum -Clinically, patient reported sustaining a mechanical fall on the day of his presentation to [facility] -Upon his arrival to [facility], CT was significant for closed fractures of the pubic ramus and acetabulum, likely osteoporotic in nature -Orthopedics recommendations: - No surgical intervention at this time. Remain nonweightbearing on the LLE. Utilize walker or crutches for ambulation - Continue [id number] with assistance as tolerated with above ambulation support -Continue regular PT/OT when at senior care facility ([facility]) - jaswinder khan's agreed to discharge to this facility and he was accepted on 08/24 -Pain control: on day of discharge (08/24), patient felt well and had received only tylenol overnight; ketorolac had been discontinued and patient had not required ultram for breakthrough pain. -Ketorolac discontinued due to risk of GI bleed -Continue acetaminophen 1000mg PO q8h PRN for pain -Ultram 50mg PO q6h PRN for breakthrough pain - note that this was added on 08/23 as an alternative to ketorolac due to side effect risk; patient has not yet received ultram Paroxysmal atrial flutter with resolving RVR -Rates well-controlled: 08/24 telemetry data showed atrial flutter with PVCs with some couplets, in the 60s, overnight; this morning, atrial flutter with PVCs, with rates in the 50s-60s -Cardiology recommended we consider ablation vs cardioversion if rate control fails; however, rate control medications have been working well during his hospital stay. -Current medication regimen as recommended by cardiology: -metoprolol succinate 100mg PO bid -diltiazem 180mg PO qd -digoxin 0.125mg PO qd -INR below Subtherapeutic INR (resolved) -on Coumadin for atrial fibrillation and mechanical aortic valve -INR goal was previously 2-3 for mechanical aortic valve, but given additional risk of AF, should consider increasing goal range from there to 2.5-3.5mg daily once farther out from fractures (given bleeding risk at present) -08/22: Dr. Block recommended an alternating warfarin dose scheduling, alternating between 5mg one day and 7.5mg the next -heparin discontinued on 08/23 as INR was in therapeutic range -INR on 08/23: 2.2 -INR on morning of discharge (08/24): 2.4 -recheck INR on , 08/26, with regular rechecks afterward as indicated Mechanical fall -Patient reported to admitting and hospital teams that he feels unsteady on his feet in the weeks prior to admission -CT head obtained at admission unremarkable for acute pathology -Fall risk while here; patient worked closely with PT, OT, and CM on admission; continue these after discharge to [facility] as indicated Elevated troponin on admission -Patient had an elevated troponin on admission to 0.098. There was initially some concern for NSTEMI, but he did not have signs/symptoms of ACS, and has a history of mildly elevated troponins on multiple hospital visits. -EKG showed sinus rhythm with 1st degree AV block and a prolonged QT interval, but was not diagnostic or suspicious for NSTEMI. -Cardiology was consulted, their input is as follows: "Elevated troponin: His troponin is minimally elevated and not diagnostic of myocardial infarction. He did not present with acute coronary syndrome and has not experienced any recent anginal or heart failure symptoms. He appears to typically have elevated troponins at other hospital visits as well. Can continue to trend troponins until peak. No ischemic evaluation necessary at this time." Chronic medical problems -CAD: Continue ASCVD medications as tolerated -AVS s/p AVR with mechanical valve: INR goals as above. -Constipation: BM in the AM of 08/21. Continue bowel regimen, monitor upon discharge to [facility] Dispo: med/surg with telemetry; anticipate discharge to [facility] today (placement approved) DVT ppx: warfarin (dosing schedule noted above) Diet: heart healthy Code: DNR/DNI (2) Atrial flutter, paroxysmal: (3) Acetabular fracture: (4) Coronary artery disease: Admission and Anticipated Discharge Date Admission Date: August 11, 2020 Subjective No acute events overnight. Patient reports feeling well with only minor shoulder and hip pain. He reports being in a "great" mood and is very eager for discharge today. He understands the plan is to go to [facility] today and he is on-board with this plan. He expressed appreciation for the care he has received while at [facility]. Patient has no complaints at this time. Denies fever/chills, chest pain, palpitations, cough, SOB, N/V, abdominal pain, or other symptoms. Review of Systems Constitutional: no fever and no chills Respiratory: no cough and no dyspnea Cardiovascular: no chest pain, no palpitations and no edema Gastrointestinal: no abdominal pain, no nausea, no vomiting, no constipation and no diarrhea/loose stools Genitourinary: no dysuria Neurologic: no tingling and no numbness Physical Exam Constitutional: cooperative; no acute distress Respiratory: normal respiratory effort, lungs clear to auscultation Cardiovascular: RRR, no murmur, no edema Gastrointestinal (Abdomen): normal bowel sounds, soft, nontender, no hepatosplenomegaly Neurologic: CN's II-XI intact bilaterally and awake Psychiatric: A+Ox3, euthymic affect Results & Data Results & Data ([facility]) Vital Signs (Past 12 Hours) Vital Signs Temp Pulse Pulse Pulse Resp BP Pulse Ox 08/24/20 07:49 36.3 C L 67 18 167/79 H 97 08/24/20 07:31 69 08/24/20 02:55 36.3 C L 66 20 147/73 H 96 08/24/20 00:00 66 08/23/20 23:38 36.4 C L 61 18 142/64 H 95 (1) Closed fracture of pubic ramus Encounter type: initial encounter Laterality: left Qualified Code(s): S32.592A - Other specified fracture of left pubis, initial encounter for closed fracture (2) Acetabular fracture Encounter type: initial encounter Fracture alignment: nondisplaced Fracture type: closed Laterality: left Sublocation of acetabulum: unspecified portion of acetabulum Qualified Code(s): S32.402A - Unspecified fracture of left acetabulum, initial encounter for closed fracture
--- NOTE | 2020-08-24 18:41 | Discharge Summary ---
Date of Service August 24, 2020 Admission HPI Per Admitting Provider Patient is an 85-year-old male with a significant past medical history of coronary artery disease status post two-vessel CABG, paroxysmal A. fib, status post Maze procedure, ischemic cardiomyopathy, mitral regurgitation, mechanical aortic valve replacement, history of SBO status post surgical intervention, hypertension, hyperlipidemia, and peripheral arterial disease. Patient reports that he has been unsure in his feet over the last few weeks. He reports being cautious when he ambulates. Earlier this morning, the patient exited his bed to use the restroom when he reports that his legs "gave out from under him" and caused him to fall and land on his LEFT side. He is uncertain if he struck his head. He did not lose consciousness. His was able to help him from the floor. Throughout the morning, the patient had increasing pain and inability to ambulate. EMS was contacted and the patient was brought to the emergency department for further evaluation and management. Upon assessment, the patient was found to have a fracture of the LEFT pubic ring as well as comminuted fractures of the medial and superior giles of the LEFT acetabulum. No femur fractures appreciated. Patient was also noted to have a slight elevation of his troponin. EKG demonstrates no acute changes, thankfully. Upon evaluation in the emergency department, the patient is awake, alert, and oriented. He elicits pain to the LEFT-sided hip which she reports is worse with range of motion. He reports that he did have a slight headache which has resolved. Patient denies any prefall headaches, dizziness, lightheadedness, chest pain, palpitations, shortness of breath. Currently, the patient denies any of the same symptoms. Patient's is at bedside and reports that she did go to the attic and retrieve a walker for him to use, however he was unable to tolerate weightbearing and she knows time to bring him to the hospital. Admission Exam Per Admitting Provider VITAL SIGNS - Vital signs and nursing notes were reviewed. GENERAL - 85-year-old male appearing his stated age who is in no acute distress. Communicates well with provider and answers questions appropriately. SKIN - Without rashes. Dressings in place to the bilateral arms secondary to skin tears. HEAD - NC/AT. EYES - PERRL with EOMI bilaterally. Sclera anicteric. EARS - No deformities of external structures noted on gross examination bilaterally. NOSE - Midline and without cyanosis. No epistaxis or purulent drainage noted. MOUTH/OROPHARYNX - Without perioral cyanosis. Buccal mucosa pink and moist and without leukoplakia. Tongue midline with equal elevation of palate bilaterally. NECK - Neck with FROM. Supple to palpation. No nuchal rigidity. LUNGS - Chest wall symmetric without accessory muscle use, intercostals retractions, or central cyanosis. Normal vesicular breath sounds CTA B/L. No wheezes, rales, or rhonchi appreciated. CARDIAC - RRR with S1/S2. No murmur, rubs, or gallops appreciated. ABDOMEN - Abdominal contour flat without pulsations or visible masses. BS normoactive all four quadrants. No tenderness, palpable masses, hepatosplenomegaly, or ascites noted. EXTREMITIES - TTP over the lateral aspect of the LEFT hip. No clubbing or peripheral cyanosis. No pretibial edema present. +3/5 radial pulses w/ diminished pedal pulses bilaterally. NEUROLOGIC - Cranial nerves II through XII grossly intact. Sensory intact to light touch throughout. PSYCH - A&Ox3 and cooperates fully with examiner. Pt is very pleasant and interacts well with examiner. Principal Diagnosis Pubic ramus fracture, acetabulum fracture 2/2 mechanical fall Discharge Exam Constitutional cooperative; no acute distress and not ill appearing Respiratory normal respiratory effort, lungs clear to auscultation Cardiovascular RRR, no murmur, no edema Musculoskeletal Spine: + loss of normal cervical lordosis lidocaine patches on his right shoulder and left hip Neurologic CN's II-XI intact bilaterally Psychiatric A+Ox3, euthymic affect Discharge Data Allergies Allergy/AdvReac Type Severity Reaction Status Date / Time bee venom protein (honey bee) Allergy Severe ANAPHYLACTIC Verified 08/11/20 08:53 REACTION celecoxib Allergy Intermediate HIVES Verified 08/11/20 08:53 chlorhexidine Allergy Intermediate ITCHING Verified 08/11/20 08:53 WITH CHLORHEXIDINE SCRUB povidone-iodine Allergy Intermediate ITCHY RASH Verified 08/11/20 08:53 shellfish derived Allergy Intermediate GI SYMPTOMS Verified 08/11/20 08:53 piperacillin Allergy Mild rash Verified 08/11/20 08:53 tazobactam Allergy Mild rash Verified 08/11/20 08:53 Sulfa Drugs Allergy Unknown Unknown Uncoded 08/11/20 08:53 ANESTHESIA AdvReac Unknown HALLUCINATI Uncoded 08/11/20 08:53 ON Consultations 08/11/20 11:41 ED Decision to Admit Stat 08/11/20 12:31 Consult Cardiology Routine 08/11/20 12:32 Consult Case Management - Discharge Planning Routine 08/11/20 12:33 Consult Orthopedic Surgery Routine 08/16/20 09:27 Consult Case Management - Discharge Planning Routine Ordered Studies 08/11/20 08:37 CT head/brain wo con Stat 08/11/20 09:37 CT hip LT wo con Stat Hospital Course (1) Closed fracture of pubic ramus: Daniel Pate is an 85yo gentleman with a past medical history of CAD s/p 2 vessel CABG and AVS s/p AVR with mechanical valve who presented to [facility] on 08/11 following a mechanical fall, subsequently found to have a closed fracture of the pubic ramus as well as an acetabular fracture. During his stay here, was also found to have atrial flutter with rapid ventricular rates, which have been reduced by multiple rate-lowering medications to the 60-80s range. He has remained hemodynamically stable since his admission. Mechanical fall, closed fracture of pubic ramus, fracture of acetabulum Patient reported a mechanical fall on the day of his admission to [facility]. CT showed closed fractures of the pubic ramus and acetabulum, likely osteoporotic in nature. CT head was unremarkable for acute pathology. Orthopedic surgery was consulted and recommended no surgical intervention, as well as nonweightbearing on the LLE using a walker or crutches for ambulation support. Patient engaged closely with PT/OT during his hospital stay. Patient's pain was largely controlled with tylenol 1000mg q8hr as well as ketorolac for breakthrough pain; however, towards the end of his admission, ketorolac was discontinued due to concerns of the risk of GI bleeding. Ultram 50mg was added for breakthrough pain when ketorolac was discontinued on 08/23, although patient required only tylenol and lidocane patches for pain control on the day of admission. Patient was discharged on 08/24 to [facility] with plans to continue PT/OT there, and to follow up with orthopedics in two weeks. Paroxysmal atrial flutter s/p Maze procedure, history of AVS s/p AVR with mechanical valve, fluctuating INR Patient's INR was therapeutic on admission (2.6). On 08/14, patient's heart rate became elevated to the 140s, and he would fluctuate between controlled rates during the day and being rate controlled at night; he remained asymptomatic thro ughout the periods of elevated heart rate. Cardiology was consulted and recommended adjusting his medication regimen to metoprolol succinate 100mg PO bid, diltiazem 180mg PO qd, and digoxin 0.125mg PO qd, which successfully lowered his rate to sub-100s on 08/21; his heart rate stayed within the 60s-100s range for the rest of his stay. Due to the risk of AF along with having a mechanical valve, patient's long-term INR goal range was recommended to be 2.5- 3.5 instead of 2-3, and warfarin dosing was recommended to be alternating 5mg/7.5mg doses. Patient's INR on the day of discharge was 2.4 with close monitoring recommended. Elevated troponin on admission Patient had an elevated troponin on admission to 0.098. There was concern for NSTEMI, although patient did not have signs/symptoms of ACS, and has a history of mildly elevated troponins on multiple hospital visits. EKG was not concerning for NSTEMI. Cardiology was consulted, and per their input, no ischemic eval uation was necessary. CAD Patients ASCVD meds were continued during his stay. (2) Paroxysmal atrial fibrillation: (3) Acetabular fracture: (4) Fall: (5) Elevated troponin I level: (6) H/O mechanical aortic valve replacement: Total Time Total Time Spent Total Time Spent (In Minutes): See attending documentation Discharge Plan Discharge Items Patient Disposition: Transfer Residential Fac Reason For Visit: PELVIC FRACTURE,NSTEMI Discharge Diagnosis: Pelvic fracture, acetabulum fracture Condition on Discharge: Good Activity: Per Instructions section Non-emergency contact: Primary Care Provider Call non-emergency contact if: you have any medication questions, your pain is not controlled and you have a fever Follow-up/Referrals: Josias Chopra MD [Primary Care Provider] - Diet: Heart Healthy Addtl Attending Provider Instructions: Daniel is AN 85-year-old gentleman with a notable past medical history of CAD s/p 2 vessel CABG, AVS s/p AVR with mechanical valve who presented to [facility] on 08/11 following a mechanical fall, subsequently found to have a closed fracture of the pubic ramus as well as an acetabular fracture. During his stay here, was also found to have atrial flutter with rapid ventricular rates, which have been reduced by multiple rate-lowering medications to the 60-80s range. He has remained hemodynamically stable since his admission. Closed fracture of pubic ramus, fracture of acetabulum -Clinically, patient reported sustaining a mechanical fall on the day of his presentation to [facility] -Upon his arrival to [facility], CT was significant for closed fractures of the pubic ramus and acetabulum, likely osteoporotic in nature -Orthopedics recommendations: - No surgical intervention at this time. Remain nonweightbearing on the LLE. Utilize walker or crutches for ambulation - Continue [id number] with assistance as tolerated with above ambulation support -Continue regular PT/OT when at jail facility ([facility]) - patient's agreed to discharge to this facility and he was accepted on 08/24 -Pain control: on day of discharge (08/24), patient felt well and had received only tylenol overnight; ketorolac had been discontinued and patient had not required ultram for breakthrough pain. -Ketorolac discontinued due to risk of GI bleed -Continue acetaminophen 1000mg PO q8h PRN for pain -Ultram 50mg PO q6h PRN for breakthrough pain - note that this was added on 08/23 as an alternative to ketorolac due to side effect risk; patient has not yet received ultram -Follow up with orthopedics within two weeks Paroxysmal atrial flutter with resolving RVR -Rates well-controlled: 08/24 telemetry data showed atrial flutter with PVCs with some couplets, in the 60s, overnight; this morning, atrial flutter with PVCs, with rates in the 50s-60s -Cardiology recommended we consider ablation vs cardioversion if rate control fails; however, rate control medications have been working well during his hospital stay. -Current medication regimen as recommended by cardiology: -metoprolol succinate 100mg PO bid -diltiazem 180mg PO qd -digoxin 0.125mg PO qd -INR below Subtherapeutic INR (resolved) -on Coumadin for atrial fibrillation and mechanical aortic valve -INR goal was previously 2-3 for mechanical aortic valve, but given additional risk of AF, should consider increasing goal range from there to 2.5-3.5mg daily once farther out from fractures (given bleeding risk at present) -08/22: Dr. Block recommended an alternating warfarin dose scheduling, alternating between 5mg one day and 7.5mg the next -heparin discontinued on 08/23 as INR was in therapeutic range -INR on 08/23: 2.2 -INR on morning of discharge (08/24): 2.4 -recheck INR on , 08/26, with regular rechecks afterward as indicated; follow up with PCP within one week Mechanical fall -Patient reported to admitting and hospital teams that he feels unsteady on his feet in the weeks prior to admission -CT head obtained at admission unremarkable for acute pathology -Fall risk while here; patient worked closely with PT, OT, and CM on admission; continue these after discharge to [facility] as indicated Elevated troponin on admission -Patient had an elevated troponin on admission to 0.098. There was initially some concern for NSTEMI, but he did not have signs/symptoms of ACS, and has a history of mildly elevated troponins on multiple hospital visits. -EKG showed sinus rhythm with 1st degree AV block and a prolonged QT interval, but was not diagnostic or suspicious for NSTEMI. -Cardiology was consulted, their input is as follows: "Elevated troponin: His troponin is minimally elevated and not diagnostic of myocardial infarction. He did not present with acute coronary syndrome and has not experienced any recent anginal or heart failure symptoms. He appears to typically have elevated troponins at other hospital visits as well. Can continue to trend troponins until peak. No ischemic evaluation necessary at this time." Chronic medical problems -CAD: Continue ASCVD medications as tolerated -AVS s/p AVR with mechanical valve: INR goals as above. -Constipation: BM in the AM of 08/21. Continue bowel regimen, monitor upon discharge to [facility] Dispo: med/surg with telemetry; anticipate discharge to [facility] today (placement approved) DVT ppx: warfarin (dosing schedule noted above) Diet: heart healthy Code: DNR/DNI Pending Studies at Discharge: No Stand-Alone Forms: [employer] Skilled Items Patient informed of condition?: Yes DNR: Yes Discharge Level of Care: Skilled Communicable Disease: No Discharge Prognosis: Improving Lines: None Urinary Catheter: No Medications and DC Order Prescriptions: New metoprolol succinate 50 mg Tablet Extended Release 24 Hr 100 mg PO QAM Qty: 30 RF: 0 metoprolol succinate 50 mg Tablet Extended Release 24 Hr 100 mg PO QPM 30 Days Qty: 30 RF: 0 warfarin [Jantoven] 7.5 mg Tablet 7.5 mg PO MoWeFr@1600 30 Days Qty: 30 RF: 0 warfarin 5 mg Tablet 5 mg PO SuTuThSa@1600 30 Days Qty: 30 RF: 0 digoxin [Digitek] 125 mcg (0.125 mg) Tablet 0.125 mg PO DAILY@1600 30 Days Qty: 30 RF: 0 diltiazem HCl 60 mg Capsule,Extended Release 12 Hr 180 mg PO DAILY 30 Days Qty: 30 RF: 0 acetaminophen 500 mg Tablet 1,000 mg PO Q8 30 Days Qty: 90 RF: 0 pantoprazole 40 mg Tablet,Delayed Release (Dr/Ec) 40 mg PO DAILY 30 Days Qty: 30 RF: 0 polyethylene glycol 3350 [Miralax] 17 gram Powder In Packet 17 g PO BID 30 Days Qty: 30 RF: 0 lidocaine 5 % Adhesive Patch,Medicated 2 patch transdermal QAM 30 Days Qty: 60 RF: 0 calcitonin (salmon) 200 unit/actuation [place],Non-Aerosol 1 spray NA DAILY 30 Days Qty: 30 RF: 0 Continued calcipotriene [Dovonex] 0.005 % cream 1 appln TOP DAILY Qty: 120 RF: 0 simvastatin 40 mg tablet 40 mg PO DAILY Qty: 90 RF: 3 lisinopril 5 mg tablet 5 mg PO DAILY Qty: 90 RF: 3 ipratropium bromide 42 mcg (0.06 %) spray,non-aerosol See Rx Instructions intranasal TID PRN (Reason: allergy symptoms) Qty: 15 RF: 3 cholecalciferol (vitamin D3) 1,000 unit capsule 1,000 units PO DAILY RF: 0 sennosides [senna] 8.8 mg/5 mL syrup 10 ml PO DAILY RF: 0 ammonium lactate 12 % lotion 1 appln TOP BID PRN (Reason: dry skin) Qty: 225 RF: 1 docusate sodium 100 mg capsule 100 mg PO DAILY RF: 0 Ensure Liquid 1 ea PO DAILY RF: 0 mineral oil Oil 30 ml PO 3XWK RF: 0 Discontinued omeprazole 20 mg capsule,delayed release(DR/EC) 20 mg PO DAILY Qty: 90 RF: 3 metoprolol succinate 100 mg tablet extended release 24 hr 100 mg PO DAILY Qty: 90 RF: 3 warfarin 5 mg tablet See Rx Instructions PO DAILY Qty: 90 RF: 2 warfarin 2.5 mg tablet See Rx Instructions PO DAILY Qty: 40 RF: 2 amoxicillin 500 mg tablet 2,000 mg PO ONCE RF: 0 acetaminophen [Tylenol 8 Hour] 650 mg tablet extended release 650 mg PO Q12H PRN (Reason: Pain) RF: 0 aspirin [Adult Low Dose Aspirin] 81 mg tablet,delayed release (DR/EC) 81 mg PO DAILY Qty: 30 RF: 3 Discharge Orders: Discharge Order (Routine); Ordered 08/24/20 Ordered By: Yomi Jain Admission Data Admit Date/Time: 08/11/20 12:29 Attending Provider: Duane Melgar Admit Provider: Dimas Dominguez Primary Care Provider: Josias Chopra V. Other Providers: Dimas Dominguez ; Marvin Chaidez ; Jordan Carrillo ; Parvez Haile ; Remy Borja ; Andrea Enrique ; Nathan Barron ; Holger Engle Jr ; Margarito Graf ; Shoshana Anne ; Talita Laboy ; Shay Garcia ; Shay Dunne ; Rasheed Gallardo ; Ignacio Love ; Catarina Geller ; Kellen Fry ; Sanju Boswell ; Rebel Brown ; Claudio Mast ; Paolo Carranza at [place] ; [facility] Other Interventions: Discharge Summary Assessment (RN) Last Done: 08/24/20 13:48 Supervising Physician Co-Signing Physician Notes I also saw the patient and confirmed alonzo portions of the history and exam. I agree with the impression and plan as noted above. Upon exam today, the patient was without complaints. Tylenol was controlling his pain. Discussed plan for transfer to [facility], which he and family in agreement with - ultimate plan to return home. Resident Activity Tracking Resident Involvement: Resident Care Provided Care Provided: Adult [facility] Medicine
--- NOTE | 2020-08-26 09:12 | Billing Data ---
Date of Service August 22, 2020 Coding Level of Care Code 83852 Subseq Hosp Care Lvl 2
--- NOTE | 2020-08-26 11:33 | Coding Query ---
CODING QUERY To promote full compliance with coding requirements relating to patient care, provider participation is requested in all cases of iron miner blasting uncertainty. Please assist us with the question(s) below: Coding Question(s): 1. There is documentation of left acetabular fracture and fracture of left pubic ramus fracture and the Discharge Summary shows due to mechanical fall in the principle diagnosis area and the Progress Notes beginning on 08/14 through 08/23 document likely osteoporotic fractures as well as in the body of the Discharge Summary. In order to be sure of capturing the correct coding for the fractures, please clarify below, in your clinical opinion regarding the fractures. ( ) Left Acetabular and Pubic Ramus fractures are likely Osteoporotic ( X) Left Acetabular and Pubic Ramus fractures are likely both Osteoporotic and Traumatic ( ) Left Acetabular and Pubic Ramus fractures are likely Traumatic and Not Osteoporotic ( ) Left Acetabular and Pubic Ramus fractures are Other: Please Specify 2. There is documentation on Communication Note on 08/12 of, "Patient appears delirious, trying to get out of bed, angry, agitated. Believes objects do not fall to ground and gravity doesn't exist in the room. Believes the building was "misconstructed" and that building was going to fall. Tried to provide redirection and orientation, unsuccessful. Will give Ativan 0.5mg IV. Will reassess for further medication management. Fall precautions ordered. Currently unsafe to self. 1:1 ordered as needed", and documentation on Progress Note 08/13 of, "This patient had likely toxic encephalopathy last evening or in hospital delirium associate with opiate use. He received Ativan therapy. He was awakening when I saw him late in the morning he was still sedate though he was a directable he said his pain was controlled with straight leg and a remove the opiates from his pain management scheme at this time.". There was no further documentation in the record or on Discharge Summary of likely toxic encephalopathy or in hospital delirium associated with opiate use. Please specify below. ( ) Likely Toxic Encephalopathy or in hospital delirium associated with opiate use ( ) Toxic Encephalopathy is Ruled-Out ( X ) Other: Please Specify: I did not see the patient at this time, although suspect was acute delirium associated with opiate medication - based on review of above. Physician's Response(s): Thank you Marybeth Paul Principal Diagnosis: "that condition established after study, to be chiefly responsible for occasioning the admission of the patient to the hospital for care." Co-Existing Principal Diagnosis: "when two or more diagnoses equally meet the criteria for principal diagnosis as determined by the circumstances of admission, diagnostic work up, and/or therapy provided, and the Alphabetic Index, Tabular List, or another coding guideline does not provide sequencing direction, any one of the diagnoses may be sequenced first." "When the physician has documented what appears to be a current diagnosis in the body of the record, but has not included the diagnosis in the final diagnostic statement, the physician should be asked whether the diagnosis should be added." (Source Coding Clinic 2 QTR90. p3-4) KAILEY
== END 2020-08-24 15:45 | DRG 543 ==
LOC: ED 08:24 → SUATTDRO 12:29 → 2W 12:29